=== PATIENT | female | born 2000 | race Caucasian/White ===

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

== ENCOUNTER 2021-11-25 16:19 | Outpatient (REF) | payer MEDICAID, SELFPAY ==
[2021-11-27 10:51] LABS: COVID-19 RT-PCR UVMMC Result Negative (Negative)
== END 2021-11-25 16:20 | disposition home or self-care (01) ==
LOC: LBN 16:19
PROVIDERS: Visit Provider Physician Assistant Medical
DX: J02.9 Acute pharyngitis, unspecified (principal); Z20.822 Contact with and (suspected) exposure to COVID-19
CPT/HCPCS: U0003; 87070

== ENCOUNTER 2021-12-13 12:30 | Outpatient (REF) | payer MEDICAID, SELFPAY ==
--- NOTE | 2021-12-13 11:30 | SKI_PTH ---
PATIENT: Lottie Gaines LOC: [facility] #:[id number] AGE/SX: 21/F ROOM: RE12/13/[address]: Jessee Talamantes : 2000 BED: DIS: 12/13/2021 SPEC #: [id number] RECD: 12/13/21 16:56 STATUS: AYLEEN REQ #: [id number] MEAGHAN: 12/13/21 11:[address]: Jessee Talamantes DEPT: Surgical Specimen RECD BY: Neris Patel ENTERED: 12/13/21 16:56 SP TYPE: ZULEIMA GIBBS DR: Unknown,Unknown Tissues: 1 - SKIN BIOPSY(SHAVE/PUNCH) Procedures: SKIN LEVEL 4 Comments: [id number]
--- OUTSIDE RECORDS SUMMARY | 2021-12-13 13:01 | XMS_ITS | Clinical Summary ---
:2000 Author Organization [facility] [place] [address] Care Team Providers Name Role Phone Jessee Talamantes MD Primary Care Provider Allergies No known active allergies Medications Medication Sig Dispensed Refills Start Date End Date Status Multiple Urine Tests by Misc.(Non-Drug; 100 strip 6 10/02/2011 Active Strp Combo Route) route. stripsIndications: Use to monitor urine Dysuria pH as instructed by ibuprofen Take 1 tablet by 30 tablet 0 01/21/2013 Ac tive (ADVIL;MOTRIN) 400 mouth every 8 hours. 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 04-20-03 ECHO: A moderately large membra nous VSD is largely occluded by a windsock of membranous septum and tricuspid tissue with the residual defect small, 2.6-3.0 mm diamter with restrictive left-righ t flow with maximum instantaneous pressu re gradient 67 mm Hg. 06-13-04 ECHO: membranous VSD largely occ luded by windsock of membranous septum and tricuspid tissue has small residual defect small <2 mm diameter with restrictive left-right flow with max instantaneous pressure gradient 72-74 mm Hg. 03-12-06 ECHO: Small membranous ventricu lar septal defect, partially occluded by accessory tricuspid valve tissue appears 2-3 mm diameter, with restrictive left -to- right flow with max instantaneous pressure gradient 70mm Hg. 07-09-08 ECHO: Small membranous ventricul ar septal defect appears 2-3 mm diameter with restrictive agnm-tq-nmfhc flow with max instantaneous pressure gradient 81- 82 mm Hg. 11-07-10 ECHO: Small membranous ventricul ar septal defect appears 2 mm diameter with restrictive xmbe-df-lnpdr flow with max instantaneous pressure gradient 89 mm Hg. 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 08/20/2011 Encounters Date Type Specialty Care Team Description 11/29/2021 Transcribe Orders Primary Care Jessee Talamantes MD Atypica l nevus from Last 3 Months Family History Medical History Relation Comments Cataracts Neg Hx Glaucoma Neg Hx Macular Degeneration Neg Hx Retinal Detachment Neg Hx Social History Tobacco Use Types Packs/Day Years Used Date Never Smoker Smokeless Tobacco: Never Used Comments: Mom states smokes Alcohol Use Standard Drinks/Week Comments No 0 (1 standard drink = 0.6 oz pure alcoho l) Sex Assigned at Date Recorded Not on file Last Filed Vital Signs Vital Sign Reading Time Taken Comments Blood Pressure 126/86 06/04/2015 12:49 PM EST Pulse 87 01/21/2013 12:00 PM EDT Temperature 36.9 ??C (98.5 ??F) 03/12/2013 12:49 PM EDT Respiratory Rate 20 01/21/2013 12:00 PM EDT Oxygen Saturation 99% 01/21/2013 12:00 PM EDT Inhaled Oxygen Concentration - - Weight 53.5 kg (118 lb) 06/04/2015 12:49 PM EST Height 153.7 cm (5' 0.5) 06/04/2015 12:49 PM EST Body Mass Index 22.67 06/04/2015 12:49 PM EST Plan of Treatment Upcoming Encounters Date Type Specialty Care Team Description 12/22/2021 Office Visit Plastic Surgery Russ Guevara M D [facility] [address] PLASTIC SURGERY [place], [place] [address] (Wo rk) Health Maintenance Due Date Last Done Comments Covid-19 Vaccine (#1) 2006 HPV vaccine (1 - 2-dose series) 02/23/2012 Chlamydia Screening, female 15-25 02/23/2016 HIV screen 2019 Hepatitis C Screening 2019 Tdap adult 02/23/2020 Tetanus vaccine 02/23/2020 Influenza (Flu) vaccine (1 of 1 - Influenza standard 01/19/2022 series) Insurance Payer Benefit Plan / Subscriber ID Effective Dates Phone Addre ss Type Group [place]ICAID [place] [id number] 2015-Pres [phone] [address] PRIMARY CARE ent [address] [place] [address] PL[place] [phone] Advance Directives Latest Code Status on File Code Status Date Activated Date Inactivated Comments Full Code 01/17/2013 5:00 PM 01/21/2013 4:38 PM Order Status: Initial Order Does patient have decision making capacity? Yes, Order is based on Patients wishes. Full Code 08/18/2011 12:46 PM 08/19/2011 6:57 PM Order Status: Initial Order Does patient have decision making Yes, Order is based on the parent(s) capacity? wishe(s). Care Teams Parking Technician Relationship Specialty Start Date End Date Jessee Talamantes MD PCP - General Family Medicine 11/29/21 [address] [place] [address]
--- OUTSIDE RECORDS SUMMARY | 2021-12-13 13:01 | XMS_ITS | Encounter Summary ---
:2000 Author Organization [facility] [place] [address] Care Team Providers Name Role Phone Miladis Blackmon MD Primary Care Provider Reason for Visit Reason Comments Establish Care Septated Uterus Menorrhagia Endometriosis Consultation (Routine) - Closed Specialty Diagnoses / Procedures Referred By Contact Refer red To Contact Obstetrics and Diagnoses vaginal septum Shanti Chapin MD [facility] Collection Card Clerk 5l Gynecology [address] [place], [place] [id number] [place] [phone] Phone: Fax: Referral ID Status Reason Start Date Expiration Date Visits V isits Requested Authorized [id number] Closed Consult, 04/16/2015 04/15/2016 1 1 [facility] Encounter Details Date Type Department Care Team Description 06/04/2015 Office Visit Obstetrics and Ailyn Kevin, Menorrha naima with irregular cycle; Gynecology at [facility] Chronic pelvic pain in female; [facility] Mul lerian anomaly of uterus Drive DR [place] & [phone] GYNECOLOGY [phone] [place], [place] [address] Social History Tobacco Use Types Packs/Day Years Used Date Never Smoker Smokeless Tobacco: Never Used Comments: Mom states smokes Alcohol Use Standard Drinks/Week Comments No 0 (1 standard drink = 0.6 oz pure alcoho l) Sex Assigned at Date Recorded Not on file documented as of this encounter Last Filed Vital Signs Vital Sign Reading Time Taken Comments Blood Pressure 126/86 06/04/2015 12:49 PM EST Pulse - - Temperature - - Respiratory Rate - - Oxygen Saturation - - Inhaled Oxygen Concentration - - Weight 53.5 kg (118 lb) 06/04/2015 12:49 PM EST Height 153.7 cm (5' 0.5) 06/04/2015 12:49 PM EST Body Mass Index 22.67 06/04/2015 12:49 PM EST Body Mass Index Percentile 80.59 % 06/04/2015 12:[address] Growth Chart: [facility] [place]Girls, 2-20 Years) documented in this encounter Progress Notes Ailyn Kevin MD - 06/06/2015 8:53 AM EST REPRODUCTIVE MEDICINE NEW PATIENT CONSULT NOTE [place], [place] Delmis Rodrigues MD IVF/ART Tumbler Tender MD Noé Galeana MD Judith McBean, MD Elizabeth Todd, ARNP Donna Bedard, program executive secretary [phone] Chief Complaint: 1.) 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 2.) pelvic pain 3.) Irregular Heavy Menses SUBJECTIVE: Ms. Gaines is a 15 y.o. who I am asked to consult on at the request of MILADIS BLACKMON MD for a discussion with regards to mullerian anomaly, chronic pelvic pain and heavy menses. She has a long standing problem with pelvic pain, heavy menses and bladder dysfunction. She has had multiple bladder procures including excision of bladder certification and reimplantation of right ureter. Prior to that she had been seen for hematuria and pain. While being evaluated for her bladder issues. 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 She Reports menarche at around age 10-11. Menses have been irregular and increasingly painful. On her heaviest days she frequently soaks through pads and clothing. She has recently been started on OCP to help manage menses. The pain and length of bleeding has improved somewhat but she continues to have somewhat irregular, long cycles. Bleeding can still be heavy for 1-2 days. She would like to be able to wear tampons and is therefore asking to have her vaginal septum removed. She is not sexually active. She is accompanied today by her mother and aunt. She has an MRI scheduled at 3 pm. Prior surgeries and imaging reviewed. Outpatient Prescriptions Marked as Taking for the 06/04/15 encounter (Office Visit) with Ailyn Kevin MD Medication Sig Dispense Refill ??? norgestimate-ethinyl estradiol (SPRINTEC-28) 0.25-35 mg-mcg Tablet Daily ??? naproxen sodium (ANAPROX) 550 mg Tablet q8h ??? codeine 15 mg Tablet Every 4 hours, as needed ??? ibuprofen (ADVIL;MOTRIN) 400 mg tablet Take 1 tablet by mouth every 8 hours. 30 tablet Past Medical History Diagnosis Date ??? Chronic kidney disease ??? Cataract ??? Didelphic uterus ??? Passive smoker ??? Benign bladder tumor 04/22/2012 ??? VSD (ventricular septal defect) ??? Alopecia areata 04/13/2015 Past Surgical History Procedure Laterality Date ??? Pro exc skin benig 1.1-2cm remaindr body 10/27/2010 EXC BENIGN LES, JUDY 1.1 TO 2.0CM, NECK performed by LINNEA MATA at [facility] GLEN PAIN FREE ??? Unlisted mr procedure 12/13/2010 MRI WITH ANESTHESIA performed by ASHLEE HU at [facility] GLEN PAIN FREE ??? Upper gi endoscopy, exam 08/19/2011 PEDIATRIC UPPER GI ENDOSCOPY performed by CHALINO ENAMORADO at [facility] ENDOSCOPY ??? Pro colonoscopy, diagnostic 08/19/2011 PEDIATRIC COLONOSCOPY performed by CHALINO ENAMORADO at [facility] ENDOSCOPY ??? Pro cystourethroscopy 08/18/2011 CYSTO, CYSTOURETHROSCOPY, DIAGNOSTIC performed by ALIYAH NERI at [facility] MAIN OR ??? Pro cystourethroscopy 09/01/2011 CYSTO, CYSTOURETHROSCOPY, DIAGNOSTIC performed by DENG JENKINS at [facility] OR ??? Pro colposcopy, cervix w/adj vagina 09/01/2011 COLPOSCOPY, VAGINOSCOPY\CERVIX & VAGINA performed by DENG JENKINS at [facility] OR ??? Pro inject indwell cath, ureter x-ray 09/01/2011 INJECTION PROCEDURE, URETEROGRAPHY OR URETEROPYELOGRAPHY THRU URETEROSTOMY OR URETERAL CATH performed by DENG JENKINS at [facility] OR ??? Pro lap, diagnostic abdomen 04/01/2012 LAPAROSCOPY, DIAGNOSTIC, ABDOMEN performed by EMMA WHELAN at [facility] OR ??? Pro cystourethroscopy, biopsies 04/01/2012 CYSTO, URETHROSCOPY WITH BIOPSY performed by DENG JENKINS at [facility] OR ??? Pro colposcopy, entire vagina 04/01/2012 COLPOSCOPY OF VAGINA WITH CERVIX IF PRESENT performed by DENG JENKINS at [facility] OR ??? Pro lap, dx surgical abd w/biopsy 04/01/2012 LAPAROSCOPY,SURGICAL,WITH BIOPSY, SINGLE OR MULTIPLE performed by DENG JENKINS at [facility] OR ??? Pro cystoscopy, insert ureteral stent 04/19/2012 CYSTO, STENT PLACEMENT performed by Deng Jenkins MD at [facility] OR ??? Pro part remv bladder, simple 04/19/2012 @CYSTECTOMY, PARTIAL, SIMPLE performed by Emma Whelan MD at [facility] OR ??? Pro reimplant ureter, single ureter 01/17/2013 @URETERONEOCYSTOSTOMY ANASTOMOSIS OF SINGLE URETER TO BLADDER performed by Felix Pinzon MD at [facility] OR ??? Pro cystoscopy, resect ortho ureterocele 01/17/2013 CYSTOURETHROSCOPY; W\RESECT OR FULGURATION ORTHOTOPIC URETEROCELE(S) performed by Felix Pinzon MD at [facility] OR Review of patient's allergies indicates no known allergies. History Social History ??? Marital Status: Single Spouse Name: N/A Number of Children: N/A ??? Years of Education: N/A Occupational History ??? Not on file. Social History Main Topics ??? Smoking status: Never Smoker ??? Smokeless tobacco: Never Used Comment: Mom states smokes ??? Alcohol Use: No ??? Drug Use: No ??? Sexual Activity: No Other Topics Concern ??? Not on file Social History Narrative Lives at home with her mother. Family History Problem Relation Age of Onset ??? Glaucoma Neg Hx ??? Macular Degeneration Neg Hx ??? Retinal Detachment Neg Hx ??? Cataracts Neg Hx Review of Systems General: Patient feels well; no complaints Allergy: none Respiratory: Patient denies cough, chest pain, dyspnea, wheezing or hemoptysis Cardiovascular: Patient denies chest pain, palpitations, irregular heart beat, murmur, dyspnea, orthopnea and swelling Back: chronic pain Endocrine: denies unexplained wt gain or loss, fatigue, heat or cold intolerance, galactorrhea or changes in hair OBJECTIVE: BP 126/86 mmHg Ht 153.7 cm (5' 0.5) Wt 53.524 kg (118 lb) BMI 22.66 kg/m2 LMP 06/04/2015 General: Well groomed articulate female in no apparent distress, somewhat anxious HEENT: thyroid normal size and shape, no palpable nodularity or tenderness, nor supraclavicular nodes COR: RRR without murmur Respiratory: normal Abdomen: Soft without distension, normal active bowel sounds, soft, nontender, without hepatosplenomegaly, without masses, guarding or rebound tenderness to palpation Review of US/CT and operative notes MRI pending ASSESSMENT: 1.) Mullerian anomly with Duplication of uterus, cervix and vagina 2.) Chronic pelvic pain 3.) Menorrhagia 4.) Multiple Bladder surgeries I had a 45 minute consultation visit with this patient and her family with over 30 minutes spent inface to face consultation, with regards to the nature of her medical illness, the potential treatment options including changing her OCP or using Depo provera to manage menses as well as the potential surgical options for her vaginal septum. The following issues were discussed. -chronic pelvic pain and dysmenorrhea: we discussed the possibility of endometriosis and adhesions Recommend laparoscopy at time of septum excision -DUB-Heavy: Recommended change in OCP to NE progesterone. Consider continuous use or Depoprovera tomanage menses and pain TSh and CBC for evaluation today -Uterine Duplication: very briefly discussed /fertility -vaginal Duplication: discussed excision procedure and importance of MRI information with regard tosurgical planning and possible need for removal of Hypoplastic or obstructed uterine horn We review the options for further evaluation to include: MRI , CBC and TSH. RECOMMENDATIONS: 1.) TSH and CBC today 2.) MRI today 3.) will call next week with results. documented in this encounter Plan of Treatment Upcoming Encounters Date Type Specialty Care Team Description 12/22/2021 Office Visit Plastic Surgery Russ Guevara M D [facility] DR PLASTIC SURGERY [place], [place] [address] (Wo rk) documented as of this encounter Results TSH (06/04/2015 2:21 PM EST) athologist Signature TSH 1.35 0.80 - 4.20 CERNER mcIU/mL MILLENNIUM Specimen Anatomical Collection Method Collection Time Receive d Time (Source) Location / / Volume Laterality Blood specimen 06/04/2015 2:21 PM 016 3:22 (specimen) EST PM EST Resulting Agency Comment Spec In Lab Ailyn Kevin MD CHEMISTRY ORDERABLES Performing Organization Address City/State/[place] [address] CERNER MILLENNIUM documented in this encounter Visit Diagnoses Diagnosis Menorrhagia with irregular cycle Excessive or frequent menstruation Chronic pelvic pain in female Unspecified symptom associated with fema le genital organs Mullerian anomaly of uterus Other anomalies of uterus documented in this encounter Care Teams Cotton Acreage Measurer Relationship Specialty Start Date End Date Miladis Blackmon MD PCP - General 04/12/10 11/28/21 [address] [facility] [address] documented as of this encounter
--- OUTSIDE RECORDS SUMMARY | 2021-12-13 13:01 | XMS_ITS | Encounter Summary ---
:2000 Author Organization [facility] Address [address] [place] [address] Care Team Providers Name Role Phone Unknown, Provider Primary Care Provider Encounter Details Date Type Department Care Team Description 10/14/2020 Lab Requisition [facility] Jessee Talamantes MD Encounter for other Pathology & [address] general examination Laboratory Medicine - [address] [place], [place] [address] [facility] [address] [place], [place] [id number] Social History Tobacco Use Types Packs/Day Years Used Date Never Assessed Sex Assigned at Date Recorded Not on file documented as of this encounter Plan of Treatment Not on filedocumented as of this encounter Procedures Procedure Name Priority Date/Time Associated Diagnosis Comme nts SURGICAL PATHOLOGY Today 10/13/2020 15:25 Encounter for othe r Results for this EDT general examination procedur e are in the results section. documented in this encounter Results SURGICAL PATHOLOGY (10/13/2020 15:25 EDT) Amendment Comment This is an amended report wh ich replaces the original pathology report issued on 10/15/20. This amendment is [facility] DICAL being issued to correct the patient's date of which was inadvertently entered incorrectly. There is no change to the diagnosis. [facility] Final Diagnosis A. SKIN OF NECK, LEFT, SHAVE BIOPSY: U MEDICAL - Predominantly intradermal compound nevus. [facility] Attestation By the signature [facility] Amendment below, the attending CENTER electro nically physician certifies LABORATORY signed zeeshan Baron, that they have 1) SERVICES Simona Griffin MD on personally conducted 10/16/19 21 at 1241 a gross and/or Electronicall y microscopic signed by Jose Ramon gandhi, examination of the Gaby Reynoso on described 10/15/2020 at 09 04 specimen(s), and/or personally interpreted the results of laboratory testing of the described specimen(s), and 2) personally rendered or confirmed the above diagnosis. Clinical History Nevus L neck; color [facility] LABORATORY SERVICES Gross Description A. [facility] Received in formalin corbin d with proper patient identification (initials F, H) and mole L neck is a portion of isaacs-brown bosselated granular skin (0.9 x 0.6 x 0.4 cm). The margin is inked blue. The CENTER tissue is trisected and entirely submitted in A1. LABORATORY SERVICES SHERRY NORMAN(ASC) 10/14/2020 16:17 Performing Lab [facility] Scanned Images [facility] Specimen Tissue - Skin (tissue) specimen (specime n) Performing Organization Address City/State/ZIP Code Phon e Number [facility] [address] [place] [address] SERVICES documented in this encounter Visit Diagnoses Diagnosis Encounter for other general examination documented in this encounter Care Teams Slubber Tender Relationship Specialty Start Date End Date Unknown, Provider, PCP - General 09/16/15 documented as of this encounter
--- OUTSIDE RECORDS SUMMARY | 2021-12-13 13:01 | XMS_ITS | Encounter Summary ---
:2000 Author Organization [facility] [place] [address] Care Team Providers Name Role Phone Miladis Blackmon MD Primary Care Provider Reason for Visit Reason Comments Alopecia Skin Lesion Encounter Details Date Type Department Care Team Description 04/13/2015 [facility] skin; [facility] Alopecia areata; [address] Other [place] [address] [place] [address] RD-DERMATOLOGY [place] [address] Social History Tobacco Use Types Packs/Day Years Used Date Never Smoker Smokeless Tobacco: Never Used Comments: Mom states smokes Alcohol Use Standard Drinks/Week Comments No 0 (1 standard drink = 0.6 oz pure alcoho l) Sex Assigned at Date Recorded Not on file documented as of this encounter Patient Instructions Patient InstructionsMeet Jhaveri - 04/13/2015 9:07 AM EST Plan for Lottie: -Apply Clobetasol 0.05% solution to affected areas of scalp. documented in this encounter Progress Notes Nona Viveros LPN - 04/13/2015 8:17 AM EST DERMATOLOGY NEW PATIENT CLINIC NOTE Date of service: 04/13/2015 Lottie Gaines : 2000 Provider: Jennie Lemus MD PROBLEM: alopecia HPI Ms. Gaines is a 15 y.o. year old female . New patient; self-referred.Here today with her mom (leonie) for several small lesions on her scalp and a quarter sized area on her right side of her scalp withhair loss. This spot started within the last 6 months and has slowly gotten larger. She is also concerned with several brown papules that she would like to discuss removing. ADR: Review of patient's allergies indicates no known allergies. MEDS: Current Outpatient Prescriptions on File Prior to Visit Medication Sig Dispense Refill ??? doxazosin (CARDURA) 1 mg tablet Take 0.5 tablets by mouth nightly. 60 tablet 6 ??? ibuprofen (ADVIL;MOTRIN) 400 mg tablet Take 1 tablet by mouth every 8 hours. 30 tablet ??? oxybutynin (DITROPAN) 5 mg tablet Take 1 tablet by mouth 3 times daily. 180 tablet 3 ??? nitrofurantoin, macrocrystal-monohydrate, (MACROBID) 100 mg capsule Take 1 capsule by mouth daily. Only after you finish augmentin 90 tablet 0 ??? senna-docusate (PERICOLACE) 8.6-50 mg per tablet Take 2 tablets by mouth 2 times daily. 60 tablet 11 ??? Multiple Urine Tests Strp strips by [facility]Non-Drug; Combo Route) route. Use to monitor urine pH as instructed by 100 strip 6 No current facility-administered medications on file prior to visit. ROS General: feeling well Skin: denies other skin complaints EXAM General: NAD, pleasant, cooperative Skin: A focused exam of the scalp and neck was performed. Significant skin findings: A. Right temporal scalp x1, vertex of scalp x1: round spots of alopecia B. Right neck: 1.0 cm dark brown plaque [Specimen A] C. Left scalp: 1.2 cm pink brown plaque [Specimen B] D. Left anterior scalp: triangular alopecia ASSESSMENT/PLAN: A. Alopecia areata - Some regrowth - Start: RX Clobetasol 0.05% solution B. Nevus r/o atypia - Frequently traumatized Procedure: Skin biopsy by shave technique Location: Right neck [Specimen A] Discussed indications for procedure and expectations including risks and benefits. Verbal consent obtained. Skin prep with alcohol. Local anesthesia with 1% xylocaine, 1/100,000 epinephrine, 0.1 mEq/mLbicarbonate. A sample of the lesion was removed by shave technique to the level of the dermis and submitted to Pathology. Hemostasis obtained (AlCl and/or electrocautery). There were no complications; the pt. tolerated the procedure well. The wound was dressed. Post-procedure expectations, wound care and activity restrictions were reviewed. Follow-up based on pathology results. C. Nevus r/o atypia - Frequently traumatized Procedure: Skin biopsy by shave technique Location: Left scalp [Specimen B] Discussed indications for procedure and expectations including risks and benefits. Verbal consent obtained. Skin prep with alcohol. Local anesthesia with 1% xylocaine, 1/100,000 epinephrine, 0.1 mEq/mLbicarbonate. A sample of the lesion was removed by shave technique to the level of the dermis and submitted to Pathology. Hemostasis obtained (AlCl and/or electrocautery). There were no complications; the pt. tolerated the procedure well. The wound was dressed. Post-procedure expectations, wound care and activity restrictions were reviewed. Follow-up based on pathology results. D. Triangular alopecia - Patient reassured. RTC: will call in 6 weeks if no improvement I am documenting this encounter acting as the scribe for and in the presence of Dr. Lemus. AMANDA Bee I performed the above scribed service and agree with the accuracy of the documentation in this encounter. Jennie Lemus MD Section of Dermatology [facility] documented in this encounter Plan of Treatment Upcoming Encounters Date Type Specialty Care Team Description 12/22/2021 Office Visit Plastic Surgery Russ Guevara M D [facility] PLASTIC SURGERY [place], [place] [address] (Wo rk) documented as of this encounter Procedures Procedure Name Priority Date/Time Associated Diagnosis Comme nts SPECIMEN TO Routine 04/13/2015 9:22 AM Neoplasm of Results f or this PATHOLOGY (NON-OR) EST uncertain behavior pro cedure are in of skin the results section. SURGICAL PATHOLOGY Routine 04/13/2015 9:22 AM Res ults for this REPORT EST procedure are i n the results section. documented in this encounter Results Surgical Pathology Report (04/13/2015 9:22 AM EST) [facility] Method Time Signature Surgical The signing pathologist has (i) examined the relevant preparation(s) for the [facility] Pathology specimen(s) and (ii) rendered or confirmed the diagnosis(e s). [facility] Report Accession Number: [id number] ? Location: M . ?Surgic al Pathology DIAGNOSIS A - Skin, right neck, shave biopsy: - COMPOUND MELANOCYTIC NEVUS WITH CONGENITAL FEATURES, extending to the deep specimen edge B - Skin, left scalp, shave biopsy: - COMPOUND MELANOCYTIC NEVUS WITH CONGENITAL FEATURES, traumatized, transected, see Discussion. CR-0 04/14/15 [facility] 04/16/15 Verified by: ? Irving Hwang MD ?Dermatopathologist, Bone & Soft Tissue Pathologist ?(Electronic Signature ) The attending pathologist whose signature appears on this re port has reviewed all diagnostic slides and has edited the gross and/ or microscopic portion of the report in andrei dering the final pathologic diagnosis. DISCUSSION B - This lesion has features frequently seen at the scalp of young individuals. CLINICAL INFORMATION Specimen Submitted: A - Skin,right neck, shave biopsy (1) B - Skin, left scalp, shave biopsy (1) Clinical History: A - 1 cm dark brown plaque B - 1.2 cm pink brown plaque Clinical Diagnosis: A - Nevus, rule out atypia B - Nevus, rule out atypia, frequently traumatized SPECIMEN PROCESSING A - Labeled/Fixative: A-neck (right), formalin. Quantity/Size: Single, 0.9 x 0.8 x 0.3 cm. Tissue Description: Shave of a rubbery, granular isaacs-brown p apule. Sections/Processing: Inked and trisected. (T1) B - Labeled/Fixative: B-scalp (left), formalin. Quantity/Size: Single, 0.9 x 0.8 x 0.1 cm. Tissue Description: Irregular shave of isaacs-white hair-bearin g skin. Sections/Processing: Inked and quadrisected. (T1) ??ejr Specimen (Source) Anatomical Collection Method Collection Time Re ceived Time Location / / Volume Laterality 04/13/2015 9:22 AM EST Jennie Lemus MD PATHOLOGY/CYTOLOGY ORDERABLE S Performing Organization Address City/State/[place] [address] [facility] Specimen to Pathology (NON-OR) (04/13/2015 9:22 AM EST) Specimen Anatomical Collection Method Collection Time Receive d Time (Source) Location / / Volume Laterality AP Specimen 04/13/2015 9:22 AM 5 1:03 EST PM EST Narrative CERNER MILLENNIUM - 04/13/2015 1:[address] Specimen requisition ordered. ??Separate Pathology report to follow Resulting Agency Comment Spec In Lab Jennie Lemus MD PATHOLOGY/CYTOLOGY ORDERABLE S Performing Organization Address City/State/[place] [address] [employer] documented in this encounter Visit Diagnoses Diagnosis Neoplasm of uncertain behavior of skin Alopecia areata Other alopecia areata documented in this encounter Care Teams Music Leader Relationship Specialty Start Date End Date Miladis Blackmon MD PCP - General 04/12/10 11/28/21 [address] [place] [address] documented as of this encounter
--- OUTSIDE RECORDS SUMMARY | 2021-12-13 13:01 | XMS_ITS | Encounter Summary ---
:2000 Author Organization [facility] [place] [address] Care Team Providers Name Role Phone Miladis Blackmon MD Primary Care Provider Encounter Details Date Type Department Care Team Description 06/04/2015 [facility] Menorrhagia [place] [id number] Social History Tobacco Use Types Packs/Day Years Used Date Never Smoker Smokeless Tobacco: Never Used Comments: Mom states smokes Alcohol Use Standard Drinks/Week Comments No 0 (1 standard drink = 0.6 oz pure alcoho l) Sex Assigned at Date Recorded Not on file documented as of this encounter Plan of Treatment Upcoming Encounters Date Type Specialty Care Team Description 12/22/2021 Office Visit Plastic Surgery Russ Guevara M D [facility] PLASTIC SURGERY [place], [place] [address] (Wo rk) documented as of this encounter Procedures Procedure Name Priority Date/Time Associated Diagnosis Comme nts HEMOGRAM Routine 06/04/2015 2:21 PM Menorrhagia with Resul ts for this EST irregular cycle procedure ar e in the results section. DIFFERENTIAL, Routine 06/04/2015 2:21 PM Menorrhagia with Resu lts for this AUTOMATED EST irregular cycle procedure ar e in the results section. CBC (WITH DIFF) Routine 06/04/2015 2:21 PM Menorrhagia with EST irregular cycle TSH Routine 06/04/2015 2:21 PM Menorrhagia with Resul ts for this EST irregular cycle procedure ar e in the results section. BASIC METABOLIC Routine 06/04/2015 2:21 PM Duplicated Result s for this PANEL (NON-FASTING) EST collecting system pro cedure are in the results section. documented in this encounter Results Differential, Automated (06/04/2015 2:21 PM EST) athologist Signature Neutrophils % 69.1 % CERNER MILLENNIUM Neutr Abs (ANC) 6.58 1.50 - CERNER 8.00 MILLENNIUM x10(3)/mcL Lymphocytes % 21.7 % CERNER MILLENNIUM Lymphocytes Abs 2.1 1.2 - 5.2 CERNER x10(3)/mcL MILLENNIUM Monocytes % 4.6 % CERNER MILLENNIUM Monocyte Abs 0.4 0.2 - 1.0 CERNER x10(3)/mcL MILLENNIUM Eosinophils % 4.2 % CERNER MILLENNIUM Eosinophils Abs 0.4 0.0 - 0.5 CERNER x10(3)/mcL MILLENNIUM Basophils % 0.2 % CERNER MILLENNIUM Basophils Abs 0.0 0.0 - 0.2 CERNER x10(3)/mcL MILLENNIUM Immature Gran % 0.20 % CERNER MILLENNIUM Comment: Immature granulocytes(IG's)percentage an d absolute count will include metamyelocytes, myelocytes, and promyelo cytes. Blood smears from CBCs yielding IG's will be scanned manually for concor dance. If this scan disagrees with the automated IG or if promyelocytes are not ed, a manual differential will be performed. Conchita Gran Abs 0.02 0.00 - 0.05 x10(3)/mcL CER NER MILLENNIUM Specimen Anatomical Collection Method Collection Time Receive d Time (Source) Location / / Volume Laterality Blood specimen 06/04/2015 2:21 PM 016 3:22 (specimen) EST PM EST Resulting Agency Comment Spec In Lab Ailyn Kevin MD HEMATOLOGY ORDERABLES Performing Organization Address City/State/[place] [address] CERNER MILLENNIUM Hemogram (06/04/2015 2:21 PM EST) athologist Signature WBC 9.5 4.5 - 13.0 CERNER x10(3)/mcL [facility] RBC 4.66 4.10 - 5.10 CERNER x10(6)/mcL [facility] Hemoglobin 13.3 12.0 - 16.0 CERNER gm/dL [facility] Hematocrit 38.5 36.0 - 46.0 CERNER % [facility] MCV 82.6 76.0 - 98.0 CERNER fL [facility] MCH 28.5 25.0 - 35.0 CERNER pg [facility] MCHC 34.5 32.0 - 36.5 CERNER gm/dL [facility] Platelets 240 145 - 370 CERNER x10(3)/mcL MILLENNIUM RDWSD 40.5 35.0 - 46.0 CERNER fL [facility] RDWCV 13.5 10.9 - 14.4 CERNER % [facility] MPV 10.3 9.0 - 12.0 CERNER fL [facility] Specimen Anatomical Collection Method Collection Time Receive d Time (Source) Location / / Volume Laterality Blood specimen 06/04/2015 2:21 PM 016 3:22 (specimen) EST PM EST Resulting Agency Comment Spec In Lab Ailyn Kevin MD HEMATOLOGY ORDERABLES Performing Organization Address City/[facility]/ZIP Code Phon e Number [address] [facility] TSH (06/04/2015 2:21 PM EST) athologist [facility] TSH 1.35 0.80 - 4.20 CERNER mcIU/mL [facility] Specimen Anatomical Collection Method Collection Time Receive d Time (Source) Location / / Volume Laterality Blood specimen 06/04/2015 2:21 PM 016 3:22 (specimen) EST PM EST Resulting Agency Comment Spec In Lab Ailyn Kevin MD CHEMISTRY ORDERABLES Performing Organization Address City/[facility] Code Phon e Number [address] [facility] Basic Metabolic Panel (non-fasting) (06/04/2015 2:21 PM EST) athologist [facility] Glucose Lvl 84 65 - 199 CERNER mg/dL MILLENNIUM Comment: Diabetes: >=200 mg/dL plus symp toms BUN 11 10 - 20 mg/dL CERNER MILLENNIU M Creatinine 0.69 0.20 - 0.70 mg/dL CERNER MILL ENNIUM Comment: Please note that the pediatric reference intervals supplied above were not validated at [facility]. Results from pediatri c patients should be interpreted in conjunction to the patient's age, height and muscle mass. Sodium 143 135 - 145 mmol/L CERNER KAIN NIUM Potassium 4.1 3.5 - 5.0 mmol/L CERNER KAIN NIUM Comment: Please note: ??Patients with WBC >100,00 0 may have falsely elevated Potassium levels. ??For accurate Potassium quantif ication in these patients send serum separator tube (gold top) for subsequent determinations. ??Contact the Clinical Chemistry Laboratory if there are any qu estions. Chloride 104 98 - 107 mmol/L CERNER MILLENN IUM CO2 25 22 - 31 mmol/L CERNER MILLENNI UM Anion Gap 14 5 - 15 mmol/L CERNER MILLENNIU M Calcium 9.4 8.5 - 10.5 mg/dL CERNER KAIN NIUM Estimated GFR See note >=60 CERNER MILLENNIU M Comment: Calculated GFR not appropriate for patie nts less than 18 years of age. This estimated GFR (eGFR) value was calc ulated using the MDRD equation which has been validated on patients between t he ages of 18 and 70. The MDRD should not be used to assess kidney function in patients < 18 years of age or in patients with extremes of body mass, or in patients with acute kidney failure. This value should be multiplied by 1.2 f or patients. For further information please copy and past e the following links into your internet browser. 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
--- OUTSIDE RECORDS SUMMARY | 2021-12-13 13:01 | XMS_ITS | Encounter Summary ---
:2000 Author Organization [facility] Address [address] [place] [address] Care Team Providers Name Role Phone Miladis Blackmon MD Primary Care Provider Unknown, Provider Primary Care Provider Encounter Details Date Type Department Care Team Description 09/14/2004 Hospital Encounter [facility] - Symone Chinchilla, Pari MD [address] [facility] [address] [place], [place] [id number] [place] [address] [place] [address] (Wo rk) Social History Tobacco Use Types Packs/Day Years Used Date Never Assessed Sex Assigned at Date Recorded Not on file documented as of this encounter Plan of Treatment Not on filedocumented as of this encounter Visit Diagnoses Not on filedocumented in this encounter Care Teams High School Combination Teacher Relationship Specialty Start Date End Date Miladis Blackmon MD PCP - General 03/25/15 09/15/[address] [place] [phone] Unknown, Provider, PCP - General 09/16/15 documented as of this encounter
--- OUTSIDE RECORDS SUMMARY | 2021-12-13 13:01 | XMS_ITS | Encounter Summary ---
:[address] [facility] Address [address] [place] [address] Care Team Providers Name Role Phone Unavailable Primary Care Provider Unavailable Encounter Details Date Type Department Care Team Description 09/13/2004 Results Only [facility] Satya Garcia MD Pediatric Genetics - [address] [place] [phone] (Wo rk) Social History Tobacco Use Types Packs/Day Years Used Date Never Assessed Sex Assigned at Date Recorded Not on file documented as of this encounter Plan of Treatment Not on filedocumented as of this encounter Procedures Procedure Name Priority Date/Time Associated Diagnosis Comme nts CYTOGENETICS Routine 09/13/2004 0:00 EDT Results for this procedure are i n the results section . documented in this encounter Results CYTOGENETICS (09/13/2004 0:00 EDT) Pathology Report: CYTOGENETICS REPORT [facility] Reports generated via electronic interface contain lalo ginal data; however they are lacking the format of the original re port. Caution should be taken when reading/interpreting unfo rmatted reports. Name: ? LOTTIE GAINES ? Accession #: ? [id number] : ? 2000 (Age: 4) ??F ?Collect Date: ? 0410/2004 Location: ? [facility] ? Receive Date : ? 09/14/2004 Provider: ? WARREN GARCIA MD Copy to: ?VERONICA QUESADA MD ? INTERPRETATION: ? Normal female karyoty pe ??No deletion or duplication of the 22q11.2 region by FISH. ? Document reviewed and electronically signed by: ? VERONICA QUESADA MD ? Report Date: ??10/10/2004 17:05 CLINICAL HISTORY: ? VSD, speech delay ?clinical diagnosis code: ??759.7, 315.5 SPECIMEN: ? Peripheral Blood ?? TEST PERFORMED: ? G-banded Karyotype and FISH with Vysis pr obe kit to detect the 22q11.2 region associated with DiGeorge/VCFS ?? REPORT: ? No. Cells Counted: ??23 No. Cells Analyzed: ??13 No. Cells Karyotyped: ??8 Band Resolution: ??600 ?No. Cells Evaluated by FISH: ? Metaphase: 10 ?Interphase: 100 ?? KARYOTYPE: ? 46,XX.ke 22q11(TUPLE 1x2) ?? COMMENT: ?This test was devfuad loped and its performance characteristics determined by [facility] as required by the CLIA' 88 regulations. ??It has not been cleared or approved for specific uses by the [place] F DA. ??The FDA has determined that such clearance or approval is not necessary. ??This test is used for clinical purposes. ??It should not be regarded as investigational or research. ??Pursuant to the requirements of CLIA' 88, this laboratory has established and verified the test' s accuracy and precision. ?? End of Report Specimen Performing Organization Address City/State/ZIP Code Phon e Number [facility] [address] [place] [address] SERVICES [facility] [address] [place] [phone] documented in this encounter Visit Diagnoses Not on filedocumented in this encounter
--- OUTSIDE RECORDS SUMMARY | 2021-12-13 13:01 | XMS_ITS | Encounter Summary ---
:2000 Author Organization [facility] [place] [address] Care Team Providers Name Role Phone Miladis Blackmon MD Primary Care Provider Encounter Details Date Type Department Care Team Description 12/19/2013 Telephone Pediatric Urology at [facility] [place] [place] [phone] Social History Tobacco Use Types Packs/Day Years Used Date Never Smoker Smokeless Tobacco: Never Used Comments: Mom states smokes Alcohol Use Standard Drinks/Week Comments No 0 (1 standard drink = 0.6 oz pure alcoho l) Sex Assigned at Date Recorded Not on file documented as of this encounter Miscellaneous Notes Telephone Encounter - Angeles De Santiago - 12/19/2013 9:48 AM EDT Tried to l/m for family to call and schedule Oct reminder f/u appt w/ [facility]. Mailbox was full and hungup on me/couldn't l/m. Will send a reminder letter out to family instead. Needs f/u w/ [facility] w/ [facility] prior. Try to book appt before 03/12 as U/S will after that date and a new order will need to be placed. documented in this encounter Plan of Treatment Upcoming Encounters Date Type Specialty Care Team Description 12/22/2021 Office Visit Plastic Surgery Russ Guevara M D [facility] PLASTIC SURG[place], [place] [address] (Wo rk) documented as of this encounter Visit Diagnoses Not on filedocumented in this encounter Care Teams Compositor Apprentice Relationship Specialty Start Date End Date Miladis Blackmon MD PCP - General 04/12/10 11/28/21 [address] [place] [address] documented as of this encounter
--- OUTSIDE RECORDS SUMMARY | 2021-12-13 13:01 | XMS_ITS | Encounter Summary ---
:[address] [facility] Address [address] [place] [address] Care Team Providers Name Role Phone Unknown, Provider Primary Care Provider Encounter Details Date Type Department Care Team Description 11/26/2021 Lab Requisition [facility] Outr Resulting Lab, Pathology & Laboratory Provider [facility] [address] [place], [place] [address] Social History Tobacco Use Types Packs/Day Years Used Date Never Assessed Sex Assigned at Date Recorded Not on file documented as of this encounter Plan of Treatment Not on filedocumented as of this encounter Procedures Procedure Name Priority Date/Time Associated Diagnosis Comme nts COVID[facility]19 [facility] Today 11/25/2021 16:00 LAB PCR EDT COVID-19 TESTING Routine 11/25/2021 16:00 Results for this EDT procedure are i n the results section. documented in this encounter Results COVID-19 TEST [facility] PCR (11/25/2021 16:00 EDT) Specimen Swab Performing Organization Address City/State/ZIP Code Phon e Number [facility] [address] [place] [address] SERVICES COVID-19 TESTING (11/25/2021 16:00 EDT) COVID-19 rt-PCR Negative Negative [facility] Result Comment: [facility] This test has not been FDA c leared or approved. This test has been authorized by FDA under an EUA for use by authorized laboratories. This test has been authorized only for detection of nucleic acid fro SERVICES m 2018-nCo, not for any oth er viruses or pathogens. This test is only authorized for the duration of the declaration that circumstances exist justifying the authorization of emergency use of in vitro d iagnostic tests for detectio n and/or diagnosis of 2019-nCoV under section 564(b)(1) of Act, 21 U.S.C ?? 360bbb-3(b) (1), unless the authorization is terminated or revoked sooner. Negative results do not prec lude 2019-nCoV infection and should not be used as the sole basis for treatment or other patient management decisions. Negative results must be combined with clinical observa tions, patient history, and epidemiological informatio n. Testing was performed using the alicia SARS-CoV-2 assay ([employer] on the Alicia 6800 System Performing Lab Alicia 68[address] [facility] SERVICES Specimen Swab Performing Organization Address City/State/ZIP Code Phon e Number [facility] [address] [place] [address] SERVICES documented in this encounter Visit Diagnoses Not on filedocumented in this encounter Care Teams Stem Cutter Relationship Specialty Start Date End Date Unknown, Provider, PCP - General 09/16/15 documented as of this encounter
--- OUTSIDE RECORDS SUMMARY | 2021-12-13 13:01 | XMS_ITS | Clinical Summary ---
:2001 Author Organization [facility] Address [address] [place] [address] Care Team Providers Name Role Phone Unknown, Provider Primary Care Provider Encounters Date Type Specialty Care Team Description 11/26/2021 Lab Requisition Clinical Laboratory Outr Resulting Lab , Provider from Last 3 Months Social History Tobacco Use Types Packs/Day Years Used Date Never Assessed Sex Assigned at Date Recorded Not on file Plan of Treatment Health Maintenance Due Date Last Done Comments Social Determinants Of Health (SDOH) 2001 HPV Vaccines (1 - 2-dose series) 02/23/2012 Behavioral Health Screen 2013 Chlamydia Screening 2017 HIV Screening 2017 Advance Directive 2019 Lipid Profile Screening (Cholesterol) 18 To 21 2019 Preventive Care Visit 2019 Pertussis (Adult) Immunization 02/23/2020 Tetanus (Adult) Immunization 02/23/2020 Influenza Immunization (Adult) (Season Ended) 2021 Procedures Procedure Name Priority Date/Time Associated Diagnosis Comme nts COVID-19 TEST [facility] Today 11/25/2021 16:00 LAB PCR EDT COVID-19 TESTING Routine 11/25/2021 16:00 Results for this EDT procedure are i n the results section. from Last 3 Months Results COVID-19 TEST [facility] PCR (11/25/2021 16:00 EDT) Specimen Swab Performing Organization Address City/State/ZIP Code Phon e Number [facility] [address] [place] [address] SERVICES COVID-19 TESTING (11/25/2021 16:00 EDT) COVID-19 rt-PCR Negative Negative [facility] Result Comment: [facility] This test has not been FDA c leared or approved. This test has been authorized by FDA under an EUA for use by authorized laboratories. This test has been authorized only for detection of nucleic acid fro SERVICES m 2019-nCoV, not for any oth er viruses or [...] was performed using the alicia SARS-CoV-2 assay ([employer] on the Alicia 6800 System Performing Lab Alicia [address] [facility] Lab [facility] SERVICES Specimen Swab Performing Organization Address City/State/ZIP Code Phon e Number [facility] [address] [place] [address] SERVICES from Last 3 Months Insurance Payer Benefit Plan / Subscriber ID Effective Phone Address T ype Group Dates [place]ICAID [id number] 2020-Pres [address] [facility] [id number] Lottie Gaines Personal/Family Self [address] (Home) [place] [address] Lottie Gaines Personal/Family Self [address] (Home) [place] [address] Lottie Gaines Personal/Family Self [address] (Home) [place] [address] Lottie Gaines Personal/Family Self [address] (Home) [place] [address] Care Teams Osteopathic Neurologist Relationship Specialty Start Date End Date Unknown, Provider, PCP - General 09/16/15
--- OUTSIDE RECORDS SUMMARY | 2021-12-13 13:01 | XMS_ITS | Encounter Summary ---
:2001 Author Organization [facility] [place] [address] Care Team Providers Name Role Phone Miladis Blackmon MD Primary Care Provider Reason for Referral Diagnostic Test (Routine) - Closed Specialty Diagnoses / Procedures Referred By Contact Refer red To Contact Radiology Diagnoses Mullerian anomaly of uterus Veena Hansen APRN [facility] Rad Mri Procedures MRI Pelvis WO Contrast MRI Pelvis With/WO Contrast [facility] [place] [address] [place] [address] Referral ID Status Reason Start Date Expiration Date Visits V isits Requested Authorized [id number] Closed Specialty 06/03/2015 06/02/2016 1 1 Service Requested Encounter Details Date Type Department Care Team Description 05/20/2015 Orders Only Obstetrics and Veena Hansen Mulleri an anomaly of Gynecology at [facility] ENTRY LEVEL ASSISTANT MANAGER uterus [facility] [address] [place], [place] VASCULAR SURGERY [address] [place] [address] [phone] (Wo rk) Social History Tobacco Use Types [...] Visit Plastic Surgery Russ Guevara M D [facility] PLASTIC SURGERY [place], [place] [address] (Wo rk) documented as of this encounter Results MRI Pelvis WO Contrast (06/04/2015 4:34 PM EST) Anatomical Region Laterality Modality Pelvis Magnetic Resonance Specimen (Source) Anatomical Location Collection Method / Collectio n Time Received Time / Laterality Volume Impressions 06/05/2015 3:35 PM EST IMPRESSION: 1. 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 Correlate with physical exam. 2. 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 ?? 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 FINDINGS: Uterus: There are 2 endometrial cavities , 2 cervices and there appears to be a least partially septated or duplicated v agina. The horns of the uterus are widely splayed. The myometrium and endom etrial cavities are otherwise unremarkable. Ovaries: The right ovary measures 2.3 x 1.4 cm. The left ovary measures 3.2 x 2.0 cm. Both ovaries have normal appeari ng follicles. No pelvic free fluid is present. No osse ous abnormalities are identified. On the coronal images, there is mild hyd ronephrosis involving the upper pole of the right kidney as seen on prior ultras ounds. Procedure Note Simona Royal MD - 06/05/2015 EXAMINATION: MRI PELVIS WO CONTRAST CLINICAL HISTORY: uterine didelphys efren erian anomaly, needs mullerian protocol, evaluate uterus, ureters COMPARISON: Ultrasound from 11/17/2008 TECHNIQUE: Noncontrast MRI of the pelvis was performed using female pelvis protocol. FINDINGS: Uterus: There are 2 endometrial cavities , 2 cervices and there appears to be a least partially septated or duplicated v agina. The horns of the uterus are widely splayed. The myometrium and endom etrial cavities are otherwise unremarkable. Ovaries: The right ovary measures 2.3 x 1.4 cm. The left ovary measures 3.2 x 2.0 cm. Both ovaries have normal appeari ng follicles. No pelvic free fluid is present. No osse ous abnormalities are identified. On the coronal images, there is mild hyd ronephrosis involving the upper pole of the right kidney as seen on prior ultras ounds. IMPRESSION IMPRESSION: 1. 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 Correlate with physical exam. 2. 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 I have personally reviewed the image(s) and the residents interpretation and agree with the findings, Simona Royal at 3:35 PM Avril Washington MD IMG MRI ORDERABLES documented in this encounter Visit Diagnoses Diagnosis Mullerian anomaly of uterus Other anomalies of uterus Mullerian anomaly of uterus Other anomalies of uterus documented in this encounter Care Teams Baker Pie Relationship Specialty Start Date End Date Miladis Blackmon MD PCP - General 04/12/10 11/28/21 [address] [place] [address] documented as of this encounter
--- OUTSIDE RECORDS SUMMARY | 2021-12-13 13:01 | XMS_ITS | Encounter Summary ---
:2001 Author Organization [facility] [place] [address] Care Team Providers Name Role Phone Miladis Blackmon MD Primary Care Provider Encounter Details Date Type Department Care Team Description 06/20/2013 Telephone Pediatric Urology at [facility] [place] [address] Social History Tobacco Use Types Packs/Day Years Used Date Never Smoker Smokeless Tobacco: Never Used Comments: Mom states smokes Alcohol Use Standard Drinks/Week Comments No 0 (1 standard drink = 0.6 oz pure alcoho l) Sex Assigned at Date Recorded Not on file documented as of this encounter Miscellaneous Notes Telephone Encounter - Angeles De Santiago - 06/20/2013 4:28 PM EST Mom called to schedule a missed f/u appt from Mar. Notes say BP CHECK. Spoke w/ Dr. Pinzon today and he said it was ok to have that done at the PCP along w/ the UA/UC and would like to see her back in 1yr from last visit w/ U/S. (Feb of this year, 2013) Mom is going to have her go to PCP on Sunday for the studies requested and I'm putting in an February reminder in the system. documented in this encounter Plan of Treatment Upcoming Encounters Date Type Specialty Care Team Description 12/22/2021 Office Visit Plastic Surgery Russ Guevara M D [facility] PLASTIC SURGERY [place], [place] [address] (Wo rk) documented as of this encounter Visit Diagnoses Not on filedocumented in this encounter Care Teams Elementary Educator Relationship Specialty Start Date End Date Miladis Blackmon MD PCP - General 04/12/10 11/28/21 [address] [place] [address] documented as of this encounter
--- OUTSIDE RECORDS SUMMARY | 2021-12-13 13:01 | XMS_ITS | Encounter Summary ---
:2001 Author Organization [facility] Address [address] [place] [address] Care Team Providers Name Role Phone Unknown, Provider Primary Care Provider Encounter Details Date Type Department Care Team Description 11/02/2020 Lab Requisition [facility] Jessee Tlaamantes MD Encounter for other Pathology & [address] general examination Laboratory Medicine - [address] [place], [place] [address] [facility] [address] [place], [place] [address] Social History Tobacco Use Types Packs/Day Years Used Date Never Assessed Sex Assigned at Date Recorded Not on file documented as of this encounter Plan of Treatment Not on filedocumented as of this encounter Procedures Procedure Name Priority Date/Time Associated Diagnosis Comme nts SURGICAL PATHOLOGY Today 11/01/2020 17:00 Encounter for othe r Results for this EDT general examination procedur e are in the results section. documented in this encounter Results SURGICAL PATHOLOGY (11/01/2020 17:00 EDT) Final Diagnosis A. SKIN OF STERNUM, EXCISION: [facility] - Melanocytic nevus, compound type. CENTE R - Margins negative for melanocytic nevus. LABORATORY SERVICES Attestation By the signature [facility] Electronica lly below, the attending CENTER signed by [place] physician certifies LABORATORY Constance Cordon MD on that they have 1) SERVICES 11/03/2020 at 1137 personally conducted a gross and/or microscopic examination of the described specimen(s), and/or personally interpreted the results of laboratory testing of the described specimen(s), and 2) personally rendered or confirmed the above diagnosis. Microscopic Sections are of a [facility] Description pedunculated papule. CENTER The epidermis is LABORATORY hyperplastic with SERVICES accentuation of the rete architecture and formation of horn pseudocysts. The papule is formed by a circumscribed and symmetric compound proliferation of melanocytes. The junctional component consists primarily of nests. The nests are generally small but vary to a mild degree in shape. The melanocytes are slightly enlarged but have relatively uniform round-oval nuclei and a moderate amount of cytoplasm containing melanin pigment. The dermal component consists of nests, cords, and strands of similar melanocytes showing mix technician maturation with descent. Clinical History Mole excision sternum [facility]ORATORY SERVICES Gross Description [facility]. [facility] Received in formalin corbin d with proper patient identification (initials F, H) and mole excision-sternum is a nonoriented elliptical skin, 1.8 x 0.8 cm and excised to depth of 0.3 cm. The central sk CENTER in surface shows a dusky bro wn nodule, 1.0 x 1.0 x 0.6 cm. The remaining skin is pale isaacs. The margin is inked. Serially sectioned and entirely submitted as follows: LABORATORY SERVICES BLOCK DARLING A1- tips, reverse en face A2-A3- 4 central sections SHERRY BUTLER(ASCP) 11/02/2020 16:24 Performing Lab [facility] LAB [facility] LABORATORY SERVICES Scanned Images [facility] LABORATORY SERVICES Specimen Tissue - Skin (tissue) specimen (specime n) Performing Organization Address City/State/ZIP Code Phon e Number [facility] [address] [place] [address] SERVICES documented in this encounter Visit Diagnoses Diagnosis Encounter for other general examination documented in this encounter Care Teams Enterprise Services Manager Relationship Specialty Start Date End Date Unknown, Provider, PCP - General 09/16/15 documented as of this encounter
--- OUTSIDE RECORDS SUMMARY | 2021-12-13 13:01 | XMS_ITS | Encounter Summary ---
:2001 Author Organization [facility] [place] [address] Care Team Providers Name Role Phone Mliadis Blackmon MD Primary Care Provider Encounter Details Date Type Department Care Team Description 09/03/2014 Orders Only Pediatric Nephrology Sandra Pimentel D uplicated collecting at [facility] MD system [facility] [place] [address] PEDIATRIC [phone] NEPHROLOGY [place], [place] [address] Social History Tobacco Use Types Packs/Day Years [...] Visit Plastic Surgery Russ Guevara M D [facility] PLASTIC SURGERY [place], [place] [address] (Wo rk) documented as of this encounter Visit Diagnoses Diagnosis 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
--- OUTSIDE RECORDS SUMMARY | 2021-12-13 13:01 | XMS_ITS | Encounter Summary ---
:2001 Author Organization [place] [address] Care Team Providers Name Role Phone Miladis Blackmon MD Primary Care Provider Reason for Visit Reason Comments Other Encounter Details Date Type Department Care Team Description 06/29/2015 Telephone Obstetrics and Gynec ology at [facility] [place] [address] Social History Tobacco Use Types Packs/Day Years Used Date Never Smoker Smokeless Tobacco: Never Used Comments: Mom states smokes Alcohol Use Standard Drinks/Week Comments No 0 (1 standard drink = 0.6 oz pure alcoho l) Sex Assigned at Date Recorded Not on file documented as of this encounter Miscellaneous Notes Telephone Encounter - James Miller RN - 06/29/2015 11:26 AM EST Message left for Essie to return call to [phone]. Holley Miller RN Addendum: 06/29/14 12:45 Returned call to Essie Lottie's mom @ work # [phone]. She reviewed her care and the appointment when she saw Dr Kevin. Essie knows that Dr Rodrigues is out and is wanting to pursue the surgical option for her daughter. Lottie still has heavy bleeding which has not improved with the OCP's. Essie would like to make an appointment w/ Dr Kevin for Lottie to have surgery, even if it means travelling to [place], [place]. I called Dr Ruiz office with the above information. Essie given Dr Ruiz office number to call to set up appointments. Will follow up as needed. Addendum: 06/29/15 @ 15:13 Call placed to Essie to follow up if she was able to get in touch with Dr Ruiz office. She reports they called her today and plan to review and call her back tomorrow. Essie will call me if she doesn't hear anything by the end of the week. Holley Miller RN Telephone Encounter - James Miller RN - 06/29/2015 11:26 AM EST ----- Message from Anna Hernandez sent at 06/29/2015 8:17 AM EST ----- Contact: mom-Essie Can someone please call this Mom, not sure what the VAMSI issue is, but Dr. Rodrigues is not available and Dr. Kevin is not here until 07/16 and schedule is pretty full. Thanks Anna ----- Message ----- From: Angeles Pino Sent: 06/28/2015 3:03 PM To: Anna Hernandez Please call back vamsi. Mom calling to speak to someone about her daughter and an appt with either lemuel or noah? [phone] [place] documented in this encounter Plan of Treatment Upcoming Encounters Date Type Specialty Care Team Description 12/22/2021 Office Visit Plastic Surgery Russ Guevara M D [facility] PLASTIC SURGERY [place], [place] [address] (Wo rk) documented as of this encounter Visit Diagnoses Not on filedocumented in this encounter Care Teams Finisher Hot Strip Relationship Specialty Start Date End Date Miladis Blackmon MD PCP - General 04/12/10 11/28/21 [place] [address] documented as of this encounter
--- OUTSIDE RECORDS SUMMARY | 2021-12-13 13:01 | XMS_ITS | Encounter Summary ---
:2001 Author Organization [facility] Address [address] [place] [address] Care Team Providers Name Role Phone Unavailable Primary Care Provider Unavailable Encounter Details Date Type Department Care Team Description 09/13/[address] [facility] Ch[facility]illa [facility] [address] [facility] [address] [place] [address] [facility] [phone] [place] [address] (Wo rk) Social History Tobacco Use Types Packs/Day Years Used Date Never Assessed Sex Assigned at Date Recorded Not on file documented as of this encounter Discharge Disposition Disposition Code Departure Means Destination Auto Discharge documented in this encounter Plan of Treatment Not on filedocumented as of this encounter Procedures Procedure Name Priority Date/Time Associated Diagnosis Comme nts JESSIKA Routine 09/13/2004 16:15 EDT documented in this encounter Results JESSIKA (09/13/2004 16:15 EDT) Specimen Performing Organization Address City/State/ZIP Code Phon e Number [facility] [address] [place] [address] SERVICES documented in this encounter Visit Diagnoses Not on filedocumented in this encounter
--- OUTSIDE RECORDS SUMMARY | 2021-12-13 13:01 | XMS_ITS | Encounter Summary ---
:2001 Author Organization [facility] [place] [address] Care Team Providers Name Role Phone Jessee Talamantes MD Primary Care Provider Reason for Referral Consultation (Routine) - Authorized Specialty Diagnoses / Procedures Referred By Contact Refer red To Contact Plastic Surgery Diagnoses Atypical nevus Jessee Talamantes MD [facility] Surg 4m [address] [place] [address] [place] [address] Phone: Referral ID Status Reason Start Expiration Visits Visits Date Date Requested Authorized [id number] Authorized Consult, 11/29/2021 11/29/2022 12 12 Test & Treat PCP Updated and/or Approved Encounter Details Date Type Department Care Team Description 11/29/2021 Transcribe Orders eDH Incoming Referra ls Jessee Talamantes MD Atypical nevus [phone] [address] [place] [address] Social History Tobacco Use Types Packs/Day Years [...] Visit Plastic Surgery Russ Guevara M D [facility] PLASTIC SURGERY [place], [place] [address] (Wo rk) Scheduled Referrals Name Type Priority Associated Diagnoses Order S chedule Referral to Outpatient Referral Routine Atypical nevus Ordere d: Plastic Surgery 11/29/2021 documented as of this encounter Visit Diagnoses Diagnosis Atypical nevus Benign neoplasm of skin, site unspecifie d documented in this encounter Care Teams Flame Hardener Relationship Specialty Start Date End Date Jessee Talamantes MD PCP - General Family Medicine 11/29/21 [address] [place] [address] documented as of this encounter
--- OUTSIDE RECORDS SUMMARY | 2021-12-13 13:01 | XMS_ITS | Encounter Summary ---
:2001 Author Organization [facility] [place] [address] Care Team Providers Name Role Phone Miladis Blackmon MD Primary Care Provider Encounter Details Date Type Department Care Team Description 05/20/2015 Orders Only Obstetrics and Gynecology Veena Hansen APRN at [facility] [place] [address] [place] [address] [phone] (Wo rk) Social History Tobacco Use Types [...] Visit Plastic Surgery Russ Guevara M D [facility] ER DR PLASTIC SURGERY [place], [place] [address] (Wo rk) documented as of this encounter Visit Diagnoses Not on filedocumented in this encounter Care Teams Supervisor Real Estate Office Relationship Specialty Start Date End Date Miladis Blackmon MD PCP - General 04/12/10 11/28/21 [place], [place] [id number] documented as of this encounter
--- OUTSIDE RECORDS SUMMARY | 2021-12-13 13:01 | XMS_ITS | Encounter Summary ---
:2001 Author Organization [facility] [place] [address] Care Team Providers Name Role Phone Miladis Blackmon MD Primary Care Provider Reason for Visit Diagnostic Test (Routine) - Closed Specialty Diagnoses / Procedures Referred By Contact Refer red To Contact Radiology Diagnoses Mullerian anomaly of uterus Veena Hansen APRN [facility] Rad Mri Procedures MRI Pelvis WO Contrast MRI Pelvis With/WO Contrast [facility] [place] [address] [place] [address] Referral ID Status Reason Start Date Expiration Date Visits V isits Requested Authorized [id number] Closed Specialty 06/03/2015 06/02/2016 1 1 Service Requested Encounter Details Date Type Department Care Team Description 06/04/2015 Hospital Encounter MRI at [facility] Avril Washington MD [facility] [place] [address] GYNECOLOGY ONCOLOGY [phone] [place], [place] [address] (Wo rk) Social History Tobacco Use Types Packs/Day Years Used Date Never Smoker Smokeless Tobacco: Never Used Comments: Mom states smokes Alcohol Use Standard Drinks/Week Comments No 0 (1 standard drink = 0.6 oz pure alcoho l) Sex Assigned at Date Recorded Not on file documented as of this encounter Medications at Time of Discharge Medication Sig Dispensed Refills Start Date End Date norgestimate-ethinyl Daily 0 07/29/2014 estradiol (SPRINTEC-28) 0.25-35 mg-mcg Tablet naproxen sodium q8h 0 07/13/2014 (ANAPROX) 550 mg Tablet codeine 15 mg Tablet Every 4 hours, as 0 04/06/20 15 needed ibuprofen (ADVIL;MOTRIN) Take 1 tablet by mouth 30 tablet 0 01/21/2013 400 mg tablet every 8 hours. Multiple Urine Tests by [facility].(Non-Drug; 100 strip 6 012 Strp stripsIndications: Combo Route) route. Use Dysuria to monitor urine pH as instructed by MD documented as of this encounter Plan of Treatment Upcoming Encounters Date Type Specialty Care Team Description 12/22/2021 Office Visit Plastic Surgery Russ Guevara M D [facility] PLASTIC SURGERY [place], [place] [address] (Wo rk) documented as of this encounter Procedures Procedure Name Priority Date/Time Associated Diagnosis Comme nts MRI PELVIS SOFT Routine 06/04/2015 4:34 PM Mullerian anomaly o f Results for this TISSUE (GI COMPUTER SYSTEM TECHNICIAN) EST uterus procedure are in WO CONTRAST the results section. documented in this encounter Results MRI Pelvis WO Contrast [...] ORDERABLES documented in this encounter Visit Diagnoses Not on filedocumented in this encounter Care Teams Heel Nailing Machine Operator Relationship Specialty Start Date End Date Miladis Blackmon MD PCP - General 04/12/10 11/28/21 [place] [address] documented as of this encounter
--- OUTSIDE RECORDS SUMMARY | 2021-12-13 13:01 | XMS_ITS | Encounter Summary ---
:2001 Author Organization [facility] [place] [address] Care Team Providers Name Role Phone Miladis Blackmon MD Primary Care Provider Reason for Visit Reason Onset Date Comments Follow-up 04/15/2013 Outside calling with information. Encounter Details Date Type Department Care Team Description 04/15/2013 Telephone Pediatric Urology at Valeriy Pinzon MD Follow-up (Outside [facility] calling with [facility] DR maxwell) [facility] [place] [address] [place] [address] [phone] (Wo rk) Social History Tobacco Use Types Packs/Day Years Used Date Never Smoker Smokeless Tobacco: Never Used Comments: Mom states smokes Alcohol Use Standard Drinks/Week Comments No 0 (1 standard drink = 0.6 oz pure alcoho l) Sex Assigned at Date Recorded Not on file documented as of this encounter Miscellaneous Notes Telephone Encounter - Rony Pinzon MD - 04/15/2013 11:18 AM EST Outside second ride fare collector called to discuss 24 hrs. of abdominal pain and noncellulitic suprapubic swelling, no fever, nl UA and bowels working fine. US showed small seroma, seen before under incision, not loculated. Suggested checking a CBC and changing oral antibiotics to Bactrim DS one po BID for ten days then resume Nitrofurantoin. Lottie was a no show at her last appointment, she can be scheduled for follow up if she is not improving. RONY PINZON MD documented in this encounter Plan of Treatment Upcoming Encounters Date Type Specialty Care Team Description 12/22/2021 Office Visit Plastic Surgery Russ Guevara M D [facility] PLASTIC SURGERY [place], [place] [address] (Wo rk) documented as of this encounter Visit Diagnoses Diagnosis Abdominal pain Abdominal pain, unspecified site VUR (vesicoureteric reflux) Vesicoureteral reflux, unspecified or wi thout reflux nephropathy documented in this encounter Care Teams Geothermal Powerplant Mechanic Relationship Specialty Start Date End Date Miladis Blackmon MD PCP - General 04/12/10 11/28/21 [address] [place] [address] documented as of this encounter
--- OUTSIDE RECORDS SUMMARY | 2021-12-13 13:02 | XMS_ITS | Encounter Summary ---
:2001 Author Organization [facility] [place] [address] Care Team Providers Name Role Phone Miladis Blackmon MD Primary Care Provider Encounter Details Date Type Department Care Team Description 08/27/2012 Telephone Pediatric Urology at [facility] Felix Pinzon MD [facility] [place] [address] PEDIATRIC SURGERY [phone] [place], [place] [address] (Wo rk) Social History Tobacco Use Types Packs/Day Years Used Date Never Smoker Smokeless Tobacco: Never Used Comments: Mom states smokes Alcohol Use Standard Drinks/Week Comments No 0 (1 standard drink = 0.6 oz pure alcoho l) Sex Assigned at Date Recorded Not on file documented as of this encounter Miscellaneous Notes Telephone Encounter - Angeles De Santiago - 08/27/2012 12:00 PM EDT L/M to schedule sooner appt b/c of + urine test w/ Dr. Pinzon. Please note for Grade 4 VUR/+Urine Culture. PVR/URO/UA needed (IN EPIC) I called the (C) # and it said mailbox full no messages are able to be left and hung up. I called the (A) # and L/M on that VM for them to call [facility] to schedule this appt. documented in this encounter Plan of Treatment Upcoming Encounters Date Type Specialty Care Team Description 12/22/2021 Office Visit Plastic Surgery Russ Guevara M D [facility] PLASTIC SURGERY [place], [place] [address] (Wo rk) documented as of this encounter Visit Diagnoses Not on filedocumented in this encounter Care Teams Service Coordinator Relationship Specialty Start Date End Date Miladis Blackmon MD PCP - General 04/12/10 11/28/21 [address] [place] [address] documented as of this encounter
--- OUTSIDE RECORDS SUMMARY | 2021-12-13 13:02 | XMS_ITS | Encounter Summary ---
:2001 Author Organization [facility] [place] [address] Care Team Providers Name Role Phone Miladis Blackmon MD Primary Care Provider Encounter Details Date Type Department Care Team Description 04/23/2012 Orders Only Pediatric Surgery at Emma Ray B enign bladder tumor [facility] (Primary Dx) [facility] [place] [address] PEDIATRIC SURGERY [phone] [place], [place] [address] Social History Tobacco Use Types [...] Plastic Surgery Russ Guevara M D [facility] PLASTIC SURGERY [place], [place] [address] (Wo rk) documented as of this encounter Results XR Fluoro cystogram (04/30/2012 11:45 AM EST) Anatomical Region Laterality Modality N/A Radiographic Imaging Specimen (Source) Anatomical Collection Method Collection Time Re ceived Time Location / / Volume Laterality 04/30/2012 11:45 AM EST Narrative 05/07/2012 10:22 AM EST Examination CYSTOGRAM Clinical History 10 days partial cystectomy for tumor, ? leak prior to removal Carey Comparison CT scan pelvis 03/29/2012, retroperitone al ultrasound dated 11/07/2010. Technique Via an indwelling Carey catheter with ba lloon in the bladder, approximately 100 mL 175 mL of Cystografin were instilled into the bladder by gravity drainage without difficulty. ?? Findings The bladder distends well. ??No filling defects are seen. There is mild lobulation of the right aspect of the bl adder, likely postoperative change following partial cystectomy. No leak of contrast seen. ?? Grade 4 vesicoureteral reflux is seen on the right demonstrating a duplex collecting system with a seperate upper pole and lower pole moiety. A single right ureter is seen which is normal brooke iber; a bifid ureter is seen at the UVJ. The calices are blunted, consistent with scarring and postinflammatory change. ?? Impression Status-post partial cystectomy. ??No harjinder dence of extravasation or leak. ?? Grade 4 vesicoureteral reflux on the Rig ht. ?? 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 ?? Blunting of the Right calyces, consisten t with scarring or post inflammatory change; consider chronic reflux. ?? No postvoid residual in the bladder foll owing voiding; near complete emptying of the right collecting system following voiding. Procedure Note Ailyn Winter MD - 2 Examination CYSTOGRAM Clinical History 10 days partial cystectomy for tumor, ? leak prior to removal Carey Comparison CT scan pelvis 03/29/2012, retroperitone al ultrasound dated 11/07/2010. Technique Via an indwelling Carey catheter with ba lloon in the bladder, approximately 100 mL 175 mL of Cystografin were instilled into the bladder by gravity drainage without difficulty. Findings The bladder distends well. No filling de fects are seen. There is mild lobulation of the right aspect of the bl adder, likely postoperative change following partial cystectomy. No leak of contrast seen. Grade 4 vesicoureteral reflux is seen on the right demonstrating a duplex collecting system with a seperate upper pole and lower pole moiety. A single right ureter is seen which is normal brooke iber; a bifid ureter is seen at the UVJ. The calices are blunted, consistent with scarring and postinflammatory change. Impression Status-post partial cystectomy. No evide nce of extravasation or leak. Grade 4 vesicoureteral reflux on the Rig ht. 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 Blunting of the Right calyces, consisten t with scarring or post inflammatory change; consider chronic reflux. No postvoid residual in the bladder foll owing voiding; near complete emptying of the right collecting system following voiding. 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
--- OUTSIDE RECORDS SUMMARY | 2021-12-13 13:02 | XMS_ITS | Encounter Summary ---
:2001 Author Organization [facility] [place] [address] Care Team Providers Name Role Phone Miladis Blackmon MD Primary Care Provider Encounter Details Date Type Department Care Team Description 11/13/2012 Hospital Encounter [place] [facility], ANESTHESIA-LO None [facility] Chetan Whittaker MD [facility] [place] [address] [place] [address] Social History Tobacco Use Types Packs/Day Years Used Date Never Smoker Smokeless Tobacco: Never Used Comments: Mom states smokes Alcohol Use Standard Drinks/Week Comments No 0 (1 standard drink = 0.6 oz pure alcoho l) Sex Assigned at Date Recorded Not on file documented as of this encounter Last Filed Vital Signs Vital Sign Reading Time Taken Comments Blood Pressure - - Pulse 82 11/13/2012 9:13 AM EDT Temperature 36.6 ??C (97.9 ??F) 11/13/2012 9:06 AM EDT Respiratory Rate 16 11/13/2012 9:13 AM EDT Oxygen Saturation 100% 11/13/2012 9:13 AM EDT Inhaled Oxygen Concentration - - Weight 41.3 kg (91 lb 0.8 oz) 11/13/2012 8:49 AM EDT Height - - Body Mass Index - - documented in this encounter Discharge Instructions Discharge Airam Lockett RN - 11/13/2012 9:08 AM EDT [facility] PAINFREE DISCHARGE INSTRUCTIONS Your child has received sedation today. These medicines were given to decrease anxiety or pain and/or cause sleep. Watch your child closely the remainder of the day. They may be unsteady, dizzy, sleepy or irritable.When riding home in their car seat make sure their head does not fall forward. Avoid activities that require your child to be fully alert and coordinated such as climbing stairs, sports, biking, gym set activities and driving for teens. Your child may resume their regular diet as tolerated unless otherwise directed. Occasionally children will vomit. If so, return to clear liquids then advance. Your child may resume any regular medicines If your child had a breathing tube, they may have a sore throat. This is normal. Drinking cold fluids will ease the discomfort. Questions regarding sedation may be directed to the [facility] Pain[facility] Program Sunday - Sunday 8:00 - 4:00 pm at [phone] Evenings or weekends at [phone] and ask for resident physician in radiology cement mason Questions regarding the procedure, pain issues, or test results may be directed to the ordering physician documented in this encounter Medications at Time of Discharge Medication Sig Dispensed Refills Start Date End Date Multiple Urine Tests by [facility].(Non-Drug; 100 strip 6 012 Strp stripsIndications: Combo Route) route. Dysuria Use to monitor urine pH as instructed by polyethylene glycol Take 17 g by mouth 0 03/12/2013 (MIRALAX) 17 gram packet daily. documented as of this encounter Miscellaneous Notes Miscellaneous - Provider, Scanning - 11/14/2012 10:27 AM EDT documented in this encounter Plan of Treatment Upcoming Encounters Date Type Specialty Care Team Description 12/22/2021 Office Visit Plastic Surgery Russ Guevara M D [facility] PLASTIC SURGERY [place], [place] [address] (Wo rk) documented as of this encounter Procedures Procedure Name Priority Date/Time Associated Diagnosis Comme nts CYSTOGRAM 11/13/2012 5:00 PM EDT Grade IV VUR documented in this encounter Visit Diagnoses Not on filedocumented in this encounter Care Teams Political Analyst Relationship Specialty Start Date End Date Miladis Blackmon MD PCP - General 04/12/10 11/28/21 [address] [place] [address] documented as of this encounter
--- OUTSIDE RECORDS SUMMARY | 2021-12-13 13:02 | XMS_ITS | Encounter Summary ---
:2001 Author Organization [place] [address] Care Team Providers Name Role Phone Miladis Blackmon MD Primary Care Provider Reason for Visit Reason Onset Date Comments Abdominal Pain 01/27/2013 Encounter Details Date Type Department Care Team Description 01/27/2013 Telephone Pediatric Urology at [facility] Bhavesh Tyson MD Abdominal Pain [facility] [address] UROLOGY DEPT. [phone] [place], [place] [address] (Wo rk) Social History Tobacco Use Types Packs/Day Years Used Date Never Smoker Smokeless Tobacco: Never Used Comments: Mom states smokes Alcohol Use Standard Drinks/Week Comments No 0 (1 standard drink = 0.6 oz pure alcoho l) Sex Assigned at Date Recorded Not on file documented as of this encounter Miscellaneous Notes Telephone Encounter - Bhavesh Tyson MD - 01/27/2013 4:38 PM EDT Called by , her transformation specialist, that Lottie was in his office with complaint of lower abdominal distention and low grade fever to 100.9. Complaining of urinary frequency q15min for less than24 hours. Eating normally until this AM, moving bowels daily. Painter Decorator will get bladder scan, change antibiotics to ceftinir and treat empirically for UTI. Urine culture was sent. According to transformation specialist wound does not look concerning, slightly distended. Will call if bladder scan is concerning. documented in this encounter Plan of Treatment Upcoming Encounters Date Type Specialty Care Team Description 12/22/2021 Office Visit Plastic Surgery Russ Guevara M D [facility] PLASTIC SURGERY [place], [place] [address] (Wo rk) documented as of this encounter Visit Diagnoses Not on filedocumented in this encounter Care Teams Slasher Tender Relationship Specialty Start Date End Date Miladis Blackmon MD PCP - General 04/12/10 11/28/21 [address] [place] [address] documented as of this encounter
--- OUTSIDE RECORDS SUMMARY | 2021-12-13 13:02 | XMS_ITS | Encounter Summary ---
:2001 Author Organization [facility] Address [place] [id number] Care Team Providers Name Role Phone Miladis Blackmon MD Primary Care Provider Encounter Details Date Type Department Care Team Description 04/30/2012 Office Visit [facility] 3T Emma Ray, Benign bladder tumor [facility] (Primary Dx) [place] [address] PEDIATRIC SURGER [place] [address] Social History Tobacco Use Types Packs/Day Years Used Date Never Smoker Smokeless Tobacco: Never Used Comments: Mom states smokes Alcohol Use Standard Drinks/Week Comments No 0 (1 standard drink = 0.6 oz pure alcoho l) Sex Assigned at Date Recorded Not on file documented as of this encounter Patient Instructions Patient InstructionsEmma Ray MD - 04/30/2012 12:19 PM EST Lottie is doing well at this time and I told both Lottie and her mother that the cause of her long-term pain should be gone now. She will need to have follow up in 6 months with Pediatric Nephrology and or Urology regarding her right sided VUR, but this may improve now that the Carey catheter is removed and any inflammation near the trigone should resolve. Prior cystoscopies have not revealed any abnormality of the ureteral orifices. I have recommended that Lottie complete Dr. Briones' antibiotic course. She also needs to be weaned off of her chronic pain medications. 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 Lottie was discharged with a Carey catheter in place and was recently felt to have a UTI by Dr. Briones who started her on Keflex. She returns today specifically to have a contrast cystogram to insure the suture line has healed and no urine leak is present. Lottie and her mother were met in the 3Tfluoroscopy suite. The cystogram was done in my presence and showed no leak, bladder capacity of 350cc's prior to urgency to void, normal shape to bladder. Right side VUR noted up to the right pelvic calyces with mild blunting. Post void films showed complete bladder emptying and only minimal contrast still present in the collecting system. The patient has been doing well at home requiring her chronic medications primarily for Carey catheter pain. She denies pain at her lower abdominal incision. Examination: There were no vitals filed for this visit. Recent Review Flowsheet Data View Complete Flowsheet Oncology Vitals 04/22/2012 Temp 98.6 Temp src 1 Pulse 96 Heart Rate Source Monitor Resp 20 BP 106/60 BP Location Right arm Patient Position Lying SpO2 98 The incision is healing satisfactorily without any evidence of post operative infection. Steristripsremain in place. The incision is nontender to palpation which is considerably different than preoperatively when Lottie would cry out in pain whenever her lower abdomen was touched. Impression: Lottie is doing well at this time and I told both Lottie and her mother that the cause of her long-term pain should be gone now. She will need to have follow up in 6 months with Pediatric Nephrology and or Urology regarding her right sided VUR, but this may improve now that the Carey catheter is removed and any inflammation near the trigone should resolve. Prior cystoscopies have not revealed any abnormality of the ureteral orifices. I have recommended that Lottie complete Dr. Briones' antibiotic course. She also needs to be weaned off of her chronic pain medications. documented in this encounter Plan of Treatment Upcoming Encounters Date Type Specialty Care Team Description 12/22/2021 Office Visit Plastic Surgery Russ Guevara M D [facility] PLASTIC SURGERY [place], [place] [address] (Wo rk) documented as of this encounter Visit Diagnoses Diagnosis Benign bladder tumor - Primary Benign neoplasm of bladder documented in this encounter Care Teams Meat Cutting Block Repairer Relationship Specialty Start Date End Date Miladis Blackmon MD PCP - General 04/12/10 11/28/[place] [address] documented as of this encounter
--- OUTSIDE RECORDS SUMMARY | 2021-12-13 13:02 | XMS_ITS | Encounter Summary ---
:2000 Author Organization [facility] [place] [address] Care Team Providers Name Role Phone Miladis Blackmon MD Primary Care Provider Encounter Details Date Type Department Care Team Description 09/25/2012 Orders Only Pediatric Urology at Rony Pinzon, His tory of recurrent [facility] UTIs (Primary Dx) [facility] [place] [address] PEDIATRIC SURGERY [phone] [place], [place] [address] Social History Tobacco Use Types [...] Visit Plastic Surgery Russ Guevara M D [facility] PLASTIC SURGERY [place], [place] [address] (Wo rk) documented as of this encounter Results Urine culture Clean Catch Urine (09/25/2012 4:30 PM EDT) [facility] Method Time Signature Urine Culture CERNER ? Patient Name: LOTTIE GAINES ?Ordered By : PINZONRONY Levin ? MR#: [id number] ?LOC: ??6M ? /Sex: ??2000 (12 years), ? Female ? PROCEDURE: Urine Culture ?SOURCE: U CC ? COLLECTED: 09/25/2012 16:30 ? STARTED: 09/25/2012 17:07 ? FINAL REPORT ? Final Report ? Verified:09/27/2012 10:46 ? 10,000-49,000 cfu/ml mixed mucosal wandy ? Note: Multiple bacterial morphotypes present. Suggest appropriate ? recollection with timely delivery to ? the laboratory, if clinically significant. ? PRELIMINARY REPORT ? Preliminary Report ? Verified:09/26/2012 15:11 ? Growth too young to evaluate, culture reincubated ? Specimen (Source) Anatomical Collection Method Collection Time Re ceived Time Location / / Volume Laterality Urine specimen 09/25/2012 4:30 09/25/2012 5:07 obtained by clean PM EDT PM EDT catch procedure (specimen) Resulting Agency Comment Spec In Lab Rony Pinzon MD MICROBIOLOGY - GENERAL ORDER DU Performing Organization Address City/State/ZIP Code Phon e Number [facility] [place] [address] OPAL [place]ONCALVES (ABNORMAL) Urinalysis with microscopic (09/25/2012 4:30 PM EDT) [facility] gist Method Time Signature Glucose UA Negative Negative CERNER mg/dL [facility] Protein UA Trace (A) Neg mg/dL [facility] Bilirubin UA Negative Negative CERNER mg/dL [facility] Urobilinogen UA Normal mg/dL [facility] pH UA 6.5 5.0 - 8.0 [facility] Blood UA Negative mg/dL [facility] Ketones UA Negative mg/dL [facility] Nitrite UA Negative [facility] Leukocytes UA Negative [facility] Appearance UA Hazy (A) Clear [facility] Spec [place] UA 1.022 1.002 - CERNER 1.030 [facility] Color UA Yellow Yellow [facility] RBC UA 1 0 - 4 /HPF [facility] WBC UA 2 0 - 5 /HPF [facility] Squam Epith UA 9 (H) <=4 /HPF [facility] Specimen Anatomical Collection Method Collection Time Receive d Time (Source) Location / / Volume Laterality Urine specimen 09/25/2012 4:30 PM 013 5:00 (specimen) EDT PM EDT Resulting Agency Comment Spec In Lab Rony Pinzon MD URINE ORDERABLES Performing Organization Address City/State/[place] [address] [facility] documented in this encounter Visit Diagnoses Diagnosis History of recurrent UTIs - Primary Personal history of urinary (tract) infe ction documented in this encounter Care Teams Vp Informatics Relationship Specialty Start Date End Date Miladis Blackmon MD PCP - General 04/12/10 11/28/21 [address] [place] [address] documented as of this encounter
--- OUTSIDE RECORDS SUMMARY | 2021-12-13 13:02 | XMS_ITS | Encounter Summary ---
:2000 Author Organization [facility] [place] [address] Care Team Providers Name Role Phone Miladis Blackmon MD Primary Care Provider Encounter Details Date Type Department Care Team Description 11/13/2012 Surgery [facility] RES[facility], CYSTOGRAM [facility] [place] [address] None [phone] Social History Tobacco Use Types Packs/Day Years [...] documented in this encounter Discharge Instructions Discharge InstructionsAiram Bone RN - 11/13/2012 9:08 AM EDT [facility] DISCHARGE INSTRUCTIONS Your child has received [...] regarding sedation may be directed to the [facility] Sunday - Sunday 8:00 - 4:00 pm at [phone] Evenings or weekends at [phone] and ask for residential sales executive refrigeration tech Questions regarding the procedure, pain issues, or test results may be directed to the ordering physician documented in this encounter Medications at Time of Discharge Medication Sig Dispensed Refills Start Date End Date Multiple Urine Tests by [facility] [place] [facility].(Non-Drug; 100 strip 6 012 Strp stripsIndications: Combo [...] Surgery Russ Guevara M D [facility] PLASTIC SURGERY [place], [place] [address] (Wo rk) documented as of this encounter Procedures Procedure Name Priority Date/Time Associated Diagnosis Comme nts CYSTOGRAM 11/13/2012 5:00 PM EDT Grade IV VUR documented in this encounter Visit Diagnoses Not on filedocumented in this encounter Care Teams Concrete Placement Equipment Operator Relationship Specialty Start Date End Date Miladis Blackmon MD PCP - General 04/12/10 11/28/21 [address] [place] [address] documented as of this encounter
--- OUTSIDE RECORDS SUMMARY | 2021-12-13 13:02 | XMS_ITS | Encounter Summary ---
:2000 Author Organization [facility] [place] [address] Care Team Providers Name Role Phone Miladis Blackmon MD Primary Care Provider Encounter Details Date Type Department Care Team Description 07/12/2012 External Results Pediatric Nephrology at Sandra Kumar MD [facility] Kae burns [place] [address] [place] [phone] (Wo rk) Social History Tobacco Use Types [...] [facility] [place], [place] [address] (Wo rk) documented as of this encounter Procedures Procedure Name Priority Date/Time Associated Diagnosis Comme nts EXTERNAL LAB RESULTS Routine 07/02/2012 documented in this encounter Results External Lab Results (07/02/2012) Specimen (Source) Anatomical Location Collection Method / Collectio n Time Received Time / Laterality Volume 07/02/2012 Narrative This result has an attachment that is no t available. Sandra Pimentel MD CHEMISTRY ORDERABLES documented in this encounter Visit Diagnoses Not on filedocumented in this encounter Care Teams Senior Sas Programmer Relationship Specialty Start Date End Date Miladis Blackmon MD PCP - General 04/12/10 11/28/21 [address] [place] [address] documented as of this encounter
--- OUTSIDE RECORDS SUMMARY | 2021-12-13 13:02 | XMS_ITS | Encounter Summary ---
:2000 Author Organization [facility] [place] [address] Care Team Providers Name Role Phone Miladis Blackmon MD Primary Care Provider Encounter Details Date Type Department Care Team Description 01/17/2013 - Hospital Encounter Pediatric Rony Pinzon, VUR ( vesicoureteric 01/21/2013 Adolescent Unit reflux) ([facility]) [facility] [address] [place] [phone] Social History Tobacco Use Types Packs/Day Years Used Date Never Smoker Smokeless Tobacco: Never Used Comments: Mom states smokes Alcohol Use Standard Drinks/Week Comments No 0 (1 standard drink = 0.6 oz pure alcoho l) Sex Assigned at Date Recorded Not on file documented as of this encounter Last Filed Vital Signs Vital Sign Reading Time Taken Comments Blood Pressure 106/50 01/21/2013 12:00 PM EDT Pulse 87 01/21/2013 12:00 PM EDT Temperature 36.6 ??C (97.9 ??F) 01/21/2013 12:00 PM EDT Respiratory Rate 20 01/21/2013 12:00 PM EDT Oxygen Saturation 99% 01/21/2013 12:00 PM EDT Inhaled Oxygen Concentration - - Weight 42 kg (92 lb 9.5 oz) 01/17/2013 10:46 AM EDT Height - - Body Mass Index - - documented in this encounter Discharge Instructions Patient InstructionsEpi Baker MD - 01/21/2013 9:37 AM EDT Provider Instructions Discharge Instructions CALL YOUR PHYSICIAN IF: You have a fever greater than 101 degrees Farenheit within one month of your surgery. You have diarrhea or vomiting for >24 hours, or stop having bowel movements and passing flatus You have worsening pain, not controlled with your pain medication. You develop redness, swelling, or new drainage from your wound. Prescriptions*: -You have been prescribed narcotic pain medications (such as Percocet, Vicodin, Oxycodone or Dilaudid) to control your discomfort after surgery. Narcotic pain medications may cause constipation. Stool softeners, such as Colace; mild laxatives, such as Milk of Magnesia, Sennakot, or Ducolax tabs; or enemas may be used if needed and are vlaf-jvs-rzvpreo (OTC) medications available at most [facility] hospital. Prunes or prune juice, taken daily, can also be helpful for constipation treatment or pre vention and are available at most supermarkets. Antibiotics: Take augmentin 1 tablet twice a day for 10 days and only after you finish your augmentin, start Macrobid (Nitrofurantoin) 100 mg once a day for 3 months. Activities: Discuss return to work or school with your surgeon. No heavy lifting. You may lift what is comfortable to lift with one arm. Nothing greater than 10 pounds until re-evaluated by your physician. Diet: Eat a well-balanced diet. Fresh fruits, vegetables and fiber-containing foods are recommended. Thiswill assist in wound healing. Recommendations: Take it easy for two weeks. Remember, If it hurts, don't do it. Take several slow, short walks each day for the first two weeks, and gradually increase your distance. We recommend at least 4 times a day. Wound Care: You can shower per usual routine and wash the incision area gently. Pat incision dry with a clean, dry towel. Do not submerge the wound under water (avoid spas, pools and bathtubs) until it is fully healed. Do not use creams, oils, or ointments on the wound. Keep the wound open to air if it is not draining. Comfort: Some incision soreness can be expected. Take your pain medication as needed and prescribed. Taper use of pain medication as pain lessens. Follow-up Appointments: A Follow-up appointment will be scheduled with Pediatric urology 6M in 6 weeks. You will receive a letter in the mail and/or a phone call with information about this appointment. Please call [phone] and ask for pediatric urology (clinic number for appointments) to confirm date and time of your appointment, or if you do not receive information about your appointment in a timely manner. CC: Primary Care Physician: documented in this encounter Medications at Time of Discharge Medication Sig Dispensed Refills Start Date End Date ibuprofen Take 1 tablet by 30 tablet 0 01/21/2013 (ADVIL;MOTRIN) 400 mg mouth every 8 hours. tablet Multiple Urine Tests by [facility].(Non-Drug; 100 strip 6 012 Strp stripsIndications: Combo Route) route. Dysuria Use to monitor urine pH as instructed by amoxicillin-clavulanate Take 1 tablet by 20 tablet 0 201201/31/2013 (AUGMENTIN) 500-125 mg mouth 2 times daily per tablet for 10 days. oxybutynin (DITROPAN) 5 Take 1 tablet by 180 tablet 3 201204/13/2015 mg tablet mouth 3 times daily. OXYcodone-acetaminophen Take 1 tablet by 40 tablet 0 201203/12/2013 (PERCOCET) 5-325 mg per mouth every 4 hours tablet as needed for Pain. nitrofurantoin, Take 1 capsule by 90 tablet 0 01/21/2013 macrocrystal-monohydrat mouth daily. Only e, (MACROBID) 100 mg after you finish capsule augmentin senna-docusate Take 2 tablets by 60 tablet 11 01/21/2013 (PERICOLACE) 8.6-50 mg mouth 2 times daily. per tablet polyethylene glycol Take 17 g by mouth 0 03/12/2013 (MIRALAX) 17 gram daily. packet documented as of this encounter Progress Notes Peggy Rodriguez RN - 01/21/2013 2:22 PM EDT Prior to discharge I have completed the followin) Reviewed the discharge navigator and documented all LDA's appropriately. 2) Confirmed patient assessment for flu/pneumococcal vaccination and eligibility, documented administration and/or patient refusal as appropriate. 3) Added nursing instructions and/or health information to the multidisciplinary notes. 4) Printed the After Visit Summary (AVS) and given to the patient or inside sales representative. 5) If VNA was ordered, I faxed the discharge summary (not the AVS) to the VNA. I have provided written discharge instructions and/or AVS to mom. Participants have stated and/or demonstrated understanding of the followin) Discharge instructions. 2) Follow up visit plan. 3) Signs and symptoms to call primary doctor. 4) Where to obtain any medical supplies if needed (if no, contact [facility]). 5) Discharge medication plan. 6) Prescriptions: ( ) Have been filled and medications are in hand ( ) Have been called in or electronically sent by MD to local pharmacy and family has confirmed that the pharmacy has prescriptions and are able to fill them. ( X ) Paper scripts in hand and family has confirmed that the pharmacy is able to fill them. ( ) No prescriptions needed. Additional Nursing Comments: Patient voided following having her flynn removed. Pain well controlledwith pain schedule. Discharge material reviewed with mom who denies any questions. Paper scripts given to mom who filled them at our outpatient pharmacy. Medication and times given and reviewed with mom. Patient discharged to home with mom in stable condition. PEGGY RODRIGUEZ RN Rony Pinzon MD - 01/21/2013 7:06 AM EDT Pedi Urology Post Op Progress Note Diagnosis: S/P right reimplant. POD#4 S: Feeling well no, noting some constipation. tolerating a regular diet and po pain meds. O: VVS, afebrile Intake/Output Summary (Last 24 hours) at 01/21/13 0712 Last data filed at 01/21/13 0400 Gross per 24 hour Intake 1813 ml Output 2130 ml Net -317 ml Incision CBI, small tape blister on the right side of the wound. Flynn draining pinkish colored urine. Small BM, on Saturday. A: Stable postop course, ready for voiding trial. Home after voiding, if unable to void replace Flynn and DC with repeat voiding trial on of Sunday. P: Augmentin Bid for the next ten days, then switch to Nitrofurantoin 100 mg po daily for 3 months for post op prophylaxis. Home also on Miralax, Colace, Percocet, Ditropan( until frequency resolves) with follow up in 6 weeks with a RBUS. RONY PINZON MD Janes Trinh A - 01/20/2013 7:49 AM EDT Urology Progress Note 12 yo F POD3 s/p R intravesical ureteral reimplant Subj: Eating, ambulating Epidural outf, leg numbness gone No issues overnight Pain issues overnight after missed oxycodone dose as she was sleeping Tolerating diet, no nausea Some spasms, on ditropan Obj: Filed Vitals: 01/20/13 0000 BP: 114/60 Pulse: 93 Temp: 36.8 ??C (98.2 ??F) Resp: 20 NAD, pleasant MMM Unlabored Reg Soft, appropriately tender, incision c/d/i WWP Flynn with light pink urine A/P: 12 yo F POD3 s/p R intravesical ureteral reimplant Neuro: Pain controlled when orals scheduled, epidural out Pulm: Satting well RA, encourage IS Cards: Stable GI: Regular diet, NBOs Heme: No issues ID: no issue Lines/tubes/drains: Flynn in place, possibly out prior to d/c Dispo: D/c to home tomorrow Doretha Redmond RN - 01/20/2013 7:42 AM EDT Have received no call back from internet sales consultant at this time. Report to oncoming RN. Doretha Alvarado RN - 01/20/2013 7:13 AM EDT Pt with assessment and VS as noted. Did not sleep well during shift. Also reports poor response to current pain medications. Up frequently feeling need to void though having little result. Continues toleak around flynn and soaked bed pads when she did not get up to bathroom for 2-3 hours. No acute distress noted. Mother at bedside. Doretha Alvarado RN - 01/20/2013 6:00 AM EDT Attempted to obtain blood for labs from IV in L hand without success. Mother refuses DIRECTOR OCCUPATIONAL for blood atthis time. Cat Farley MD - 01/19/2013 7:26 PM EDT Anesthesia Brief Note: Epidural catheter removed at 1920hrs, after infusion discontinued for roughly 8 hours. Pain under good control and patient in excellent spirits. Catheter tip intact. Site is clean without leakage, erythema or ecchymosis. No paresthesia. CAT FARLEY MD Oly Guerrero - 01/19/2013 1:02 PM EDT PEDIATRIC ACUTE PAIN SERVICE (PAPS) Epidural Management Note Date of Service: 01-19-2013 Time of Service: 1245 Epidural day : POD #2 Continuous Caudal/Epidural Infusions: X Bupivacaine 1/8% (1.25 mg/ml) plus hydromorphone 10 micrograms/ml plus clonidine 1 microgram/ml infusing at zero ml/kg/hour (turned off at about 1100) Additional Analgesics: tylenol -- ibuprofen Assessment and Plan General Mean numerical pain score is still difficult to use given subjective nature of pain. Lottie seems tohave good pain control (some but tolerable) and has done well thus far with the epidural off. X Patient awake and alert. X Deep breathing and coughing well. X No motor block. -- motor and sensation returned to normal -- LE strength 5/5, ambulating without assistance Epidural/Caudal: X Epidural functional per assessment (no epidurogram) X Epidural/caudal insertion site clean and without signs of infection. t Continue epidural/caudal until: Will be conservative and give Lottie three hours after turning the epidural off to make sure she isOK before removing the epidural Suggested Changes: Anticipate removing the epidural after it has been off for three hours (at least 1400). Oly Guerrero MD Magdalena Bojorquez MD - 01/19/2013 12:19 PM EDT Called by Urology service with request to turn off epidural; patient has been having difficult ambulating as left leg has been numb. Yesterday rate was turned down from 4 cc/hr to 3 cc/hr without much improvement in ambulation, pain has remained similar, 12/28. Discussed with patient and her father, she is bothered by not being able to ambulate and prefers that we turn it off, which I did. Discussed with patient and RN to call as needed should we need to restart the epidural. 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 A/P: 12 yo F POD1 s/p R intravesical ureteral reimplant Neuro: Pain controlled HABILITATIVE INTERVENTIONIST/epidural (per anesthesia), will discuss removing today Pulm: Satting well RA, encourage IS Cards: Stable GI: Regular diet, NBOs, will monitor bowel function Heme: Labs pending, no issues ID: no issue Lines/tubes/drains: Flynn in place Dispo: Pending Rony Pretty MD - 01/18/2013 1:34 PM EDT Ped APS addendum Called to bedside by nurse who reports that pt has leg weakness and is unable to ambulate. Also per the nurse and patient, pt has cold sensation in all areas (no level found) S: pt has 8/10 pain and left leg weakness O: left leg extension is weaker than the right. Did not repeat ice test A/P: Per rec's by Dr. Guerrero have turned epidural rate to 3ml/hr. Will be happy to turn back to 4 later if needed. Also, spoke to pt's nurse and recommended implementing tylenol and ibuprofen scheduled. Oly Guerrero - 01/18/2013 11:58 AM EDT PEDIATRIC ACUTE PAIN SERVICE (PAPS) Epidural Management Note Date of Service: 01-18-2013 Time of Service: 1130 Epidural day : POD #1 Continuous Caudal/Epidural Infusions: X Bupivacaine 1/8% (1.25 mg/ml) plus hydromorphone 10 micrograms/ml plus clonidine 1 microgram/ml infusing at 5 ml/kg/hour Additional Analgesics: PCEA: Used 13 ml PCEA in last 12 hours (most in 0400 to 0500 time frame) Assessment and Plan General Mean numerical pain score is difficult to use as Lottie rates pain as 10/10 when she has been sleeping comfortably and is talking calmly without other indication of severe pain. Her pain appears to be in very good control. Score is based on discussion with caregivers/family for non-verbal/intubated Pt. X Patient awake and alert. X Deep breathing and coughing well. Motor block: Lottie is difficult to evaluate for epidural spread, but likely has (4/5) weakness at plantar and dorsiflexion of her left leg. Knee extension seems stronger. She does have some numbness over her left leg. Epidural/Caudal: X Epidural functional per assessment (no epidurogram) X Epidural/caudal insertion site clean and without signs of infection. Continue epidural/caudal until: Suggested Changes: For right now, we will leave the epidural at 5/hour plus PCEA. Her pain is very well controled and Favian not wish to alter this 20 hours post op particularly given Lottie's subjective pain reporting. Lottie will try and ambulate today. If weakness interferes with this, then we will back off on the epidural. If we back off on the epidural, I suggest: two hours at 3ml/hour and then likely back up to 4ml/hour. For now I would continue the PCEA unless that negates rate reduction. At rate reduction I would make tylenol scheduled rather than PRN and add ketorolac/ibuprofen. Rescue IV narcotic would be fine. Oly Guerrero MD Janes Trinh - 01/18/2013 11:10 AM EDT Urology Progress Note 12 yo F POD1 s/p R intravesical ureteral reimplant Subj: Tolerated procedure well No issues overnight Pain controlled - epidural, HABILITATIVE INTERVENTIONIST Tolerating clears, no nausea Obj: Filed Vitals: 01/18/13 0800 BP: 80/33 Pulse: 82 Temp: 36.9 ??C (98.4 ??F) Resp: 22 NAD, pleasant MMM Unlabored Reg Soft, appropriately tender, incision with bandage in place WWP Flynn with light pink urine Labs: Pending. A/P: 12 yo F POD1 s/p R intravesical ureteral reimplant Neuro: Pain controlled HABILITATIVE INTERVENTIONIST/epidural (per anesthesia) Pulm: Satting well RA, encourage IS Cards: BP slightly low, perhaps decrease epidural GI: Regular diet, NBOs, will monitor bowel function Heme: Labs pending, no issues ID: no issue Lines/tubes/drains: Flynn in place, will remain until after discharge Dispo: Pending Nata Rodríguez RN - 01/17/2013 10:02 PM EDT S. I'm touch phobic. I don't like anyone touching my skin. I get that from my mom. Lottie when I attempted to check sensation levels for epidural coverage. O. Vital signs stable. Afebrile. Room air saturation high 90's. Epidural infusing @ 5 cc/hr. Denies pain. Difficult to assess sensation as she says yes she can feel you touching her before you do touch her skin. IV fluids infusing as ordered. Tolerating clear fluids. Encouraged to us IS Q1H while awake; dad very good @ encouraging this also. SCD's to BLE. Flynn draining bloody urine. A. Status quo. P. Monitor epidural coverage, pain, pain control. Sidra Tello RN - 01/17/2013 5:32 PM EDT 1700 Report from Connie Meyers RN. Patient asleep, VSS. 1730 Father at bedside, patient states abdomen hurts like hell. No signs/symptoms of pain noted. Attempted to assess dermatome level of epidural. Patient slightly resistant and uncooperative during assessment, but does not verbalize any change in temp with ice. Patient reports heaviness of BLE's. P atient eating ice chips, chatting with father. Will page anesthesia to determine course of care. 1735 Dr Pal[address] paged. 1741 Dr Farley paged. [phone] paged to discuss epidural. [phone] Re-paged. Patient sleeping. VSS. [address] Palomares. Notified of inability to level epidural. Ok to initiate PCEA. Abdominaldressing CDI, epidural site clean and dry. [address] Farley at bedside. Toradol ordered. 1820 Epidural rate increased to 5mls/hr by Dr Farley. Ok to transfer to floor now per Dr Palomares per [facility] documentation liaison. Dr Farley states he will check on patient this PM. 1830 Urology team at bedside for rounds. Aware of POC for patient regarding pain control, meds given, etc. No new orders received. Ok to transfer to floor. Urine bloody. 1855 Patient delivered to room without incident, Symone RN at bedside to obtain vials. Transfer of care to wool shearing supervisor. documented in this encounter H&P Notes Rony Pinzon MD - 01/17/2013 11:22 AM EDT Patient Name: Lottie Gaines Patient Age: 12 y.o. Birthdate: 2000 Admit date: 01/17/2013 Attending Physician: Rony Pinzon MD January 17, 2013 Pediatric Urology Attending There has been no clinical change, except for her chonic bilateral back pain has flared. Any quetions her mother had were answered. Surgery, right ureteral reimplant and cystoscopy may proceed as scheduled. CC: RRR, -MRG Lungs: Clear, no wheezes ABD: soft, nontender without signs of infection. : external genitalia nl. Recent UC C/W contamination. RONY PINZON MD Rony Pinzon MD - 01/17/2013 11:11 AM EDT Patient Name: Lottie Gaines Patient Age: 12 y.o. Birthdate: 2000 Admit date: 01/17/2013 Attending Physician: Rony Pinzon MD 24 Hour H&P Update HPI: per Dr. Pinzon in October 2012: Lottie is a 12 y.o. 7 m.o. old female who presents for reevaluation of her right grade 3 vesicoureteral reflux. Her most recent voiding cystourethrogram performed on 04/30/12 revealed reflux into a slightly dilated right ureter and blunted calyceal system. Lottie has had two enterococcus UTIs recently, one on 08/02/12 and the second on 08/15/12, both grew a pansensitive enterococcus at the [facility] lab in [facility]. No changes in medical condition since last Urology office visit. Patient denies chest pain, increasing shortness of breath, nausea/vomitting/fevers/chills. Patient Vitals for the past 8 hrs: BP Temp Temp src Pulse Resp SpO2 Weight 01/17/13 1046 120/55 mmHg 37 ??C (98.6 ??F) Tympanic 88 16 98 % 42 kg (92 lb 9.5 oz) NAD Heart sounds are nml, no murmur appreciated Lungs clear to auscultation Abdomen is soft There are no rashes on the skin Extremities are symmetric A/P: Okay to proceed with surgery. Right ureteral reimplant. I saw and evaluated the patient. I agree with the findings and the plan of care as documented in 's note. Rony Pinzon MD, FACS documented in this encounter Miscellaneous Notes OR Attestation - Rony Pinzon MD - 01/22/2013 10:36 AM EDT Attestation: Case Date: 01/17/2013 I was present and I participated during the entire procedure, cystoscopy and right ureteral reimplant. RONY PINZON MD 01/22/2013 Discharge Summary - Rony Pinzon MD - 01/21/2013 9:36 AM EDT UROLOGY DEPARTMENT Inpatient - Discharge Summary Patient Name: Lottie Gaines Patient Age: 12 y.o. : 2000 Attending Physician: Rony Pinzon MD Date of Admission: 01/17/2013 Date of Discharge: Diagnosis: There are no hospital problems to display for this patient. Incidental Findings: none HPI and Hospital Course: Diagnosis: Right grade III VUR, partial duplication. Treatment/Plan: Right open ureteral reimplant. Reason for Visit: I am seeing Lottie at the request of MILADIS BLACKMON MD for follow up after her recent VCUG. I have reviewed the available records, interviewed her parents, and examined Lottie in the presence of them today. History of Present Illness: Lottie is a 12 y.o. 8 m.o. old female who presents for follow up of her right grade 3 vesicoureteral reflux. Her most recent voiding cystourethrogram performed earlier [id number] revealed right grade III reflux into a normal right ureter and blunted upper pole calyceal system. Lottie has had two enterococcus UTIs recently, one on 08/02/12 and the second on 08/15/12, both grew a pansensitive enterococcus at the [facility] lab in [facility]. Hervoided UA was normal and her PVR was 2 ml. No Known Allergies Lottie Gaines's pain was adequately controlled, she was maintaining adequate oxygen saturation on room air, and was hemodynamically stable. She was tolerating a diet without abdominal complaints and voiding adequately. WBC and Hgb were stable. She was ambulating Lottie Gaines was evaluated by the Urology Team and deemed medically stable for discharge on 01/21/13. Updated Allergies/ADRs: No Known Allergies Operations/Major Procedures: Operations: 01/17/2013 Surgeon(s) and Role: * Rony Pinzon MD - Primary * Bhavesh Tyson MD: Procedure(s): @URETERONEOCYSTOSTOMY ANASTOMOSIS OF SINGLE URETER TO BLADDER CYSTOURETHROSCOPY; Pending Lab Data at Discharge: None. Condition at Discharge: Stable Important Studies and Lab Data: Labs: Recent Labs Basename 01/18/13 1820 WBC 9.3 HGB 11.6 HCT 34.1* PLATELET 162 PT -- INR -- PTT -- Recent Labs Basename 01/18/13 1820 NA 136 K 3.9 CL 104 CO2 25 BUN 6 CREATININE 0.66 GLUCOSE 114 CALCIUM 9.0 MAGNESIUM -- PHOS -- Studies: Discharge Examination: Last value Range last 12 hrs Temperature Temp: 36.6 ??C (97.9 ??F) Temp: [36.5 ??C (97.7 ??F)-36.6 ??C (97.9 ??F)] Heart Rate Heart Rate: 87 Heart Rate: [87-102] Blood Pressure BP: 106/50 mmHg BP: (106-113)/(50-84) Respiratory Rate Resp: 20 Resp: [20-21] SpO2 SpO2: 99 % SpO2: [99 %-100 %] I/Os: I/O last 3 completed shifts: In: 2843 [P.O.:870; I.V.:1973] Out: 2980 [Urine:2980] I/O this shift: In: 360 [P.O.:360] Out: 625 [Urine:625] Physical Exam: CTAB RRR Incision healing well. No ecchymosis no drainage Discharge to: Home Discharge Conditions/Prognosis: Stable Discharge Medications: The following medications have been prescribed for you. If you notice any adverse reactions to your medications, please contact your primary care physician immediately or go to the nearest Emergency Department. Current Discharge Medication List New Meds Dose Details ibuprofen (ADVIL;MOTRIN) 400 mg tablet 400 mg Take 1 tablet by mouth every 8 hours. Qty: 30 tablet oxybutynin (DITROPAN) 5 mg tablet 5 mg Take 1 tablet by mouth 3 times daily. Qty: 180 tablet Refills: 3 OXYcodone-acetaminophen (PERCOCET) 5-325 mg per tablet 1 tablet Take 1 tablet by mouth every 4 hours as needed for Pain. Qty: 40 tablet Refills: 0 amoxicillin-clavulanate (AUGMENTIN) 500-125 mg per tablet 1 tablet Take 1 tablet by mouth 2 times daily for 10 days. Qty: 20 tablet Refills: 0 nitrofurantoin, macrocrystal-monohydrate, (MACROBID) 100 mg capsule 100 mg Take 1 capsule by mouth daily. Only after you finish augmentin Qty: 90 tablet Refills: 0 senna-docusate (PERICOLACE) 8.6-50 mg per tablet 2 tablets Take 2 tablets by mouth 2 times daily. Qty: 60 tablet Refills: 11 Continued medications, unchanged Dose Details polyethylene glycol (MIRALAX) 17 gram packet 17 g Take 17 g by mouth daily. Multiple Urine Tests Strp strips by [facility] [employer].(Non-Drug; Combo Route) route. Use to monitor urine pH as instructed by Qty: 100 strip Refills: 6 Follow-up Care & Plans: For questions, orders or appointments related to your continuing care after your discharge, you or your provider should contact the physician that managed that part of your care. [facility] -[phone] Scheduled Appointments: The following appointments have been scheduled on your behalf: Outpatient Services/Studies: No discharge procedures on file. Instructions Given to Patient at Discharge: Provider Instructions Provider Instructions Discharge Instructions CALL YOUR PHYSICIAN IF: 1. You have a fever greater than 101 degrees Farenheit within one month of your surgery. 2. You have diarrhea or vomiting for >24 hours, or stop having bowel movements and passing flatus 3. You have worsening pain, not controlled with your pain medication. 4. You develop redness, swelling, or new drainage from your wound. Prescriptions*: -You have been prescribed narcotic pain medications (such as Percocet, Vicodin, Oxycodone or Dilaudid) to control your discomfort after surgery. Narcotic pain medications may cause constipation. Stool softeners, such as Colace; mild laxatives, such as Milk of Magnesia, Sennakot, or Ducolax tabs; or enemas may be used if needed and are xydy-lhv-lljildo (OTC) medications available at most [facility] hospital. Prunes or prune juice, taken daily, can also be helpful for constipation treatment or pre vention and are available at most supermarkets. Antibiotics: Take augmentin 1 tablet twice a day for 10 days and only after you finish your augmentin, start Macrobid (Nitrofurantoin) 100 mg once a day for 3 months. Activities: Discuss return to work or school with your surgeon. No heavy lifting. You may lift what is comfortable to lift with one arm. Nothing greater than 10 pounds until re-evaluated by your physician. Diet: Eat a well-balanced diet. Fresh fruits, vegetables and fiber-containing foods are recommended. Thiswill assist in wound healing. Recommendations: Take it easy for two weeks. Remember, If it hurts, don't do it. Take several slow, short walks each day for the first two weeks, and gradually increase your distance. We recommend at least 4 times a day. Wound Care: You can shower per usual routine and wash the incision area gently. Pat incision dry with a clean, dry towel. Do not submerge the wound under water (avoid spas, pools and bathtubs) until it is fully healed. Do not use creams, oils, or ointments on the wound. Keep the wound open to air if it is not draining. Comfort: Some incision soreness can be expected. Take your pain medication as needed and prescribed. Taper use of pain medication as pain lessens. Follow-up Appointments: A Follow-up appointment will be scheduled with Pediatric urology 6M in 6 weeks. You will receive a letter in the mail and/or a phone call with information about this appointment. Please call [phone] and ask for pediatric urology (clinic number for appointments) to confirm date and time of your appointment, or if you do not receive information about your appointment in a timely manner. CC: Primary Care Physician: General Instructions None Call your doctor if: Please call your doctor immediately or go to an Emergency Department if you notice worsening pain not controlled by pain medications, uncontrolled headache, vision changes, chest pain, difficulty breathing, persistent nausea and vomiting, new redness or swelling in any extremities, new onset weakness or changes in sensation, or for any fevers greater than 101.3 F. Your care was managed by the Urology Team at [facility]. If you have any questions or concerns, please feel free to contact us. Provider Contact Information: [place] [facility] hours): CC: MILADIS BLACKMON MD Signed: 01/21/2013 I saw and evaluated the patient. I agree with the findings and the plan of care as documented in theabove note. Rony Pinzon MD, FACS Plan of Care - Clari Limon RN - 01/21/2013 7:00 AM EDT VSS afebrile t/o noc. Continued with pt's plan for pain management t/o noc with great effect. Pt awake in chair until midnight stating that is the most comfortable. At midnight pt was transferred independently into bed. Slept from midnight to 4a with 4 hours of uninterrupted sleep. Flynn intact cont to drain sanguinous urine. Pt states pain to be 10/10 across the board, but is easily up OOB to chair and walking in room carrying own flynn bag with pos affect. Mother here at beginning of shift then home for night. Called this morning is on her way in at this time. Plans to go home today if trial postfoley urination successful. No further concerns at this time. Will cont with nsg POC. Plan of Care - Sabra Salamanca RN - 01/20/2013 5:27 PM EDT Problem: Pain, Acute (Pediatric) Goal: Acute Pain: Acceptable Pain Control/Comfort Level - Pain, Acute (Pediatric) Outcome: Present (see interventions, notes) Assessed/reassessed pain level throughout day; Lottie consistently stated 10/10. Lottie able to participate in activities of daily living, ambulating off unit with Mom, eating meals with good appetite,including chocolate ice cream for afternoon snack, playing with IPAD. At 1600 Lottie again stated pain 10/10 while playing with personal IPAD in chair next to window and stated the present medication schedule as ordered and written on whiteboard was good and she did not want to change any medications or increase medications. This RN and Mom attempted to review number scale with Lottie and asked her that perhaps if pain level was ok now could Lottie assign herself a more inside sales representative number and use 10/10 when the the pain was the worst and in need of different pain management. Lottie said she did not want to change anything; everything was ok with the present way of caring for her pain. Mom in agreement with Lottie's decision and stated Lottie has learning disabilities, and that is whymohini does not understand the rational of reviewing the number pain scale. This RN stated that Lottie's pain control was important and if she and Mom both felt the present pain management plan was providing Lottie good pain coverage then we would continue with present plan; Both Mom and Lottie in agreement. Remains afebrile. VSS. Engaged, social, appears in good spirits throughout the day. Independently ambulates, insists on carrying her flynn bag herself. MIVF discontinued. Tolerating regular diet. Foleycontinues to drain bloody urine. Mom at bedside throughout day participating in cares. Lottie anticipates flynn being discontinued tomorrow. Plan of Care - Doretha Alvarado RN - 01/20/2013 6:[address] Don as schedule indicates coverage. He states he has not received sign out yet and to page previous internet sales consultant. Coater Operator paged at #[phone]. Plan of Care - Sabra Salamanac RN - 01/19/2013 3:15 PM EDT Problem: Pain, Acute (Pediatric) Goal: Acute Pain: Acceptable Pain Control/Comfort Level - Pain, Acute (Pediatric) Outcome: Present (see interventions, notes) Lottie states pain level consistently 8/10 throughout day and states that 8 is ok and that she does not need additional pain coverage. Lottie asked to have epidural discontinued as decreased sensation in her LLE was problematic as she attempted to increase her mobility. Epidural was discontinued 1100 . Lottie received her first PO Oxycodone dose at ~ 1410 and has continued on scheduled dosing of tylenol and Ibuprofen. Ambulation continues to improve today; Lottie independently get out of bed and states improved sensation in LLE, ambulated to [employer] box to obtain small gift. Afebrile. VSS. IV antibiotics discontinued. MIVF at 75 cc/hr. Tolerating and enjoying regular diet. Flynn continues to drain bright red bloody urine; voided around flynn overnight and X1 In bathroom. Continues on Miralax; passing flatus; no stool. Dad at bedside throughout day participating in cares. Mom here mid afternoon;Mom planning to stay overnight as Dad leaving hospital for day. Plan of Care - Lawanda Schmidt RN - 01/19/2013 5:34 AM EDT Problem: Pain, Acute (Pediatric) Goal: Acute Pain: Acceptable Pain Control/Comfort Level - Pain, Acute (Pediatric) Lottie has rated her pain 8/10 consistently when awake. Lottie appears to be sleeping comfortably between care. Ibuprofen PO initiated at beginning of the shift and given PO round the clock with her Tylenol. Her dressing is clean, dry and intact. Flynn draining to gravity dark red urine. Dad at bedside, patient refused AM labs until mom arrives early this morning. Plan of Care - Sabra Salamanca RN - 01/18/2013 3:02 PM EDT Problem: Pain, Acute (Pediatric) Goal: Acute Pain: Acceptable Pain Control/Comfort Level - Pain, Acute (Pediatric) Outcome: Present (see interventions, notes) Epidural decreased to 3 ml/ hr at 1330 due to decreased sensation in LLE preventing Lottie from ambulating; Stood at bedside and unable to transition weight onto left leg to initiate step. Returned to bed without incident. Anesthesiology notified and rate change made. Continues on Oxybutynin. Started o n tylenol scheduled. Pain Control adequate, decreased to 0/10 at 1400. Afebrile. VSS. Tolerating advance to regular diet; denied nausea. Flynn draining bloody urine. Received Miralax; has not stooled since admission. Dad at bedside participating in all cares. Addendum 1630 ambulated to with assist x2 standby; passing flatus. Pain well controlled 3/10. Asking to go off unit with family; aware that patients are to remain on unit while epidural infusing. 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 Procedure(s): @URETERONEOCYSTOSTOMY ANASTOMOSIS OF SINGLE URETER TO BLADDER CYSTOURETHROSCOPY; Anesthesia: General Findings: squamous metaplasia along trigone of bladder, urethral meatous orthotopic bilaterally, small bladder diverticulum at dome of bladder, intravesical reimplant - no stent left Complications: none Fluids: 1.4 Estimated Blood Loss: 25cc Drains:14F flynn catheter Disposition: awakened from anesthesia, extubated and taken to the recovery room in a stable condition, having suffered no apparent untoward event. Condition: doing well without problems HPI/Surgical Indications: Lottie is a 12 y.o. 8 m.o. old female who presents for follow up of her right grade 3 vesicoureteral reflux. Her most recent voiding cystourethrogram performed on 11/13/12 revealed right grade III reflux into a normal right ureter and blunted upper pole calyceal system. Kerri had two enterococcus UTIs recently, one on 08/02/12 and the second on 08/15/12, both grew a pansensitive enterococcus at the [facility] lab in [facility]. Her voided UAwas normal and her PVR was 2 ml. Procedure Description: The patient was brought to the operating room and placed supine upon the table. After adequate induction of general anesthesia, an epidural catheter was placed by the anesthesiologist, and IV antibiotics were administered. The patient was then initially placed in dorsal lithotomy for the cystoscopy. Atime-out was then performed. The 25-degree 11 Fr rigid cystoscope was then gently passed through theurethral meatus and into the bladder. A 360-degree cystoscopy was performed with the above findings.The scope was then removed and the patient was repositioned and re-repped and draped.The patient waspositioned in the supine position, slightly frog-legged for placement of the flynn catheter. A sterile half sheet was placed across the legs and after the abdomen and perineum were prepped. A 6cm pfannenstiel incision was made through through her scar from her previous surgery. The incision was carried down through shyam's fascia exposing the anterior rectus fascia. The rectus fascia was cleared to 1 cm below the umbilicus and to the pubis. The fascia was incised in the midline, the rectus muscles were split, and the prevesical space was entered. The incision was carried cranially and caudally, exposing the bladder. The bladder was gently mobilized with blunt dissection, and then retracted laterally to the left. The obliterated umbilical artery was identified and tied off with 3-0 Vicryl ties a nd then the right ureter was identified. The peritoneum was swept cranially. Once the ureters were mobilized, proximally and distally, and a vesi-loop placed underneath. The bladder was opened with thebovie cautery midline. 3-0 PDS holding sutures were placed on the bladder edges. The self-retaining retractor was placed and the dome of the bladder was packed with moist sponges, elevating the floor of the bladder. A 5F feeding tube was placed in the right ureteral orifice and secured with 3-0 PDS. The dissection was begun with the right ureter. A mucosal collar was created with the bovie cautery. The ureter was mobilized and dissected free of the detrusor muscle with the gentle dissection and the bipolar forceps. Once the ureter was freely mobile a new tunnel was created along the left lateral wall. The detrusor hiatus was closed with interrupted 4-0 chromic, checking to confirm that the neohiatus was adequate to prevent obstruction or kinking. A submucosal tunnel, it's length was greater than 5 times the width of the ureter, was created in the usual fashion. The ureter were brought through itwithout twisting or angulation. The ureter was spatulated then secured with a full-thickness 4-0 chromic at 6 o-clock, and then the mucosal anastomosis was completed with 5-0 chromic in an interrupted f ashion. The mucosal defect was closed with 5-0 chromic. The feeding tube was noted to slide in and out of the ureter easily and as such no stent was placed. The bladder was then closed in 2 layers with3-0 Chromic in a continuous fashion. The bladder was irrigated with 120 ml of NS via the flynn 14F which was placed on the field in a sterile fashion and no leak was seen. The wound was irrigated with sterile saline. Hemostasis was achieved with the bovie cautery. The rectus muscles were reapproximated with 3-0 Vicryl. The fascia was reapproximated with 0 PDS in a continuous fashion. Shyam's fascia was reapproximated with 2-0 Vicryl and the skin was reapproximated with 3-0 Monocryl in a continuous s ubcuticular manner. The wound was cleaned and dried and dermabond was applied. The flynn was connected to gravity drainage. Needle, instrument, and sponge counts were correct. There were no complications. 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 Procedure(s): @URETERONEOCYSTOSTOMY ANASTOMOSIS OF SINGLE URETER TO BLADDER CYSTOURETHROSCOPY; Anesthesia: General Findings: squamous metaplasia along trigone of bladder, urethral meatous orthotopic bilaterally, small bladder diverticulum at dome of bladder, intravesical reimplant - no stent left Complications: none Fluids: 1.4 Estimated Blood Loss: 25cc Drains:14F flynn catheter Disposition: awakened from anesthesia, extubated and taken to the recovery room in a stable condition, having suffered no apparent untoward event. Condition: doing well without problems (Please see the Surgical Encounter Summary for any Implant and Specimen details pertinent to this patient.) RONY PINZON MD Miscellaneous - Provider, Scanning - 01/17/2013 4:02 PM EDT documented in this encounter Plan of Treatment Upcoming Encounters Date Type Specialty Care Team Description 12/22/2021 Office Visit Plastic Surgery Russ Guevara M [facility]ERY [place], [place] [address] (Wo rk) documented as of this encounter Procedures Procedure Name Priority Date/Time Associated Comments Diagnosis DIFFERENTIAL, Timed 01/18/2013 6:20 PM Results for this AUTOMATED EDT procedure are i n the results section. CBC (WITH DIFF) Timed 01/18/2013 6:20 PM Result s for this EDT procedure are i n the results section. BASIC METABOLIC PANEL Timed 01/18/2013 6:20 PM Results for this (NON-FASTING) EDT procedure are in the results section. SURGICAL PATHOLOGY Routine 01/17/2013 3:31 PM Res ults for this REPORT EDT procedure are i n the results section. SPECIMEN TO PATHOLOGY Routine 01/17/2013 3:31 PM Results for this EDT procedure are i n the results section. URINALYSIS WITH Routine 01/17/2013 1:00 PM Result s for this REFLEX CULTURE EDT procedure are in the results section. URINE CULTURE Routine 01/17/2013 1:00 PM Results for this EDT procedure are i n the results section. CYSTOURETHROSCOPY; 01/17/2013 11:12 VUR (vesicoureteri c W\RESECT OR AM EDT reflux) FULGURATION ORTHOTOPIC URETEROCELE(S) (WRVU 5.3) @URETERONEOCYSTOSTOMY 01/17/2013 11:12 VUR (vesicouret jodie ANASTOMOSIS OF SINGLE AM EDT reflux) URETER TO BLADDER (WRVU 19.95) CYSTOURETHROSCOPY; Routine 01/17/2013 10:45 VUR (vesicoureteri c W\RESECT\FULGURATION AM EDT reflux) ORTHO URETEROCELE(S) documented in this encounter Results Differential, Automated (01/18/2013 6:20 PM EDT) P athologist Signature Neutrophils % 57.6 33.0 - CERNER 73.0 % MILLENNIUM Neutr Abs (ANC) 5.35 1.50 - CERNER 8.00 MILLENNIUM x10(3)/mcL Lymphocytes % 30.6 22.0 - CERNER 57.0 % MILLENNIUM Lymphocytes Abs 2.8 1.5 - 6.8 CERNER x10(3)/mcL MILLENNIUM Monocytes % 8.1 2.0 - 12.0 CERNER % MILLENNIUM Monocyte Abs 0.8 0.2 - 1.0 CERNER x10(3)/mcL MILLENNIUM Eosinophils % 3.3 0.0 - 7.0 CERNER % MILLENNIUM Eosinophils Abs 0.3 0.0 - 0.5 CERNER x10(3)/mcL MILLENNIUM Basophils % 0.2 0.0 - 2.0 CERNER % MILLENNIUM Basophils Abs 0.0 0.0 - 0.2 CERNER x10(3)/mcL MILLENNIUM Immature Gran % 0.20 0.00 - CERNER 0.66 % MILLENNIUM Comment: Immature granulocytes(IG's)percentage an d absolute [...] Location / / Volume Laterality Blood specimen 01/18/2013 6:20 PM 013 6:27 (specimen) EDT PM EDT Rony Pinzon MD HEMATOLOGY ORDERABLES Performing Organization Address City/State/ZIP Code Phon e Number [place] [id number] CERNER MILLENNIUM Basic Metabolic Panel (non-fasting) (01/18/2013 6:20 PM EDT) athologist Signature Glucose Lvl 114 60 - 199 CERNER mg/dL MILLENNIUM Comment: Diabetes: >=200 mg/dL plus symp toms BUN 6 5 - 20 mg/dL CERNER MILLENNIUM Creatinine 0.66 0.20 - 0.70 mg/dL CERNER MILL ENNIUM Comment: Please note that the pediatric reference intervals supplied above were not validated at [facility] Results from pediatri c patients should be interpreted in conjunction to the patient's age, height and muscle mass. Sodium 136 135 - 145 mmol/L CERNER KAIN NIUM Potassium 3.9 3.5 - 5.0 mmol/L CERNER KAIN NIUM [...] 31 mmol/L CERNER MILLENNI UM Anion Gap 7 5 - 15 mmol/L CERNER MILLENNIU M Calcium 9.0 8.5 - 10.5 mg/dL CERNER KAIN NIUM [...] the following links into your internet browser. http://www.nkdep.nih.gov/lab-evaluation. shtml http://www.kidney.org/professionals/ Specimen Anatomical Collection Method Collection Time Receive d Time (Source) Location / / Volume Laterality Blood specimen 01/18/2013 6:20 PM 013 6:27 (specimen) EDT PM EDT Resulting Agency Comment Spec In Lab Rony Pinzon MD CHEMISTRY ORDERABLES Performing Organization Address City/State/ZIP Code [place] [address] CERNER MILLENNIUM (ABNORMAL) CBC (with Diff) (01/18/2013 6:20 PM EDT) athologist Signature WBC 9.3 4.5 - 14.0 CERNER x10(3)/mcL MILLENNIUM RBC 4.02 4.00 - CERNER 5.20 MILLENNIUM x10(6)/mcL Hemoglobin 11.6 11.5 - CERNER 15.5 gm/dL MILLENNIUM Hematocrit 34.1 (L) 35.0 - CERNER 45.0 % MILLENNIUM MCV 84.8 75.0 - CERNER 93.0 fL MILLENNIUM MCH 28.9 25.0 - CERNER 33.0 pg MILLENNIUM MCHC 34.0 32.0 - CERNER 36.5 gm/dL MILLENNIUM Platelets 162 145 - 370 CERNER x10(3)/mcL MILLENNIUM RDWSD 39.2 35.0 - CERNER 46.0 fL MILLENNIUM RDWCV 12.6 10.9 - CERNER 14.4 % MILLENNIUM MPV 9.7 9.0 - 12.0 CERNER fL MILLENNIUM Specimen Anatomical Collection Method Collection Time Receive d Time (Source) Location / / Volume Laterality Blood specimen 01/18/2013 6:20 PM 013 6:27 (specimen) EDT PM EDT Resulting Agency Comment Spec In Lab Rony Pinzon MD HEMATOLOGY ORDERABLES Performing Organization Address City/State/[place] [address] [facility] Pathology Report (01/17/2013 3:31 PM EDT) [facility] Method Time Signature Surgical [facility] Pathology ? [facility] ? Provider: ?? RONY PINZON ? Pt. Name: ?? LOTTIE GAINES ? Acc #: ?[id number] ?Pt. MRN: ?[id number] ? Col Date: ?? 3 ? /Sex: ?2000,(12 years),Female ? Rec Date: ?? 01/17/2013 ? LOC: ?[place] ? SURGICAL PATHOLOGY ? ---Pathologic Diagnosis--- ? Distal right ureter, excision: ?Benign ureteral segment with focal chronic infla mmation and ?submucosal hemorrhage. ? CR-0 ? 01/22/13 ? ARS ? 01/22/13 Verified by: ? Aren CHOW, Shiv Roberts ? Pathologist ? (Electronic Si gnature) ? The attending pathologist whose signature appears o n this report has ? reviewed all diagnostic slides and has edited the boogie ss and/or ? microscopic portion of the report in rendering the fi nal pathologic ? diagnosis. ? ---Microscopic Description--- ? Slides reviewed, microscopic description not recorded . ? ---Gross Description--- ? A - Labeled/Fixative: Distal right ureter, fresh. ? Quantity/Size: Single, 1.0 x 0.6 x 0.5 cm. ? Tissue Description: Soft, pink, tubular structure. ? Sections/Processing: Quadrisected. ??(T1) ??sns ? ---Clinical Information--- ? Specimen Submitted: ? A - Distal right ureter ? Clinical History: ? 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 Clinical Diagnosis: ? Same Specimen (Source) Anatomical Collection Method Collection Time Re ceived Time Location / / Volume Laterality 01/17/2013 3:31 PM EDT Rony Pinzon MD PATHOLOGY/CYTOLOGY ORDERABLE S Performing Organization Address City/State/ZIP Code [place] [address] [facility] Specimen to Pathology (surgical or derm) (01/17/2013 3:31 PM EDT) Specimen Anatomical Collection Method Collection Time Receive d Time (Source) Location / / Volume Laterality AP Specimen 01/17/2013 3:31 PM 3 3:31 EDT PM EDT Narrative OPAL GONCALVES - 01/17/2013 3:31 PM E DT Specimen requisition ordered. ??Separate Pathology report to follow Rony Pinzon MD PATHOLOGY/CYTOLOGY ORDERABLE S Performing Organization Address City/State/[place] [address] OPAL GONCALVES Urine culture Cystoscopic Urine (01/17/2013 1:00 PM EDT) [facility] Method Time Signature Urine Culture CERNER ? Patient Name: LOTTIE GAINES ?Ordered By : RONY PINZON ? MR#: [id number] ?LOC: ??[place] ? /Sex: ??2000 (12 years), ? Female ? PROCEDURE: Urine Culture ?SOURCE: U Cysto ? COLLECTED: 01/17/2013 13:00 ?FREE TEXT SOURCE: OR 25 ? STARTED: 01/17/2013 13:17 ? FINAL REPORT ? Final Report ? Verified:01/19/2013 09:57 ? No growth (Less than 100 cfu/ml). ? PRELIMINARY REPORT ? Preliminary Report ? Verified:01/18/2013 07:39 ? No growth to date. ? Specimen Anatomical Collection Method Collection Time Receive d Time (Source) Location / / Volume Laterality Urine specimen 01/17/2013 1:00 PM 013 1:17 (specimen) EDT PM EDT Comment: OR 25 Resulting Agency Comment Spec In Lab Rony Pinzon MD MICROBIOLOGY - GENERAL ORDER DU Performing Organization Address City/State/ZIP Code Phon e Number [address] CERNER MILLENNIUM Urinalysis with microscopic (01/17/2013 1:00 PM EDT) [facility] Method Time Signature Glucose UA Negative Negative CERNER mg/dL MILLENNIUM Protein UA Negative mg/dL CERNER MILLENNIUM Bilirubin UA Negative Negative CERNER mg/dL MILLENNIUM Urobilinogen UA Normal mg/dL CERNER MILLENNIUM pH UA 5.5 5.0 - 8.0 CERNER MILLENNIUM Blood UA Negative mg/dL CERNER MILLENNIUM Ketones UA Negative mg/dL CERNER MILLENNIUM Nitrite UA Negative CERNER MILLENNIUM Leukocytes UA Negative mcL CERNER MILLENNIUM Appearance UA Clear Clear CERNER MILLENNIUM Spec [place] UA 1.011 1.002 - CERNER 1.030 MILLENNIUM Color UA Light Yellow CERNER Yellow MILLENNIUM RBC UA Not Present 0 - 4 CERNER MILLENNIUM WBC UA Not Present 0 - 5 CERNER MILLENNIUM Squam Epith UA 1 <=4 /HPF CERNER MILLENNIUM Specimen Anatomical Collection Method Collection Time Receive d Time (Source) Location / / Volume Laterality Urine specimen 01/17/2013 1:00 PM 013 1:08 (specimen) EDT PM EDT Resulting Agency Comment Spec In Lab Rony Pinzon MD URINE ORDERABLES Performing Organization Address City/[facility]/ZIP Code Phon e Number [address] CERNER MILLENNIUM documented in this encounter Visit Diagnoses Diagnosis VUR (vesicoureteric reflux) - Primary Vesicoureteral reflux, unspecified or wi thout reflux nephropathy documented in this encounter Administered Medications Inactive Administered Medications - up to 3 most recent administrations Medication Order MAR Action Action Date Dose Rate Site acetaminophen (TYLENOL) tablet 500 Given 01/20/2013 6:00 AM EDT 500 mg mg 500 mg (11.9 mg/kg/dose), Oral, EVERY 6 HOURS PRN, Starting on Sun01/17/13 at 1702, Until Sun01/20/13 at 0918, Pain, Maximum dose of acetaminophen is 90 mg/kg (up to 4000 mg maximum) from all sources in 24 hours., Recovery (Recovery-Hospital Unit), Routine Given 01/19/2013 10:00 PM EDT 500 mg Given 01/19/2013 4:06 PM EDT 500 mg ceFAZolin (ANCEF) 1g in dextrose 5% Given 01/19/2013 4:04 AM EDT 1,000 mg 100 mL/hr 50mL 1,000 mg (23.8 mg/kg/dose = 1 g), Intravenous, EVERY 8 HOURS SCHEDULED, First dose on Sun01/17/13 at 1730, Until Discontinued, Administer over 30 Minutes, Recovery (Recovery-Hospital Unit), Indication for (Active or Suspected): Prophylaxis Given 01/18/2013 7:53 PM EDT 1,000 mg 100 mL/hr Given 01/18/2013 12:38 PM EDT 1,000 mg 100 mL/hr dextrose 5% and sodium chloride New Bag 01/20/2013 2:32 AM EDT 1,000 mLs 75 mL/hr 0.45% with potassium chloride 20 mEq infusion 1,000 mL, at 75 mL/hr, Intravenous, CONTINUOUS, Starting on Sun01/17/13 at 1730, Until Sun01/20/13 at 0918, Recovery (Recovery-Hospital Unit) Rate/Dose Verify 01/20/2013 12:00 AM EDT 1,000 mLs 75 mL/hr Rate/Dose Verify 01/19/2013 10:07 PM EDT 1,000 mLs 75 mL/hr fentaNYL 50mcg/mL injection Given 01/17/2013 5:54 PM EDT 25 mcg 25 mcg (0.595 mcg/kg), Intravenous, EVERY 30 MIN PRN, Starting on Sun01/17/13 at 1700, Until Sun01/17/13 at 1836, Pain, PACU Recovery, Routine Given 01/17/2013 5:06 PM EDT 25 mcg HYDROmorphone (PF) Rate/Dose Verify 01/17/2013 6:00 PM EDT 4 mL/hr 4 mL/hr (DILAUDID) 10 mcg/mL, BUpivacaine (PF) (MARCAINE) 0.125 %, cloNIDine 1 mcg/mL in sodium chloride 0.9% 250 mL epidural 4 mL/hr, Epidural, CONTINUOUS, Starting on Sun01/17/13 at 1330, Until Sun01/17/13 at 1819 Anesthesia Bolus 01/17/2013 2:30 PM EDT 3 mLs Anesthesia Bolus 01/17/2013 2:15 PM EDT 2 mLs HYDROmorphone (PF) Rate/Dose Verify 01/19/2013 8:00 AM EDT 3 mL/hr 3 mL/hr (DILAUDID) 10 mcg/mL, BUpivacaine (PF) (MARCAINE) 0.125 %, cloNIDine 1 mcg/mL in sodium chloride 0.9% 250 mL epidural 3 mL/hr, Epidural, CONTINUOUS, Starting on Sun01/17/13 at 1845, Until Sun01/21/13 at 1638 Rate/Dose Verify 01/19/2013 6:00 AM EDT 3 mL/hr 3 mL/hr Rate/Dose Verify 01/18/2013 10:00 PM EDT 3 mL/hr 3 mL/hr ibuprofen (ADVIL;MOTRIN) tablet 400 mg Given 01/20/2013 6:00 AM EDT 400 mg 400 mg (10 mg/kg/dose ? 42 kg), Oral, EVERY 8 HOURS PRN, Starting on Sun01/18/13 at 1903, Until Sun01/20/13 at 0918, Pain, Routine Given 01/19/2013 9:00 PM EDT 400 mg Given 01/19/2013 1:23 PM EDT 400 mg ibuprofen (ADVIL;MOTRIN) tablet 400 mg Given 01/21/2013 2:00 PM EDT 400 mg 400 mg (10 mg/kg/dose ? 42 kg), Oral, EVERY 8 HOURS SCHEDULED, First dose (after last modification) on Sun01/20/13 at 1400, Until Discontinued, Routine Given 01/21/2013 5:58 AM EDT 400 mg Given 01/20/2013 10:04 PM EDT 400 mg ketorolac (TORADOL) 15 mg/mL injection 1 dose, Starting on Sun01/17/13 at 1811, Until Sun01/17/13 at 1812, SIDRA TELLO: charlie barnes ketorolac (TORADOL) injection 21 mg Given 01/17/2013 6:12 PM EDT 21 mg 21 mg (0.5 mg/kg/dose ? 42 kg), Intravenous, EVERY 8 HOURS PRN, 1 dose, Starting on Sun01/17/13 at 1808, Until Sun01/17/13 at 1812, Pain, Greater than 50 kg, maximum IV dose 30 mg Less than 50 kg, maximum IV dose 15 mg For age greater than 2 years of age or adolescents less than 16 years of age, maximum IV dose 0.5 mg/kg to a maximum of 15 mg, Routine midazolam (VERSED) 2 mg/mL oral syrup 20 mg Given 01/17/2013 10:53 AM EDT 20 mg 20 mg, Oral, ONCE, 1 dose, On Sun01/17/13 at 1115, Best if given 20 minutes prior to Operating Room. If a patient receives a dose of preoperative midazolam, he/she must be under either direct parental or nursing supervision until they go to the Operating Room., Day of Surgery (Day of Procedure), Routine oxybutynin (DITROPAN) tablet 5 mg Given 01/21/2013 9:00 AM EDT 5 mg 5 mg (0.119 mg/kg/dose), Oral, 3 TIMES DAILY, First dose on Sun01/17/13 at 2100, Until Discontinued, Recovery (Recovery-Hospital Unit), Routine Given 01/20/2013 10:04 PM EDT 5 mg Given 01/20/2013 2:35 PM EDT 5 mg OXYcodone (ROXICODONE) immediate release tablet Given 01/20/2013 6:35 AM EDT 5 mg 5 mg 5 mg (0.119 mg/kg/dose), Oral, EVERY 4 HOURS PRN, Starting on Sun01/19/13 at 1318, Until Sun01/20/13 at 0918, Pain, Routine Given 01/20/2013 12:00 AM EDT 5 mg Given 01/19/2013 7:45 PM EDT 5 mg OXYcodone (ROXICODONE) immediate release tablet Given 01/20/2013 9:07 AM EDT 5 mg 5 mg 5 mg (0.119 mg/kg/dose), Oral, ONCE, 1 dose, On Sun01/20/13 at 0900, Routine OXYcodone-acetaminophen (PERCOCET) 5-325 Given 01/21/2013 12 :00 PM EDT 1 tablet mg per tablet 1 tablet 1 tablet (5 mg), Oral, EVERY 4 HOURS SCHEDULED, First dose on Sun01/20/13 at 0945, Until Discontinued, Dosed in mg of oxycodone. Maximum dose of acetaminophen is 4000 mg from all sources in 24 hours., Routine Given 01/21/2013 8:00 AM EDT 1 tablet Given 01/21/2013 4:24 AM EDT 1 tablet polyethylene glycol (MIRALAX) packet 17 g Given 01/21/2013 9:00 AM EDT 17 g 17 g (0.405 g/kg), Oral, DAILY, First dose on Sun01/17/13 at 1915, Until Discontinued, Recovery (Recovery-Hospital Unit), Routine Given 01/20/2013 9:00 AM EDT 17 g Given 01/19/2013 9:08 AM EDT 17 g sodium chloride 0.9 % flush 5 mL Given 01/20/2013 9:30 AM EDT 5 mLs 5 mL, Intravenous, EVERY 12 HOURS, First dose on Sun01/17/13 at 1730, Until Discontinued, Recovery (Recovery-Hospital Unit) Given 01/18/2013 6:37 AM EDT 5 mLs Given 01/17/2013 5:08 PM EDT 5 mLs documented in this encounter Active and Recently Administered Medications Times are shown in EDT. Scheduled Medication Order 01/19/2013 01/20/2013 01/21/2013 ceFAZolin (ANCEF) 1g in dextrose 5% 50mL (CANCELED) 04 04 (Given - Provider: Lawanda Schmidt RN) 1 g = 1,000 mg = 23.8 mg/kg/dose, Intrav enous, EVERY 8 HOURS SCHEDULED, First dose on Sun01/17/13 at 1730, Until Discontinued, for 30 Minutes, Recovery (Recovery-Hospital Unit), Indication (Active or Suspected): Prophylaxis ibuprofen (ADVIL;MOTRIN) tablet 400 mg 1 434 (Given - Provider: Sabra Salamanca RN)2204 (Given - Provider: Clair Limon RN) 0558 (Given - Provider: Clari Limon RN)1400 (Given - Provider: Peggy Rodriguez SARAH) 10 mg/kg/dose ? 42 kg = 400 mg, Oral, EVERY 8 HOURS SCHEDULED, First dose on Sun01/20/13 at 1400, Until Discontinued, Routine oxybutynin (DITROPAN) tablet 5 mg 0908 (Given - Provid er: Sabra Salamanca RN)1554 (Given - Provider: Sabra Salamanca RN)2100 (Given - Provider: Doretha Alvarado RN) 0846 (Given - Provider: Lj Padgett)1435 (Given - Provider: Sabra Salamanca RN)2204 (Given - Provider: Clari Limon, SARAH) 0900 (Given - Provider: Peggy Rodriguez RN) 5 mg = 0.119 mg/kg/dose, Oral, 3 TIMES D AILY, First dose on Sun01/17/13 at 2100, Until Discontinued, Recovery (Recovery-Hospital Unit), Routine OXYcodone (ROXICODONE) immediate release tablet 5 mg (COMPLE ORLIN) 0907 (Given - Provider: Sabra Salamanca RN) 5 mg = 0.119 mg/kg/dose, Oral, ONCE, 1 dose, Sun01/20/13 at 0900, Routine OXYcodone-acetaminophen (PERCOCET) 5-325 mg per tablet 1 tab let 0945 (Not Given - Provider: Sabra Salamanca RN - Reason: Contraindicated)1219 (Given - Provider: Sabra Salamanca RN)1607 (Given - Provider: Sabra Salamanca RN)2000 (Given - Provider: Clari Limon RN) 0007 (Given - Provider: Clari Limon , SARAH)0424 (Given - Provider: Clari Limon, SARAH)0800 (Given - Provider: Peggy Rodriguez, SARAH)1200 (Given - Provider: Peggy Rodriguez, SARAH) 5 mg = 1 tablet, Oral, EVERY 4 HOURS SIM EDULED, First dose on Sun01/20/13 at 0945, Until Discontinued, Dosed in mg of oxycodone. Maximum dose of acetaminophen is 4000 mg from all sources in 24 hours., Routine polyethylene glycol (MIRALAX) packet 17 g (CANCELED) 0 908 (Given - Provider: Sabra Salamanca, SARAH) 0900 (Given - Provider: Sabra Salamanca, RN) 0900 (Given - Provider: Peggy Rodriguez RN) 17 g = 0.405 g/kg, Oral, DAILY, First do se on Sun01/17/13 at 1915, Until Discontinued, Recovery (Recovery-Hospital Unit), Routine sodium chloride 0.9 % flush 5 mL (CANCELED) 0530 (Not Given - Provider: Lawanda Schmidt RN - Reason: See comment - Comment: Runnig IVF's)1730 (Due) 0930 (Given - Provider: Sabra Salamanca, SARAH - Comment: MIVF discontinued)1730 (Not Given - Provider: Sabra Salamanca RN - Reason: Contraindicated - Comment: flushed at 0930) 0559 (Not Given - Provider: Clari palomo RN - Reason: See comment) 5 mL, Intravenous, EVERY 12 HOURS, First dose on Sun01/17/13 at 1730, Until Discontinued, Recovery (Recovery-Hospital Unit), Routine Continuous Medication Order 01/19/2013 01/20/2013 01/21/2013 dextrose 5% and sodium chloride 0.45% wi th potassium chloride 20 mEq infusion (CANCELED) 1109 (New Bag - Provider: Shirley lima RN)2000 (Rate/Dose Verify - Provider: Doretha Alvarado RN)2207 (Rate/Dose Verify - Provider: Doretha Alvarado RN) 0000 (Rate/Dose Verify - Provider: Melissa Alvarado RN)0232 (New Bag - Provider: Gayle Berg RN)0900 (Stopped - Provider: Sabra Salamanca, SARAH) 1,000 mL, at 75 mL/hr, Intravenous, CONT INUOUS, Starting Sun01/17/13 at 1730, Until Sun01/20/13 at 0918, Recovery (Recovery-Hospital Unit) HYDROmorphone (PF) (DILAUDID) 10 mcg/mL, BUpivacaine (PF) (MARCAINE) 0.125 %, cloNIDine 1 mcg/mL in sodium chloride 0.9% 250 mL epidural (CANCELED) 0600 (Rate/Dose Verify - Provider: Lawanda Schmidt RN)0800 (Rate/Dose Verify - Provider: Sabra Salamanca RN)1115 (Stopped - Provider: Sabra Salamanca RN - Comment: Per Rickey Cruz MD Anesthesiology) 3 mL/hr, at 3 mL/hr, Epidural, CONTINUOU S, Starting Sun01/17/13 at 1845, Until Tu01/21/13 at 1638 2000 (Not Given - Provider: Doretha Alvarado RN - Reason: Medication Discontinued - Comment: epidural d/c'd per anesthesia) PRN Medication Order 01/19/2013 01/20/2013 01/21/2013 acetaminophen (TYLENOL) tablet 500 mg (CANCELED) 0419 (Given - Provider: Lawanda Schmidt RN)1009 (Given - Provider: Sabra Salamanca RN)1606 (Given - Provider: Sabra Salamanca RN)2200 (Given - Provider: Doretha Alvarado RN) 0600 (Given - Provider: Doretha Alvarado RN) 500 mg = 11.9 mg/kg/dose, Oral, EVERY 6 HOURS PRN, Starting Sun01/17/13 at 1702, Until Sun01/20/13 at 0918, Pain, Maximum dose of acetaminophen is 90 mg/kg (up to 4000 mg maximum) from all sources in 24 hours., Recovery (Recovery-Hospital Unit), Routine ibuprofen (ADVIL;MOTRIN) tablet 400 mg (CANCELED) 0419 (Given - Provider: Lawanda Schmidt RN)1323 (Given - Provider: Sabra Salamanca RN)2100 (Given - Provider: Doretha Alvarado RN) 0600 (Given - Provider: Doretha campbell RN) 10 mg/kg/dose ? 42 kg = 400 mg, Oral, EVERY 8 HOURS PRN, Starting 01/18/13 at 1903, Until 01/20/13 at 0918, Pain, Routine OXYcodone (ROXICODONE) immediate release tablet 5 mg ( CANCELED) 1412 (Given - Provider: Sabra Salamanca RN)1945 (Given - Provider: Doretha Alvarado RN) 0000 (Given - Provider: Doretha Alvarado, ASRAH)0635 (Given - Provider: Doretha Alvarado, SARAH) 5 mg = 0.119 mg/kg/dose, Oral, EVERY 4 H OURS PRN, Starting 01/19/13 at 1318, Until 01/20/13 at 0918, Pain, Routine documented in this encounter Care Teams Signalman Relationship Specialty Start Date End Date Miladis Blackmon MD PCP - General 04/12/10 11/28/21 [address] [place] [address] documented as of this encounter
--- OUTSIDE RECORDS SUMMARY | 2021-12-13 13:02 | XMS_ITS | Encounter Summary ---
:2000 Author Organization [facility] [place] [address] Care Team Providers Name Role Phone Miladis Rivas MD Primary Care Provider Reason for Visit Reason Comments Follow-up H/O RIGHT GRADE 4 R VUR Encounter Details Date Type Department Care Team Description 11/13/2012 Follow-Up Pediatric Urology at CLINIC, DR JUAN DRAKE (vesicoureteric [facility] Rony Pinzon MD [facility] [place] [address] reflux) (Primary Dx) [place] [address] Social History Tobacco Use Types Packs/Day Years Used Date Never Smoker Smokeless Tobacco: Never Used Comments: Mom states smokes Alcohol Use Standard Drinks/Week Comments No 0 (1 standard drink = 0.6 oz pure alcoho l) Sex Assigned at Date Recorded Not on file documented as of this encounter Last Filed Vital Signs Vital Sign Reading Time Taken Comments Blood Pressure 126/60 11/13/2012 11:03 AM EDT Pulse - - Temperature - - Respiratory Rate - - Oxygen Saturation - - Inhaled Oxygen Concentration - - Weight 41.3 kg (91 lb 0.8 oz) 11/13/2012 11:03 AM EDT Height 146.1 cm (4' 9.52) 11/13/2012 11:03 AM EDT Body Mass Index 19.35 11/13/2012 11:03 AM EDT Body Mass Index Percentile 68.81 % 11/13/2012 11:03 AM E DT [facility] Chart: [facility]Girls, 2-20 Years) documented in this encounter Patient Instructions Patient InstructionsRony Pinzon MD - 11/13/2012 11:42 AM EDT Lottie will be scheduled for a right open ureteral reimplant. RONY PINZON MD documented in this encounter Progress Notes Rony Pinzon MD - 11/13/2012 1:16 PM EDT PEDIATRIC UROLOGY OUTPATIENT SPECIALTY FOLLOWUP Place of Service: @ Outpatient Clinic Visit Summary: Diagnosis: Right grade III VUR, partial duplication. Treatment/Plan: Right open ureteral reimplant. Reason for Visit: I am seeing Lottie at the request of MILADIS RIVAS MD for follow up after her recent VCUG. I have reviewed the available records, interviewed her parents, and examined Lottie in the presence of them today. History of Present Illness: Lottie is a 12 y.o. 8 m.o. old female who presents for follow up of her right grade 3 vesicoureteral reflux. Her most recent voiding cystourethrogram performed earlier todayrevealed right grade III reflux into a normal right ureter and blunted upper pole calyceal system. Lottie has had two enterococcus UTIs recently, one on 08/02/12 and the second on 08/15/12, both grew a pansensitive enterococcus at the [facility] lab in [facility]. Her voided UA was normal and her PVR was 2 ml. No Known Allergies Current Outpatient Prescriptions on File Prior to Visit Medication Sig Dispense Refill ??? polyethylene glycol (MIRALAX) 17 gram packet Take 17 g by mouth daily. ??? Multiple Urine Tests Strp strips by [facility].(Non-Drug; Combo Route) route. Use to monitor urine pH as instructed by 100 strip 6 Current Facility-Administered Medications on File Prior to Visit Medication Dose Route Frequency Provider Last Rate Last Dose ??? diatrizoate meglumine (HYPAQUE, CYSTOGRAFIN) urethral solution 325 mL 325 mL Urethral Once Eleno Raza MD 325 mL at 11/13/12 0930 Patient Active Problem List Diagnoses Code ??? RAD (reactive airway disease) 493.90 ??? VSD (ventricular septal defect) 745.4 ??? Recurrent UTI 599.0 ??? Urgency of urination 788.63 ??? Nephrocalcinosis 275.49 ??? Dysuria 788.1 ??? Diarrhea 787.91 ??? Abdominal pain 789.00 ??? Hyperopia 367.0 ??? 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 Passive smoker V15.89 ??? Benign bladder tumor 223.3 ??? VUR (vesicoureteric reflux) 593.70 Review of Systems: General: No fever/chills/headaches Eyes/Vision Normal. No glasses/discharge/aniridia Neurological: Normal. No head injury/seizures/hydrocephalus Endocrine: Negative. No diabetes/dehydration/growth disturbance GI: Normal. H/o constipation Cardiac: Normal. No murmur/CHD Integumentary: Normal. No rash/eczema Musculoskeletal: Normal. No joint pain/swelling/deformity ENT: Normal. No AOM/sinus congestion/strep throat Respiratory: Normal. No asthma/RSV/Pneumonia Hematologic Normal. No anemia/bruising/bleeding disorder Psych Normal. Hepatobiliary: Normal. No Jaundice/Hepatitis Renal Normal. No UTI/Renal failure/Hematuria Past Medical History: See above. Family History: Non contributory for congenital genitourinary abnormalities. Social History: Lives at home with her mother. Physical Exam: General: Healthy female in NAD. Well nourished Head: Normocephalic/Atraumatic. No lesions. Eyes: PERRLA. Conjunctiva and sclera clear. No discharge Nose/Throat: Passages clear. Mucous membranes pink no lesions Teeth/oral: Normal dentition for age and oral cavity Neck: Supple/soft. No masses. Thyroid not enlarged. Trachea midline. Chest: Symmetrical. No pectus excavatum. Lungs: Clear to auscultation bilaterally Heart: RRR No murmurs. S1 and S2 normal Abdomen: Soft. No masses palpable. Liver/spleen/kidneys non-tender. Well healed Pfannenstiel incision. No OM No evidence of abdominal or inguinal hernia Pulses: Normal/2+ throughout the periphery Genitalia:Normal Female External Genitalia. No adhesions, mass, discharge, or erythema. Extremities: Full ROM. No deformity/edema Lymph nodes: Not enlarged. Nontender Back: No curvature. Shoulders/scapula/iliacs symmetrical Spine: Straight. No sacra dimple/hyperpigment/hair-tuft. Skin: Clear and warm. No significant lesions Neurological: Alert. No gross motor/sensory deficit. Normal gait and balance. Pertinent Radiology Studies Reviewed by me with Lottie's parents; see above. Assessment: Lottie is a 12 y.o. 8 m.o. old female with persistent right grade III VUR, and recent UTI's. I have explained the diagnosis to her family. They have reviewed the surgical options for repairof her VUR and have decided to have a open ureteral reimplant. I have discussed the possible complications of bleeding, infection, urine leak, recurrent hydronephrosis, recurrent reflux, and bowel/bladder injury with her parents. Any questions they had were answered and informed consent was obtained, they wish to proceed with scheduling her right reimplant. Plan of Management:Right ureteral reimplant. RONY PINZON MD documented in this encounter Plan of Treatment Upcoming Encounters Date Type Specialty Care Team Description 12/22/2021 Office Visit Plastic Surgery Russ Guevara M D [facility] PLASTIC SURGERY [place], [place] [address] (Wo rk) documented as of this encounter Procedures Procedure Name Priority Date/Time Associated Comments Diagnosis URETERONEOCYSTOSTOMY Routine 11/13/2012 1:33 PM VUR (vesicoure teric ANASTOMOSIS OF SINGLE URETER EDT reflux) TO BLADDER documented in this encounter Results US retroperitoneal complete (03/12/2013 11:51 AM EDT) Anatomical Region Laterality Modality Abdomen Ultrasound Specimen (Source) Anatomical Collection Method Collection Time Re ceived Time Location / / Volume Laterality 03/12/2013 11:51 AM EDT Narrative 03/12/2013 1:06 PM EDT ?Pediatric Renal ? (Signed Final 03/12/2013 01 :06 pm) Patient Info ID: ? [id number] ? : ??[birth year] (13 yrs) Name: ? LOTTIE GAINES ?Visit Date: 03/12/2013 11:46 am Performed By Performed By: ?Shannan Baker RDMS Attending: ? Shu CHOW, Jacquelin Carolina Referred By: ? RONY PINZON MD Service(s) Provided URETRO - Ultrasound Retroperitoneal Com plete ( Pediatric) - [id number] Indications S/P right reimplant. Comparison Outside ultrasound 01/27/13; [facility] ultraso und 06/06/12. Right Kidney Date ? L(cm) ? AP(cm) ?TV(cm) ?Vol 03/12/13 ? 7.9 01/27/13 ? 8.4 06/06/12 ? 8.3 11/07/10 ? 7.7 12/17/08 ? 7 Morphology: ? Duplicated Position: ? Normal Hydronephrosis: ?? Mild pelvicaliectasi s upper pole moiety AP Diameter Renal Pelvis: ?? 2.2 ?m m Comment: ?Unchanged upper pole jennyfer ical thinning. Left Kidney Date ? L(cm) ? AP(cm) ?TV(cm) ?Vol 03/12/13 ? 9.4 01/27/13 ? 9.3 06/06/12 ? 9.5 11/07/10 ? 7.8 12/17/08 ? 7.8 Morphology: ? Normal Position: ? Normal Hydronephrosis: ?? No sonographic evide nce Urinary Bladder Pre-void (cm) ? L: ??5.3 ? A P: ??4.6 ? TV: ??6.2 Vol (ml): ?79.1 Comment: ?Mild irregularity of the posterior right bladder wall ? may represent post op erative changes. Bilateral ? ureteral jets visuali zed. Impression Ultrasound - Retroperitoneal Complete ( Pediatric) - Summary 1. ??Unchanged mild pelvicaliectasis wi cortical scarring of the upper pole moiety of e known duplicated right collecting system. 2. ??Normal left kidney. 3. ??Mild irregularity of the posterior right bladder wall probably represents post operative guzman ges. I ??viewed the images and agree with e above interpretation. Thank you for allowing us to particip e in the care of LOTTIE GAINES. Please do not hesitate to call if you have any questions. ? Gaby Biggs Electronically Signed Final Report ?? 01:06 pm Procedure Note Jacquelin Ireland MD - 03/12/2013Formatt ing of this note might be different from the original. Pediatric Renal (Signed Final 03/12/2013 01:06 pm) Patient Info ID: [id number] : [birth year] (13 yrs ) Name: LOTTIE GAINES Visit Date: 03/12/20 11:46 am Performed By Performed By: Shannan Baker RDMS Attending: Jacquelin Ireland MD Referred By: RONY PINZON MD Service(s) Provided URETRO - Ultrasound Retroperitoneal Com plete ( Pediatric) - [id number] Indications S/P right reimplant. Comparison Outside ultrasound 01/27/13; [facility] ultraso und 06/06/12. Right Kidney Date L(cm) AP(cm) TV(cm) Vol 03/12/13 7.9 01/27/13 8.4 06/06/12 8.3 11/07/10 7.7 12/17/08 7 Morphology: Duplicated Position: Normal Hydronephrosis: Mild pelvicaliectasis u pper pole moiety AP Diameter Renal Pelvis: 2.2 mm Comment: Unchanged upper pole cortical thinning. Left Kidney Date L(cm) AP(cm) TV(cm) Vol 03/12/13 9.4 01/27/13 9.3 06/06/12 9.5 11/07/10 7.8 12/17/08 7.8 Morphology: Normal Position: Normal Hydronephrosis: No sonographic evidence Urinary Bladder Pre-void (cm) L: 5.3 AP: 4.6 TV: 6.2 Vol (ml): 79.1 Comment: Mild irregularity of the poste rior right bladder wall may represent post operative changes. B ilateral ureteral jets visualized. Impression Ultrasound - Retroperitoneal Complete ( Pediatric) - Summary 1. Unchanged mild pelvicaliectasis with cortical scarring of the upper pole moiety of th e known duplicated right collecting system. 2. Normal left kidney. 3. Mild irregularity of the posterior r ight bladder wall probably represents post operative guzman ges. I viewed the images and agree with the above interpretation. Thank you for allowing us to participat e in the care of LOTTIE GAINES. Please do not hesitate to call if you have any questions. Jacquelin Ireland MD Electronically Signed Final Report 03/12 01:06 pm Rony Pinzon MD IMG US GEN ORDERABLES documented in this encounter Visit Diagnoses Diagnosis VUR (vesicoureteric reflux) - Primary Vesicoureteral reflux, unspecified or wi thout reflux nephropathy VUR (vesicoureteric reflux) Vesicoureteral reflux, unspecified or wi thout reflux nephropathy documented in this encounter Care Teams Technical Manager Relationship Specialty Start Date End Date Miladis Rivas MD PCP - General 04/12/10 11/28/[address] [place] [address] documented as of this encounter
--- OUTSIDE RECORDS SUMMARY | 2021-12-13 13:02 | XMS_ITS | Encounter Summary ---
:2000 Author Organization [facility] [place] [address] Care Team Providers Name Role Phone Miladis Blackmon MD Primary Care Provider Encounter Details Date Type Department Care Team Description 02/18/2013 External Results [place] [facility] [place] Sc[place] [address] [place] [address] [place] [phone] Social History Tobacco Use Types Packs/Day [...] Visit Plastic Surgery Russ Guevara M D [facility] PLASTIC DANK [place], [place] [address] (Wo rk) documented as of this encounter Procedures Procedure Name Priority Date/Time Associated Diagnosis Comme nts ULTRASOUND SCAN (SCAN) Routine 01/27/2013 documented in this encounter Results Scan Doc: Ultrasound (01/27/2013) Anatomical Region Laterality Modality Other Narrative This result has an attachment that is no t available. Scanning Provider MEDIA MGR SCAN EXT ORDR/RSLT documented in this encounter Visit Diagnoses Not on filedocumented in this encounter Care Teams Bilingual Interpreter Relationship Specialty Start Date End Date Miladis Blackmon MD PCP - General 04/12/10 11/28/[address] [facility] [place] [address] documented as of this encounter
--- OUTSIDE RECORDS SUMMARY | 2021-12-13 13:02 | XMS_ITS | Encounter Summary ---
:2000 Author Organization [facility] [place] [address] Care Team Providers Name Role Phone Miladis Blackmon MD Primary Care Provider Reason for Visit Reason Comments Follow-up S/P URETERONEOCYSTOSTOMY / F EVER OF 101 YESTERDAY, IBUPROPHEN TODAY AT 530AM, TYLENOL -CODEINE 11 A M TODAY Encounter Details Date Type Department Care Team Description 03/12/2013 Follow-Up Pediatric Urology at CLINIC, DR MARTINEZ VUR (vesicoureteric reflux) (Primary Dx); [facility] [place] Rony Pinzon MD [facility] [place] [address] [place] [phone] Social History Tobacco Use Types Packs/Day Years Used Date Never Smoker Smokeless Tobacco: Never Used Comments: Mom states smokes Alcohol Use Standard Drinks/Week Comments No 0 (1 standard drink = 0.6 oz pure alcoho l) Sex Assigned at Date Recorded Not on file documented as of this encounter Last Filed Vital Signs Vital Sign Reading Time Taken Comments Blood Pressure 115/61 03/12/2013 12:49 PM EDT Pulse - - Temperature 36.9 ??C (98.5 ??F) 03/12/2013 12:49 PM EDT Respiratory Rate - - Oxygen Saturation - - Inhaled Oxygen Concentration - - Weight 42.6 kg (93 lb 14.7 oz) 03/12/2013 12:49 PM EDT Height 148.6 cm (4' 10.5) 03/12/2013 12:49 PM EDT Body Mass Index 19.29 03/12/2013 12:49 PM EDT Body Mass Index Percentile 65.58 % 03/12/2013 12:49 PM E DT Growth Chart: [facility] (Girls, 2-20 Years) documented in this encounter Patient Instructions Patient InstructionsRony Pinzon MD - 03/12/2013 1:21 PM EDT Lottie may have a recurrent UTI, we are checking her UA/urine culture results from this past Sunday at [facility]. In the interim she will be placed on Bactrim DS one orally twice a day and Doxazosin 0.5 mg nightly. She can resume her daily Macrodantoin after she completes her ten days of Bactrim DS. Also continue Senna as needed for constipation. Follow up in 4-6 weeks to check her UA, PVR and blood pressure. 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 Treatment/Plan: -Urine for UA and culture -Empiric Bactrim DS BID x 10 days -Ditropan 5mg daily -Doxazosin 0.5mg nightly -Senna for constipation -F/U in 4-6 wks for BP check Reason for Visit: Post op follow up Subjective: Lottie is a 13 y.o. 0 m.o. old female who s/p Right open ureteral reimplant on 01/20/13 for Right grade III VUR, partial duplication. She had been doing well until last Sunday when she began to have dysuria, back pain, and leg pain. She went to [facility] where she had UA Macro/Micro that had few bacteria but with contamination (many squamous cells). Subjective fever and chills but no nausea or vomiting. She is taking the macrobid as prescribed but has cut down to once daily Ditropan. Today she still reports superpubic discomfort. No Known Allergies Current Outpatient Prescriptions on File Prior to Visit Medication Sig Dispense Refill ??? ibuprofen (ADVIL;MOTRIN) 400 mg tablet Take [...] 2 times daily. 60 tablet 11 ??? [DISCONTINUED] OXYcodone-acetaminophen (PERCOCET) 5-325 mg per tablet Take 1 tablet by mouth every 4 hours as needed for Pain. 40 tablet 0 ??? [DISCONTINUED] polyethylene glycol (MIRALAX) 17 gram packet Take 17 g by mouth daily. ??? Multiple Urine Tests Strp strips by [facility].(Non-Drug; Combo Route) route. Use to monitor urine pH as instructed by 100 strip 6 Patient Active Problem List Diagnosis Code ??? RAD (reactive airway disease) 493.90 [...] No murmur/CHD Integumentary: Normal. No rash/eczema Musculoskeletal: Episodic leg pain ENT: Normal. No AOM/sinus congestion/strep throat Respiratory: Normal. No asthma/RSV/Pneumonia Hematologic Normal. No anemia/bruising/bleeding disorder Psych Normal. Hepatobiliary: Normal. No Jaundice/Hepatitis Renal Normal. No UTI/Renal failure/Hematuria Past Medical History: See above. Family History: Non contributory for congenital genitourinary abnormalities. Social History: Lives at home with her mother. Physical Exam: General: Healthy female in NAD. Well nourished Head: Normocephalic/Atraumatic. No lesions. Abdomen: Soft. No masses palpable. Well healed incisions, abdominal seroma resolved Skin: Clear and warm. No significant lesions Neurological: Alert. No gross motor/sensory deficit. Normal gait and balance. UA: Negative for blood, trace leukocyte esterase, neg nitrites Pertinent Radiology Studies Reviewed by me with Lottie's parents; Renal ultrasound 03/12/13: 1. Unchanged mild pelvicaliectasis with cortical scarring of the upper pole moiety of the known duplicated right collecting system. 2. Normal left kidney. 3. Mild irregularity of the posterior right bladder wall probably represents post operative changes. Assessment: Lotite is a 13 y.o. 0 m.o. old female s/p right open ureteral reimplant for right grade III VUR, partial duplication on 02/07/13. Some concern for UTI today, but overall doing well. Will culture urine, start her on empiric abx and add Doxazosin for dysfunctional voiding and add senna for constipation. Plan of Management: -Urine for UA and culture -Empiric Bactrim DS BID x 10 days -Ditropan 5mg daily -Doxazosin 0.5mg nightly -Pericolace for constipation -F/U in 4-6 wks for BP check MARLON SANZ MD I saw and evaluated the patient. I agree with the findings and the plan of care as documented in ' note. Rony Pinzon MD, FACS documented in this encounter Plan of Treatment Upcoming Encounters Date Type Specialty Care Team Description 12/22/2021 Office Visit Plastic Surgery Russ Guevara M D [facility] PLASTIC SURGERY [place], [place] [address] (Wo rk) documented as of this encounter Procedures Procedure Name Priority Date/Time Associated Comments Diagnosis POCT URINE DIPSTICK Routine 03/12/2013 1:37 PM VUR (vesicouret jodie Results for this EDT reflux) procedure are in Recurrent UTI the results section. URINALYSIS WITH Routine 03/12/2013 1:20 PM Recurrent UTI Resul ts for this REFLEX CULTURE EDT procedure are in the results section. URINE CULTURE Routine 03/12/2013 1:20 PM Recurrent UTI Results for this EDT procedure are i n the results section. documented in this encounter Results (ABNORMAL) POCT urine dipstick (03/12/2013 1:37 PM EDT) P athologist Signature POC Sp [place] 1.010 1.002 - 1.030 POC pH, UA 6 5.0 - 8.5 POC Leuk, UA TRACE Negative - Negative POC Nitrite, NEG Negative - UA Negative POC Protein, NEG Negative - UA Negative mg/dL POC Glucose, NORM Normal - UA Normal mg/dL POC Ketone, UA NEG Negative - Negative POC Urobil, UA NORM 0.2 - 1.0 mg/dL POC Bili, UA NEG Negative - Negative POC Blood, UA NEG Negative - Negative gail/uL Specimen (Source) Anatomical Collection Method Collection Time Re ceived Time Location / / Volume Laterality 03/12/2013 1:37 PM EDT Rony Pinzon MD POINT OF CARE TEST ORDERABLE S (ABNORMAL) Urinalysis with microscopic (03/12/2013 1:20 PM EDT) [facility] Method Time Signature Glucose UA Negative Negative CERNER mg/dL MILLENNIUM Protein UA Trace (A) Neg mg/dL CERNER MILLENNIUM Bilirubin UA Negative Negative CERNER mg/dL MILLENNIUM Urobilinogen UA Normal mg/dL CERNER MILLENNIUM pH UA 6.5 5.0 - 8.0 CERNER MILLENNIUM Blood UA Negative mg/dL CERNER MILLENNIUM Ketones UA Negative mg/dL CERNER MILLENNIUM Nitrite UA Negative CERNER MILLENNIUM Leukocytes UA Negative mcL CERNER MILLENNIUM Appearance UA Hazy (A) Clear CERNER MILLENNIUM Spec [place] UA 1.020 1.002 - CERNER 1.030 MILLENNIUM Color UA Yellow Yellow CERNER MILLENNIUM RBC UA 1 0 - 4 /HPF CERNER MILLENNIUM WBC UA 2 0 - 5 /HPF CERNER MILLENNIUM Squam Epith UA 20 (H) <=4 /HPF CERNER MILLENNIUM Specimen Anatomical Collection Method Collection Time Receive d Time (Source) Location / / Volume Laterality Urine specimen 03/12/2013 1:20 PM 013 2:00 (specimen) EDT PM EDT Resulting Agency Comment Spec In Lab Rony Pinzon MD URINE ORDERABLES Performing Organization Address City/State/[place] [address] [facility] Urine culture Clean Catch Urine (03/12/2013 1:20 PM EDT) [facility] Method Time Signature Urine Culture CERNER ? Patient Name: LOTTIE GAINES ?Ordered By : RONY PINZON ? MR#: [id number] ?LOC: ??6M ? /Sex: ??2000 (13 years), ? Female ? PROCEDURE: Urine Culture ?SOURCE: U CC ? COLLECTED: 03/12/2013 13:20 ?FREE TEXT SOURCE: Symptoms of UTI. ? STARTED: 03/12/2013 14:41 ? FINAL REPORT ? Final Report ? Verified:03/13/2013 14:19 ? 1,000-9,000 cfu/ml Gram Positive organisms , probable contaminant ? Specimen (Source) Anatomical Collection Method Collection Time Re ceived Time Location / / Volume Laterality Urine specimen 03/12/2013 1:20 03/12/2013 2:41 obtained by clean PM EDT PM EDT catch procedure (specimen) Comment: SYMPTOMS OF UTI. Resulting Agency Comment Spec In Lab Rony Pinzon MD MICROBIOLOGY - GENERAL ORDER DU Performing Organization Address City/State/ZIP Code Phon e Number [place] [phone] [facility] documented in this encounter Visit Diagnoses Diagnosis VUR (vesicoureteric reflux) - Primary Vesicoureteral reflux, unspecified or wi thout reflux nephropathy Recurrent UTI Urinary tract infection, site not specif ied documented in this encounter Care Teams Roading Engineer Relationship Specialty Start Date End Date Miladis Blackmon MD PCP - General 04/12/10 11/28/21 [address] [place] [address] documented as of this encounter
--- OUTSIDE RECORDS SUMMARY | 2021-12-13 13:02 | XMS_ITS | Encounter Summary ---
:2000 Author Organization [facility] Address [facility] [place] [address] Care Team Providers Name Role Phone Miladis Rivas MD Primary Care Provider Reason for Visit Reason Comments Follow-up GRADE 4 , RT VUR Encounter Details Date Type Department Care Team Description 09/25/2012 Follow-Up Pediatric Urology at Valeriy Pinzon MD VUR (vesicoureteric reflux) (Primary Dx) ; [facility] History of recurrent UTIs [facility] [place] [address] [place] [address] [phone] (Wo rk) Social History Tobacco Use Types Packs/Day Years Used Date Never Smoker Smokeless Tobacco: Never Used Comments: Mom states smokes Alcohol Use Standard Drinks/Week Comments No 0 (1 standard drink = 0.6 oz pure alcoho l) Sex Assigned at Date Recorded Not on file documented as of this encounter Last Filed Vital Signs Vital Sign Reading Time Taken Comments Blood Pressure 103/52 09/25/2012 3:53 PM EDT Pulse - - Temperature - - Respiratory Rate - - Oxygen Saturation - - Inhaled Oxygen Concentration - - Weight 40.1 kg (88 lb 6.5 oz) 09/25/2012 3:53 PM EDT Height 146 cm (4' 9.48) 09/25/2012 3:53 PM EDT Body Mass Index 18.81 09/25/2012 3:53 PM EDT Body Mass Index Percentile 63.75 % 09/25/2012 3:53 PM ED T Growth Chart: [facility] (Girls, 2-20 Years) documented in this encounter Patient Instructions Patient InstructionsRony Pinzon MD - 09/25/2012 4:41 PM EDT Lottie will be scheduled for a Pain Free Clinic VCUG to reassess her right reflux. RONY PINZON MD documented in this encounter Progress Notes Rony Pinzon MD - 10/01/2012 3:00 PM EDT PEDIATRIC UROLOGY [facility] Place of Service: [facility] Service Visit Summary: Diagnosis: Right grade 3 VUR, with history of urachal remnant/cyst causing recurrent pelvic/bladder pain. 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 Treatment/Plan: This is a pain-free clinic visit with repeat voiding cystourethrogram to reassess grade of reflux. Reason for Visit: I am seeing Lottie at the request of MILADIS RIVAS MD for the evaluation of of her right vesicoureteral reflux. I have reviewed the available records, interviewed Lottie and her mother, and examined Lottie in the presence of her today. History of Present Illness: Lottie is a 12 y.o. 7 m.o. old female who presents for reevaluation of her right grade 3 vesicoureteral reflux. Her most recent voiding cystourethrogram performed on 04/30/12 revealed reflux into a slightly dilated right ureter and blunted calyceal system. Lottie has had two enterococcus UTIs recently, one on 08/02/12 and the second on 08/15/12, both grew a pansensitive enterococcus at the [facility] lab in [facility]. Review of Systems: General: No recent fever/chills/headaches Eyes/Vision Normal. No glasses/discharge/aniridia Neurological: Normal. No head injury/seizures/hydrocephalus Endocrine: Negative. No diabetes/dehydration/growth disturbance GI: Normal. +constipation, occasional back pain. Cardiac: Normal. No murmur/CHD Integumentary: Normal. No rash/eczema Musculoskeletal: Normal. No joint pain/swelling/deformity ENT: Normal. No AOM/sinus congestion/strep throat Respiratory: Normal. No asthma/RSV/Pneumonia Hematologic Normal. No anemia/bruising/bleeding disorder Psych Normal. Hepatobiliary: Normal. No Jaundice/Hepatitis Renal Normal. Prior enterococcus UTI Past Medical History Diagnosis Date Right VUR ??? Chronic kidney disease ??? Didelphic uterus ??? Passive smoker VSD Reactive Airway Disease ??? 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 Multiple Urine Tests Strp strips by [facility].(Non-Drug; Combo Route) route. Use to monitor urine pH as instructed by 100 strip 6 No Known Allergies Family History: Non contributory for congenital genitourinary abnormalities. Social History: Lives at home with her mother. Physical Exam: General: Healthy female in NAD. Well nourished Head: Normocephalic/Atraumatic. No lesions. Eyes: PERRLA. Conjunctiva and sclera clear. No discharge Nose/Throat: Passages clear. Mucous membranes pink no lesions Teeth/oral: Normal dentition for age and oral cavity Neck: Supple/soft. No masses. Thyroid not enlarged. Chest: Symmetrical. No pectus excavatum. Lungs: Clear to auscultation bilaterally Heart: RRR No murmurs. S1 and S2 normal Abdomen: Soft. No masses palpable. Liver/spleen/kidneys non-tender. No OM No evidence of abdominal or inguinal hernia, well healed pfannenstiel incision. Genitalia:Not examined today. Lymph nodes: Not enlarged. Nontender Back: No curvature. Shoulders/scapula/iliacs symmetrical Spine: Straight. No sacra dimple/hyperpigment/hair-tuft. Skin: Clear and warm. No significant lesions Neurological: Alert. No gross motor/sensory deficit. Normal gait and balance Pertinent Radiology Studies Reviewed by me with Junes RBUS:The right kidney has mild hydronephrosis and measures 8 cm in greatest dimension, the left kidney shows no hydronephrosis, mass or stone measures and is 9.5 cm in diameter. The bladder was unremarkable. CT scan abdomen and pelvis 03/29/12: Outside film performed at the [facility]. Study was performed with IV and oral contrast reveals a right sided bladder mass with fluid andsolid components. There is no hydronephrosis, or calcifications present in the ureters or kidneys. Uroflow and posterior residual: Lottie voided 30 cc and had a postvoid residual of 73 cc. Her Q. maxwas 20 mL per second average flow rate was 5 mL per second. The accuracy of the Q. max may be questioned because of her small voided volume. Pertinent Laboratory Studies Reviewed by me. Results for LOTTIE GAINES ( ) Ref. Range 09/25/2012 16:48 POC Sp Tonasket Latest Range: 1.002-1.030 1.015 POC pH, UA Latest Range: 5.0-8.5 6 POC Protein, UA Latest Range: Negative-Negative mg/dL NEG POC Glucose, UA Latest Range: Normal-Normal mg/dL NORM POC Ketone, UA Latest Range: Negative-Negative NEG POC Urobil, UA Latest Range: 0.2-1.0 mg/dL NORM POC Bili, UA Latest Range: Negative-Negative NEG POC Blood, UA Latest Range: Negative-Negative gail/uL NEG POC Leuk, UA Latest Range: Negative-Negative + POC Nitrite, UA Latest Range: Negative-Negative NEG Assessment: Lottie is a 12 y.o. 7 m.o. old female with a history of right grade 3 vesicoureteral reflux. I have explained the diagnosis to Lottie and her mother. Before any discussion regarding treatment of the reflux can begin I need to restage the reflux to see if it has downgraded, now that she is recovered from her partial cystectomy. Lottie also still may have a component of dysfunctional elimination syndrome since she had an elevated postvoid residual today. Her urine will be sent for culture as well as microscopic analysis. Plan of Management:Schedule voiding cystourethrogram with Pain-free clinic visit for sedation. RONY PINZON MD documented in this encounter Plan of Treatment Upcoming Encounters Date Type Specialty Care Team Description 12/22/2021 Office Visit Plastic Surgery Russ Guevara M D [facility] PLASTIC SURGERY [place] [id number] (Wo rk) documented as of this encounter Procedures Procedure Name Priority Date/Time Associated Comments Diagnosis POCT URINE DIPSTICK Routine 09/25/2012 4:48 PM VUR (vesicouret jodie Results for this EDT reflux) procedure are i n the results section. URINALYSIS WITH Routine 09/25/2012 4:30 PM History of Result s for this REFLEX CULTURE EDT recurrent UTIs procedure a re in the results section. URINE CULTURE Routine 09/25/2012 4:30 PM History of Results for this EDT recurrent UTIs procedure are in the results section. documented in this encounter Results XR Fluoro voiding cystoerethrogram (VCUG) (11/13/2012 9:51 AM EDT) Anatomical Region Laterality Modality N/A Radiographic Imaging Specimen (Source) Anatomical Collection Method Collection Time Re ceived Time Location / / Volume Laterality 11/13/2012 9:51 AM EDT Narrative 11/13/2012 10:23 AM EDT Examination VOIDING CYSTOURETHROGRAM Clinical History H/O right VUR. Comparison 04/30/2012. Technique The study was performed in conjunction w [facility] the [facility] pain-free service. ??The patient arrived in the Radiology suite w [facility] a urinary catheter in place. ??325 mL of Cystografin water-soluble contrast was instilled into the bladder under gravity drip until the patient voided sp ontaneously on the fluoroscopy table. Findings The bladder and urethra are normal. ??No vesicoureteral reflux was seen on the left. ??On the right there was reflux ?? during ??filling to the level of the right kidney. ??There is a bifurcated right ur eter which divides just before reaching the right kidney. ??There is blunting of all of the calices but no dilatation of the ureter or renal pelves. Thus it is n ot possible to determine how much of the dilatation of the calices is due to prior infection and how much is due to the reflux and the reflux can not techni jimmy be graded. ??The appearance suggests prior episodes of reflux relate d infection likely associated with renal scarring. Impression Right-sided vesicoureteral reflux to the level of the kidney with blunted calices suggesting prior infection. Procedure Note Eleno Raza MD - 11/13/2012Format ting of this note might be different from the original. Examination VOIDING CYSTOURETHROGRAM Clinical History H/O right VUR. Comparison 04/30/2012. Technique The study was performed in conjunction w [facility] the [facility] pain-free service. The patient arrived in the Radiology suite w [facility] a urinary catheter in place. 325 mL of Cystografin water-soluble contrast was instilled into the bladder under gravity drip until the patient voided sp ontaneously on the fluoroscopy table. Findings The bladder and urethra are normal. No v esicoureteral reflux was seen on the left. On the right there was reflux duri ng filling to the level of the right kidney. There is a bifurcated right uret er which divides just before reaching the right kidney. There is blunting of a ll of the calices but no dilatation of the ureter or renal pelves. Thus it is n ot possible to determine how much of the dilatation of the calices is due to prior infection and how much is due to the reflux and the reflux can not techni jimmy be graded. The appearance suggests prior episodes of reflux relate d infection likely associated with renal scarring. Impression Right-sided vesicoureteral reflux to the level of the kidney with blunted calices suggesting prior infection. Rony Pinzon MD IMG FLUORO ORDERABLES (ABNORMAL) POCT urine dipstick (09/25/2012 4:48 PM EDT) athologist Signature POC Sp Tonasket 1.015 1.002 - 1.030 POC pH, UA 6 5.0 - 8.5 POC Leuk, UA + Negative - Negative POC Nitrite, NEG Negative [...] ceived Time Location / / Volume Laterality 09/25/2012 4:48 PM EDT Rony Pinzon MD POINT OF CARE TEST ORDERABLE S Urine culture Clean Catch Urine (09/25/2012 4:30 PM EDT) Patholo gist Method Time Signature Urine Culture CERNER ? Patient Name: LOTTIE GAINES ?Ordered By : RONY PINZON ? MR#: [id number] ?LOC: ??6M ? /Sex: ??2000 (12 years), [...] Organization Address City/State/[place] [address] CERNER MILLENNIUM (ABNORMAL) Urinalysis with microscopic (09/25/2012 4:30 PM EDT) [facility] Method Time Signature Glucose UA Negative Negative [...] UA Hazy (A) Clear CERNER MILLENNIUM Spec Tonasket UA 1.022 1.002 - CERNER 1.030 MILLENNIUM Color UA Yellow Yellow CERNER MILLENNIUM RBC UA 1 0 - 4 /HPF CERNER MILLENNIUM WBC UA 2 0 - 5 /HPF CERNER MILLENNIUM Squam Epith UA 9 (H) <=4 /HPF CERNER MILLENNIUM Specimen Anatomical Collection Method Collection Time Receive d Time (Source) Location / / Volume Laterality Urine specimen 09/25/2012 4:30 PM 013 5:00 (specimen) EDT PM EDT Resulting Agency Comment Spec In Lab Rony Pinzon MD URINE ORDERABLES Performing Organization Address City/State/ZIP Code Phon e Number [place] [address] CERNER MILLENNIUM documented in this encounter Visit Diagnoses Diagnosis VUR (vesicoureteric reflux) - Primary Vesicoureteral reflux, unspecified or wi thout reflux nephropathy History of recurrent UTIs Personal history of urinary (tract) infe ction VUR (vesicoureteric reflux) Vesicoureteral reflux, unspecified or wi thout reflux nephropathy documented in this encounter Care Teams Mental Measurements Teacher Relationship Specialty Start Date End Date Miladis Rivas MD PCP - General 04/12/10 11/28/21 [address] [place] [address] documented as of this encounter
--- OUTSIDE RECORDS SUMMARY | 2021-12-13 13:02 | XMS_ITS | Encounter Summary ---
:2000 Author Organization [facility] [place] [address] Care Team Providers Name Role Phone Miladis Blackmon MD Primary Care Provider Encounter Details Date Type Department Care Team Description 06/06/2012 Hospital Encounter [place] [facility] [place] [address] Social History Tobacco Use Types Packs/Day [...] Date Multiple Urine Tests [place] [facility]Non-Drug; 100 strip 6 012 Strp stripsIndications: Combo Route) route. Dysuria Use to monitor urine pH as instructed by Acetaminophen (TYLENOL) Take 11.3 mLs by 0 201106/07/2012 160 mg/5 mL (5 mL) mouth every 4 hours suspension as needed for Pain. OXYcodone (ROXICODONE) 5 Take 1 tablet by 50 tablet 0 04/2206/07/2012 mg immediate release mouth every 4 hours tablet as needed for Pain. gabapentin (NEURONTIN) Take 100 mg by mouth 0 06/07/2012 100 mg capsule daily. polyethylene glycol Take 17 g by mouth 510 g 12 09/25/19 12 09/24/2012 (MIRALAX) 17 gram/dose daily. powder sodium bicarbonate 650 Take 1 tablet by 5 tablet 11 2 012 06/07/2012 mg tablet mouth 4 times daily. Take 2 tabs at 8 am, then one tab every 4 hours (total of 4 doses/day). Goal is to get urine pH to 8 Pentosan Polysulfate Take 100 mg by mouth 0 06/07/2012 Sodium (ELMIRON) 100 mg 3 times daily capsule (before meals). tolterodine (DETROL LA) Take 1 capsule by 90 capsule 4 08/1706/07/2012 2 mg 24 hr capsule mouth daily for 360 days. levalbuterol (XOPENEX) 0 12/17/2008 1.25 mg/0.5 mL nebulizer solution documented as of this encounter Plan of Treatment Upcoming Encounters Date Type Specialty Care Team Description 12/22/2021 Office Visit Plastic Surgery Russ Guevara M D [facility] PLASTIC SURGERY [place], [place] [address] (Wo rk) documented as of this encounter Procedures Procedure Name Priority Date/Time Associated Comments Diagnosis US RETROPERITONEAL Routine 06/06/2012 4:02 Duplicated Result s for this COMPLETE PM EST collecting system procedure are in the results section. documented in this encounter Results US retroperitoneal complete (06/06/2012 4:02 PM EST) Anatomical Region Laterality Modality Abdomen Ultrasound Specimen (Source) Anatomical Collection Method Collection Time Re ceived Time Location / / Volume Laterality 06/06/2012 4:02 PM EST Narrative 06/06/2012 5:15 PM EST ?Pediatric Renal ? (Signed Final 06/06/2012 05 :13 pm) Patient Info ID: ?[id number] ?: ??[birth year] (12 yrs) Name: ?LOTTIE GAINES ? Visit Date: 06/06/2012 03:57 pm Performed By Performed By: ?Shannan Baker RDMS Associate: ? Eduardo CHOW, Byron Martino Attending: ? Ry CHOW, Eleno Rosales Referred By: ? 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 L(cm) ? AP(cm) ?TV(cm) ? Vol 06/06/12 ? 8.3 11/07/10 ? 7.7 12/17/08 ? 7 Morphology: ? Duplicated Position: ? Normal Hydronephrosis: ?? Trace pelvicaliectas is, unchanged from prior ? imaging. Comment: ?Cortical thinning - upper pole Left Kidney Date ? L(cm) ? AP(cm) ?TV(cm) ? Vol 06/06/12 ? 9.5 11/07/10 ? 7.8 12/17/08 ? 7.8 Morphology: ? Normal Position: ? Normal Hydronephrosis: ?? No sonographic evide nce Urinary Bladder Pre-void (cm) ? L: ??3.8 ? A P: ??2.6 ? TV: ??4.9 Vol (ml): ?25.3 Comment: ?Partially distended, norm al contour. ??Bilateral jets ? visualized, left grea ter than right. Impression Ultrasound - Retroperitoneal Complete ( Pediatric) - Summary 1. Unchanged minimal right pelvicaliect asis with upper pole parenchymal thinning. 2. Normal left kidney. 3. Unremarkable bladder without evidenc e of local recurrance. I ??viewed the images and agree with th e above interpretation. Thank you for allowing us to participat e in the care of LOTTIE GAINES. Please do not hesitate to call if you have any questions. ? Eleno Raza MD Electronically Signed Final Report ?? 05:13 pm Film and interpretation reviewed by the attending Procedure Note Eleno Raza MD - 06/06/2012Format ting of this note might be different from the original. 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 Comment: Cortical thinning - upper pole Left Kidney Date L(cm) AP(cm) TV(cm) Vol 06/06/12 9.5 11/07/10 7.8 12/17/08 7.8 Morphology: Normal Position: Normal Hydronephrosis: No sonographic evidence Urinary Bladder Pre-void (cm) L: 3.8 AP: 2.6 TV: 4.9 Vol (ml): 25.3 Comment: Partially distended, normal co ntour. Bilateral jets visualized, left greater than right. Impression Ultrasound - Retroperitoneal Complete ( Pediatric) - Summary 1. Unchanged minimal right pelvicaliect asis with upper pole parenchymal thinning. 2. Normal left kidney. 3. Unremarkable bladder without evidenc e of local recurrance. I viewed the images and agree with the above interpretation. Thank you for allowing us to participat e in the care of LOTTIE GAINES. Please do not hesitate to call if you have any questions. 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
--- OUTSIDE RECORDS SUMMARY | 2021-12-13 13:02 | XMS_ITS | Encounter Summary ---
:2000 Author Organization [facility] Address [address] [place] [address] Care Team Providers Name Role Phone Miladis Blackmon MD Primary Care Provider Encounter Details Date Type Department Care Team Description 04/19/2012 - Hospital Encounter Pediatric Emma Whelan Benign bladder 04/22/2012 Adolescent Unit A, MD tumor [facility] [address] [place] [id number] [phone] Social History Tobacco Use Types Packs/Day Years Used Date Never Smoker Smokeless Tobacco: Never Used Comments: Mom states smokes Alcohol Use Standard Drinks/Week Comments No 0 (1 standard drink = 0.6 oz pure alcoho l) Sex Assigned at Date Recorded Not on file documented as of this encounter Last Filed Vital Signs Vital Sign Reading Time Taken Comments Blood Pressure 116/71 04/22/2012 8:00 AM EST Pulse 90 04/22/2012 8:00 AM EST Temperature 36.8 ??C (98.2 ??F) 04/22/2012 8:00 AM EST Respiratory Rate 20 04/22/2012 8:00 AM EST Oxygen Saturation 99% 04/22/2012 8:00 AM EST Inhaled Oxygen Concentration - - Weight 36 kg (79 lb 5.9 oz) 04/19/2012 12:01 PM EST Height - - Body Mass Index - - documented in this encounter Discharge Instructions Patient InstructionsEmma Whelan MD - 04/22/2012 1:59 PM EST Pediatric Final Discharge Summary Patient Name: Lottie Gaines Patient Age: 12 y.o. Birthdate: 2000 Admit date: 04/19/2012 10:17 AM Hospital Day 3 days Discharge date and time: 04/22/12 Attending Physician: Emma Whelan MD Discharge Diagnoses (Hospital Problems) and Secondary Diagnoses (Chronic Problems): Active Hospital Problems Diagnoses ??? Benign bladder tumor Resolved Hospital Problems Diagnoses Date Resolved Active Non-Hospital Problems Diagnoses ??? Didelphic uterus ??? Passive smoker ??? Hyperopia ??? Diarrhea ??? Abdominal pain ??? Dysuria ??? Nephrocalcinosis ??? Recurrent UTI ??? Urgency of urination ??? RAD (reactive airway disease) ??? 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 Operations and Procedures: Operations: CYSTO, STENT PLACEMENT-Dr. Jenkins 04/19/12 CYSTECTOMY, PARTIAL, SIMPLE- Dr. Whelan 04/19/12 History of Presentation: Lottie Gaines is an 12 year old female who has had multiple UTIs of undetermined origin who presented with acute onset RLQ pain of approximately 2 days duration. In addition to the multiple UTIs, Lottie has a history of severe pelvic and back pain and dysuria in the context of increased right hydronephrosis and an abnormal bladder wall. She had a cystoscopy on 08/18/11 and a query of fistula found on the right posterolateral wall. GI endoscopy revealed a normal colon. She was brought back to the OR for re- cystoscopy and vaginoscopy on 09/01/11. Lottie presented to an OSH 03/29/12 with acute onset RLQ pain and fevers. CT-A/P at the OSH revealed a new area of concern for mass vs. Abscess in the raymond- appendiceal region. Mass on bladder wall stillnoted. Given concern for an appendiceal abscess, Lottie was transferred to [facility] team for further management and evaluation. She underwent laparoscopy and cystoscopy and was found to have a firm mass in the right side of her bladder wall that was biopsied and showed inflammation, no tumor. 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 She has normal right and left ovary and tube. She returned 04/19/12 for open resection of the bladder wall mass. Hospital Course (including prado lab data): Lottie underwent uncomplicated partial cystectomy with removal of the right posterior bladder wall tumor. Flynn was left in place. She initially has epidural for pain control and was transitioned quickly back to her baseline oral medications. Her urine is still intermittently pink but she is tolerating a regular diet and ambulating. She is deemed ready for discharge with her Flynn in place with a plan to return POD#10 for contrast cystogram and removal of catheter. Discharge Targets Met : afebrile tolerating a regular diet discomfort well controlled with oral medication Mother able to care for urinary catheter Labs Pending at Discharge: Final pathology report Medications prior to admission that will be resumed at discharge: Medication Sig Dispense Refill ??? hydroCODone-acetaminophen (VICODIN) 5-500 mg per tablet Take 1 tablet by mouth every 6 hours as needed for Pain. 40 tablet 0 ??? gabapentin (NEURONTIN) 100 mg capsule Take 100 mg by mouth daily. ??? Multiple Urine Tests Strp strips by [facility]Non-Drug; Combo Route) route. Use to monitor urine pH as instructed by 100 strip 6 ??? sodium bicarbonate 650 mg tablet Take 1 tablet by mouth 4 times daily. Take 2 tabs at 8 am, thenone tab every 4 hours (total of 4 doses/day). Goal is to get urine pH to 8 5 tablet 11 ??? polyethylene glycol (MIRALAX) 17 gram/dose powder Take 17 g by mouth daily. 510 g 12 ??? Pentosan Polysulfate Sodium (ELMIRON) 100 mg capsule Take 100 mg by mouth 3 times daily (before meals). ??? tolterodine (DETROL LA) 2 mg 24 hr capsule Take 1 capsule by mouth daily for 360 days. 90 capsule 4 ??? levalbuterol (XOPENEX) 1.25 mg/0.5 mL nebulizer solution New medications prescribed at discharge: Medication Sig Dispense Refill ??? Acetaminophen (TYLENOL) 160 mg/5 mL (5 mL) suspension Take 11.3 mLs by mouth every 4 hours as needed for Pain. Immmunizations : none given Last set of vitals: BP 106/60 Pulse 96 Temp(Src) 37 ??C (98.6 ??F) (Oral) Resp 20 Wt 36 kg (79 lb 5.9 oz) SpO2 98% Weight on day of discharge: 36 kg You / your child was hospitalized for: Surgery to remove bladder wall tumor Specialty appointments at [facility] after discharge: 's office will call with time to return on04/30/12 for xray study of bladder and possible removal of Flynn catheter Discharge Instructions: Discharge Activity: Quiet activity until your child feels well (reading, coloring, TV). Avoid activities that may accidentally dislodge urinary catheter such as running. School/Day Care: May return to school with urinary catheter in place and leg bag if feels well. Call your child's doctor if: temperature greater than 101 degrees and increasing redness or swellingfrom incision Diet: regular diet Shower/Bath: Showers only while urinary catheter in place Wound/Casts/Braces Care: May get incision wet after dressing removed today by patient Additional Special Instructions: None Arrangements for VNA / home care: VNA to come daily to check Flynn function and care Primary Care Physician: MILADIS BLACKMON MD Tel. #: [phone] [facility] Attending physician is: Emma Whelan and can be reached at [phone]. documented in this encounter Medications at Time of Discharge Medication Sig Dispensed Refills Start Date End Date Multiple Urine Tests by [facility].(Non-Drug; 100 strip 6 012 Strp stripsIndications: Combo [...] Take 17 g by mouth 510 g 09/25/19 12 09/24/2012 (MIRALAX) 17 gram/dose daily. powder sodium bicarbonate 650 Take 1 tablet by 5 tablet 11 012 06/07/2012 mg tablet mouth 4 times [...] nebulizer solution documented as of this encounter Progress Notes Irina Mcmanus RN - 04/22/2012 4:01 PM EST Teaching r/t care of flynn at home reviewed. Mom expressing that she is comfortable with care of flynn. Mom observed emptying flynn bag and was instructed on how to change the large flynn bag to a leg bag (MD's comfortable with pt using this). Emma Munson MD - 04/22/2012 1:12 PM EST Pediatric Surgery Attending Note I have seen and examined Lottie Gaines today. I have independently reviewed all new laboratory dataand radiologic imaging. I have spoken to the patient and her mother about her post op care. HPI summary: Lottie Gaines is a12 old female who is now POD#3 from partial cystectomy for bladder wall mass that had recently grown after being present for at least 5 years. 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 She as normal right and left ovary and tube. New events: No events, Lottie is eating a regular diet and continues to complain of severe pain whenever she is examined but otherwise seems to be doing well. Pain control: Oxycodone twice per past 24 hours Nutrition: Regular diet Examination: Temp: [36.4 ??C (97.5 ??F)-37 ??C (98.6 ??F)] Heart Rate: [82-102] Resp: [18-20] BP: (106-126)/(50-71) SpO2: [98 %-100 %] Pertinent output: 3.2 cc/kg/hr urine Constitutional: Awake and alert eating lunch HEENT: Normal Neck: Supple Chest: Clear with normal respirations Abdomen: Soft, nondistended, dressing in place, dry Genitalia: Normal with flynn in place Extremities: Normal ROM Neuro: Intact Impression: POD#3 from partial cystectomy for bladder wall tumor who is back to baseline and is ready for discharge today Plan: Mother requesting VNA to check Flynn. Will return in 9 days (Sunday04/30/12) for cystogram and removal of Flynn catheter Alejandrina Crouch MSW - 04/22/2012 12:04 PM EST Office of Care Management Social Work Note Patient: Lottie Gaines Follow Up: This family is familiar to RODERICK from previous admission (please see SW note dated 04/02/12 for furtherdetails). Lottie resides with her mother, Essie Gaines; full brother, Liz Gaines age 17; and fullbrother, Tristan Gaines age 20. Liz and Tristan are both diagnosed with autism. Lottie's father, Lincoln Gaines, resides in [place], [place] with a friend. Parents are . They have been for 4 or 5 years. Mother has worked one day a week at [employer] and father works maritime engineer delivering alcohol.Lottie has an IEP and has a form of autism. RODERICK met with mother and patient. Mother continues to voice struggles regarding finances. Lottie was admitted on Sunday of last week. Essie stated that Lottie's father stayed with Lottie's older siblings this weekend so she could be present during patient's admission. Mother expressed that she plans on returning home this evening to check on the boys if patient is unable to be discharged today. Mother did not identify any other needs at this time. Assessment: Family is coping with a planned admission to the pediatric floor. Family has arranged for care of older siblings and mother is present to provide support to patient. Mother identifies finances as a stressor and advocates for her needs. Plan: SW provided gas voucher. SW provided food vouchers. SW will continue to follow. SW discussed with medical team. DARRYN Yoon Clinical Door Manager Care Management Pager [phone] Gayle Asif RN - 04/22/2012 11:41 AM EST Patient Name: Lottie Gaines Patient Age: 12 y.o. Birthdate: 2000 Admit date: 04/19/2012 Attending Physician: Emma Whelan MD Office of Care Management(OCM)/Clinical Od Grinder Operator(CRC)Initial Assessment O: Reviewed chart. Introduced self to parents/ caregiver and reviewed CRC role. Admitted with: Lottie presented to an OSH 03/29/12 with acute onset RLQ pain and fevers. CT-A/P at the OSH revealed a new area of concern for mass vs. Abscess in the raymond-appendiceal region. Mass on bladder wall still noted. Given concern for an appendiceal abscess, Lottie was transferred to [facility] team for further management and evaluation. She underwent laparoscopy and cystoscopy and was found to have a firm mass in the right side of her bladder wall that was biopsied and showed inflammation, no tumor. Lottie had this mass resected on 04/19. She is now s/p partial cystectomy, will have a flynn catheter for 10 days, and will have a cystoscopy on 04/30/12 . Home Health Agency: [facility] if needed at discharge. PCP: MILADIS BLACKMON MD [phone] Insurance: [employer] Transportation @ d/c: Mom Anticipated needs for discharge: [facility] will provide flynn care. P: CRC to follow with Team and Family for coordination of care. Bryant Madrigal MD - 04/22/2012 9:03 AM EST Pediatric General surgery Resident Progress Note: 12 y/o F POD#3 s/p partial cystectomy for bladder wall mass - no acute events last 24 hours - epidural catheter removed, pain controlled with toradol, gabapentin, oxycodone - tolerating po Tm 36.9 HR 87-102 BP 109-126/62-73 RR 18-22 Sat 99-100% room air 1290 po 820 ivf 2725 uop Sleeping, awakens easily, NAD HR regular no m/r/g Lungs clear b/l Abdomen soft, not distended, appropriately tender, lower abdominal incision c/d/i Flynn light red Skin warm and dry with normal turgor Neuro nonfocal Micro - negative Path - pending Assessment/Plan: 12 y/o F POD#3 s/p partial cystectomy for bladder wall mass. Stable post-op with reasonable pain control in the setting of chronic pain issues. Will need flynn x 10 days with cystogramprior to catheter removal. Will discharge with leg bag when meets criteria. - continue keflex - gabapentin, toradol, oxycodone - ativan prn - detrol la - will assess readiness for discharge on attending rounds today Irina Chua RN - 04/21/2012 12:04 PM EST Stewart CHOW aware that pt is leaking around the flynn. Vesna Murphy MD - 04/21/2012 10:34 AM EST General Surgery Progress Note ID:Lottie Gaines is a 12 y.o. girl with long history of voiding dysfunction and pain with voiding. She was found to have a mass in her bladder is s/p partial cystectomy 24hr events: POD #2 Stable on the floor, worked well with staff yesterday ambulating and playing Flynn draining pink urine as expected Pain well controlled, epidural removed Parents at bedside O: Last value Range last 24 hrs Temperature Temp: 36.7 ??C (98.1 ??F) Temp: [36.7 ??C (98.1 ??F)-37.3 ??C (99.1 ??F)] Heart Rate Heart Rate: 89 Heart Rate: [89-117] Blood Pressure BP: 109/66 mmHg BP: (104-113)/(48-71) Respiratory Rate Resp: 18 Resp: [18-30] SpO2 SpO2: 99 % SpO2: [97 %-99 %] I/Os: Intake/Output Summary (Last 24 hours) at 04/21/ 1034 Last data filed at 04/21/12 1006 Gross per 24 hour Intake 2286 ml Output 3025 ml Net -739 ml I/O last 1 completed shift: In: 1450 [P.O.:340; I.V.:1110] Out: 1125 [Urine:1125] Physical Exam: Gen: NAD, alert and oriented, answers questions, apprehensive about ambulating and dressing removal.Eating pancakes. CV: Regular rate, ext warm and perfused Pulm: Clear bilaterally anteriorly, on room air Abd: Soft, appropriately tender, non-distended, incision dressing c/d/i no drainage or surrounding erythema, ecchymoses or hematoma. Dressing in place no oozing, no discharge : Flnyn to gravity with pink urine Ext: Warm, well perfused, no edema. Labs: No results found for this basename: WBC:2,HGB:2,HCT:2,PLATELET:2 in the last 72 hours No results found for this basename: NA:2,K:2,CL:2,CO2:2,BUN:2,CREATININE:2, GLUCOSE:2 in the last 72hours No results found for this basename: CALCIUM:2, PHOS:2 in the last 72 hours No results found for this basename: AST:2, ALT:2, ALKPHOS:2, BILITOT:2, BILIDIR:2 in the last 72 hours No results found for this basename: INR:2, PT:2 in the last 72 hours A/P: 12 yo woman POD#2 s/p partial cystectomy for bladder mass. Bilateral temporary stents were removed at the end of the case. Progressing well postoperatively. Pain is well controlled and pt is stable. Recommendations: flynn x 10 days with cystogram prior to removal keflex (pt was on this finishing tx for UTI prior to surgery) more than maintenance fluid given slightly bloody urine Adding toradol and NBO's for incisional pain and constipation regular diet Ambulate TID Monitor for urine retention, if necessary irrigate gently with 20cc normal saline, flush several times, and if not resolved call housestaff. Vesna William PGY-1 General Surgery #[id number] Deng Randolph MD - 04/21/2012 9:46 AM EST PEDIATRIC SURGERY ATTENDING NOTE 04/21/2012 0900 Lottie was examined and the recent history was reviewed. Lottie is postop after having a partial cystectomy for a posterior bladder wall mass 04/19/[address] Whelan after placement of temporary ureteral stents by Dr. Jenkins. She is tolerating a regular diet. Because of poor pain control her epidural was removed and I started Toradol and Ativan. It is very difficult to assess how much pain she is having because she while she complains of pain she was out playing as well and she had chronic pain prior to the partial cystectomy. She has a Flynn in place and continues on Keflex. EXAMINATION: [birth year]-year-old female in NAD this AM BP 109/66 Pulse 89 Temp(Src) 36.7 ??C (98.1 ??F) (Axillary) Resp 18 Wt 36 kg (79 lb 5.9 oz) SpO2 99% UOP 2.7 ml/kg/hr Respiratory: respirations even & unlabored Clear/ equal bilaterally Cardiac: RRR, w/o murmurs rubs or gallops Abdomen:soft incision clean and dry, still complains of marked t : Flynn in place with slight amount of blood in the urine with pink tinge color Skin: no rashes, lesions or ulcers; no discoloration enderness and will not let you touch her warm & dry, normal turgor Neuro: alert Studies:Gram stain of bladder wall mass few white blood cells and few gram- positive cocci culture of bladder wall mass No growth thus far Impression: 12 [birth year]-year-old female stable POD#2 S/P partial cystectomy with postoperative pain thatis compounded by a chronic pain syndrome prior to operation. Plan: 1. Continue Toradol for pain control today 2. Oxycodone p.o. For pain 3. Continue Ativan to help with anxiety 4. Diet as tolerated 5. Continue Detrol and Gabapentin 6. Leave Flynn in place for 10 days 7. Continue cephalexin 8. Ambulate and activity as tolerated 9. Decrease i.v. Fluids 10. Miralax today The plan for management was discussed with Lottie 's father. Deng Randolph M.D. Pediatric Surgery geological survey field assistant and Pediatrics [facility] [phone] fax Symone Iniguez, SARAH - 04/20/2012 11:57 PM EST 2330-flynn noted to have leaked on chux pad. Pad replaced. Water evacuated from fylnn balloon and new 10 cc's SW inserted into balloon. Continues to drain pink urine. Will continue to monitor. Liliane Macias - 04/20/2012 4:48 PM EST APS Progress Note Pt's pain has been very well controlled this afternoon with ketoralac; anxiety has been well controlled with ativan. Epidural was turned off at 1300 and pain has not worsened since then. Pt went for an hour long walk when her mom arrived and has no further problems with motor blockade in her left foot, sensory remains intact. Pt has not had any heparin or lovenox, decision was made to pull epidural catheter, tip was intact, back looked normal with no bruising or hematoma/drainage. Please feel free to call APS if further consultation is desired. APS pager is [phone] during the day [phone] at night Pt was d/w Dr. Lawrence Ovalle MD CA-1 Anesthesiology Pager [phone] Vesna William MD - 04/20/2012 1:46 PM EST General Surgery Progress Note ID:Lottie Gaines is a 12 y.o. girl with long history of voiding dysfunction and pain with voiding. She was found to have a mass in her bladder and presents for partial cystectomy today. 24hr events: POD #1 Stable on the floor Flynn draining bloody urine as expected Pain well controlled Parents at bedside O: Last value Range last 24 hrs Temperature Temp: 37.1 ??C (98.8 ??F) Temp: [36.7 ??C (98.1 ??F)-37.7 ??C (99.9 ??F)] Heart Rate Heart Rate: 97 Heart Rate: [62-100] Blood Pressure BP: 104/48 mmHg BP: (103-138)/(48-81) Respiratory Rate Resp: 18 Resp: [14-18] SpO2 SpO2: 98 % SpO2: [96 %-100 %] I/Os: Intake/Output Summary (Last 24 hours) at 04/20/12 1347 Last data filed at 04/20/12 1326 Gross per 24 hour Intake 3376 ml Output 1565 ml Net 1811 ml I/O last 1 completed shift: In: 1507 [P.O.:325; I.V.:1182] Out: 750 [Urine:750] Physical Exam: Gen: NAD, alert and oriented, answers questions, apprehensive about ambulating CV: Regular rate, ext warm and perfused Pulm: Clear bilaterally anteriorly, on room air Abd: Soft, appropriately tender, non-distended, incision dressing c/d/i no drainage or surrounding erythema, ecchymoses or hematoma. Dressing in place no oozing, no discharge : Flynn to gravity with bloody urine Ext: Warm, well perfused, no edema. Labs: No results found for this basename: WBC:2,HGB:2,HCT:2,PLATELET:2 in the last 72 hours No results found for this basename: NA:2,K:2,CL:2,CO2:2,BUN:2,CREATININE:2, GLUCOSE:2 in the last 72hours No results found for this basename: CALCIUM:2, PHOS:2 in the last 72 hours No results found for this basename: AST:2, ALT:2, ALKPHOS:2, BILITOT:2, BILIDIR:2 in the last 72 hours No results found for this basename: INR:2, PT:2 in the last 72 hours A/P: 12 yo woman POD#1 s/p partial cystectomy for bladder mass. Bilateral temporary stents were removed at the end of the case. Progressing well postoperatively. Pain is well controlled and pt is stable. Recommendations: flynn x 10 days with cystogram prior to removal keflex (pt was on this finishing tx for UTI prior to surgery today) more than maintenance fluid given slightly bloody urine anesthesia managing pain, she has narcotics in her epidural clear liquid diet ADAT Ambulate TID Monitor for urine retention, if necessary irrigate gently with 20cc normal saline, flush several times, and if not resolved call housestaff. Vesna William PGY-1 General Surgery #[id number] Liliane Ovalle - 04/20/2012 1:30 PM EST APS Progress Note S: Pt complaining of abdominal pain s/p cystectomy yesterday. She also complains of L foot weakness. O: Patient Vitals in the past 8 hrs: BP Temp Temp src Pulse Resp SpO2 04/20/12 0810 105/50 mmHg 36.8 ??C (98.2 ??F) Oral 72 17 99 % Pt lying in bed sleeping upon my arrival. When she woke up she intitially denied pain, then her dad touched her left foot and she said her foot hurt because I can't move it Epidural sensory test- pt not cooperative, held the ice >6 inches from her abdomen and she said it hurt (nothing was touching her at the time), no discernable level because everything (including no stimulation) hurt. Pt had nl sensation in both lower extremities, but could not lift left leg Pt fell back to sleep a few minutes later A/P 12F POD1 s/p partial cystectomy, with pain that is hard to characterize and left foot weakness. Discussed with nursing, and there is some concern that this is anxiety related Continue current pain meds as ordered by surgery: Gabapentin 100mg TID Toradol 15mg IV [id number] scheduled Ativan 1mg PO q6 hours prn May consider adding a prn opiate such as lortab 10mg Will re-asses pain after epidural has been off this afternoon, may consider pulling epidural if painhas not changed D/w Dr. Bravo, Liliane Ovalle MD CA-1 Anesthesiology Pager [phone] Deng Randolph MD - 04/20/2012 1:00 PM EST PEDIATRIC SURGERY ATTENDING NOTE 04/20/2012 Anuj Tafoya was examined and the recent history was reviewed. Lottie is postop after having a partial cystectomy for a posterior bladder wall mass yesterday performed by Dr. Whelan after placement of temporary ureteral stents by Dr. Jenkins. She is tolerating clear liquids. Her pain is not well controlled. She is complaining of pain as well as numbness in her legs while having an epidural in place. It is very difficult to assess how much pain she is having because she has tenderness she claims without touching her although she was resting comfortably according to the nurse. She had chronic pain prior to the partial cystectomy which confuses the picture of postoperative pain. She has a Flynn in place and continues on Keflex. EXAMINATION: [birth year]2-year-old female teary-eyed BP 104/48 Pulse 97 Temp(Src) 37.1 ??C (98.8 ??F) (Oral) Resp 18 Wt 36 kg (79 lb 5.9 oz) SpO2 98% Respiratory: respirations even & unlabored Clear/ equal bilaterally Cardiac: RRR, w/o murmurs rubs or gallops Abdomen:soft incision clean and dry, Complains of marked tenderness : Flynn in place with slight amount of blood in the urine Skin: no rashes, lesions or ulcers; no discoloration warm & dry, normal turgor Neuro: alert Studies:Gram stain of letter wall mass few white blood cells and few gram- positive cocci culture of bladder wall mass No growth thus far Impression: [age]-year-old female stable POD#1S/P partial cystectomy with postoperative pain that is compounded by a chronic pain syndrome prior to operation. Plan: 1. Add Toradol for pain control 2. Addition of Ativan 2 help with anxiety 3. Consult anesthesia to assess epidural for possible increase in rate 4. Advance diet as tolerated 5. Leave Flynn in place for 10 days 6. Continue cephalexin 7. Ambulate and activity as tolerated The plan for management was discussed with Ltotie 's father. Deng Randolph M.D. Pediatric Surgery geological survey field assistant and Pediatrics [facility] [phone] fax Stu Batista RN - 04/19/2012 7:51 PM EST 1945 Pt sleeping wakes to voice then back to sleep, Dr Lobo to bed side to evaluate Pt cleared Pt for trans to floor. Epidural site note by Dr Lobo Unable to do sensory level do to Pt cooperation . Vivian Breaux RN - 04/19/2012 7:02 PM EST Dinner break coverage. C/o pain in abdomen. Medicated per order. Family at bedside. 1910 - sleeping quietly. Awakens spontaneously states pain persists. Medicated per order. States shefeels numb in lower extremities. 1930 - sleeping. Stu Cowan RN - 04/19/2012 6:46 PM EST Pt to pacu placed on monitor 1845 Pt reactive On RA trial 1850 Pt given PO, Unable to get level do to Pt cooperation Katlin Duran CLS - 04/19/2012 2:34 PM EST Child Life Surgical Note: Patient???s name: Lottie Gaines Patient???s age: 12 y.o. 1 m.o. Medical teams: Surgeon: Dr. Emma Whelan MD and Dr. Deng Jenkins MD Anesthesia team: Dr. Aline Palomares MD and Dr. Kennedy Rizo MD Accompanied by: Lottie was accompanied by her father and this CCLS to the OR for induction. Items of comfort: Parental presence Reason for visit: Cystotomy for excision of bladder tumor; stent placement Patient???s understanding of reason for visit: Lottie had a developmentally appropriate understanding of why she was here today. Lottie is very familiar to the anesthesia process. Developmental information: Slightly below developmental age. Lottie is two grades behind in school. Preferred method of induction: Oral versed followed by inhalation induction Preparation received for medical experience: This CCLS began discussion with Lottie both the mask and the IV with encouragement to head towards an IV. Lottie became very upset so discussion was stoppedand changed to how can the mask be made a better experience. Recommendation for pre-med: Yes Distraction method used: iPad games, talking Coping: Lottie arrived anxious and ready to get this over with. It is known to this CCLS that Lottie does not like the mask and typically fights the mask during induction. When the IV was mentioned Lottie became upset and did not want to listen to any conversation about the IV. Lottie adamantly stated she wanted the mask. It was discussed with Lottie different techniques to cope during an inhalation induction, including taking and counting 10 deep breaths. After pre- medication was given Lottie relaxed significantly and laughed. During induction Lottie opted to stop playing the iPad but remained cooperative with the reminder from her father about what they talked about, taking in deep breaths. Lottie was able to remain focus with her father and had a successful induction. Parental involvement: Lottie's mother and father remained with Lottie in the pre-op area and were appropriately supportive. Lottie had other visitors who remained in the waiting room. Description of induction process: Patient was cooperative Patient tolerated mask placement and induction process Additional information: In future procedures this CCLS believes Lottie may benefit from further talkabout an awake IV with the understanding that it is not something that can be pushed on Lottie and that Lottie will need to be willing to have this conversation. It will be important to encourage appropriate coping techniques and help Lottie to identify these and how best to use them. AUGUSTINE HowellS Certified Animal Keeper Pager [phone] documented in this encounter H&P Notes Emma Whelan MD - 04/19/2012 1:36 PM EST H and P is unchanged from that completed a few minutes ago Emma Whelan MD - 04/19/2012 1:28 PM EST PEDIATRIC Surgery - Admission H HPI: Lottie Gaines is a 11 year old female who has had multiple UTIs of undetermined origin who presents with acute onset RLQ pain of approximately 2 days duration. In addition to the multiple UTIs, Lottie has a history of severe pelvic and back pain and dysuria in the context of increased right hydro nephrosis and an abnormal bladder wall. She had a cystoscopy on 08/18/11 and a query of fistula foundon the right posterolateral wall. GI endoscopy revealed a normal colon. She was brought back to the OR for re-cystoscopy and vaginoscopy on 09/01/11. Lottei presented to an OSH 03/29/12 with acute onset RLQ pain and fevers. CT-A/P at the OSH revealed a new area of concern for mass vs. Abscess in the raymond- appendiceal region. Mass on bladder wall stillnoted. Given concern for an appendiceal abscess, Lottie was transferred to [facility] for further management and evaluation. She underwent laparoscopy and cystoscopy and was found to have a firm mass in the right side of her bladder wall that was biopsied and showed inflammation, no tumor. Lottie now returns for open resection of this mass. Review of Systems: As above, otherwise negative Problem list: 1. Recurrent UTIs, voiding dysfunction with urgency, frequency, dysuria 2. Chronic pelvic, abdominal, pelvic pain 3. Mild right hydronephrosis 4.VSD 5. RAD reactive airway disease 6. Low IQ 7. Family/social stressors Active Non-Hospital Problems Diagnoses ??? Hyperopia ??? Diarrhea ??? Abdominal pain ??? Dysuria ??? Nephrocalcinosis ??? Recurrent UTI ??? Urgency of urination ??? RAD (reactive airway disease) ??? VSD (ventricular septal defect) Past Medical and Surgical History: Past Medical History Diagnosis Date ??? Chronic kidney disease ??? Cataract Past Surgical History Procedure Date ??? Exc skin benig 1.1-2cm remaindr body 10/27/2010 EXC BENIGN LES, JUDY 1.1 TO 2.0CM, NECK performed by LINNEA MATA at [facility] PAIN FREE ??? Unlisted mr procedure 12/13/2010 MRI WITH ANESTHESIA performed by ASHLEE HU at [facility] PAIN FREE ??? Upper gi endoscopy, exam 08/19/2011 PEDIATRIC UPPER GI ENDOSCOPY performed by CHALINO ENAMORADO at [facility] ENDOSCOPY ??? Colonoscopy, diagnostic 08/19/2011 PEDIATRIC COLONOSCOPY performed by CHALINO ENAMORADO at [facility] ENDOSCOPY ??? Cystourethroscopy 08/18/2011 CYSTO, CYSTOURETHROSCOPY, DIAGNOSTIC performed by ALIYAH NERI at [facility] OR ??? Cystourethroscopy 09/01/2011 CYSTO, CYSTOURETHROSCOPY, DIAGNOSTIC performed by DENG JENKINS at [facility] OR ??? Colposcopy, cervix w/adj vagina 09/01/2011 COLPOSCOPY, VAGINOSCOPY\CERVIX & VAGINA performed by DENG JENKINS at [facility] MAIN OR ??? Inject indwell cath, ureter x-ray 09/01/2011 INJECTION PROCEDURE, URETEROGRAPHY OR URETEROPYELOGRAPHY THRU URETEROSTOMY OR URETERAL CATH performed by DENG JENKINS at [facility] MAIN OR Allergies: No Known Allergies Prior to Admission Medications: Prescriptions prior to admission Medication Sig Dispense Refill ??? gabapentin (NEURONTIN) 100 mg capsule Take 100 mg by mouth daily. ??? Multiple Urine Tests Strp strips by [facility]Non-Drug; Combo Route) route. Use to monitor urine pH as instructed by 100 strip 6 ??? sodium bicarbonate 650 mg tablet Take 1 tablet by mouth 4 times daily. Take 2 tabs at 8 am, thenone tab every 4 hours (total of 4 doses/day). Goal is to get urine pH to 8 5 tablet 11 ??? polyethylene glycol (MIRALAX) 17 gram/dose powder Take 17 g by mouth daily. 510 g 12 ??? sulfamethoxazole-trimethoprim (BACTRIM DS) 800-160 mg per tablet Take 1 tablet by mouth 2 times daily. 14 tablet 0 ??? Pentosan Polysulfate Sodium (ELMIRON) 100 mg capsule Take 100 mg by mouth 3 times daily (before meals). ??? acetaminophen-codeine (TYLENOL #3) 300-30 mg per tablet Take 1 tablet by mouth every 6 hours as needed. ??? hydrocodone-acetaminophen (LORTAB) 7.5-500 mg/15 mL(15 mL) Soln 7.5-500 MG/ 15mL oral liquid Take 10 mLs by mouth every 6 hours as needed. 250 mL 0 ??? tolterodine (DETROL LA) 2 mg 24 hr capsule Take 1 capsule by mouth daily for 360 days. 90 capsule 4 ??? levalbuterol (XOPENEX) 1.25 mg/0.5 mL nebulizer solution Family History: Family History Problem Relation Age of Onset ??? Glaucoma Neg Hx ??? Macular Degen Neg Hx ??? Retinal Detachment Neg Hx ??? Cataracts Neg Hx Social History and Habits: History Social History ??? Marital Status: Single Spouse Name: N/A Number of Children: N/A ??? Years of Education: N/A Occupational History ??? Not on file. Social History Main Topics ??? Smoking status: Passive Smoker ??? Smokeless tobacco: Never Used Comment: Mom states smokes ??? Alcohol Use: No ??? Drug Use: No ??? Sexually Active: No Other Topics Concern ??? Not on file Social History Narrative ??? No narrative on file Physical Exam: Patient Vitals in the past 24 hrs: Temp Pulse Resp SpO2 Weight 04/19/12 1201 36.6 ??C (97.9 ??F) 78 20 100 % 36 kg (79 lb 5.9 oz) Physical Exam: Gen: Awake and alert, in minimal distress CV: RRR, no m/r/g Pulm: CTAB, no w/r/r Abd: soft, nd, TTP only in RLQ, point tenderness, at approximately McBurney's point Ext: warm, well perfused Imaging: CT A/P at OSH revealed an approx 6x3x5 area of concern for an abscess. Assessment: 12F w/history of pelvic pathology throughout life comes for resection of bladder mass Plan:Open resection of bladder mass today stents with Dr. Jenkins documented in this encounter Miscellaneous Notes Miscellaneous - Provider, Scanning - 04/24/2012 11:24 AM EST Miscellaneous - Provider, Scanning - 04/24/2012 11:23 AM EST Discharge Summary - Emma Whelan MD - 04/22/2012 1:31 PM EST Pediatric Final Discharge Summary Patient Name: Lottie Gaines Patient Age: 12 y.o. Birthdate: 2000 Admit date: 04/19/2012 10:17 AM Hospital Day 3 days Discharge date and time: 04/22/12 Attending Physician: Emma Whelan MD Discharge Diagnoses (Hospital Problems) and Secondary Diagnoses (Chronic Problems): Active Hospital Problems Diagnoses ??? Benign bladder tumor Resolved Hospital Problems Diagnoses Date Resolved Active Non-Hospital Problems Diagnoses ??? Didelphic uterus ??? Passive smoker ??? Hyperopia ??? Diarrhea ??? Abdominal pain ??? Dysuria ??? Nephrocalcinosis ??? Recurrent UTI ??? Urgency of urination ??? RAD (reactive airway disease) ??? 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 Operations and Procedures: Operations: CYSTO, STENT PLACEMENT-Dr. Jenkins 04/19/12 CYSTECTOMY, PARTIAL, SIMPLE- Dr. Whelan 04/19/12 History of Presentation: Lottie Gaines is an 12 year old female who has had multiple UTIs of undetermined origin who presented with acute onset RLQ pain of approximately 2 days duration. In addition to the multiple UTIs, Lottie has a history of severe pelvic and back pain and dysuria in the context of increased right hydronephrosis and an abnormal bladder wall. She had a cystoscopy on 08/18/11 and a query of fistula found on the right posterolateral wall. GI endoscopy revealed a normal colon. She was brought back to the OR for re- cystoscopy and vaginoscopy on 09/01/11. Lottie presented to an OSH 03/29/12 with acute onset RLQ pain and fevers. CT-A/P at the OSH revealed a new area of concern for mass vs. Abscess in the raymond- appendiceal region. Mass on bladder wall stillnoted. Given concern for an appendiceal abscess, Lottie was transferred to [facility] for further management and evaluation. She underwent laparoscopy and cystoscopy and was found to have a firm mass in the right side of her bladder wall that was biopsied and showed inflammation, no tumor. 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 She has normal right and left ovary and tube. She returned 04/19/12 for open resection of the bladder wall mass. Hospital Course (including [facility] lab data): Lottie underwent uncomplicated partial cystectomy with removal of the right posterior bladder wall tumor. Flynn was left in place. She initially has epidural for pain control and was transitioned quickly back to her baseline oral medications. Her urine is still intermittently pink but she is tolerating a regular diet and ambulating. She is deemed ready for discharge with her Flynn in place with a plan to return POD#10 for contrast cystogram and removal of catheter. Discharge Targets Met : afebrile tolerating a regular diet discomfort well controlled with oral medication Mother able to care for urinary catheter Labs Pending at Discharge: Final pathology report Medications prior to admission that will be resumed at discharge: Medication Sig Dispense Refill ??? hydroCODone-acetaminophen (VICODIN) 5-500 mg per tablet Take 1 tablet by mouth every 6 hours as needed for Pain. 40 tablet 0 ??? gabapentin (NEURONTIN) 100 mg capsule Take 100 mg by mouth daily. ??? Multiple Urine Tests Strp strips by [facility]Non-Drug; Combo Route) route. Use to monitor urine pH as instructed by 100 strip 6 ??? sodium bicarbonate 650 mg tablet Take 1 tablet by mouth 4 times daily. Take 2 tabs at 8 am, thenone tab every 4 hours (total of 4 doses/day). Goal is to get urine pH to 8 5 tablet 11 ??? polyethylene glycol (MIRALAX) 17 gram/dose powder Take 17 g by mouth daily. 510 g 12 ??? Pentosan Polysulfate Sodium (ELMIRON) 100 mg capsule Take 100 mg by mouth 3 times daily (before meals). ??? tolterodine (DETROL LA) 2 mg 24 hr capsule Take 1 capsule by mouth daily for 360 days. 90 capsule 4 ??? levalbuterol (XOPENEX) 1.25 mg/0.5 mL nebulizer solution New medications prescribed at discharge: Medication Sig Dispense Refill ??? Acetaminophen (TYLENOL) 160 mg/5 mL (5 mL) suspension Take 11.3 mLs by mouth every 4 hours as needed for Pain. Immmunizations : none given Last set of vitals: BP 106/60 Pulse 96 Temp(Src) 37 ??C (98.6 ??F) (Oral) Resp 20 Wt 36 kg (79 lb 5.9 oz) SpO2 98% Weight on day of discharge: 36 kg You / your child was hospitalized for: Surgery to remove bladder wall tumor Specialty appointments at [facility] after discharge: 's office will call with time to return on12/11/12 for xray study of bladder and possible removal of Flynn catheter Discharge Instructions: Discharge Activity: Quiet activity until your child feels well (reading, coloring, TV). Avoid activities that may accidentally dislodge urinary catheter such as running. School/Day Care: May return to school with urinary catheter in place and leg bag if feels well. Call your child's doctor if: temperature greater than 101 degrees and increasing redness or swellingfrom incision Diet: regular diet Shower/Bath: Showers only while urinary catheter in place Wound/Casts/Braces Care: May get incision wet after dressing removed today by patient Additional Special Instructions: None Arrangements for VNA / home care: VNA to come daily to check Flynn function and care Primary Care Physician: MILADIS BLACKMON MD Tel. #: [phone] [facility] Attending physician is: Emma Whelan and can be reached at [phone]. Plan of Care - Nona Genao RN - 04/22/2012 8:08 AM EST Problem: Pain, Acute (Pediatric) Intervention: Acute Pain: Signs and Symptoms (Pediatric) Woke up and complained of her stomach feels funny. Urine appears a slightly darker shade of red than previously once patient woke up and got up out of bed. Goal: Acute Pain: Acceptable Pain Control/Comfort Level - Pain, Acute (Pediatric) Outcome: Absent and monitoring Patient continued to receive the last two doses of Toradol overnight, has oxycodone PRN available for pain management. Denied pain all night. Comments: Father at bedside. Mother called in for an update at the beginning of the shift, will be present at bedside later today. Asking about VNA for outpatient care of flynn. Med Student Progress Note - Troy Friedman - 04/22/2012 6:07 AM EST E: no overnight events S: no bladder discomfort currently, but felt like she needed to urinate yesterday; some leaking around Flynn persists; pain well controlled- only one oxy yesterday; tolerating normal diet; good appetite, 2 BM yesterday; ambulating and playing x 4 yesterday; denies fever/chills, CP, SOB, N/V; mild abd pain around incision. O: Temp: [36.7 ??C (98.1 ??F)-36.9 ??C (98.4 ??F)] Heart Rate: [87-102] BP: (119-126)/(62-73) Resp: [18-20] SpO2: [99 %-100 %] Intake/Output Summary (Last 24 hours) at 04/22/12 0607 Last data filed at 04/22/12 0557 Gross per 24 hour Intake 2110 ml Output 2725 ml Net -615 ml UOP > 3 ml/kg/hr Gen) NAD, sleeping in bed with cartoons on CV) RRR, no m/r/g Pulm) no incr WOB, CTOB- no wheeze or crackles Abd) soft, general discomfort to palp, non-distended, +BS ) Flynn intact and draining pink-tinged urine Extr) wwp, no c/c/e, DP pulses 2+ bilaterally Neuro) asking questions appropriately, no focal findings, sens intact BLE and moving all extr spontaneously Labs: No results found for this or any previous visit (from the past 24 hour(s)). A&P: Lottie Gaines is an 12 y/o F on POD3 s/p partial cystectomy doing well clinically with no current urinary symptoms. Flynn intact and draining, on D3 cephalexin for UTI Dx prior to surg, and on gabapentin and tolterodine. - Flynn remains in for total of 10 days - F/U Uro as outpatient in 1 week for cystogram - F/U pathology report - D/C antibx as urine Cx was negative before surg - Continue gabapentin and tolterodine Plan of Care - Irina Mcmanus RN - 04/21/2012 6:32 PM EST Problem: Pain, Acute (Pediatric) Intervention: Acute Pain: Related Risk Factors (Pediatric) No issues pt walking in the per[place] x4 today. Up to play room for a couple of hours. VSS afebrile. Pt voiding around flynn intermittently MD's aware. Plan of Care - Symone Babin, RN - 04/21/2012 6:28 AM EST Problem: Pain, Acute (Pediatric) Goal: Acute Pain: Acceptable Pain Control/Comfort Level - Pain, Acute (Pediatric) Pt seemed well controlled overnight. Ativan and neurontin given together at 2100. Pt complained of some increased pain when standing to change chux at approx 2330-pain seemed to be decreased when back and settled in bed, and then toradol given. By 0100 pt was asleep and remained asleep for remainder of shift. Didn't waken for vitals, and was gently shaken awake for 0600 meds, and immediately returnedto sleep. Flynn noted to be leaking at approx 2330. Continued to drain to flynn and put out good uopof pink colored urine, with some blood streaks present. Balloon disinflated and reinflated with 10 cc's SW- checked frequently for remainder of night and didn't appear to be leaking any further. Back and buttocks cleaned but pt refused to let this RN do any flynn care. marai del rosario reg diet. Lstab. Vss. + BS. abd dressing CDI with old serosanguineous drainage noted on R side. Refused to go for another walk before bed, but did stand at edge of bed. PIV - and patent for fluids and meds. Dad at bedside. Plan of Care - Clari Limon RN - 04/20/2012 6:39 PM EST Problem: Pain, Acute (Pediatric) Goal: Acute Pain: Acceptable Pain Control/Comfort Level - Pain, Acute (Pediatric) VSS afebrile. Epidural d/c'd and removed pain and anxiety well controlled with Toradol and Ativan. OOB amb x 3. Cont IVF infusing. PIV C/D/I with no redness, warmth or swelling noted at insertion site.Flynn intact draining pink/red tinged urine with intermittent flakes of blood noted. Incision C/D/I.No further concerns at this time. Father at bedside attentive to pt's needs. Will cont with nsg POC. Plan of Care - Symone Babin RN - 04/20/2012 8:25 AM EST Problem: Pain, Acute (Pediatric) Goal: Acute Pain: Acceptable Pain Control/Comfort Level - Pain, Acute (Pediatric) Pain appeared to be controlled well overnight. Pt would say it was painful but able to fall asleep and be easily distracted. Epidural in place at 3.6 cc/hr. Site -. No resp issues noted. Pt denies difficulty breathing. O2 sats high 90's on Ra. RR in the teens. On report from PACU, pt was uncooperativefor sensory exam. For this RN, she stated that the ice hurt her. Reported tingling and oins and needles in feet upon admission. Anesthesia aware and reported that this was so in PACU as well. Pt able to wiggle toes and have sensation. + pedal and posterior pulses and brisk cap refill present throughout shift. throughout shift, pt reported tingling went away in R foot and decreased in L foot. Al[place] able to move knees more as shift went on. See flowsheet for a more detailed assessment. maria del rosario PO. Flynn draining bloody urine, which started to clear up more as shift went on. Some clots seen. No N/V. Afeb. Vss. maria del rosario PO meds. Op Note - Emma Whelan MD - 04/19/2012 7:[address] [facility] Operative Note Patient Name: Lottie Gaines : [id number] MR#: [id number] Case Date: 04/19/2012 Surgeon: Surgeon(s) and Role: Panel 1: * EMMA WHELAN MD - Primary * VEENA LINK MD - Resident-Surgeon Bimal Preoperative diagnosis: BLADDER Wall MASS Postoperative diagnosis: BLADDER Wall MASS Procedure(s): @CYSTECTOMY, PARTIAL, SIMPLE General with caudal epidural Estimated Blood Loss: 100cc Drains: Flynn catheter Procedure: After being placed in the supine position and the successful induction of general anesthesia, the patient wasplaced in lithotomy and had cystoscopy with bilateral ureteral stent placements by Dr. Jenkins who will dictate that portion of the procedure separately. The patient's abdomen was then prepped and draped in the usual sterile fashion. A transverse lowerabdominal incision was made and carried down through the subcutaneous tissue and rectus muscles with electrocautery. The peritoneum wasthen tented between two clamps and opened sharply with a knife. The intestines were packed superiorly and the Bookwalter retractor was placed. As seen during diagnostic laparoscopy 3 weeks ago, the uterus was didelphoid and the anterior uterus/vagina (which is also known to be double) was densely adherent to the posterior bladder wall. Using blunt dissection and electrocautery, the adhesions were taken down. Hemostasis was maintained with electrocautery and the occasional 2-0 Vicryl suture ligature. Completely freeing the adhesions allowed mobilization of the bladder. The bladder wall mass was palpable in the posterior right bladder wall. The peritoneum over the bladder was opened sharply with electrocautery. The limits of the mass were determined and the bladder was was opened on the dome adjacent to the superior extent of the mass. The mass was then removed with the full thickness bladder wallfor 2 x 6 cm. The specimen was removed and opened on the back table. It was found to be a combination of fibrous solid tumor and small cysts that had yellow to cloudy thick brown fluid. The fluid was cultured. The distal margin was felt to be too close to the lesions and an additioanl 1 x 1 cm of bladder wall was removed inferiorly. The bladder was then closed in 2 layers of running 4-0 Monocryl mucosal and 3-0 Vicryl muscular. The bladder was filled and no leak was identified. The patient's abdomenwas then irrigated copiously with warm saline. The incision was closed in 4 layers of 1-0 PDS fascial, 3-0 Vicryl subcutaneous and 5-0 Monocryl subcuticular. Dressing were applied. The ureteral stents were removed, but the Flynn was left in place. The patient was then awakened and taken to the recovery room in satisfactory condition. Op Note - Veena Link MD - 04/19/2012 6:[address] [facility] Operative Note Patient Name: Lottie Gaines : [id number] MR#: [id number] Case Date: 04/19/2012 Surgeon: Surgeon(s) and Role: Panel 1: * EMMA WHELAN MD - Primary Panel 2: * DENG JENKINS MD - Primary * VEENA LINK MD - Resident-Surgeon Bimal Preoperative diagnosis: BLADDER MASS Postoperative diagnosis: BLADDER MASS Procedure(s): CYSTO, STENT PLACEMENT @CYSTECTOMY, PARTIAL, SIMPLE Anesthesia: General Estimated Blood Loss: none Drains: 12F flynn catheter and bilateral 4F ureteral catheters Disposition: Remained in OR for open portion of case Condition: doing well without problems (Please see the Surgical Encounter Summary for any Implant and Specimen details pertinent to this patient.) HPI/Surgical Indications: Lottie Gaines is a 12 y.o. girl with long history of voiding dysfunction and pain with voiding. She was found to have a mass in her bladder and presents for partial cystectomy today. Procedure Description: Procedure Description: The patient and her parents were greeted in the Same Day Surgery unit. They were consented for the urologic portion of the procedure. The patient was taken to the operating room and placed supine on the OR table. General anesthesia was induced. An epidural catheter was then placed. The patient was then moved to the dorsal lithotomy position and prepped and draped in the usual sterile fashion. A time out was performed involving all members of the OR team, confirming the patient's identity and planned procedure. Preoperative antibiotics were administered. The pediatric cystoscope was then inserted into the bladder. The bladder was inspected in 360 degrees. There was an abnormal contour noted in the posterior wall of the bladder toward the patient's right side. This was not involving the ureteral orifice or the trigone of the bladder. There were no mucosal abnormalities noted. Bilateral ureteral orifices were orthotopic and noted to efflux clear urine. We then introduced a 4-[place]se Pollack catheter through the cystoscope and it was advanced first into the right ureteral orifice without difficulty. The scope was removed and the process was repeated for the left ureteral orifice. After bilateral 4-[place]orese Pollack catheters were in position, there was a 12-[place] Flynn catheter introduced into the bladder. The balloon was inflated with 10 mL of sterile water. The two Pollack catheters were then pulled into the end of the Silastic catheter using an Angiocath, and the Pollack catheters were secured to the Flynn catheter using silk suture. The catheter was then placed to gravity drainage. At this point, Dr. Whelan took over for her portion of the procedure. Please see separate dictation. Brief Op Note - Veena Link MD - 04/19/2012 6:33 PM EST Brief Operative Note Patient Name: Lottie Gaines : [id number] MR#: [id number] Case Date: 04/19/2012 Surgeon: Surgeon(s) and Role: Panel 1: * EMMA WHELAN MD - Primary Panel 2: * DENG JENKINS MD - Primary * VEENA LINK MD - Resident-Surgeon Bimal Preoperative diagnosis: BLADDER MASS Postoperative diagnosis: BLADDER MASS Procedure(s): CYSTO, STENT PLACEMENT, temporary bilateral @CYSTECTOMY, PARTIAL, SIMPLE Anesthesia: General Findings: normal appearing bladder mucosa with abnormal contour of posterior right wall. Trigone normal and uninvolved. Bilateral ureteral orifices orthotopic. 4F pollack catheters easily inserted. Complications: none Fluids: see anesthesia record Estimated Blood Loss: none for this portion of the case Drains: 12F flynn catheter to gravity drainage and bilateral 4F ureteral catheters Disposition: remained in OR for open portion of surgery Condition: doing well without problems (Please see the Surgical Encounter Summary for any Implant and Specimen details pertinent to this patient.) OR Attestation - Emma Whelan MD - 04/19/2012 6:06 PM EST Attestation: Case Date: 04/19/2012 I was present and I participated during the entire procedure (does not need to include opening and closing). EMMA WHELAN MD 04/19/2012 Brief Op Note - Emma Whelan MD - 04/19/2012 5:59 PM EST Brief Operative Note Patient Name: Lottie Gaines : [id number] MR#: [id number] Case Date: 04/19/2012 Surgeon: Surgeon(s) and Role: Panel 1: * EMMA WHELAN MD - Primary Panel 2: * DENG JENKINS MD - Primary * VEENA LINK MD - Resident-Surgeon Bimal Preoperative diagnosis: BLADDER MASS Postoperative diagnosis: BLADDER MASS Procedure(s): Partial cystectomy, simple for EXCISION OF BLADDER [place]UMOR Cpt 48531 CYSTO, STENT PLACEMENT Bilateral Anesthesia: General with caudal epidural Findings: Mass as expected posterior right bladder wall measuring 2 x 6 cm Complications: None Fluids: 1200 cc LR Estimated Blood Loss: 100 cc Drains: Flynn catheter Disposition: awakened from anesthesia, extubated and taken to the recovery room in a stable condition, having suffered no apparent untoward event. Condition: doing well without problems (Please see the Surgical Encounter Summary for any Implant and Specimen details pertinent to this patient.) OR Attestation - Deng Jenkins MD - 04/19/2012 3:25 PM EST Attestation: Case Date: 04/19/2012 I attest that I was present during the entire procedure and that I performed all the prado elements ofthe procedure with resident assistance Deng Jenkins MD Op Note - Deng Jenkins MD - 04/19/2012 3:[address] [facility] [place] Patient Name: Lottie Gaines : [id number] MR#: [id number] Case Date: 04/19/2012 Surgeon: Surgeon(s) and Role: Panel 1: * Emma Whelan MD - Primary Panel 2: * Deng Jenkins MD - Primary * Veena Link MD - Resident-Surgeon Bimal Preoperative diagnosis: BLADDER MASS Postoperative diagnosis: BLADDER MASS Procedure(s): CYSTO, STENT PLACEMENT @CYSTECTOMY, PARTIAL, SIMPLE General Estimated Blood Loss: Minimal Drains: 12 Fr Flynn Catheter + 4 Fr Ureteral Catheter (x2) Disposition: To PACU Condition: Good (Please see the Surgical Encounter Summary for any Implant and Specimen details pertinent to this patient.) HPI/Surgical Indications: 12 year old girl with history of dysuria and bladder dysfunction for 2-3 years who was found to having a growing bladder mass was brought to the operating room after biopsy was inconclusive. I was asked by Dr. Whelan to perform a repeat cystoscopy and placement of bilateral ureteral stents prior to open excision, and possibly assist if an extensive partial cystectomy with reconstruction and ureteral reimplant was needed. Procedure Description: After Lottie was identified in the holding area, she was brought into the OR and placed on the OR table in the supine position. After an adequate level of general anesthesia her legs were placed in the dorsal lithotomy position and her external genitalia were prepped with Betadine and then draped sterile. A 14 Fr cystoscope was placed into the bladder. The urethra and bladder neck were normal. The trigone was normal, AND THE MASS NOTED PREVIOUSLY WAS NOT NOTED. I could see a bulge on the posterior wall but there was no mucosal abnormality other than a yellowish hue and more blood vessels per square cm. . There was about 1-2 cm beyond the trigone.. The mass extended up towards but did not involve the dome or anterior wall. We cannulated each of the ureteral orifices with 4Fr straight open ended ureteral catheters. We thenbacked the cystoscope out and placed a 12Ffr Flynn catheter along side the ureteral catheters and passed then end of the ureteral catheters through the hub of the Flynn so the drainage would be into the Flynn drainage bag. We secured the ureteral catheters to the Flynn with 2.0 Silk ties. We then placed these to gravity drainage and lowered the legs for the abdominal procedure. Dr. Whelan then took over the open abdominal portion of the procedure. I observed. Miscellaneous - Provider, Scanning - 04/19/2012 10:54 AM EST documented in this encounter Plan of Treatment Upcoming Encounters Date Type Specialty Care Team Description 12/22/2021 Office Visit Plastic Surgery Russ Guevara M D [facility] [place], [place] [address] (Wo rk) documented as of this encounter Procedures Procedure Name Priority Date/Time Associated Diagnosis Comme nts PATHOLOGY ADDENDUM Routine 04/19/2012 5:23 PM Res ults for this REPORT EST procedure are i n the results section. SURGICAL PATHOLOGY Routine 04/19/2012 5:23 PM Res ults for this REPORT EST procedure are i n the results section. ANAEROBIC CULTURE Routine 04/19/2012 4:30 PM Resu lts for this EST procedure are i n the results section. BODY FLUID CULTURE, Routine 04/19/2012 4:30 PM AEROBIC & ANAEROBIC EST BODY FLUID CULTURE, Routine 04/19/2012 4:30 PM Re sults for this AEROBIC EST procedure are i n the results section. SPECIMEN TO Routine 04/19/2012 4:23 PM Results f or this PATHOLOGY EST procedure are i n the results section. SPECIMEN TO Routine 04/19/2012 4:20 PM Results f or this PATHOLOGY EST procedure are i n the results section. @CYSTECTOMY, 04/19/2012 1:34 PM BLADDER MASS PARTIAL, SIMPLE EST (WRVU 17.23) CYSTO, STENT 04/19/2012 1:34 PM BLADDER MASS PLACEMENT (WRVU EST 2.82) documented in this encounter Results Pathology Addendum Report (04/19/2012 5:23 PM EST) [facility] Method Time Signature Addendum CERNER Report ? [facility] ? Provider: ?? EMMA WHELAN ?? Pt. Name: ?? LOTTIE GAINES ? Acc #: ?[id number] ?Pt. MRN: ?[id number] ? Col Date: ?? 04/19/20 12 ?/Sex: ?2000,(12 years),Female ? Rec Date: ?? 04/19/2012 ?LOC: ?[place] ? ADDENDUM REPORT ? ---Addendum Discussion--- ? Trichrome stain confirms H&E stain findings. ? 06/04/12 ? KO ? 06/04/12 Verified by: ? Magdalena Larsen MD ? Pathologist ? (Electronic Si gnature) ? The attending pathologist whose signature appears o n this report has ? reviewed all diagnostic slides and has edited the boogie ss and/or ? microscopic portion of the report in rendering the fi nal pathologic ? diagnosis. Specimen (Source) Anatomical Collection Method Collection Time Re ceived Time Location / / Volume Laterality 04/19/2012 5:23 PM EST Emma Whelan MD PATHOLOGY/CYTOLOGY ORDERABLE S Performing Organization Address City/State/[place] [address] [facility] Pathology Report (04/19/2012 5:23 PM EST) Component Value Ref Test Analysis Performed At [facility] gist Range Method Time Signature Surgical [facility] Pathology ? [facility] Report ? Provider: ?? EMMA WHELAN ?? Pt. Name: ?? LOTTIE GAINES ? Acc #: ?[id number] ?Pt. MRN: ?[id number] ? Col Date: ?? 04/19/20 12 ?/Sex: ?2000,(12 years),Female ? Rec Date: ?? 04/19/2012 ?LOC: ?[place] ? SURGICAL PATHOLOGY ? ---Pathologic Diagnosis--- ? A - Bladder wall mass; excision: ? Bladder wall with ura chal remnant/cyst and associated severe inflammation ? (see Comment). ? B - Distal margin of bladder wall mass; excision: ? Bladder wall with urachal remnant/cyst and inflammati on. ? CR-0 ? 04/23/12 ? KO ? 04/30/12 Verified by: ? Suzie CHOW, Magdalena ? Pathologist ? (Electronic Si gnature) ? The attending pathologist whose signature appears o n this report has ? reviewed all diagnostic slides and has edited the boogie ss and/or ? microscopic portion of the report in rendering the fi nal pathologic ? diagnosis. ? ---Comment--- ? The features are kamilla gn and consistent with remnant urachal structures with ? epithelium which has both transitional and enteric fe atures. ? The differential diag nosis includes Mullerian origin, but the morphology ? and absence of PAX8 staining speaks against this. ? Immunohistochemistry Studies: ? Formalin-fixed, paraf fin-embedded tissue sections are studied using the B- ? SA system technique w ith appropriate positive and negative controls. ??These ? IHC studies provide t he pathologist with adjunctive diagnostic information. ? Antibody specificity has been verified by testing antibodies on a series of ? in-house tissues with known immunohistochemical perfo rmance ? characteristics. The clinical interpretation of any antibody positive ? staining or its absence is evaluated within the trupti xt of clinical ? presentation, morphol ogy, histopathological criteria and other diagnostic ? tests. ? Block ?Antibody ? Result (Posi tive/Negative) ? A6 ?CDX2 ? n egative ? A6 ?CK 7 ? p ositive ? A6 ?CK 20 ?n egative ? A26 ? PAX8 ? ne gative ? [facility] ? Provider: ?? EMMA WHELAN ?? Pt. Name: ?? LOTTIE GAINES ? Acc #: ?[id number] ?Pt. MRN: ?[id number] ? Col Date: ?? 04/19/20 12 ?/Sex: ?2000,(12 years),Female ? Rec Date: ?? 04/19/2012 ?LOC: ?[place] ? SURGICAL PATHOLOGY ? ---Microscopic Description--- ? Slides reviewed, microscopic description not recorded . ? ---Gross Description--- ? A - Labeled/Fixative: Bladder wall mass, fresh. ? Qty/Size/Weight: ?4.0 x 2.5 x 1.5 cm. ? Tissue Description: ? ? Segment of rubbery, pink-isaacs tissue. ??On one end of ? the tissue there is an additional 2.5 cm of fatty and ? fibromuscular tissue. ??One flat surface of the speci men displays a ? 2.2 x 1.0-cm, irregul ar, probable mucosa. ??Sectioning through the specimen ? longitudinally reveals a bosselated, yellow-isaacs cut s urface. ? Sections/Processing: ??The outer aspect of the specimen is marked with black ? ink, and the specimen is serially sectioned and ? entirely submitted. ??(T31) ? B - Labeled/Fixative: Distal margin of bladder wall, fresh. ? Qty/Size/Weight: ?Single, 2.0 x 1.0 x 0.4 cm. ? Tissue Description: ? ? Irregular portion of rubbery, yellow-isaacs tissue. ??The ? specimen is marked with black ink and serially ? sectioned. ? Sections/Processing: ??(T4) ??aje/EJR ? ---Clinical Information--- ? Specimen Submitted: ? A - Bladder wall mass ? B - Distal margin of bladder wall mass ? Clinical History/Diagnosis: ? Bladder mass Specimen (Source) Anatomical Collection Method Collection Time Re ceived Time Location / / Volume Laterality 04/19/2012 5:23 PM EST Emma Whelan MD PATHOLOGY/CYTOLOGY ORDERABLE S Performing Organization Address City/State/ZIP Code Phon e Number [address] [facility] ANAEROBIC CULTURE (04/19/2012 4:30 PM EST) [facility] Method Time Signature Anaerobic CERNER Culture ? Patient Name: LOTTIE GAINES ?Ordered By: EMMA WHELAN ? MR#: [id number] ?LOC: ??[place] ? /Sex: ??2000 (12 years), ? Female ? PROCEDURE: Anaerobic Culture ?SOURCE: Other ? COLLECTED: 04/19/2012 16:30 ?FREE TEXT SOURCE: Culture of Bladder wall mass. ? STARTED: 04/19/2012 17:30 ? FINAL REPORT ? Final Report ? Verified:04/23/2012 09:26 ? No anaerobic organisms isolated ? PRELIMINARY REPORT ? Preliminary Report ? Verified:04/20/2012 15:12 ? No anaerobic organisms isolated to date ? Specimen Anatomical Collection Method Collection Time Receive d Time (Source) Location / / Volume Laterality Specimen of 04/19/2012 4:30 PM 2 5:30 unknown material EST PM EST (specimen) Comment: CULTURE OF BLADDER WALL MASS. Resulting Agency Comment Spec In Lab Emma Whelan MD MICROBIOLOGY - GENERAL ORDER DU Performing Organization Address City/State/[place] [address] [facility] BODY FLUID CULTURE (04/19/2012 4:30 PM EST) [facility] Method Time Signature Body Fluid [facility] Culture ? Patient Name: LOTTIE GAINES ?Ordered By: EMMA WHELAN [facility] ? MR#: [id number] ?LOC: ??[place] ? /Sex: ??2000 (12 years), ? Female ? PROCEDURE: Body Fluid Culture ?SOURCE: Other ? COLLECTED: 04/19/2012 16:30 ?FREE TEXT SOURCE: Culture of Bladder wall mass. ? STARTED: 04/19/2012 17:30 ? STAINS / PREPARATIONS ? Gram Stain Report ? Verified:04/19/2012 20:33 ? Few White Blood Cells seen ? Few Gram Positive Cocci seen ? FINAL REPORT ? Final Report ? Verified:04/23/2012 08:46 ? No growth ? PRELIMINARY REPORT ? Preliminary Report ? Verified:04/20/2012 08:53 ? No growth to date. ? Specimen Anatomical Collection Method Collection Time Receive d Time (Source) Location / / Volume Laterality Specimen of 04/19/2012 4:30 PM 2 5:30 unknown material EST PM EST (specimen) Comment: CULTURE OF BLADDER WALL MASS. Resulting Agency Comment Spec In Lab Emma Whelan MD MICROBIOLOGY - GENERAL ORDER DU Performing Organization Address City/State/ZIP Code Phon e Number [address] [facility] Specimen to Pathology (surgical or derm) (04/19/2012 4:23 PM EST) Specimen Anatomical Collection Method Collection Time Receive d Time (Source) Location / / Volume Laterality AP Specimen 04/19/2012 4:23 PM 2 4:23 EST PM EST Narrative [facility] - 04/19/2012 4:[address] Specimen requisition ordered. ??Separate Pathology report to follow Emma Whelan MD PATHOLOGY/CYTOLOGY ORDERABLE S Performing Organization Address City/[facility]/ZIP Code Phon e Number [address] [facility] Specimen to Pathology (surgical or derm) (04/19/2012 4:20 PM EST) Specimen Anatomical Collection Method Collection Time Receive d Time (Source) Location / / Volume Laterality AP Specimen 04/19/2012 4:20 PM 2 4:20 EST PM EST Narrative [facility]ER M[facility]ENNIUM - 04/19/2012 4:[address] Specimen requisition ordered. ??Separate Pathology report to follow Emma Whelan MD PATHOLOGY/CYTOLOGY ORDERABLE S Performing Organization Address City/[facility]/ZIP Code Phon e Number [address] [facility] documented in this encounter Visit Diagnoses Diagnosis Benign bladder tumor Benign neoplasm of bladder documented in this encounter Administered Medications Inactive Administered Medications - up to 3 most recent administrations Medication Order MAR Action Action Date Dose Rate Site Acetaminophen (TYLENOL) Oral Given 04/22/2012 12:15 PM EST 361.6 mg suspension 361.6 mg 361.6 mg (10 mg/kg/dose ? 36 kg), Oral, EVERY 4 HOURS PRN, Starting on Sun04/22/12 at 1144, Until Sun04/22/12 at 1800, Pain, Maximum dose of acetaminophen is 4,000 mg from all sources in 24 hours., Routine cephALEXin (KEFLEX) 250 mg/5 mL pedi oral Given 04/22/2012 12:00 PM EST 225 mg liquid 225 mg 225 mg (25 mg/kg/day ? 36 kg), Oral, EVERY 6 HOURS SCHEDULED, First dose on Sun04/19/12 at 2100, Until Discontinued, Routine Given 04/22/2012 5:57 AM EST 225 mg Given 04/22/2012 12:00 AM EST 225 mg diphenhydrAMINE (BENADRYL) 12.5 mg/5 mL Oral Given 2 4:07 PM EST 25 mg elixir 25 mg 25 mg (0.694 mg/kg/dose), Oral, ONCE, 1 dose, On Sun04/19/12 at 2300, Routine fentaNYL 50mcg/mL injection Given 04/19/2012 7:18 PM EST 18 mcg 18 mcg (0.5 mcg/kg ? 36 kg), Intravenous, EVERY 5 MIN PRN, Starting on Sun04/19/12 at 1832, Until Sun04/19/12 at 2023, Pain, for breakthrough pain, Hold for respiratory rate less than 10 per minute. , PACU Recovery, Routine Given 04/19/2012 7:02 PM EST 18 mcg gabapentin (NEURONTIN) capsule 100 mg Given 04/22/2012 9:04 AM EST 100 mg 100 mg, Oral, 3 TIMES DAILY, First dose on Sun04/19/12 at 2100, Until Discontinued, Routine Given 04/21/2012 9:30 PM EST 100 mg Given 04/21/2012 3:30 PM EST 100 mg hydrocodone-acetaminophen (LORTAB) 7.5-500 Given 04/19/2012 12:1 5 PM EST 10 mg mg/15 mL(15 mL) 7.5-500 MG/ 15mL oral li quid 1 dose, Starting on Sun04/19/12 at 1204, Until Sun04/19/12 at 1215, RONY CORONEL: Cabinet Override HYDROmorphone (DILAUDID) Rate/Dose Verify 04/20/2012 7:00 AM 3.6 mL /hr 3.6 mL/hr 10 mcg/mL, BUpivacaine EST (MARCAINE) 0.125% (1.25 mg/mL)(1/8%) in sodium chloride 0.9% 200 mL epidural 3.6 mL/hr, Epidural, CONTINUOUS, Starting on Sun04/19/12 at 1730, Until 04/20/12 at 2306, Maximum rate for continuous infusion 14 mL per hour Rate/Dose Verify 04/19/2012 6:30 PM EST 3.6 mL/hr 3.6 mL/hr New Bag 04/19/2012 5:30 PM EST 3.6 mL/hr 3.6 mL/hr ketorolac (TORADOL) injection 15 mg Given 04/22/2012 5:57 AM EST 15 mg 15 mg (0.417 mg/kg/dose), Intravenous, EVERY 6 HOURS SCHEDULED, 8 doses, First dose on Sun04/20/12 at 1200, Last dose on Sun04/22/12 at 0600, Routine Given 04/22/2012 12:00 AM EST 15 mg Given 04/21/2012 6:35 PM EST 15 mg LORazepam (ATIVAN) tablet 1 mg Given 04/22/2012 1:29 PM EST 1 mg 1 mg (0.0278 mg/kg/dose), Oral, EVERY 6 HOURS PRN, Starting on Sun04/20/12 at 1107, Until Sun04/22/12 at 1800, Anxiety, Routine Given 04/21/2012 6:08 AM EST 1 mg Given 04/20/2012 9:15 PM EST 1 mg midazolam (VERSED) 2 mg/mL oral syrup 15 mg Given 04/19/2012 12:54 PM EST 15 mg 15 mg (0.417 mg/kg/dose), Oral, ONCE, 1 dose, On Sun04/19/12 at 1315, Routine OXYcodone (ROXICODONE) immediate release tablet Given 04/22/2012 1:16 PM EST 5 mg 5 mg 5 mg (0.139 mg/kg/dose), Oral, EVERY 4 HOURS PRN, Starting on 04/20/12 at 2304, Until Sun04/22/12 at 1800, Pain, Routine Given 04/22/2012 9:04 AM EST 5 mg Given 04/21/2012 10:07 AM EST 5 mg Pentosan Polysulfate Sodium (ELMIRON) capsule Given 7:30 AM EST 100 mg 100 mg 100 mg, Oral, 3 TIMES DAILY BEFORE MEALS, First dose on 04/20/12 at 0730, Until Discontinued, Routine sodium chloride 0.9% infusion New Bag 04/19/2012 6:15 PM EST 1,000 mLs 80 mL/hr 1,000 mL, at 80 mL/hr, Intravenous, CONTINUOUS, Starting on Sun04/19/12 at 1815, Until Sun04/19/12 at 1843, PACU Recovery sodium chloride 0.9% infusion New Bag 04/21/2012 9:38 AM EST 20 mL/hr 20 mL/hr 20 mL/hr, Intravenous, CONTINUOUS, Starting on Sun04/19/12 at 1900, Until Sun04/22/12 at 1800 New Bag 04/21/2012 1:47 AM EST 100 mL/hr 100 mL/hr New Bag 04/20/2012 1:48 PM EST 100 mL/hr 100 mL/hr tolterodine (DETROL LA) ER capsule 2 mg Given 04/22/2012 9:04 AM EST 2 mg 2 mg (0.0556 mg/kg/dose), Oral, DAILY, First dose on Sun04/20/12 at 0900, Until Discontinued, Routine Given 04/21/2012 11:26 AM EST 2 mg Given 04/20/2012 10:14 AM EST 2 mg documented in this encounter Active and Recently Administered Medications Times are shown in EST. Scheduled Medication Order 04/20/2012 04/21/2012 04/22/2012 cephALEXin (KEFLEX) 250 mg/5 mL pedi oral liquid 225 m g (CANCELED) 0730 (Given - Provider: Symone Babin RN - Comment: not up from pharmacy)1350 (Given - Provider: Clari Limon RN)1814 (Given - Provider: Clari Limon RN)2335 (Given - Provider: Symone Babin RN) 0600 (Given - Provider: Symone Babin RN)1415 (Given - Provider: Kathi Waldrop, SARAH)1835 (Given - Provider: Kathi Waldrop, SARAH) 0000 (Given - Provider: Nona benson, SARAH)0557 (Given - Provider: Nona Genao RN)1200 (Given - Provider: Irina Mcmanus RN) 25 mg/kg/day ? 36 kg = 225 mg, Oral, EVERY 6 HOURS SCHEDULED, First dose on Sun04/19/12 at 2100, Until Discontinued, Routine diphenhydrAMINE (BENADRYL) 12.5 mg/5 mL Oral elixir 25 mg (COMPLETED) 1607 (Given - Provider: Clari Limon RN) 25 mg = 0.694 mg/kg/dose, Oral, ONCE, 1 dose, Sun04/19/12 at 23 00, Routine gabapentin (NEURONTIN) capsule 100 mg (CANCELED) 1014 (Given - Provider: Clari Limon RN)1603 (Given - Provider: Clari Limon RN)2115 (Given - Provider: Symone Babin RN) 0944 (Given - Provider: Irina Mcmanus, SARAH)1530 (Given - Provider: Irina Mcmanus, SARAH)2130 (Given - Provider: Nona Genao, SARAH) 0904 (Given - Provider: Irina Mcmanus, SARAH)1500 (Due) 100 mg, Oral, 3 TIMES DAILY, First dose on Sun04/19/12 at 2100, Until Discontinued, Routine ketorolac (TORADOL) injection 15 mg (COMPLETED) 1350 ( Given - Provider: Clari Limon RN)1814 (Given - Provider: Clari Limon RN)2335 (Given - Provider: Symone Babin RN) 0540 (Given - Provider: Lj Avendaño)1232 (Given - Provider: Irina Mcmanus, SARAH)1835 (Given - Provider: Kathi Waldrop RN) 0000 (Given - Provider: Nona Genao, SARAH)0557 (Given - Provider: Nona Genao RN) 15 mg = 0.417 mg/kg/dose, Intravenous, E VERY 6 HOURS SCHEDULED, 8 doses, First dose on 04/20/12 at 1200, Last dose on 04/22/12 at 0600, Routine Pentosan Polysulfate Sodium (ELMIRON) capsule 100 mg ( CANCELED) 0730 (Given - Provider: Symone Babin RN) 100 mg, Oral, 3 TIMES DAILY BEFORE MEALS , First dose on 04/20/12 at 0730, Until Discontinued, Routine tolterodine (DETROL LA) ER capsule 2 mg (CANCELED) 101 4 (Given - Provider: Clari Limon RN) 1126 (Given - Provider: Irina Mcmanus RN - Comment: not available on floor) 0904 (Given - Provider: Irina Mcmanus RN) 2 mg = 0.0556 mg/kg/dose, Oral, DAILY, F irst dose on 04/20/12 at 0900, Until Discontinued, Routine Continuous Medication Order 04/20/2012 04/21/2012 04/22/2012 HYDROmorphone (DILAUDID) 10 mcg/mL, BUpi vacaine (MARCAINE) 0.125% (1.25 mg/mL)(1/8%) in sodium chloride 0.9% 200 mL epidural (CANCELED) 0700 (Rate/Dose Verify - Provider: Symone Babin, SARAH)1300 (Stopped - Provider: Clari Limon RN) 3.6 mL/hr, Epidural, at 3.6 mL/hr, AVA NUOUS, Starting Sun04/19/12 at 1730, Until 04/20/12 at 2306, Maximum rate for continuous infusion 14 mL per hour , Routine sodium chloride 0.9% infusion (CANCELED) 0348 (New Bag - Provider: Lora Lcuero)1348 (New Bag - Provider: Clari Limon, SARAH) 0147 (New Bag - Provider: Symone Babin, SARAH)0938 (New Bag - Provider: Irina Mcmanus, SARAH) 20 mL/hr, at 20 mL/hr, Intravenous, CONT INUOUS, Starting Sun04/19/12 at 1900, Until Sun04/22/12 at 1800 PRN Medication Order 04/20/2012 04/21/2012 04/22/2012 Acetaminophen (TYLENOL) Oral suspension 361.6 mg 1215 (Given - Provider: Irina Mcmanus, SARAH) 10 mg/kg/dose ? 36 kg = 361.6 mg, Oral, EVERY 4 HOURS PRN, Starting Sun04/22/12 at 1144, Until Sun04/22/12 at 1800, Pain, Maximum dose of acetaminophen is 4,000 mg from all sources in 24 hours., Routine LORazepam (ATIVAN) tablet 1 mg (CANCELED) 1338 (Given - Provider: Clari Limon RN)2115 (Given - Provider: Symone Babin, SARAH) 0608 (Given - Provider: Symone Babin RN) 1329 (Given - Provider: Irina Mcmanus, SARAH) 1 mg = 0.0278 mg/kg/dose, Oral, EVERY 6 HOURS PRN, Starting 04/20/12 at 1107, Until 04/22/12 at 1800, Anxiety, Routine OXYcodone (ROXICODONE) immediate release tablet 5 mg 1007 (Given - Provider: Irina Mcmanus RN) 0904 (Given - Provider: Irina Mcmanus RN)1316 (Given - Provider: Daja Luevano RN) 5 mg = 0.139 mg/kg/dose, Oral, EVERY 4 H OURS PRN, Starting 04/20/12 at 2304, Until 04/22/12 at 1800, Pain, Routine documented in this encounter Care Teams Bell Hole Digger Relationship Specialty Start Date End Date Miladis Blackmon MD PCP - General 04/12/10 11/28/21 [address] [facility] [place] [address] documented as of this encounter
--- OUTSIDE RECORDS SUMMARY | 2021-12-13 13:02 | XMS_ITS | Encounter Summary ---
:2000 Author Organization [facility] [place] [address] Care Team Providers Name Role Phone Miladis Blackmon MD Primary Care Provider Encounter Details Date Type Department Care Team Description 04/30/2012 Hospital Encounter XRay at [facility], DR MARTINEZ Benign bladder tumor [address] [place] [address] Emma Campbell MD [facility] [place] [address] [place] [address] Social History Tobacco Use Types Packs/Day Years [...] Date End Date Multiple Urine Tests by [facility].(Non-Drug; 100 strip 6 012 Strp stripsIndications: Combo [...] Surgery Russ Guevara M D [facility] PLASTIC SURGERY [place], [place] [address] (Wo rk) documented as of this encounter Procedures Procedure Name Priority Date/Time Associated Diagnosis Comme nts XR FLUORO CYSTOGRAM Routine 04/30/2012 11:45 AM Benign bladder tumor Results for this EST procedure are i n the results section. documented in this encounter Results XR Fluoro cystogram (04/30/2012 [...] MAR Action Action Date Dose Rate Site diatrizoate meglumine (HYPAQUE, Given 04/30/2012 11:43 AM EST 17 5 mLs CYSTOGRAFIN) urethral solution 300 mL 300 mL, Urethral, ONCE PRN, 1 dose, Starting on 04/30/12 at 1143, Until 04/30/12 at 1143, Per Protocol, Routine documented in this encounter Care Teams Gunite Mixer Relationship Specialty Start Date End Date Miladis Blackmon MD PCP - General 04/12/10 11/28/21 [address] [place] [address] documented as of this encounter
--- OUTSIDE RECORDS SUMMARY | 2021-12-13 13:02 | XMS_ITS | Encounter Summary ---
:2000 Author Organization [facility] [place] [address] Care Team Providers Name Role Phone Miladis Blcakmon MD Primary Care Provider Encounter Details Date Type Department Care Team Description 04/19/2012 Surgery Main Operating Room Emma Whelan, @C YSTECTOMY, PARTIAL, [facility] SIMPLE (WRVU 17.23) [facility] DR Theodore [place] [address] [place], [place] [id number] [phone] (Wo rk) Social History Tobacco Use Types Packs/Day Years Used Date Never Smoker Smokeless Tobacco: Never Used Comments: Mom states smokes Alcohol Use Standard Drinks/Week Comments No 0 (1 standard drink = 0.6 oz pure alcoho l) Sex Assigned at Date Recorded Not on file documented as of this encounter Last Filed Vital Signs Vital Sign Reading Time Taken Comments Blood Pressure 106/60 04/22/2012 12:15 PM EST Pulse 96 04/22/2012 12:15 PM EST Temperature 37 ??C (98.6 ??F) 04/22/2012 12:15 PM EST Respiratory Rate 20 04/22/2012 12:15 PM EST Oxygen Saturation 98% 04/22/2012 12:15 PM EST Inhaled Oxygen Concentration - - Weight 36 kg (79 lb 5.9 oz) 04/19/2012 12:01 PM EST Height - - Body Mass Index - - documented in this encounter Discharge Instructions Patient InstructionsLaEmma michael MD - 04/22/2012 1:59 PM EST Pediatric [...] an appendiceal abscess, Lottie was transferred [place] [facility] [place] for further management and [...] ??? Multiple Urine Tests Strp strips by [facility].(Non-Drug; Combo Route) route. Use to [...] remove bladder wall tumor Specialty appointments at [facility] after discharge: 's office will call with [...] Care Physician: MILADIS BLACKMON MD Tel. #: [phone] Your [facility] Attending physician is: Emma Whelan and can be reached at [phone]. documented in this encounter Medications at Time of Discharge Medication Sig Dispensed Refills Start Date End Date Multiple Urine Tests by [facility].(Non-Drug; 100 strip 6 012 Strp stripsIndications: Combo [...] 650 Take 1 tablet by 5 tablet 012 06/07/2012 mg tablet mouth 4 times [...] documented as of this encounter Progress Notes Veena Link MD - 05/03/2012 10:42 PM EST Auto Machinist accepted by VEENA LINK on 05/03/2012 at 10:42 PM ------ Veena Link MD - 05/03/2012 10:40 PM EST Auto Machinist accepted by VEENA LINK on 05/03/2012 at 10:40 PM ------ Irina Mcmanus RN - 04/22/2012 4:01 PM EST Teaching r/t care of flynn at home reviewed. Mom expressing that she is comfortable with care of flynn. Mom observed emptying flynn bag and was instructed on how to change the large flynn bag to a leg bag (MD's comfortable with pt using this). Emma Whelan MD - 04/22/2012 1:12 PM EST Pediatric [...] cystogram and removal of Flynn catheter Alejandrina Canada MSW - 04/22/2012 12:04 PM EST Office of Care Management Social Work Note Patient: Lottie Gaines Follow Up: This family is familiar to from previous admission (please see SW note dated 04/02/12 for furtherdetails). Lottie resides with her mother, Essie Gaines; full brother, Liz Gaines age 17; and fullbrother, Tristan Gaines age 20. Liz and Tristan are both diagnosed with autism. Lottie's father, Lincoln Gaines, resides in [place], [place] with a friend. Parents are . They have been for 4 or 5 years. Mother has worked one day a week at [employer] and father works fuller brush worker delivering alcohol.Lottie has an IEP and has a form of autism. SW met with mother and patient. Mother continues [...] food vouchers. SW will continue to follow. RODERICK discussed with medical team. DARRYN Yoon Clinical Linting Machine Operator Care Management Pager [phone] Gayle Morales RN - 04/22/2012 11:41 AM EST Patient Name: Lottie Gaines Patient Age: 12 y.o. Birthdate: 2000 Admit date: 04/19/2012 Attending Physician: Emma Whelan MD Office of Care Management(OCM)/Clinical Writer Technical Publications(CRC)Initial Assessment O: Reviewed chart. Introduced self to parents/ caregiver and reviewed CRC role. Admitted with: Lottie presented to an OSH 03/29/12 with acute onset RLQ pain and fevers. CT-A/P at the OSH revealed a new area of concern for mass vs. Abscess in the raymond-appendiceal region. Mass on bladder wall still noted. Given concern for an appendiceal abscess, Lottie was transferred to [facility] [place] for further management and [...] cystoscopy on 04/30/12 . Home Health Agency: [facility] if needed at discharge. PCP: MILADIS BLACKMON MD [phone] Insurance: [facility] Transportation @ d/c: Mom Anticipated needs for discharge: [facility] will provide flynn care. P: CRC to [...] I/Os: Intake/Output Summary (Last 24 hours) at 04/21/12 1034 Last data filed at 04/21/12 1006 [...] no discharge : Flynn to gravity with pink urine Ext: Warm, [...] in place and continues on Keflex. EXAMINATION: 12 [birth year]-year-old female in NAD this AM BP [...] 's father. Deng Randolph M.D. Pediatric Surgery environmental marketer and Pediatrics [facility] [address] fax Symone Iniguez RN - 04/20/2012 11:57 PM EST 2330-flynn noted to have leaked on chux pad. Pad replaced. Water evacuated from flynn balloon and new 10 cc's SW inserted [...] further consultation is desired. APS pager is [phone] during the day [phone] at night Pt was d/w Dr. Lawrence Ovalle MD CA-1 Anesthesiology Pager [phone] Vesna Murphy MD - 04/20/2012 1:46 PM EST General [...] call housestaff. Vesna William PGY-1 General Surgery #[id number] Liliane Macias - 04/20/2012 1:30 PM EST APS Progress [...] surgery: Gabapentin 100mg TID Toradol 15mg IV [id number] scheduled Ativan 1mg PO q6 hours prn May consider adding a prn opiate such as lortab 10mg Will re-asses pain after epidural has been off this afternoon, may consider pulling epidural if painhas not changed D/w Dr. Bravo, Liliane Ovalle MD CA-1 Anesthesiology Pager [phone] Deng Ramirez MD - 04/20/2012 1:00 PM EST PEDIATRIC [...] wall mass No growth thus far Impression: 06/01-year-old female stable POD#1S/P partial cystectomy with postoperative [...] was discussed with Lottie 's father. Deng Randolhp M.D. Pediatric Surgery environmental marketer and Pediatrics [facility] [address] fax Stu Cowan RN - 04/19/2012 7:51 PM EST 1944 Pt sleeping wakes to voice then back to sleep, Dr Lashell to bed side to evaluate Pt cleared Pt for trans to floor. Epidural site note by Dr Lobo Unable to do sensory level do to Pt cooperation . Vivian Vizcaino RN - 04/19/2012 7:02 PM EST Dinner break coverage. C/o pain in abdomen. Medicated per order. Family at bedside. 0 - sleeping quietly. Awakens spontaneously states pain persists. Medicated per order. States shefeels numb in lower extremities. 0 - sleeping. Stu Cowan RN - 04/19/2012 [...] best to use them. AUGUSTINE HowellS Certified Windows 7 Deployment Lead Pager [phone] documented in this encounter H&P Notes Emma [...] OR for re-cystoscopy and vaginoscopy on 09/01/11. Lottie presented to an OSH 03/29/12 with acute onset RLQ pain and fevers. CT-A/P at the OSH revealed a new area of concern for mass vs. Abscess in the raymond- appendiceal region. Mass on bladder wall stillnoted. Given concern for an appendiceal abscess, Lottie was transferred to [facility] [place] for further management and [...] 2.0CM, NECK performed by LINNEA MATA at [facility] ??? Unlisted mr procedure 12/13/2010 MRI WITH ANESTHESIA performed by ASHLEE HU at [facility] ??? Upper gi endoscopy, exam 08/19/2011 PEDIATRIC UPPER GI ENDOSCOPY performed by CHALINO ENAMORADO at [facility] ??? Colonoscopy, diagnostic 08/19/2011 PEDIATRIC COLONOSCOPY performed by CHALINO ENAMORADO at [facility] ??? Cystourethroscopy 08/18/2011 CYSTO, CYSTOURETHROSCOPY, DIAGNOSTIC performed by ALIYAH NERI at [facility] ??? Cystourethroscopy 09/01/2011 CYSTO, CYSTOURETHROSCOPY, DIAGNOSTIC performed by DENG JENKINS at [facility] ??? Colposcopy, cervix w/adj vagina 09/01/2011 COLPOSCOPY, VAGINOSCOPY\CERVIX & VAGINA performed by DENG JENKINS at [facility] ??? Inject indwell cath, ureter x-ray 09/01/2011 INJECTION PROCEDURE, URETEROGRAPHY OR URETEROPYELOGRAPHY THRU URETEROSTOMY OR URETERAL CATH performed by DENG JENKINS at [facility] Allergies: No Known Allergies Prior to Admission Medications: Prescriptions prior to admission Medication Sig Dispense Refill ??? gabapentin (NEURONTIN) 100 mg capsule Take 100 mg by mouth daily. ??? Multiple Urine Tests Strp strips by [facility].(Non-Drug; Combo Route) route. Use to monitor urine pH as instructed by MD 100 strip 6 ??? sodium bicarbonate 650 [...] an appendiceal abscess, Lottie was transferred to [facility] [place] for further management and [...] ??? Multiple Urine Tests Strp strips by [facility].(Non-Drug; Combo Route) route. Use to [...] remove bladder wall tumor Specialty appointments at [facility] after discharge: 's office will call with [...] Care Physician: MILADIS BLACKMON MD Tel. #: [phone] Your [facility] Attending physician is: Emma Whelan and can be reached at [phone]. Plan of Care - Nnoa Genao RN - 04/22/2012 8:08 AM EST [...] MD's aware. Plan of Care - Symone Babin RN - 04/21/2012 6:28 AM EST Problem: [...] let this RN do any flynn care. maria del rosario reg diet. Lstab. Vss. + [...] Whelan MD - 04/19/2012 7:28 PM EST [facility] Operative Note Patient Name: Lottie Gaines : [id number] MR#: [id number] Case Date: 04/19/2012 Surgeon: Surgeon(s) and Role: [...] Link MD - 04/19/2012 6:35 PM EST [facility] Operative Note Patient Name: Lottie Gaines : [id number] MR#: [id number] Case Date: 04/19/2012 Surgeon: Surgeon(s) and Role: [...] efflux clear urine. We then introduced a 4-Jamaican Pollack catheter through the cystoscope and it was advanced first into the right ureteral orifice without difficulty. The scope was removed and the process was repeated for the left ureteral orifice. After bilateral 4-Jamaican Pollack catheters were in position, there was a 12-Jamaican Flynn catheter introduced into the bladder. The [...] Operative Note Patient Name: Lottie Gaines : [id number] MR#: [id number] Case Date: 04/19/2012 Surgeon: Surgeon(s) and Role: [...] MD 04/19/2012 Brief Op Note - Emma hWelan MD - 04/19/2012 5:59 PM EST Brief Operative Note Patient Name: Lottie Gaines : [id number] MR#: [id number] Case Date: 04/19/2012 Surgeon: Surgeon(s) and Role: Panel 1: * EMMA WHELAN MD - Primary Panel 2: * DENG JENKINS MD - Primary * VEENA LINK MD - Resident-Surgeon Bimal Preoperative diagnosis: BLADDER MASS Postoperative diagnosis: BLADDER MASS Procedure(s): Partial cystectomy, simple for EXCISION OF BLADDER TUMOR Cpt 61963 CYSTO, STENT PLACEMENT Bilateral Anesthesia: General with [...] Jenkins MD - 04/19/2012 3:24 PM EST [facility] Operative Note Patient Name: Lottie Gaines : [id number] MR#: [id number] Case Date: 04/19/2012 Surgeon: Surgeon(s) and Role: Panel 1: * Emma Whlean MD - Primary Panel 2: * Deng [...] Visit Plastic Surgery Russ Guevara M D [facility] PLASTIC SURGERY [place], [place] [address] (Wo rk) documented as of [...] Pathology Addendum Report (04/19/2012 5:23 PM EST) [facility] gist Method Time Signature Addendum [facility] ? [facility] ? Provider: ?? EMMA WHELAN ?? Pt. Name: ?? LOTTIE GAINES ? Acc #: ?[id number] ?Pt. MRN: ?[id number] ? Col Date: ?? 04/19/20 12 ?/Sex: [...] Organization Address City/State/[place] [address] [facility] Surgical Pathology Report (04/19/2012 5:23 PM EST) Component Value Ref Test Analysis Performed At [facility] gist Range Method Time Signature Surgical [facility] Pathology ? [facility] Report ? Provider: ?? EMMA WHELAN ?? Pt. Name: ?? ISIDOROLOTTIE Muñoz ? Acc #: ?[id number] ?Pt. MRN: ?[id number] ? Col Date: ?? 04/19/20 12 ?/Sex: [...] ? KO ? 04/30/12 Verified by: ? Magdalena Larsen MD ? [...] A26 ? PAX8 ? ne gative ? [facility] ? Provider: ?? EMMA WHELAN ?? Pt. Name: ?? LOTTIE GAINES ? Acc #: ?[id number] ?Pt. MRN: ?[id number] ? Col Date: ?? 04/19/20 12 ?/Sex: [...] MD PATHOLOGY/CYTOLOGY ORDERABLE S Performing Organization Address [facility]/State/[place] [address] OAPL DIEGOJOVANIIUM ANAEROBIC CULTURE (04/19/2012 4:30 PM EST) [facility] Method Time Signature Anaerobic CERNER Culture ? Patient Name: LOTTIE GAINES ?Ordered By: EMMA WHELAN ? MR#: [id number] ?LOC: ??[place] ? /Sex: ??2000 (12 years), [...] Organization Address City/State/[place] [address] CERNER BCR EnvironmentalIUM BODY FLUID CULTURE (04/19/2012 4:30 PM EST) [facility] Method Time Signature Body Fluid CERNER Culture ? Patient Name: LOTTIE GAINES ?Ordered By: EMMA WHELAN ? MR#: [id number] ?LOC: ??[place] ? /Sex: ??2000 (12 years), [...] - GENERAL ORDER DU Performing Organization Address City/State/[facility] Code Phon e Number [address] CERNER MILLENNIUM Specimen to [...] MD PATHOLOGY/CYTOLOGY ORDERABLE S Performing Organization Address City/[facility]/ZIP Code Phon e Number [address] CERNER MILLENNIUM Specimen to [...] Organization Address City/State/[place] [address] CERNER MILLENNIUM documented in this encounter Visit Diagnoses Not on filedocumented in this encounter Administered Medications Inactive Administered Medications - up to 3 most recent administrations Medication Order MAR Action Action Date Dose Rate Site ceFAZolin (ANCEF) injection Given 04/19/2012 1:30 PM EST 1 g ONCE PRN, Starting on Sun04/19/12 at 1330, Until Sun04/19/12 at 2103, Intra-Operative (Intra-Procedure), Routine documented in this encounter Active and Recently Administered Medications Times are shown in EST. Scheduled Medication Order 04/20/2012 04/21/2012 04/22/2012 cephALEXin (KEFLEX) 250 mg/5 mL pedi oral liquid 225 m g (CANCELED) 0730 (Given - Provider: Symone Babin RN - Comment: not up from pharmacy)1350 (Given - Provider: Clari Limon RN)1814 (Given - Provider: Clari Limon RN)2335 (Given - Provider: Symone Babin, SARAH) 0600 (Given - Provider: Symone Babin RN)1415 (Given - Provider: Kathi Waldrop, SARAH)1835 (Given - Provider: Kathi Waldrop, SARAH) 0000 (Given - Provider: Nona benson, SARAH)0557 (Given - Provider: Nona Genao, SARAH)1200 (Given - Provider: Irina Mcmanus, SARAH) 25 mg/kg/day ? 36 kg = 225 mg, Oral, EVERY 6 HOURS SCHEDULED, First dose on Sun04/19/12 at 2100, Until Discontinued, Routine diphenhydrAMINE (BENADRYL) 12.5 mg/5 mL Oral elixir 25 mg (COMPLETED) 1607 (Given - Provider: Clari Limon, SARAH) 25 mg = 0.694 mg/kg/dose, Oral, ONCE, 1 dose, Sun04/19/12 at 23 00, Routine gabapentin (NEURONTIN) capsule 100 mg (CANCELED) 1014 (Given - Provider: Clari Limon, SARAH)1603 (Given - Provider: Clari Limon, SARAH)2115 (Given - Provider: Symone Babin RN) 0944 (Given - Provider: Irina Mcmanus RN)1530 (Given - Provider: Irina Mcmanus RN)2130 (Given - Provider: Nona Genao, SARAH) 0904 (Given - Provider: Irina Mcmanus RN)1500 (Due) 100 mg, Oral, 3 TIMES DAILY, First dose on Sun04/19/12 at 2100, Until Discontinued, Routine ketorolac (TORADOL) injection 15 mg (COMPLETED) 1350 ( Given - Provider: Clari Limon RN)1814 (Given - Provider: Clari Limon RN)2335 (Given - Provider: Symone Babin RN) 0540 (Given - Provider: Lj Avendaño)1232 (Given - Provider: Irina Mcmanus RN)1835 (Given - Provider: Kathi Waldrop RN) 0000 (Given - Provider: Nona Genao RN)0557 (Given - Provider: Nona Genao RN) 15 mg = 0.417 mg/kg/dose, Intravenous, E VERY 6 HOURS SCHEDULED, 8 doses, First dose on 04/20/12 at 1200, Last dose on Sun04/22/12 at 0600, Routine Pentosan Polysulfate Sodium (ELMIRON) [...] on floor) 0904 (Given - Provider: Irina Mcmanus, SARAH) 2 mg = 0.0556 mg/kg/dose, Oral, DAILY, [...] (CANCELED) 0348 (New Bag - Provider: Lora Lucero)1348 (New Bag - Provider: Clari Limon, SARAH) 0147 (New Bag - Provider: Symone Babin, SARAH)0938 (New Bag - Provider: Irina Mcmanus, RN) 20 mL/hr, at 20 mL/hr, Intravenous, CONT INUOUS, Starting Sun04/19/12 at 1900, Until 04/22/12 at 1800 PRN Medication Order 04/20/2012 04/21/2012 04/22/2012 Acetaminophen (TYLENOL) Oral suspension 361.6 mg 1215 (Given - Provider: Irina Mcmanus, SARAH) 10 mg/kg/dose ? 36 kg = 361.6 mg, Oral, EVERY 4 HOURS PRN, Starting 04/22/12 at 1144, Until 04/22/12 at 1800, Pain, Maximum dose of acetaminophen is 4,000 mg from all sources in 24 hours., Routine LORazepam (ATIVAN) tablet 1 mg (CANCELED) 1338 (Given - Provider: Clari Limon RN)2115 (Given - Provider: Symone Babin RN) 0608 (Given - Provider: Symone Babin, SARAH) 1329 (Given - Provider: Irina Mcmanus, SARAH) 1 mg = 0.0278 mg/kg/dose, Oral, EVERY 6 HOURS PRN, Starting 04/20/12 at 1107, Until 04/22/12 at 1800, Anxiety, Routine OXYcodone (ROXICODONE) immediate release tablet 5 mg 1007 (Given - Provider: Irina Mcmanus, SARAH) 0904 (Given - Provider: Irina Mcmanus, SARAH)1316 (Given - Provider: Daja Luevano RN) 5 mg = 0.139 mg/kg/dose, Oral, EVERY 4 H OURS PRN, Starting 04/20/12 at 2304, Until 04/22/12 at 1800, Pain, Routine documented in this encounter Care Teams Picture Enlarger Relationship Specialty Start Date End Date Miladis Blackmon MD PCP - General 04/12/10 11/28/[address] [place] [address] documented as of this encounter
--- OUTSIDE RECORDS SUMMARY | 2021-12-13 13:02 | XMS_ITS | Encounter Summary ---
:2000 Author Organization [place] [address] Care Team Providers Name Role Phone Miladis Blackmon MD Primary Care Provider Encounter Details Date Type Department Care Team Description 09/26/2012 Abstract Ophthalmology at [facility] C Guerita Lindsey, [facility] D [facility] [place] [address] OPHTHALMOLOGY DEPT. [phone] [place], [place] [address] (Wo rk) Social History Tobacco [...] Visit Plastic Surgery Russ Guevara M D [facility] PLASTIC SURGERY [place], [place] [address] (Wo rk) documented as of this encounter Visit Diagnoses Not on filedocumented in this encounter Care Teams Bushler Relationship Specialty Start Date End Date Miladis Blackmon MD PCP - General 04/12/10 11/28/21 [address] [place] [id number] documented as of this encounter
--- OUTSIDE RECORDS SUMMARY | 2021-12-13 13:02 | XMS_ITS | Encounter Summary ---
:2000 [place] [address] Care Team Providers Name Role Phone Miladis Blackmon MD Primary Care Provider Encounter Details Date Type Department Care Team Description 01/17/2013 Anesthesia Event Main Operating Room Aline Champion ch, MD [facility] [place] [address] [place] [address] [phone] Anesthesia Record Procedure Summary Procedure Name Responsible Anesthesia Start Anesthesia Stop Anesthesiologist Time Time @URETERONEOCYSTOSTOMY Aline Palomares MD 01/17/13 1122 12/21 1646 ANASTOMOSIS OF SINGLE URETER TO BLADDER (WRVU 19.95) (Right Ureter) Events Date Time Event Comment 01/17/2013 1101 1122 AN Verify 1122 Start 1122 An Start Data 1122 An Induction 1126 An Intubation 1149 Anesthesia Ready 1217 Procedure Start 1233 Quick Note 10 ml of 0.125% preservative free marcaine injected in epid ural in divided doses after negative aspirat ion. 1241 Skin Incision 1631 Extubation/LMA Out 1635 an stop data 1646 Stop Name Total fentaNYL 200 mcg Rocuronium 90 mg Ondansetron 4 mg Dexamethasone 4.2 mg Neostigmine 2 mg Glycopyrrolate 0.4 mg ceFAZolin 1,000 mg BUpivacaine 0.25% 5 mL HYDROmorphone (PF) (DILAUDID) 10 mcg/mL, BUpivacaine ( PF) (MARCAINE) 0.125 12.73 mL %, cloNIDine 1 mcg/mL in sodium chloride 0.9% 250 mL e pidural Propofol INF 256.2 mg Sodium Chloride 0.9% 500 mL Lactated Ringers 900 mL Agents Name O2 Air N2O Sevoflurane (et) Blood No blood administrations on file. Lines, Drains, and Airways Type Details Placement Removal Incision 04/01/12; abdomen 04/01/12 0000 by Janiya Osullivan RN Incision 01/17/13; abdomen 01/17/13 0000 by Diana Martinez, SARAH PIV Peds 04/19/12 0000 by 01/17/13 1618 b y Lizeth Burrell, Edilberto Saul, RN Urethral Catheter 04/19/12; indwelling 04/19/12 0000 by 01/17/13 1618 by double lumen catheter; Lizeth Burrell RN Georg e, Matthew E, silastic; 12; inserted; RN 1; drainage bag to dependent drainage; 01/17/13; 1618 Incision 04/19/12; abdomen; 04/19/12 0000 by 01/17/13 161 8 by 01/17/13; 1618 Lizeth Burrell RN George, Matt hew E RN Urethral Catheter 01/17/13; indwelling 01/17/13 0000 by 01/21/13 0948 by double lumen catheter; Diana Martinez RN Martin i, Karlyn P, 100% silicone; 14; RN inserted (Dr. Jeromy CHOW); 1; drainage bag to dependent drainage; 01/21/13; 0948 PIV 01/18/13; 1800 (per Tamanna 01/17/13 1206 by 3 1800 by Dale PARAFFINER; catheter Heydi Salamanca, RN intact) PIV 09/03/17 (Auto removal 01/17/13 1206 by 09/03/17 0921 by via utility); 0921 Epic, User (Auto removal via utility) (RETIRED) Mask Ventilation: Easy 01/17/13 1206 by 01/17/13 1631 by Non-Surgical Airway (1); ETT Type: Cuffed, Recarmel r, Hunter N, Oral; ETT Size: 6 mm documented in this encounter Social History Tobacco Use Types Packs/Day Years Used Date Never Smoker Smokeless Tobacco: Never Used Comments: Mom states smokes Alcohol Use Standard Drinks/Week Comments No 0 (1 standard drink = 0.6 oz pure alcoho l) Sex Assigned at Date Recorded Not on file documented as of this encounter OR Notes Anesthesia Postprocedure Evaluation - Hunter Farley MD - 01/17/2013 6:20 PM EDT Patient: Lottie Gaines Procedure(s) Performed: Procedure(s): @URETERONEOCYSTOSTOMY ANASTOMOSIS OF SINGLE URETER TO BLADDER CYSTOURETHROSCOPY; W\RESECT OR FULGURATION ORTHOTOPIC URETEROCELE(S) Actual Anesthetic: general, epidural Patient location: PACU Post-op pain: working on pain control with epidural and toradol Post-op nausea: no nausea or vomiting Last Vitals: Filed Vitals: 01/17/13 1800 BP: 142/78 Pulse: 69 Temp: Resp: 14 Post-op cardiovascular and respiratory status: is stable Level of consciousness: awake, alert and oriented Complications: no apparent complications and tolerated the procedure well Fluid Status: normal Anesthesia Procedure Notes - Hunter Farley MD - 01/17/2013 2:17 PM EDT Associated Order(s): ANE NEURAXIAL UPDATED Procedure: Neuraxial Block Post-op Pain Control Type: Epidural The patient was greeted; the risks and benefits were reviewed. The anesthetic consent was obtained. The medical history and chart were reviewed. The timeout was performed. Start time: 01/17/2013 11:36 AM End time: 01/17/2013 11:47 AM Patient Location: Operating Room Patient Prep Position: Right lateral decubitus Prep: Hand Hygiene, Hat, Mask, Sterile Gloves, Chlorhexidine, Alcohol and Patient Draped Injection technique: continuous Procedure Technique Level of needle insertion: L3-4 Needle approach: midline Needle Type: Tuohy Gauge: 18 Needle length: 3.5 in Needle insertion depth when MIRIAN achieved: 4 cm Technique for Loss of Resistance: MIRIAN air and MIRIAN saline Dressing/Secured with: Chlorhexidine Tegaderm, Tegaderm and Tape Number of attempts: 1 Test dose A test dose of 4 mL was administered. Bolus medication Bupivacaine 0.125% 10 ml Events/Notes Events: None Performed by: MD Martine Supervising Attending/Fellow: MD Jelani ~~~~~~~~~~~~~~~~~~~~~~~~~~~~~~~~~~~~~~~~~~~~~~~~~~~~~~~~~~~~ Anesthesia Preprocedure Evaluation - Hunter Farley MD - 01/16/2013 6:27 PM EDT Pre-Anesthesia Evaluation for: Lottie Gaines a 12 y.o. female. Procedure(s): @URETERONEOCYSTOSTOMY ANASTOMOSIS OF SINGLE URETER TO BLADDER CYSTOURETHROSCOPY; W\RESECT OR FULGURATION ORTHOTOPIC URETEROCELE(S) Patient Active Problem List Diagnosis ??? VUR (vesicoureteric reflux) Right grade 3, with partial duplication. ??? Benign bladder tumor ??? Didelphic uterus ??? Passive smoker ??? Hyperopia ??? Diarrhea ??? Abdominal pain ??? Dysuria ??? Nephrocalcinosis ??? Recurrent UTI ??? Urgency of urination ??? RAD (reactive airway disease) ??? 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 Past Medical History Diagnosis Date ??? Chronic kidney disease ??? Cataract ??? Didelphic uterus ??? Passive smoker ??? Benign bladder tumor 04/22/2012 Past Surgical History Procedure Date ??? Exc skin benig 1.1-2cm remaindr body 10/27/2010 EXC BENIGN LES, JUDY 1.1 TO 2.0CM, NECK performed by LINNEA MATA at [facility] ??? Unlisted mr procedure 12/13/2010 MRI WITH ANESTHESIA performed by ASHLEE HU at [facility] ??? Upper gi endoscopy, exam 08/19/2011 PEDIATRIC UPPER GI ENDOSCOPY performed by CHALINO ENAMORDAO at [facility] ??? Colonoscopy, diagnostic 08/19/2011 PEDIATRIC COLONOSCOPY performed by CHALINO ENAMORADO at [facility] ??? Cystourethroscopy 08/18/2011 CYSTO, CYSTOURETHROSCOPY, DIAGNOSTIC performed by ALIYAH NERI at [facility] OR ??? Cystourethroscopy 09/01/2011 CYSTO, CYSTOURETHROSCOPY, DIAGNOSTIC performed by DENG JENKINS at [facility] OR ??? Colposcopy, cervix w/adj vagina 09/01/2011 COLPOSCOPY, VAGINOSCOPY\CERVIX & VAGINA performed by DENG JENKINS at [facility] OR ??? Inject indwell cath, ureter x-ray 09/01/2011 INJECTION PROCEDURE, URETEROGRAPHY OR URETEROPYELOGRAPHY THRU URETEROSTOMY OR URETERAL CATH performed by DENG JENKINS at [facility] OR ??? Lap, diagnostic abdomen 04/01/2012 LAPAROSCOPY, DIAGNOSTIC, ABDOMEN performed by EMMA WHELAN at [facility] OR ??? Cystourethroscopy, biopsies 04/01/2012 CYSTO, URETHROSCOPY WITH BIOPSY performed by DENG JENKINS at [facility] OR ??? Colposcopy, entire vagina 04/01/2012 COLPOSCOPY OF VAGINA WITH CERVIX IF PRESENT performed by DENG JENKINS at [facility] OR ??? Lap, dx surgical abd w/biopsy 04/01/2012 LAPAROSCOPY,SURGICAL,WITH BIOPSY, SINGLE OR MULTIPLE performed by DENG JENKINS at [facility] OR ??? Cystoscopy, insert ureteral stent 04/19/2012 CYSTO, STENT PLACEMENT performed by Deng Jenkins MD at [facility] OR ??? Part remv bladder, simple 04/19/2012 @CYSTECTOMY, PARTIAL, SIMPLE performed by Emma Whelan MD at [facility] History Substance Use Topics ??? Smoking status: Never Smoker ??? Smokeless tobacco: Never Used Comment: Mom states smokes ??? Alcohol Use: No History Drug Use No No Known Allergies Medications: MAR and/or home medications have been reviewed. Physical Exam: There were no vitals filed for this visit. There is no height or weight on file to calculate BMI. Anesthesia Physical Exam Anesthesia Plan: ASA 3 general and epidural, Region - Other Informed Consent: [facility] [place]. Assessment: 12 y.o. girl to OR for open ureteral implant RIGHT with Dr. Pinzon. Weight: Estimated Body mass index is 19.35 kg/(m^2) as calculated from the following: Height as of 11/13/12: 4' 9.52(1.461 m). Weight as of 11/13/12: 91 lb 0.8 oz(41.3 kg). Baseline BP: 106/60 Previous Anesthesia: 03/2012: for open partial cystectomy for bladder tumor Epidural at L4-5 level. Loss at 3.5cm. Clonidine in space. Bupivacaine with Dilaudid infusion. Midaz oral preop Airway: grade 1 view with MAC3, easy mask. PMH notable for: #VSD- last seen by cardiology in 2010. No restrictions and no raymond-op abx required. ECHO below. #RAD, passive smoking #Vesicoureteric reflux. Hx of bladder mass s/p partial cystectomy. Recent UTIs. #Chronic abdominal pain, previously on narcotics. Social History: passive smoker Allergies: none Labs: CBC: 5.6/13.3/265 Chem: Na 140, K 3.9, Cr 0.7 T+S: none Coags: none Previous Cardiac Workup: ECHO 2010: Membranous VSD No large left to right shunt No PAH No AI documented in this encounter Miscellaneous Notes Addendum Note - Alnie Palomares MD - 01/28/2013 1:22 PM EDT Addendum created 01/28/13 132 by Aline Palomares MD Modules edited:Charges VN Addendum Note - Aline Palomares MD - 01/28/2013 1:22 PM EDT Addendum created 01/28/131321 by Aline Palomares MD Modules edited:Charges VN documented in this encounter Plan of Treatment Upcoming Encounters Date Type Specialty Care Team Description 12/22/2021 Office Visit Plastic Surgery Russ Guevara M D [facility] PLASTIC SURGERY [place], [place] [address] (Wo rk) documented as of this encounter Procedures Procedure Name Priority Date/Time Associated Diagnosis Comme nts ANE NEURAXIAL Routine 01/17/2013 2:19 PM Results for this UPDATED EDT procedure are i n the results section. documented in this encounter Results ANE NEURAXIAL UPDATED (01/17/2013 2:19 PM EDT) Narrative Hunter Farley MD - 01/17/2013 2:19 P M EDT Hunter Farley MD ? 01/17/2013 ??2:19 PM Procedure: ?? Neuraxial Block Post-op Pain Control Type: Epidural The patient was greeted; the risks and b enefits were reviewed. ?? The anesthetic consent was obtained. ??T he medical history and chart were reviewed. ??The timeout was p erformed. Start time: 01/17/2013 11:36 AM End time: 01/17/2013 11:47 AM Patient Location: Operating Room Patient Prep Position: Right lateral decubitus Prep: Hand Hygiene, Hat, Mask, Sterile G loves, Chlorhexidine, Alcohol and Patient Draped Injection technique: continuous Procedure Technique Level of needle insertion: L3-4 Needle approach: midline Needle Type: Tuohy Gauge: 18 Needle length: 3.5 in Needle insertion depth when MIRIAN achieved : 4 cm Technique for Loss of Resistance: MIRIAN ai r and MIRIAN saline Dressing/Secured with: Chlorhexidine Teg aderm, Tegaderm and Tape Number of attempts: 1 Test dose A test dose of 4 mL was administered. Bolus medication Bupivacaine 0.125% 10 ml Events/Notes Events: ??None Performed by: ??MD Martine Supervising Attending/Fellow: ??MD Jelani ~~~~~~~~~~~~~~~~~~~~~~~~~~~~~~~~~~~~~~~~ ~~~~~~~~~~~~~~~~~~~~ Procedure Note Hunter Farley MD - 01/17/2013 2:17 P M EDT Procedure: Neuraxial Block Post-op Pain Control Type: Epidural The patient was greeted; the risks and b enefits were reviewed. The anesthetic consent was obtained. The medical history and chart were reviewed. The timeout was performed. Start time: 01/17/2013 11:36 AM End time: 01/17/2013 11:47 AM Patient Location: Operating Room Patient Prep Position: Right lateral decubitus Prep: Hand Hygiene, Hat, Mask, Sterile G loves, Chlorhexidine, Alcohol and Patient Draped Injection technique: continuous Procedure Technique Level of needle insertion: L3-4 Needle approach: midline Needle Type: Tuohy Gauge: 18 Needle length: 3.5 in Needle insertion depth when MIRIAN achieved : 4 cm Technique for Loss of Resistance: MIRIAN ai r and MIRIAN saline Dressing/Secured with: Chlorhexidine Teg aderm, Tegaderm and Tape Number of attempts: 1 Test dose A test dose of 4 mL was administered. 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[employer] documented in this encounter Visit Diagnoses Not on filedocumented in this encounter Administered Medications Inactive Administered Medications - up to 3 most recent administrations Medication Order MAR Action Action Date Dose Rate Site BUpivacaine (MARACAINE) 0.25% Given 01/17/2013 12:32 PM EDT 5 mL s bolus injection (Anesthesia) PRN, Starting on Sun01/17/13 at 1232, Until Sun01/17/13 at 1649, Anesthesia Intra-op, Routine ceFAZolin (ANCEF) 1g in dextrose 5% 50mL Given 01/17/2013 12:08 PM EDT 1,000 mg PRN, Starting on Sun01/17/13 at 1208, Until Sun01/17/13 at 1649, Administer over 30 Minutes, Anesthesia Intra-op dexamethasone (DECADRON) injection Given 01/17/2013 12:14 PM EDT 4.2 mg PRN, Starting on Sun01/17/13 at 1214, Until Sun01/17/13 at 1649, Anesthesia Intra-op, Routine fentaNYL 50mcg/mL injection Given 01/17/2013 4:23 PM EDT 25 mcg PRN, Starting on Sun01/17/13 at 1214, Until Sun01/17/13 at 1649, Pain, Anesthesia Intra-op, Routine Given 01/17/2013 3:45 PM EDT 25 mcg Given 01/17/2013 1:25 PM EDT 25 mcg glycopyrrolate (ROBINUL) injection Given 01/17/2013 4:13 PM EDT 0.4 mg PRN, Starting on Sun01/17/13 at 1613, Until Sun01/17/13 at 1649, Anesthesia Intra-op, Routine HYDROmorphone (PF) Rate/Dose Verify 01/17/2013 6:00 PM EDT 4 mL/hr 4 mL/hr (DILAUDID) 10 mcg/mL, BUpivacaine (PF) (MARCAINE) 0.125 %, cloNIDine 1 mcg/mL in sodium chloride 0.9% 250 mL epidural 4 mL/hr, Epidural, CONTINUOUS, Starting on Sun01/17/13 at 1330, Until Sun01/17/13 at 1819 Anesthesia Bolus 01/17/2013 2:30 PM EDT 3 mLs Anesthesia Bolus 01/17/2013 2:15 PM EDT 2 mLs lactated ringers infusion New Bag 01/17/2013 4:28 PM EDT mL CONTINUOUS PRN, Starting on Sun01/17/13 at 1210, Until Sun01/17/13 at 1649, Anesthesia Intra-op New Bag 01/17/2013 12:10 PM EDT mL neostigmine (PROSTIGMINE) injection Given 01/17/2013 4:13 PM EDT 2 mg PRN, Starting on Sun01/17/13 at 1613, Until Sun01/17/13 at 1649, Anesthesia Intra-op, Routine ondansetron (ZOFRAN) injection Given 01/17/2013 4:10 PM EDT 4 mg PRN, Starting on Sun01/17/13 at 1610, Until Sun01/17/13 at 1649, Nausea, Anesthesia Intra-op, Routine propofol (DIPRIVAN) infusion New Bag 01/17/2013 3:29 PM 100 mcg/kg/min 25.2 mL/hr CONTINUOUS PRN, Starting on EDT Sun01/17/13 at 1529, Until Sun01/17/13 at 1649, Anesthesia Intra-op, Routine rocuronium (ZEMURON) injection Given 01/17/2013 3:39 PM EDT 10 mg PRN, Starting on Sun01/17/13 at 1216, Until Sun01/17/13 at 1649, Anesthesia Intra-op, Routine Given 01/17/2013 3:09 PM EDT 20 mg Given 01/17/2013 1:48 PM EDT 20 mg sodium chloride 0.9% infusion New Bag 01/17/2013 11:24 AM EDT mL CONTINUOUS PRN, Starting on Sun01/17/13 at 1124, Until Sun01/17/13 at 1649, Anesthesia Intra-op documented in this encounter Care Teams Protection Agent Relationship Specialty Start Date End Date Miladis Blackmon MD PCP - General 04/12/10 11/28/21 97 [address] [employer] [place] [address] documented as of this encounter
--- OUTSIDE RECORDS SUMMARY | 2021-12-13 13:02 | XMS_ITS | Encounter Summary ---
:2000 Author Organization [facility] [place] [address] Care Team Providers Name Role Phone Miladis Blackmon MD Primary Care Provider Encounter Details Date Type Department Care Team Description 02/17/2013 Telephone Pediatric Urology at [facility] Felix Pinzon MD [facility], [place] [address] PEDIATRIC SURGERY [phone] [place], [place] [address] (Wo rk) Social History Tobacco Use Types Packs/Day Years Used Date Never Smoker Smokeless Tobacco: Never Used Comments: Mom states smokes Alcohol Use Standard Drinks/Week Comments No 0 (1 standard drink = 0.6 oz pure alcoho l) Sex Assigned at Date Recorded Not on file documented as of this encounter Miscellaneous Notes Telephone Encounter - Angeles De Santiago - 02/17/2013 4:17 PM EDT L/M to schedule 6wk f/u appt. Needs RBUS prior. documented in this encounter Plan of Treatment Upcoming Encounters Date Type Specialty Care Team Description 12/22/2021 Office Visit Plastic Surgery Russ Guevara M D [facility] PLASTIC SURGERY [place], [place] [address] (Wo rk) documented as of this encounter Visit Diagnoses Not on filedocumented in this encounter Care Teams Loading Supervisor Relationship Specialty Start Date End Date Miladis Blackmon MD PCP - General 04/12/10 11/28/21 [address] [facility] [place] [address] documented as of this encounter
--- OUTSIDE RECORDS SUMMARY | 2021-12-13 13:02 | XMS_ITS | Encounter Summary ---
:2000 [place] [address] Care Team Providers Name Role Phone Miladis Blackmon MD Primary Care Provider Encounter Details Date Type Department Care Team Description 01/17/2013 Surgery Main Operating Room Jonnie Pinzon MD @[email or web address] [facility] ANASTOMOSIS OF [facility] URETER TO BLADDER ([facility] PEDIATRIC ABNER MONIQUE 19.95) [id number] [place] [address] [phone] Social History Tobacco Use Types Packs/Day Years [...] may be used if needed and are kkgm-wnw-fcsjfwo (OTC) medications available at most [facility]. Prunes or prune juice, taken daily, [...] with information about this appointment. Please call [phone] and ask for pediatric urology (clinic number [...] 8 hours. tablet Multiple Urine Tests by [facility].(Non-Drug; 100 strip 6 012 Strp stripsIndications: Combo [...] (AVS) and given to the patient or quality assurance representative. 5) If VNA was ordered, I [...] draining pinkish colored urine. Small BM, on Sunday. A: Stable postop course, ready for voiding [...] a RBUS. RONY PINZON MD Janes Trinh - 01/20/2013 7:49 AM EDT Urology Progress [...] d/c Dispo: D/c to home tomorrow Doretha Alvarado RN - 01/20/2013 7:42 AM EDT Have received no call back from creative services intern at this time. Report to oncoming RN. [...] in L hand without success. Mother refuses LUMBER STRAIGHTENER for blood atthis time. 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 Monitor epidural coverage, pain, pain control. Zafar Torrez RN - 01/17/2013 5:32 PM EDT 1700 [...] to floor now per Dr Palomares per [facility] fruit pitter. Dr Farley states he will check on patient this PM. 1830 Urology team at bedside for rounds. Aware of POC for patient regarding pain control, meds given, etc. No new orders received. Ok to transfer to floor. Urine bloody. 1855 Patient delivered to room without incident, Symone RN at bedside to obtain vials. Transfer of care to senior mobile application developer. documented in this encounter H&P Notes Rony [...] genitalia nl. Recent UC C/W contamination. RONY IPNZON MD Rony Pinzon MD - 01/17/2013 11:11 [...] both grew a pansensitive enterococcus at the [facility] lab in [facility]. No changes in medical condition since [...] Her most recent voiding cystourethrogram performed earlier [id number] revealed right grade III reflux into a normal right ureter and blunted upper pole calyceal system. Lottie has had two enterococcus UTIs recently, one on 08/02/12 and the second on 08/15/12, both grew a pansensitive enterococcus at the [facility] lab in [facility]. Hervoided UA was normal and her [...] daily. Multiple Urine Tests Strp strips by [facility].(Non-Drug; Combo Route) route. Use to monitor urine pH as instructed by MD Rehman: 100 strip Refills: 6 Follow-up Care & Plans: For questions, orders or appointments related to your continuing care after your discharge, you or your provider should contact the physician that managed that part of your care. [facility] -[phone] Scheduled Appointments: The following appointments have been [...] may be used if needed and are mgsj-ied-juangwk (OTC) medications available at most [facility]. Prunes or prune juice, taken daily, [...] with information about this appointment. Please call [phone] and ask for pediatric urology (clinic number [...] was managed by the Urology Team at [facility]. If you have any questions or concerns, please feel free to contact us. Provider Contact Information: Urology Clinic: [facility] (after business hours): CC: MILADIS BLACKMON MD [...] now could Lottie assign herself a more quality assurance representative number and use 10/10 when the the pain was the worst and in need of different pain management. Lottie said she did not want to change anything; everything was ok with the present way of caring for her pain. Mom in agreement with Lottie's decision and stated Lottie has learning disabilities, and that is whyshe does not understand the rational of reviewing [...] sign out yet and to page previous creative services intern. News Reel Cameraman paged at #[phone]. Plan of Care - Sabra Salamanca RN - 01/19/2013 3:15 PM EDT Problem: [...] states improved sensation in LLE, ambulated to treasure box to obtain small gift. Afebrile. VSS. [...] Pinzon MD - 01/18/2013 10:[address] [facility] Operative Note Patient Name: Lottie Gaines : [id number] MR#: [id number] Case Date: 01/17/2013 Surgeon: Surgeon(s) and Role: [...] both grew a pansensitive enterococcus at the [facility] lab in [facility]. Her voided UAwas normal and her [...] Operative Note Patient Name: Lottie Gaines : [id number] MR#: [id number] Case Date: 01/17/2013 Surgeon: Surgeon(s) and Role: [...] D [facility] PLASTIC SURGERY [place], [place] [address] (Wo rk) documented as of [...] Organization Address City/State/[place] [address] CERNER MILLENNIUM Basic Metabolic Panel (non-fasting) (01/18/2013 6:20 PM EDT) athologist Signature Glucose Lvl 114 60 - 199 CERNER mg/dL MILLENNIUM Comment: Diabetes: >=200 mg/dL plus symp toms BUN 6 5 - 20 mg/dL CERNER MILLENNIUM Creatinine 0.66 0.20 - 0.70 mg/dL CERNER MILL ENNIUM Comment: Please note that the pediatric reference intervals supplied above were not validated at [facility]. Results from pediatri c patients should be [...] Organization Address City/State/[place] [address] CERNER MILLENNIUM (ABNORMAL) CBC [...] Organization Address City/State/[place] [address] [facility] Surgical Pathology Report (01/17/2013 3:31 PM EDT) [facility] Method Time Signature Surgical [facility] Pathology ? [facility] Report ? Provider: ?? RONY PINZON ? Pt. Name: ?? LOTTIE GAINES ? Acc #: ?[id number] ?Pt. MRN: ?[id number] ? Col Date: ?? 3 ? /Sex: [...] Organization Address City/State/[place] [address] [facility] Specimen to Pathology (surgical or derm) (01/17/2013 [...] Organization Address City/State/[place] [address] OPAL GONCALVES Urine culture Cystoscopic Urine (01/17/2013 1:00 PM EDT) [facility] Method Time Signature Urine Culture CERNER ? Patient Name: LOTTIE GAINES ?Ordered By : RONY PINZON ? MR#: [id number] ?LOC: ??[place] ? /Sex: ??2000 (12 years), [...] - GENERAL ORDER DU Performing Organization Address City/[facility]/ZIP Code Phon e Number [address] CERNER MILLENNIUM Urinalysis with microscopic (01/17/2013 1:00 PM EDT) [facility] Method Time Signature Glucose UA Negative [...] Appearance UA Clear Clear CERNER MILLENNIUM Spec Divide UA 1.011 1.002 - CERNER 1.030 MILLENNIUM [...] Pinzon MD URINE ORDERABLES Performing Organization Address City/[facility]/ZIP Code Phon e Number [address] CERNER MILLENNIUM documented in this encounter Visit Diagnoses Diagnosis VUR (vesicoureteric reflux) - Primary Vesicoureteral reflux, unspecified or wi thout reflux nephropathy VUR (vesicoureteric reflux) Vesicoureteral reflux, unspecified or wi thout reflux nephropathy documented in this encounter Administered Medications Inactive Administered Medications - up to 3 most recent administrations Medication Order MAR Action Action Date Dose Rate Site lidocaine-epiNEPHrine 1 Given 01/17/2013 4:05 PM 6 mLs 20-Other (document %-1:200,000 injection EDT in comment sect ion) ONCE PRN, Starting on Sun01/17/13 at 1605, Until Sun01/17/13 at 1715, Intra-Operative (Intra-Procedure), Routine documented in this encounter [...] Sabra Salamanca RN)2204 (Given - Provider: Clari Limon RN) 0558 (Given - Provider: Clari Limon, SARAH)1400 (Given - Provider: Peggy Rodriguez, SARAH) 10 mg/kg/dose ? 42 kg = [...] Sabra Salamanca RN)2204 (Given - Provider: Clari Limon RN) 0900 (Given - Provider: Peggy Rodriguez, SARAH) 5 mg = 0.119 mg/kg/dose, Oral, 3 [...] - Reason: Contraindicated)1219 (Given - Provider: Sabra Salamanca, SARAH)1607 (Given - Provider: Sabra Salamanca RN)2000 (Given - Provider: Clari Limon RN) 0007 (Given - Provider: Clari Limon RN)0424 (Given - Provider: Clari Limon RN)0800 (Given - Provider: Peggy Rodriguez RN)1200 (Given - Provider: Peggy Rodriguez RN) 5 mg = 1 tablet, Oral, EVERY 4 HOURS SIM EDUPHYLLIS, First dose on Sun01/20/13 at 0945, Until Discontinued, Dosed in mg of oxycodone. Maximum dose of acetaminophen is 4000 mg from all sources in 24 hours., Routine polyethylene glycol (MIRALAX) packet 17 g (CANCELED) 0 908 (Given - Provider: Sabra Salamanca RN) 0900 (Given - Provider: Sabra Salamanca RN) 0900 (Given - Provider: Peggy Rodriguez RN) 17 g = 0.405 g/kg, Oral, DAILY, First do se on Sun01/17/13 at 1915, Until Discontinued, Recovery (Recovery-Hospital Unit), Routine sodium chloride 0.9 % flush 5 mL (CANCELED) 0530 (Not Given - Provider: Lawanda Schmidt RN - Reason: See comment - Comment: Runnig IVF's)1730 (Due) 0930 (Given - Provider: Sabra Salamanca RN - Comment: MIVF discontinued)1730 (Not Given - [...] Alvarado RN)2207 (Rate/Dose Verify - Provider: Doretha Alvarado, SARAH) 0000 (Rate/Dose Verify - Provider: Melissa Alvarado RN)0232 (New Bag - Provider: Gayle Berg RN)0900 (Stopped - Provider: Sabra Salamanca RN) 1,000 mL, at 75 mL/hr, Intravenous, CONT [...] CONTINUOU S, Starting Sun01/17/13 at 1845, Until Sun01/21/13 at 1638 1999 (Not Given - Provider: Doretha Alvarado RN [...] mg/kg/dose, Oral, EVERY 6 HOURS PRN, Starting 01/17/13 at 1702, Until 01/20/13 at 0918, Pain, Maximum dose of acetaminophen [...] mg, Oral, EVERY 8 HOURS PRN, Starting Sun01/18/13 at 1903, Until Sun01/20/13 at 0918, Pain, Routine OXYcodone (ROXICODONE) immediate release tablet 5 mg ( CANCELED) 1412 (Given - Provider: Sabra Salamanca RN)1945 (Given - Provider: Doretha Alvarado RN) 0000 (Given - Provider: Doretha Alvarado RN)0635 (Given - Provider: Doretha Alvarado RN) 5 mg = 0.119 mg/kg/dose, Oral, EVERY 4 H OURS PRN, Starting 01/19/13 at 1318, Until 01/20/13 at 0918, Pain, Routine documented in this encounter Care Teams College Dean Relationship Specialty Start Date End Date Miladis Blackmon MD PCP - General 04/12/10 11/28/21 [place] [address] documented as of this encounter
--- OUTSIDE RECORDS SUMMARY | 2021-12-13 13:02 | XMS_ITS | Encounter Summary ---
:2000 Author Organization [place] [address] Care Team Providers Name Role Phone Miladis Blackmon MD Primary Care Provider Encounter Details Date Type Department Care Team Description 11/13/2012 Anesthesia Event [place] [facility] Chetan Whittaker MD [facility] [place] [address] [facility] Roger Quevedo CRNA [facility] [place] [address] [place] [address] Anesthesia Record Procedure Summary Procedure Name Responsible Anesthesia Start Anesthesia Stop Time Anesthesiologist Time CYSTOGRAM (N/A Chetan Whittaker MD 11/13/12 0857 11/13/12 09 04 Bladder) Events Date Time Event Comment 11/13/2012 0856 0857 Start 0858 AN Verify 0858 An Start Data 0859 An Induction 0900 Anesthesia Ready 0904 an stop data 0904 Stop No medications on file. Agents Name O2 N2O Sevoflurane (et) Blood No blood administrations on file. Lines, Drains, and Airways Type Details Placement Removal Incision 04/01/12; abdomen 04/01/12 0000 by Janiya Osullivan RN PIV Peds 04/19/12 0000 by 01/17/13 1618 Lizeth Etienne RN George, Matt hew E, RN Urethral Catheter 04/19/12; indwelling 04/19/12 0000 by 01/17/13 1618 by double lumen catheter; Lizeth Burrell RN Acosta fuad Zafar Tanner, silastic; 12; inserted; RN 1; drainage bag to dependent drainage; 01/17/13; 1618 Incision 04/19/12; abdomen; 04/19/12 0000 by 01/17/13 161 8 by 01/17/13; 1618 Lizeth Burrell RN George, Matt hew E, RN documented in this encounter Social History Tobacco Use Types Packs/Day Years Used Date Never Smoker Smokeless Tobacco: Never Used Comments: Mom states smokes Alcohol Use Standard Drinks/Week Comments No 0 (1 standard drink = 0.6 oz pure alcoho l) Sex Assigned at Date Recorded Not on file documented as of this encounter OR Notes Anesthesia Postprocedure Evaluation - Chetan Whittaker MD - 11/13/2012 10:37 AM EDT Patient: Lottie Gaines Procedure(s) Performed: Procedure(s): CYSTOGRAM Actual Anesthetic: general Patient location: PACU Post-op pain: Adequate analgesia Post-op nausea: no nausea or vomiting Last Vitals: Filed Vitals: 11/13/12 0913 Pulse: 82 Temp: Resp: 16 Post-op cardiovascular and respiratory status: is stable Level of consciousness: awake, alert and oriented Complications: no apparent complications and tolerated the procedure well Fluid Status: normal Anesthesia Preprocedure Evaluation - Chetan Whittaker MD - 11/13/2012 7:37 AM EDT Pre-Anesthesia Evaluation for: Lottie Gaines a 12 y.o. female. Procedure(s): CYSTOGRAM Patient Active Problem List Diagnoses ??? VUR (vesicoureteric reflux) Right grade 3. ??? Benign bladder tumor ??? Didelphic uterus [...] 2.0CM, NECK performed by LINNEA MATA at [facility] ??? Unlisted mr procedure 12/13/2010 MRI WITH ANESTHESIA performed by ASHLEE HU at [facility] ??? Upper gi endoscopy, exam 08/19/2011 PEDIATRIC UPPER GI ENDOSCOPY performed by CHALINO ENAMORADO at [facility] ENDOSCOPY ??? Colonoscopy, diagnostic 08/19/2011 PEDIATRIC COLONOSCOPY performed by CHALINO ENAMORADO at [facility] ENDOSCOPY ??? Cystourethroscopy 08/18/2011 CYSTO, CYSTOURETHROSCOPY, DIAGNOSTIC performed by ALIYAH NERI at [facility] OR ??? Cystourethroscopy 09/01/2011 CYSTO, CYSTOURETHROSCOPY, DIAGNOSTIC performed by DENG JENKINS at [facility] OR ??? Colposcopy, cervix w/adj vagina 09/01/2011 COLPOSCOPY, VAGINOSCOPY\CERVIX & VAGINA performed by DENG JENKINS at [facility] OR ??? Inject indwell cath, ureter x-ray 09/01/2011 INJECTION PROCEDURE, URETEROGRAPHY OR URETEROPYELOGRAPHY THRU URETEROSTOMY OR URETERAL CATH performed by DENG JENKINS at [facility] OR ??? Lap, diagnostic abdomen 04/01/2012 LAPAROSCOPY, DIAGNOSTIC, ABDOMEN performed by EMMA WHELAN at [facility] OR ??? Cystourethroscopy, biopsies 04/01/2012 CYSTO, URETHROSCOPY WITH BIOPSY performed by DENG JENKINS at [facility] OR ??? Colposcopy, entire vagina 04/01/2012 COLPOSCOPY OF VAGINA WITH CERVIX IF PRESENT performed by DENG JENKINS at [facility] MAIN OR ??? Lap, dx surgical abd w/biopsy 04/01/2012 LAPAROSCOPY,SURGICAL,WITH BIOPSY, SINGLE OR MULTIPLE performed by DENG JENKINS at [facility] MA[facility] OR ??? Cystoscopy, insert ureteral stent 04/19/2012 CYSTO, STENT PLACEMENT performed by Deng Jenkins MD at [facility] MA[facility] OR ??? Part remv bladder, simple 04/19/2012 @CYSTECTOMY, PARTIAL, SIMPLE performed by Emma Whelan MD at [facility] MAIN OR History Substance Use Topics ??? Smoking status: [...] Anesthesia Physical Exam Anesthesia Plan: ASA 3 general, with a(n) inhalational induction 12 yo 37kg f with VUR/UTI following resection of benign bladder tumor. PMHx significant for VSD (2-3mm on ECHO in 2010),reactive airway disease (prn albuterol with URI), and history of chronic abdominal/pelvic pain with dysuria and frequent UTI's. S/p exploratory laparoscopy, appendectomy,partial cystectomy. RAD is well controlled despite passive ETS exposure. Last notefrom cardiology recommended no restrictions and no need for prophylactic antibiotics. Previously tolerated mask induction well. Region - Other Informed Consent: Anesthetic plan and risks discussed with father, mother and patient. Plan discussed with PRODUCTION CHECKER. [facility]. Assessment: documented in this encounter Plan of Treatment Upcoming Encounters Date Type Specialty Care Team Description 12/22/2021 Office Visit Plastic Surgery Russ Guevara M D [facility] PLASTIC SURGERY [place], [place] [address] (Wo rk) documented as of this encounter Visit Diagnoses Not on filedocumented in this encounter Care Teams Certified Diabetes Educator Relationship Specialty Start Date End Date Miladis Blackmon MD PCP - General 04/12/10 11/28/21 [place] [address] documented as of this encounter
--- OUTSIDE RECORDS SUMMARY | 2021-12-13 13:02 | XMS_ITS | Encounter Summary ---
:2000 Author Organization [facility] [place] [address] Care Team Providers Name Role Phone Miladis Blackmon MD Primary Care Provider Reason for Visit Reason Onset Date Comments Results 07/16/2012 Encounter Details Date Type Department Care Team Description 07/16/2012 Telephone Pediatric Nephrology at [facility] [place] [address] Social History Tobacco Use Types Packs/Day Years Used Date Never Smoker Smokeless Tobacco: Never Used Comments: Mom states smokes Alcohol Use Standard Drinks/Week Comments No 0 (1 standard drink = 0.6 oz pure alcoho l) Sex Assigned at Date Recorded Not on file documented as of this encounter Miscellaneous Notes Telephone Encounter - Sahara Rodriges RN - 07/16/2012 8:49 AM EST Pediatric Nephrology, [facility] Date: 07/16/2012 Time of Notification: 8:49 AM Lab Results: 24 hr Litholink collection- - No hypercalciuria (0.7 mg/kg) - Normal citraturia (387 mg/g creatinine = normal ~400) - Normal uric acid and oxalate. <500 ml/day of urine Assessment: Lab results reviewed by Dr. Pimentel. No evidence of predisposing factors for crystaluria/stone disease. Only risk factor is low urine output. Plan: Increase fluid intake to 1.5 L. Follow up as planned with Dr. Pimentel on 09/10/12. Sahara Rodriges KILN PULLER Nurse Clinician Pediatric Nephrology/Neurology documented in this encounter Plan of Treatment Upcoming Encounters Date Type Specialty Care Team Description 12/22/2021 Office Visit Plastic Surgery Russ Guevara M D [facility] PLASTIC SURGERY [place], [place] [address] (Wo rk) documented as of this encounter Visit Diagnoses Not on filedocumented in this encounter Care Teams Conservation Biology Professor Relationship Specialty Start Date End Date Miladis Blackmon MD PCP - General 04/12/10 11/28/21 [place] [address] documented as of this encounter
--- OUTSIDE RECORDS SUMMARY | 2021-12-13 13:02 | XMS_ITS | Encounter Summary ---
:2000 Author Organization [facility] Address [address] [place] [address] Care Team Providers Name Role Phone Miladis Blackmon MD Primary Care Provider Encounter Details Date Type Department Care Team Description 11/13/2012 Hospital Encounter [place]Ray [place] [facility] [place] (vesicoureteric [address] [place] [address] Dr gray) [place] [address] Social History Tobacco Use Types Packs/Day [...] Date End Date [facility]; 100 strip 6 012 Strp stripsIndications: Combo Route) route. Dysuria Use to monitor urine pH as instructed by polyethylene glycol Take 17 g by mouth 0 03/12/2013 (MIRALAX) 17 gram packet daily. documented as of this encounter Plan of Treatment Upcoming Encounters Date Type Specialty Care Team Description 12/22/2021 Office Visit Plastic Surgery Russ Guevara M D [facility] DR PLASTIC SURGERY [place], [place] [address] (Wo rk) documented as of this encounter Procedures Procedure Name Priority Date/Time Associated Comments Diagnosis XR FLUORO VOIDING Routine 11/13/2012 9:51 VUR Results for this CYSTOURETHROGRAM (VCUG) AM EDT (vesicoureteric p rocedure are in reflux) the results section. documented in this encounter [...] was performed in conjunction w [facility] pain-free service. ??The patient arrived in the Radiology suite w ith a urinary catheter in place. ??325 mL [...] was performed in conjunction w [facility] pain-free service. The patient arrived in the Radiology suite w ith a urinary catheter in place. 325 mL [...] kidney with blunted calices suggesting prior infection. Felix Pinzon MD IMG FLUORO ORDERABLES documented in this encounter Visit Diagnoses Diagnosis VUR (vesicoureteric reflux) Vesicoureteral reflux, unspecified or wi thout reflux nephropathy documented in this encounter Administered Medications Inactive Administered Medications - up to 3 most recent administrations Medication Order MAR Action Action Date Dose Rate Site diatrizoate meglumine (HYPAQUE, Given 11/13/2012 9:30 AM EDT 325 mLs CYSTOGRAFIN) urethral solution 325 mL 325 mL, Urethral, ONCE, 1 dose, On Sun11/13/12 at 1015, Routine documented in this encounter Care Teams Roast Master Relationship Specialty Start Date End Date Miladis Blackmon MD PCP - General 04/12/10 11/28/21 [address] [place] [address] documented as of this encounter
--- OUTSIDE RECORDS SUMMARY | 2021-12-13 13:02 | XMS_ITS | Encounter Summary ---
:2001 Author Organization [facility] [place] [address] Care Team Providers Name Role Phone Miladis Blackmon MD Primary Care Provider Reason for Visit Reason Comments Hydronephrosis Encounter Details Date Type Department Care Team Description 06/06/2012 Office Visit Pediatric Nephrology Caro Pimentel D uplicated collecting at [facility] system (Primary Dx) [facility] [address] [place]IATRIC [id number] NEPHROLOGY [phone] [place], [place] [address] Social History Tobacco Use Types [...] Taken Comments Blood Pressure - - Pulse - - Temperature 36.8 ??C (98.2 ??F) 06/06/2012 2:33 PM EST Respiratory Rate - - Oxygen Saturation - - Inhaled Oxygen Concentration - - Weight 38 kg (83 lb 12.4 oz) 06/06/2012 2:33 PM EST Height 142 cm (4' 7.91) 06/06/2012 2:33 PM EST Body Mass Index 18.85 06/06/2012 2:33 PM EST Body Mass Index Percentile 66.78 % 06/06/2012 2:33 PM ES T Growth Chart: CDC (Girls, 2-20 Years) documented in this encounter Patient Instructions Patient InstructionsMatoCaro ewing MD - 06/06/2012 4:49 PM EST - 24 hour urine collection through [facility] - Referral to urology (Dr. Pinzon) for R grade 4 reflux - We'll repeat a renal ultrasound in 1 year. - We'll see you again in 3 months. documented in this encounter Progress Notes Caro Pimentel MD - 07/10/2012 11:05 AM EST Normal 24 hr urine collection: - No hypercalciuria (0.7 mg/kg) - Normal citraturia (387 mg/g creatinine = normal ~400) - Normal uric acid and oxalate. <500 ml/day of urine A: No evidence of predisposing factors for crystaluria/stone disease. P: Increased fluid intake is recommended (1.5 L) Caro Pimentel MD - 06/06/2012 2:52 PM EST Pediatric Nephrology Consultation June 08, 2012 HPI: Lottie Gaines is a 12 y.o. female who I saw today for evaluation and consultation of her flankpain as requested by Shree Briones MD . She was accompanied by her mother I have reviewed and summarize her prior medical records below: Current history obtained from the patient and her mother: On Sunday, three days ago, she developed significant right flank and lower quadrant pain. She also had a fever up to 102.3 F. She did not c/o dysuria. She does not suffer from constipation. She has never had evident stones. Per mom she had had gross hematuria, with streaks of blood She normally drinks a good amount of water and eats well, but currently she has a decreased appetite. She has a low threshold for pain and has been seen by pain management in [place]. She was given Gabapentin. She was also given Tylenol#3 and Vicodin. Mom states that regular tylenol and ibuprofen do not help for the pain. She was seen by the platinum and palladium kettle tender today for the persistence of the pain. Labs were obtain-->CBC: Hgb 13.3 WBC 5.64, 41.6% Ramonita, ESR 14, CRP 0.17 . A UA was performed Per mom Lottie's back becomes discolored when she is having flank pain. The only thing that makes the pain better is rubbing her back. Mom also states that she looks puffy and unwell. 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 neuropatic pain Musculoskeletal: mom states that she leg swelling Heme: negative Immunologic:negative PMHx: Active Ambulatory Problems Diagnosis Date Noted ??? RAD (reactive airway disease) ??? VSD (ventricular septal defect) 2001 ??? Recurrent UTI 11/07/2010 ??? Urgency of urination 11/07/2010 ??? Nephrocalcinosis 01/03/2011 ??? Dysuria 07/11/2011 ??? Diarrhea 08/18/2011 ??? Abdominal pain 08/18/2011 ??? Hyperopia 08/21/2011 ??? 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 Passive smoker 04/01/2012 ??? Benign bladder tumor 04/22/2012 Resolved Ambulatory Problems Diagnosis Date Noted ??? 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 Chronic kidney disease ??? Cataract Current Outpatient Prescriptions Medication Sig Dispense Refill ??? Multiple Urine Tests Strp strips by [facility]Non-Drug; Combo Route) route. Use to monitor urine pH as instructed by 100 strip 6 ??? polyethylene glycol (MIRALAX) 17 gram/dose powder Take 17 g by mouth daily. 510 g 12 No Known Allergies SocHx: Lives with mom and siblings History Social History ??? Marital Status: Single [...] History Narrative ??? No narrative on file FamHx: 11 of 14 cousins have VUR. Lottie has two siblings w/o do not have urological abnormalities. Mom, aunts, uncles and MGM had kidney stones PE: Filed Vitals: 06/06/12 1433 Temp: 36.8 ??C (98.2 ??F) TempSrc: Oral Height: 142 cm (4' 7.91) Weight: 38 kg (83 lb 12.4 oz) Manual blood pressure obtained by myself on right arm with child cuff 100/60 mmHg, which is below the 50th percentile for age/ht percentile/gender Gen: Bent in pain, but jumps to the examination table w/o discomfort. Mom is constantly rubbing Lottie's back through the encounter. HEENT: NCAT, moist mucous membranes, no periorbital edema Lungs: Clear to ausculation b/l CV: RRR no m Abd: Soft, tender on right hypocondrius, non distended, normoactive bowel sounds, no masses : No costovertebral angle tenderness, but it feels weird Extr: Full range of motion x4 Warm well perfused No peripheral edema Labs: U/A (performed by myself in clinic): 06/06/2012 14:58 POC Sp Medina 1.015 POC pH, UA 8 POC Protein, UA neg POC Glucose, UA neg POC Ketone, UA neg POC Urobil, UA neg POC Bili, UA neg POC Blood, UA neg POC Leuk, UA neg POC Nitrite, UA neg I independently reviewed, viewed, and interpreted her Renal Ultrasound from 06/06/2012: R Kidney measures 8.3 cm (~20th %ile for age), and increased from 7.7 cm previously. It demonstratescortical thinning of the upper pole. There is stable trace hydronephrosis, no evidence of cysts, or calculi L Kidney measures 9.5 cm (~50 th %ile for age), and increased from 7.8 cm previously. It demonstrates normal corticomedullary differentiation and echogenicity. There is no hydronephrosis, evidence of cysts, or calculi A: Lottie Is a 12 y.o. 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 Urine is negative for signs of infection, CBC and inflammatory markers are benign, a renal us was performed whichwas negative for nephrolithiasis and showed stable degree of right hydronephrosis. P: - Renal ultrasound today ( see above) -24 hour urine collection through [facility] - Referral to urology (Dr. Pinzon) for R grade 4 reflux if she were to have a confirmed repeat +urine culture. - We'll repeat a renal ultrasound in 1 year. - We'll see you again in 3 months to re-assess. I plan to see Lottie again for f/u in 3 months Thank you for referring this delightful family for evaluation of Lottie's right flank pain. Please feel welcome to call if you have any additional questions, . I spent a total of 60 minutes in clinic taking care of Lottie today. 35 minutes was face to face time, discussing the above diagnostic findings and management plan and answering questions. documented in this encounter Plan of Treatment Upcoming Encounters Date Type Specialty Care Team Description 12/22/2021 Office Visit Plastic Surgery Russ Guevara M D [facility] PLASTIC SURGERY [place], [place] [address] (Wo rk) documented as of this encounter Procedures Procedure Name Priority Date/Time Associated Diagnosis Comme nts POCT URINE DIPSTICK Routine 06/06/2012 2:58 PM Duplicated Re sults for this EST collecting system procedure are in the results section. documented in this encounter Results US retroperitoneal complete (06/06/2012 4:02 PM EST) Anatomical Region Laterality Modality Abdomen Ultrasound Specimen (Source) Anatomical Collection Method Collection Time Re ceived Time Location / / Volume Laterality 06/06/2012 4:02 PM EST Narrative 06/06/2012 5:15 PM EST ?Pediatric Renal ? (Signed Final 06/06/2012 05 :13 pm) Patient Info ID: ?[id number] ?: ??[birth year] (12 yrs) Name: ?LOTTIE GAINES ? Visit Date: 06/06/2012 03:57 pm Performed By Performed By: ?Shannan Baker RDMS Associate: ? Eduardo CHOW, Byron Martino Attending: ? Ry CHOW, Eleno Rosales Referred By: ? CARO PIMENTEL MD Service(s) Provided URETRO - Ultrasound Retroperitoneal Com plete ( Pediatric) - [id number] Indications RLQ pain, grade 4 VUR on [...] Final 06/06/2012 05:13 pm) Patient Info ID: [id number] : [birth year] (12 yrs ) Name: LOTTIE GAINES Visit Date: 06/06/19 13 03:57 pm Performed By Performed By: Shannan Baker RDMS Associate: Byron Clark MD Attending: Eleno Raza MD Referred By: CARO PIMENTEL MD Service(s) Provided URETRO - Ultrasound Retroperitoneal Com plete ( Pediatric) - [id number] Indications RLQ pain, grade 4 VUR on [...] Caro Pimentel MD IMG US GEN ORDERABLES POCT urine dipstick (06/06/2012 2:58 PM EST) P athologist Signature POC Sp Medina 1.015 1.002 - 1.030 POC pH, UA 8 5.0 - 8.5 POC Leuk, UA neg Negative - Negative POC Nitrite, neg Negative - UA Negative POC Protein, neg Negative - UA Negative mg/dL POC Glucose, neg Normal - UA Normal mg/dL POC Ketone, UA neg Negative - Negative POC Urobil, UA neg 0.2 - 1.0 mg/dL POC Bili, UA neg Negative - Negative POC Blood, UA neg Negative - Negative gail/uL Caro Pimentel MD POINT OF CARE TEST ORDERABLE S documented in this encounter Visit Diagnoses Diagnosis 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
--- OUTSIDE RECORDS SUMMARY | 2021-12-13 13:02 | XMS_ITS | Encounter Summary ---
:2001 Author Organization [place] [address] Care Team Providers Name Role Phone Miladis Blackmon MD Primary Care Provider Encounter Details Date Type Department Care Team Description 10/17/2012 Telephone Pediatric Urology at [facility] Felix Pinzon MD [facility] [address] PEDIATRIC SURGERY [phone] [place], [place] [address] (Wo rk) Social History Tobacco Use Types Packs/Day Years Used Date Never Smoker Smokeless Tobacco: Never Used Comments: Mom states smokes Alcohol Use Standard Drinks/Week Comments No 0 (1 standard drink = 0.6 oz pure alcoho l) Sex Assigned at Date Recorded Not on file documented as of this encounter Miscellaneous Notes Telephone Encounter - Angeles De Santiago - 10/17/2012 2:34 PM EDT L/M for family to call back and secure the time slot I saved for Lottie for the [facility]. I have called documented in this encounter Plan of Treatment Upcoming Encounters Date Type Specialty Care Team Description 12/22/2021 Office Visit Plastic Surgery Russ Guevara M D [facility] PLASTIC SURGERY [place], [place] [address] (Wo rk) documented as of this encounter Visit Diagnoses Not on filedocumented in this encounter Care Teams Music Adapter Relationship Specialty Start Date End Date Miladis Blackmon MD PCP - General 04/12/10 11/28/21 [address] [place] [address] documented as of this encounter
--- OUTSIDE RECORDS SUMMARY | 2021-12-13 13:02 | XMS_ITS | Encounter Summary ---
:2001 Author Organization [facility] [place] [address] Care Team Providers Name Role Phone Miladis Blackmon MD Primary Care Provider Encounter Details Date Type Department Care Team Description 01/27/2013 Orders Only Pediatric Urology at [facility] Felix Pinzon MD [facility] [place] [place] [address] PEDIATRIC SURGERY [phone] [place], [place] [address] (Wo rk) Social History Tobacco [...] Visit Plastic Surgery Russ Guevara M D [facility] PLASTIC SURGERY [place], [place] [address] (Wo rk) documented as of this encounter Procedures Procedure Name Priority Date/Time Associated Comments Diagnosis FILM LIBRARY STORAGE Routine 01/27/2013 10:15 AM Results for this ONLY ULTRASOUND EDT procedure ar e in STUDY the results section. documented in this encounter Results Film Library- Storage only Ultrasound Study (01/27/2013 10:15 AM EDT) Specimen (Source) Anatomical Collection Method Collection Time Re ceived Time Location / / Volume Laterality 01/27/2013 10:15 AM EDT Narrative [facility] - 01/14/2014 11:29 AM EDT This is a non-reportable exam. Procedure Note Bhavesh Melendez - 01/14/2014Formatti ng of this note might be different from the original. This is a non-reportable exam. Felix Pinzon MD IMG FILM LIBRARY ORDERABLES Performing Organization Address City/State/ZIP Code Phon e Number [facility] [address] [facility] [place] [address] documented in this encounter Visit Diagnoses Not on filedocumented in this encounter Care Teams Master Motorcycle Technician Relationship Specialty Start Date End Date Miladis Blackmon MD PCP - General 04/12/10 11/28/21 [address] [place] [address] documented as of this encounter
--- OUTSIDE RECORDS SUMMARY | 2021-12-13 13:02 | XMS_ITS | Encounter Summary ---
:2001 Author Organization [facility] [place] [address] Care Team Providers Name Role Phone Miladis Blackmon MD Primary Care Provider Encounter Details Date Type Department Care Team Description 02/07/2013 Telephone [place] [facility] [place] Mandie Garcia MD [facility] [place] [phone] UROLOGY [phone] [place], [place] [address] (Wo rk) Social History Tobacco Use Types Packs/Day Years Used Date Never Smoker Smokeless Tobacco: Never Used Comments: Mom states smokes Alcohol Use Standard Drinks/Week Comments No 0 (1 standard drink = 0.6 oz pure alcoho l) Sex Assigned at Date Recorded Not on file documented as of this encounter Miscellaneous Notes Telephone Encounter - Mandie Garcia - 02/07/2013 4:14 PM EDT Spoke with Lottie's Mom who was concerned about some abdominal distention and redness around her pouch. She is wondering if Lottie should be seen earlier than currently scheduled visit. She is not febrile and is currently on a course of antibiotics. She is eating, not nauseous, and having BM's per mother. Offered reassurance and relayed that as long as she continues to do well she should keep her scheduled appointment. She will call if Lottie develops more worrisome signs or symptoms. documented in this encounter Plan of Treatment Upcoming Encounters Date Type Specialty Care Team Description 12/22/2021 Office Visit Plastic Surgery Russ Guevara M D [facility] PLASTIC SURGERY [place], [place] [address] (Wo rk) documented as of this encounter Visit Diagnoses Not on filedocumented in this encounter Care Teams Leather Lacer Relationship Specialty Start Date End Date Miladis Blackmon MD PCP - General 04/12/10 11/28/21 [address] [facility] [place] [address] documented as of this encounter
--- OUTSIDE RECORDS SUMMARY | 2021-12-13 13:02 | XMS_ITS | Encounter Summary ---
:2001 [place] [address] Care Team Providers Name Role Phone Miladis Blackmon MD Primary Care Provider Encounter Details Date Type Department Care Team Description 04/19/2012 Anesthesia Event Main Operating Room Aline Champion ch, MD [facility] [place] [address] [facility] [place] [address] [place] [address] Anesthesia Record Procedure Summary Procedure Name Responsible Anesthesia Start Anesthesia Stop Time Anesthesiologist Time @CYSTECTOMY, Aline Palomares MD 04/19/12 1341 04/19/12 1 812 PARTIAL, SIMPLE (WRVU 17.23) (N/A Bladder) Events Date Time Event Comment 04/19/2012 1341 Start 1812 Stop No medications on file. Agents No agents on file. Blood No blood administrations on file. Lines, [...] encounter OR Notes Anesthesia Postprocedure Evaluation - Kennedy Rizo MD - 04/19/2012 6:33 PM EST Patient: Lottie Gaines Procedure(s) Performed: Procedure(s): CYSTO, STENT PLACEMENT @CYSTECTOMY, PARTIAL, SIMPLE Patient location: PACU Post-op pain: Adequate analgesia Post-op nausea: no nausea or vomiting Last Vitals: Filed Vitals: 04/19/12 1815 BP: 130/78 Pulse: 77 Temp: Resp: 16 Post-op cardiovascular and respiratory status: is stable Level of consciousness: awake, alert and oriented Complications: no apparent complications, tolerated the procedure well and no evidence of recall Fluid Status: normal Sleepy but arousable to voice. Epidural in place running 1/8% bupi with dilaudid 10mcg/ml at 3.6 ml/hr. RR 18. Sleeping. Discussed patient's baseline pain level of 8-10/10 and daily oxycodone use with Housekeeper Nanny PACU resident. Anesthesia Procedure Notes - Aline Palomares MD - 04/19/2012 2:22 PM EST Associated Order(s): ANE BLOCK 2; ANE BLOCK 2 Procedure Post-op Pain Control Type: Epidural The patient was greeted; the risks and benefits were reviewed. The anesthetic consent was obtained. The medical history and chart were reviewed. The timeout was performed. Start time: 04/19/2012 2:00 PM End time: 04/19/2012 2:12 PM Patient Prep Position: Right lateral decubitus Prep: chlorhexidine Injection technique: continuousProcedure Technique Level of needle insertion: L4-5 Needle Type: Tuohy 18 ga Gauge: 18 Needle length: 10 cm The epidural space was identified by a loss of resistance using saline and air at 3.5 cm. Number of attempts: 1 Test dose A test dose of lidocaine 1% with epinephrine 1:200,000 ml was administered. Events/Notes Events: None Additional Notes: Placed using sterile technique without difficulty Performed by Mike Anesthesia Preprocedure Evaluation - Kennedy Rizo MD - 04/18/2012 8:39 PM EST Today I evaluated Lottie Gaines a 12 y.o. female. Procedure(s): LAPAROSCOPY, DIAGNOSTIC, ABDOMEN LAPAROSCOPIC APPENDECTOMY COLPOSCOPY OF VAGINA WITH CERVIX IF PRESENT EXCISION OF VAGINAL SEPTUM CYSTO, URETHROSCOPY WITH BIOPSY COLPOSCOPY OF VAGINA WITH CERVIX IF PRESENT Patient Active Problem List Diagnoses ??? Hyperopia ??? Diarrhea ??? Abdominal pain ??? Rectovesical fistula ??? Dysuria ??? Nephrocalcinosis ??? Recurrent UTI [...] 2.0CM, NECK performed by LINNEA MATA at [facility] ??? Unlisted mr procedure 12/13/2010 MRI WITH ANESTHESIA performed by ASHLEE HU at [facility] ??? Upper gi endoscopy, exam 08/19/2011 PEDIATRIC UPPER GI ENDOSCOPY performed by CHALINO ENAMORADO at [facility] ??? Colonoscopy, diagnostic 08/19/2011 PEDIATRIC COLONOSCOPY performed by CHALINO ENAMORADO at [facility] ??? Cystourethroscopy 08/18/2011 CYSTO, CYSTOURETHROSCOPY, DIAGNOSTIC performed by ALIYAH NERI at [facility] ??? Cystourethroscopy 09/01/2011 CYSTO, CYSTOURETHROSCOPY, DIAGNOSTIC performed by ROSALVA MCKINNEY at [facility] ??? Colposcopy, cervix w/adj vagina 09/01/2011 COLPOSCOPY, VAGINOSCOPY\CERVIX & VAGINA performed by ROSALVA MCKINNEY at [facility] ??? Inject indwell cath, ureter x-ray 09/01/2011 INJECTION PROCEDURE, URETEROGRAPHY OR URETEROPYELOGRAPHY THRU URETEROSTOMY OR URETERAL CATH performed by ROSALVA MCKINNEY at [facility] History Substance Use Topics ??? Smoking status: Passive Smoker ??? Smokeless tobacco: Never Used Comment: Mom states smokes ??? Alcohol Use: No No Known Allergies Medications: MAR and/or home medications have been reviewed. Physical Exam: There were no vitals filed for this visit. There is no height or weight on file to calculate BMI. Airway Assessment: Mallampati: II TM distance: >3 FB Neck ROM: full Previous LMA 3 Mac 3 6.0 ETT 16cm at teeth Cardiovascular Assessment: Rhythm: regular Rate: normal (+) murmur (-) friction rub, carotid bruit and peripheral edema PE comment: ECHO 2010 showed small 2-3mm membranous VSD. Left to right shunting. 10/2010: 1. Small membranous ventricular septal defect appears 2 mm diameter with restrictive [id number]-fd-[id number] flow with max instantaneous pressure gradient 89 mm Hg. 2. No aortic valve prolapse or regurgitation, ventricular outflow obstruction or other anatomic abnormality was seen with focsed re-exam. 3. Left ventricular chamber size, wall thickness and systolic performance appear normal, without major volume overload. 4. Rght ventricular chamber size, wall thickness, septal position, systolic performance and estimated systolic pressure appear normal. Pulmonary Assessment: breath sounds clear to auscultation pulmonary exam normal Dental Assessment: - normal exam Misc Assessment: Other exam findings: Smoke exposure Anesthesia Plan: ASA 2 General with inhalational induction Patient is an 12 yo 37kg female with PMHx significant for VSD (2-3mm on ECHO in 2010),reactive airway disease (prn albuterol with URI), and history of chronic abdominal/pelvic pain with dysuria and frequent UTI's. She returns today after laparoscopy 03/2012 for cystotomy and stent placement. She has tolerated several procedures well in the past without difficulty. Her RAD is well controlled. Last note from cardiology 10/2010: Cardiac Anatomy/Hemodynamics: Lottie has findings of a restrictive membranous ventricular septal defect without large xwoi-if-zgenh shunt, pulmonary artery hypertension or aortic regurgitation. Intervention is not warranted now. Reevaluation is indicated. Cardiac Rhythm: She has had no evidence of problematic arrhythmia. Recommendations: Daily exercise with no cardiac restriction unless symptom or findings change. Cardiac reevaluation p.r.n. & in 3 year with physical and echo exam, and ECG. No cardiac meds. SBE prophylaxis is not recommended per AHA 2007 guidelines. She has previously tolerated mask induction well. Plan: PO Midaz in preop. FM induction, PIV, ETT. Caudal, Dexmedetomidine, toradol. Informed Consent: Anesthetic plan and risks discussed with father, patient and mother. Plan discussed with resident and attending. Misc. Assessment: documented in this encounter Miscellaneous Notes Addendum Note - Constance Cole - 04/22/2012 11:48 AM EST Addendum created 04/22/12 1148 by Constance Cole Modules edited:Anesthesia Events, Anesthesia Responsible Staff, SmartForms SmartFormsVN Section for SmartForms [id number] documented in this encounter Plan of Treatment Upcoming Encounters Date Type Specialty Care Team Description 12/22/2021 Office Visit Plastic Surgery Russ Guevara M D [facility] PLASTIC SURGERY [place], [place] [address] (Wo rk) documented as of this encounter Visit Diagnoses Not on filedocumented in this encounter Care Teams Mill Stenciler Relationship Specialty Start Date End Date Miladis Blackmon MD PCP - General 04/12/10 11/28/21 [address] [place] [address] documented as of this encounter
--- OUTSIDE RECORDS SUMMARY | 2021-12-13 13:03 | XMS_ITS | Encounter Summary ---
:2000 Author Organization [place] [address] Care Team Providers Name Role Phone Miladis Blackmon MD Primary Care Provider Encounter Details Date Type Department Care Team Description 08/18/2011 - Hospital Encounter Pediatric Addis, Tereza ; 08/19/2011 Adolescent Unit Chalino Ramirez MD Recto-vaginal fistula [facility] [address] [place] [phone] Social History Tobacco Use Types Packs/Day Years Used Date Passive Smoke Exposure - Never Smoker Smokeless Tobacco: Never Used Comments: Mom states smokes Alcohol Use Standard Drinks/Week Comments No 0 (1 standard drink = 0.6 oz pure alcoho l) Sex Assigned at Date Recorded Not on file documented as of this encounter Last Filed Vital Signs Vital Sign Reading Time Taken Comments Blood Pressure 99/49 08/19/2011 3:44 PM EDT Pulse 76 08/19/2011 3:44 PM EDT Temperature 36.2 ??C (97.2 ??F) 08/19/2011 3:44 PM EDT Respiratory Rate 24 08/19/2011 3:44 PM EDT Oxygen Saturation 99% 08/19/2011 3:44 PM EDT Inhaled Oxygen Concentration - - Weight 32.7 kg (72 lb 1.5 oz) 08/19/2011 9:00 AM EDT Height 137 cm (4' 5.94) 08/18/2011 5:38 PM EDT Body Mass Index 17.42 08/18/2011 5:38 PM EDT Body Mass Index Percentile 54.72 % 08/19/2011 9:00 AM ED T Growth Chart: [facility] (Girls, 2-20 Years) documented in this encounter Discharge Instructions Patient InstructionsJennifer Rodgers - 08/19/2011 2:40 PM EDT Please follow up on Sunday 08/20 for your scheduled appointments. documented in this encounter Medications at Time of Discharge Medication Sig Dispensed Refills Start Date End Date acetaminophen-codeine Take 1 tablet by 30 tablet 0 08/18/19 12 08/25/2011 (TYLENOL #3) 300-30 mg mouth every 6 hours per tablet as needed for Pain for 7 days. tolterodine (DETROL LA) 2 Take 1 capsule by 90 capsule 4 06/07/2012 mg 24 hr capsule mouth daily for 360 days. 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 Given this fistula there are concerns for crohn's so going for colonoscopy today. Interval Events: - Given miralax cleanout in anticipation of colonoscopy today - NPO after midnight - IV placed with mIVF running - D5 1/2 NS + 20 KCl at 62 cc/hr - Got an enema this morning and by report, stools are clearing Ins/Outs: I/O last 3 completed shifts: In: 3325 [P.O.:2760; I.V.:565] Out: - Urine x6 Stool x5 Vitals: Last value Range last 24 hrs Temperature Temp: 37.1 ??C (98.8 ??F) Temp: [36.6 ??C (97.9 ??F)-37.2 ??C (99 ??F)] Heart Rate Heart Rate: 65 Heart Rate: [65-91] Blood Pressure BP: 107/51 mmHg BP: (97-109)/(50-60) Respiratory Rate Resp: 24 Resp: [20-24] SpO2 SpO2: 97 % SpO2: [97 %-99 %] Physical Exam: Gen: Awake, Alert, talkative, putting a puzzle together, in NAD HEENT: NC/AT, oropharynx clear without erythema, no mouth sores, MMM Neck: Supple, no LAD CV: RRR, II/ systolic murmur Lungs: CTABL, no increased WOB Abdomen: Soft, non distended, normoactive bowel sounds, no masses or HSM, tenderness to deep palpation throughtout Extremities: WWP, Brisk cap refill Neuro: Awake, Alert, no focal neuro deficits Skin: No rashes/lesions Assessment and Plan: Lottie is a 11 yo F with known VSD, abdominal pain, recurrent UTIs and 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 Given this fistula there are concerns for crohn's so going for colonoscopy today. Stools are clear and Lottie is doing well this morning. - NPO this AM - Continue mIVF - Endoscopy in early afternoon to evaluate for crohn's disease JENNIFER RODGERS MD documented in this encounter H&P Notes Chalino Enamorado MD - 08/18/2011 2:26 PM EDT Pediatrics Admission H&P Patient Name: Lottie Gaines Date of : 2000 Age: 11 y.o. Hospital Admit Date: 08/18/2011 Inpatient Attending: Chalino Enamorado MD PCP: MILADIS BLACKMON MD Presenting Diagnosis/Chief Complaint: abdominal pain Active Problem List: .Patient Active Problem List Diagnoses Code ??? RAD (reactive airway disease) 493.90AV ??? VSD (ventricular septal defect) 745.4Y ??? Recurrent UTI 599.0Q ??? Urgency of urination 788.63 ??? Nephrocalcinosis 275.49D ??? Dysuria 788.1 ??? Diarrhea 787.91 ??? Recto-vaginal fistula 619.1K History of Present Illness Pt is a 11y/o female with h/o recurrent UTIs. Cysto today with concern for recto-vesicular fistula. GI consulted for possible Crohn's etiology. Other than the recurrent UTIs and intermittent abdominal/pelvic pain, Lottie is in her normal state of health. She has had no recent hospitalization. She was on bactrim for UTI prophylaxis. No sick contacts. ROS as below. Review of Systems: General: no fevers, chills, no recent weight changes; no fatigue EENT: no changes in vision; no changes in hearing; no rhinorrhea, congestion, sinus pain, sore throat Cardiovascular: Known VSD Respiratory: no SOB, SEGUNDO ,no cough, no wheeze GI: + abdominal pain and diarrhea : +dysuria Musculoskeletal: no muscle or joint pain Endocrine: no polyuria/polydipsia Heme: no easy bruising or bleeding Neuro: no headaches; no numbness or tingling; no weakness; no incoordination Skin: no new rashes, lesions Psych: mood good PMHx: Full term, vaginal delivery, normal care VSD diagnosed at two weeks of life, followed by pediatric cardiology (Yamila) getting smaller, with no medical intervention currently Learning disability (mom notes she was tested for an IQ of 58) SocHx: Lives with Mom, autistic brothers (19, 15) From [facility] Mom stays home with above Dad lives in [place], ~ 2hours away (not involved) FamHx: Autism in older brothers Maternal nephews with VUR Maternal grandmother with long history of UTI Medications: Bactrim prophylaxis Allergies: No Known Allergies PHYSICAL EXAM: Vitals are being obtained General: NAD, talkative HEENT: MMM, oropharynx clear no erythema or exudates. Neck: no tender lymphadenopathy; no thyromegaly; Lungs: CTAB no W/R/R CV: Blowing systolic murmur, RRR Abdomen: NABS; soft, mild tenderness to palpation in lower quadrants b/l, no hepatosplenomegaly. Ext: radial and DP pulses 2+ b/l; good capillary refill distally; no edema Neurologic: AROM x4 Skin: no rashes noted ,no lesions Per Dr. Galaviz's OR note There was diffuse bullous edema throughout the bladder consistent with cystitis (positive culture 08/15). The ureteral orifices were identified and normal . On the right posterior bladder wall near the dome, there was a small raised, volcano-like area with mucus from the apparent lumen suspicious for fistula. Based on the appearance and her history, we elected not to biopsy the area until further information/evaluation is completed A/P 11y/o female with recurrent UTIs, known VSD, here for prep for colonoscopy given findings suggestive of rectal-vesicular fistula which are concerning for underlying Crohns disease Admit to peds miralax 8capfulls in 32oz fluid followed by 32oz of fluid all in 1 hour; No red liquids CLD until midnight, encourage liquid PO intake NPO at midnight, IVF if uop is looking dry Per pt and dad only home med is bactrim, however others are in list, will confirm with mom when she gets here D/w Dr. Addis Ovalle MD PGY-1 Anesthesiology Pedi GI Attending Note I reviewed Dr. Ybarra's note, the findings on history and exam agree with my own, and I agree with and discussed with parents, the assessement and management plan as described above with the following addendum. Briefly, 11 yo with h/o recurrent UTIs, dysfunctional voiding, nephrocalcinosis who presented for evaluation of possible Crohn's disease due to appreciation of possible rect-vesicular fistula appreciated with cystoscopy this morning. Approach for dysfunctional voiding has been treatment as evaluation for constipation, which per family and Pedi Urologist has not been active issue. Per mother Lottie tends towards diarrhea. With office visit this morning, multiple trips to bathroom due to diarrhea. Frequent complaints of LLQ/RLQ pain/back pain, these symptoms often herald UTI's. Abdominal pain can be crampy in quality. No joint pain, no dysphagia, weight loss. With rectal examination, no perianal skin tags, fissures, fistualae/ rash. Based on symptomatology, recommended to expedite EGD, colonoscopy to fully evaluate for possible Crohn's disease. Endoscopy for pending schedule tomorrow. Because of the potential for Lottie not to tolerate oral prep ( recent sedation), facilitated inpt admission to allow NG administration if required. Case discussed with Pediatric Urology and Surgery. Will defer MR imaging at this time pending tomorrow's endoscopy. Discussed with family possibility of Crohn's disease and treatment strategies. Familyunderstand procedure tomorrow on pending list. Gaby Enamorado MD Ditch Worker Pediatric Gastroenterology documented in this encounter Miscellaneous Notes OR Attestation - Chalino Enamorado MD - 08/21/2011 1:13 PM EDT Attestation: Case Date: 08/19/2011 I was the attending physician and I performed the entire procedure. CHALINO ENAMORADO MD 08/21/2011 Op Note - Chalino Enamorado MD - 08/21/2011 1:13 PM EDT Please see full endoscopy op note as documented in Provation report Care Management - Cindy Hernández MSW - 08/19/2011 5:00 PM EDT Office of Care Management Weekend Social Work Note Relevant Information: Patient is a 11 year old female referred to Social Work by family for increased frustration with hospital staff. Family report that the anesthesiologist did not have any bedside manners and would not allow them to be with patient during the procedure or until she feel asleep. Family states that patient asked for her mom and dad and was told by staff per family that they told her they would be her mommy and daddy for the next two hours. Family states that they were told that only two people were allowed in her room at a time and when mom stepped out and her brother went in, they were told that it was not a revolving door. Family states that patient has been traumatized and getting her to do any additional procedures would be more difficult as a result. Family states that there is a reason why they get their care at [facility] and not at their local hospital and the treatment their daughter received was not fair or expected at all. Patient states that she was very scared and doesn't want to get an IV ever again. Family asked that someone follow up regarding the treatment of their daughter. Assessment: Family report dissatisfaction with the way she was treated prior and during her procedure. Worker validated their concerns. Plan: Family was given the number to patient relations with plans to follow up on Sunday. DARRYN WEINSTEIN Weekend Manufacturing Helper Pager [phone] Plan of Care - Nona Genao RN - 08/19/2011 2:10 PM EDT Problem: Constipation Peds (Pediatric) Intervention: Constipation: Related Risk Factors Stooled multiple times this shift, however this RN has been unable to visualize said stools due to patient noncompliance. Intervention: Constipation: Signs and Symptoms Denies pain upon assessment. Able to ambulate without issue. Intervention: Fluid Management NPO since midnight, continues to receive replacement maintenance fluids. Verbalizing hunger and thirst; I can't wait to get this over with so I can eat! Intervention: Anxiety Management Patient became increasingly anxious when being transferred to colonoscopy. Very afraid that she would be alone and without her parents. Safety reinforced, family processes supported. Mother extremely active in care, asking multiple staff members for the same things in order to ensure that it gets done(i.e. Requesting that this RN call her when Lottie gets out, as well as asking anesthesia and PACURNs). Multiple family members at bedside. Goal: Constipation: Bowel Elimination/Symptom Control - Constipation Peds (Pediatric) Outcome: Therapy, goal met Date Met: 08/19/11 Patient currently undergoing prep for colonoscopy this afternoon at 1300 with . Comments: Plan to continue to monitor patient after her return to the floor. Plan of Care - Karma Juarez RN - 08/19/2011 3:51 AM EDT Problem: Constipation Peds (Pediatric) Intervention: Activity Promotion Pt has had multiple loose stools throughout the shift. Per her and father's report they are watery and clear. C/o flank/abdominal pain 02/27. Medicated with Tylenol with adequate control. Sleeping soundly through the night. VSS. Plan for colonoscopy tomorrow. NPO after midnight. Fleet enema given x1 in am. Pt tolerated well. Father at the bedside, appropriate and interacting with care. Discharge Summary - Chalino Enamorado MD - 08/19/2011 1:03 AM EDT Pediatric Discharge Summary Patient Name: Lottie Gaines Patient Age: 11 y.o. Birthdate: 2000 Admit date: 08/18/2011 11:34 AM Hospital Day 1 day Discharge date and time: 08/19/11 Attending Physician: Chalino Enamorado MD Discharge Diagnoses (Hospital Problems) and Secondary Diagnoses (Chronic Problems): Active Hospital Problems Diagnoses ??? Abdominal pain ??? Recto-vaginal fistula Resolved Hospital Problems Diagnoses Date Resolved Correction: enterovesicular fistula Active Non-Hospital Problems Diagnoses ??? Diarrhea ??? Dysuria ??? Nephrocalcinosis ??? Recurrent UTI ??? Urgency of urination ??? RAD (reactive airway disease) ??? 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 Operations/Major Procedures: PEDIATRIC UPPER GI ENDOSCOPY and PEDIATRIC COLONOSCOPY - done by Dr. Chalino Enamorado History of Presentation: per H&P Pt is a 11y/o female with h/o recurrent UTIs. Cysto today with concern for recto-vesicular fistula.GI consulted for possible Crohn's etiology. Other than the recurrent UTIs and intermittent abdominal/pelvic pain, Lottie is in her normal state of health. She has had no recent hospitalization. She wason bactrim for UTI prophylaxis. No sick contacts. Hospital Course: Lottie was admitted after she had a cystoscopy significant for a retro-vesicular fistula concerning for Crohn's disease in order to have a colonoscopy. She received a through GI clean-out prior to her procedure and tolerated it well. On 08/18 she underwent endoscopy which showed normal bowel without evidence of inflammatory bowel disease, and no fistula was seen. After she recovered from anesthesia she was discharged home in stable condition with close follow up scheduled for Sunday 08/20. Important Studies and Lab Data: Labs: CBC: WBC 9.5 Hgb 12.2 Hct 36.3 Plts 256 N 87% L 12% LFT's: Total Protein 7.1 Albumin 4.5 Total/Direct Bili 0.3/0.1 Alk Phos 157 AST 17 ALT 13 ESR: 9 Studies: Upper endoscopy and Colonoscopy without evidence of inflammation or fistulas Pending Studies and Lab Data: The patient will need the following test completed on: 08/18/2011 1. TPMT Genetics Diagnosis: Diarrhea (787.91) and Recto-vaginal fistula (619.1) Authorizing Provider: Chalino Enamorado MD Discharge Conditions/Prognosis: Weight: Wt Readings from Last 1 Encounters: 08/19/11 32.7 kg (72 lb 1.5 oz) (36.54%) Height: Ht Readings from Last 1 Encounters: 08/18/11 137 cm (4' 5.94) (29.69%) HC: HC Readings from Last 1 Encounters: No data found for HC Body mass index is 17.42 kg/(m^2). Last value Range last 8 hrs Temperature Temp: 36.3 ??C (97.3 ??F) Temp: [36.3 ??C (97.3 ??F)-37.1 ??C (98.8 ??F)] Heart Rate Heart Rate: 62 Heart Rate: [62-79] Blood Pressure BP: 116/60 mmHg BP: (107-116)/(51-60) Respiratory Rate Resp: 20 Resp: [20-24] SpO2 SpO2: 100 % SpO2: [97 %-100 %] There is no immunization history on file for this patient. Physical Exam Gen: Awake, Alert, talkative, in NAD HEENT: NC/AT, oropharynx clear without erythema, no mouth sores, MMM Neck: Supple, no LAD CV: RRR, II/ systolic murmur Lungs: CTABL, no increased WOB Abdomen: Soft, non distended, normoactive bowel sounds, no masses or HSM, tenderness to deep palpation throughtout Extremities: WWP, Brisk cap refill Neuro: Awake, Alert, no focal neuro deficits Skin: No rashes/lesions Discharge to: home Discharge Medications: Current Discharge Medication List UNREVIEWED medications Dose Details tolterodine (DETROL LA) 2 mg 2 mg Qty: 90 capsule Refills: 4 acetaminophen-codeine (TYLENOL #3) 1 tablet 1 tablet Qty: 30 tablet Refills: 0 Pentosan Polysulfate Sodium (ELMIRON) 100 mg 100 mg Qty: 90 capsule Refills: 5 levalbuterol (XOPENEX) 1.25 mg/0.5 mL nebulizer solution Qty: Refills: Updated Allergies/ADRs: No Known Allergies Instructions Given to Patient at Discharge: Provider Instructions None General Instructions None Future Appointments and Orders Future Appointments: Provider: Department: Dept Phone: Center: 08/21/2011 10:00 AM Specialty Pedi Nurse [facility] [phone] None 08/21/2011 10:15 AM Avril Galaviz MD [facility] Pedi Urology [phone] [facility] 08/21/2011 10:45 AM Guerita Lindsey OD [facility] [phone] [facility] Appt [facility] One Ophthalmology [facility] [phone] [facility] 08/21/2011 1:45 PM Ashley Rice APRN [facility] [phone] [facility] Joint Appt Workup Res-Pedi Nephrology [facility] [phone] [facility] Provider Contact Information: [phone] Discharge References/Attachments: Discharge References/Attachments None For questions regarding this document or issues relating to this hospitalization on the Medical Service, please contact your inpatient physician through the [facility] Lead Software Development Engineer . Issues after hours and on weekends will be handled by the on-call staff. JENNIFER RODGERS MD 08/19/2011 Miscellaneous - Provider, Scanning - 08/18/2011 8:09 PM EDT Plan of Care - Katih Waldrop RN - 08/18/2011 5:41 PM EDT Problem: Constipation Peds (Pediatric) Goal: Constipation: Bowel Elimination/Symptom Control - Constipation Peds (Pediatric) Outcome: Present (see interventions, notes) Lottie has been admitted today for miralax cleanout for colonoscopy tomorrow am, she is taking miralax in powerade as ordered, will cont to monitor closely, taking clear liquids w/ no n/v documented in this encounter Plan of Treatment Upcoming Encounters Date Type Specialty Care Team Description 12/22/2021 Office Visit Plastic Surgery Russ Guevara M D [facility] PLASTIC SURGERY [place], [place] [address] (Wo rk) documented as of this encounter Procedures Procedure Name Priority Date/Time Associated Comments Diagnosis SPECIMEN TO PATHOLOGY Routine 08/19/2011 1:00 PM Results for this EDT procedure are i n the results section. SPECIMEN TO PATHOLOGY Routine 08/19/2011 1:00 PM Results for this EDT procedure are i n the results section. SPECIMEN TO PATHOLOGY Routine 08/19/2011 1:00 PM Results for this EDT procedure are i n the results section. SPECIMEN TO PATHOLOGY Routine 08/19/2011 1:00 PM Results for this EDT procedure are i n the results section. SPECIMEN TO PATHOLOGY Routine 08/19/2011 1:00 PM Results for this EDT procedure are i n the results section. SPECIMEN TO PATHOLOGY Routine 08/19/2011 1:00 PM Results for this EDT procedure are i n the results section. SPECIMEN TO PATHOLOGY Routine 08/19/2011 1:00 PM Results for this EDT procedure are i n the results section. SPECIMEN TO PATHOLOGY Routine 08/19/2011 1:00 PM Results for this EDT procedure are i n the results section. SURGICAL PATHOLOGY Routine 08/19/2011 7:42 AM Res ults for this REPORT EDT procedure are i n the results section. DIFFERENTIAL, Routine 08/18/2011 12:48 Results fo r this AUTOMATED PM EDT procedure are i n the results section. TPMT GENETICS Routine 08/18/2011 12:48 Diarrhea Results for this PM EDT Recto-vaginal procedure are in fistula the results section. SEDIMENTATION RATE Routine 08/18/2011 12:48 Diarrhea Results for this PM EDT Recto-vaginal procedure are in fistula the results section. CBC (WITH DIFF) Routine 08/18/2011 12:48 Diarrhea Results for this PM EDT Recto-vaginal procedure are in fistula the results section. HEPATIC FUNCTION PANEL Routine 08/18/2011 12:48 Diarrhea Results for this PM EDT Recto-vaginal procedure are in fistula the results section. PEDIATRIC COLONOSCOPY Gi necessity PEDIATRIC UPPER GI Gi necessity ENDOSCOPY documented in this encounter Results Specimen to Pathology (surgical or derm) (08/19/2011 1:00 PM EDT) Specimen Anatomical Collection Method Collection Time Receive d Time (Source) Location / / Volume Laterality AP Specimen 08/19/2011 1:00 PM 2 1:00 EDT PM EDT Narrative OPAL GONCALVES - 08/19/2011 1:00 PM E DT Specimen requisition ordered. ??Separate Pathology report to follow Chalino Enamorado MD PATHOLOGY/CYTOLOGY ORDERABLE S Performing Organization Address City/State/[place] [address] OPAL GONCALVES Specimen to Pathology (surgical or derm) (08/19/2011 1:00 PM EDT) Specimen Anatomical Collection Method Collection Time Receive d Time (Source) Location / / Volume Laterality AP Specimen 08/19/2011 1:00 PM 2 1:00 EDT PM EDT Narrative OPAL LEAHYIUM - 08/19/2011 1:00 PM E DT Specimen requisition ordered. ??Separate Pathology report to follow Chalino Enamorado MD PATHOLOGY/CYTOLOGY ORDERABLE S Performing Organization Address City/[facility]/[place] [address] CERNER MILLENNIUM Specimen to Pathology (surgical or derm) (08/19/2011 1:00 PM EDT) Specimen Anatomical Collection Method Collection Time Receive d Time (Source) Location / / Volume Laterality AP Specimen 08/19/2011 1:00 PM 2 1:00 EDT PM EDT Narrative CERNER MILLENNIUM - 08/19/2011 1:00 PM E DT Specimen requisition ordered. ??Separate Pathology report to follow hCalino Enamorado MD PATHOLOGY/CYTOLOGY ORDERABLE S Performing Organization Address City/State/[place] [address] CERNER MILLENNIUM Specimen to Pathology (surgical or derm) (08/19/2011 1:00 PM EDT) Specimen Anatomical Collection Method Collection Time Receive d Time (Source) Location / / Volume Laterality AP Specimen 08/19/2011 1:00 PM 2 1:00 EDT PM EDT Narrative CERNER MILLENNIUM - 08/19/2011 1:00 PM E DT Specimen requisition ordered. ??Separate Pathology report to follow Chalino Enamorado MD PATHOLOGY/CYTOLOGY ORDERABLE S Performing Organization Address City/State/[place] [address] CERNER MILLENNIUM Specimen to Pathology (surgical or derm) (08/19/2011 1:00 PM EDT) Specimen Anatomical Collection Method Collection Time Receive d Time (Source) Location / / Volume Laterality AP Specimen 08/19/2011 1:00 PM 2 1:00 EDT PM EDT Narrative CERNER MILLENNIUM - 08/19/2011 1:00 PM E DT Specimen requisition ordered. ??Separate Pathology report to follow Chalino Enamorado MD PATHOLOGY/CYTOLOGY ORDERABLE S Performing Organization Address City/State/[place] [address] CERNER MILLENNIUM Specimen to Pathology (surgical or derm) (08/19/2011 1:00 PM EDT) Specimen Anatomical Collection Method Collection Time Receive d Time (Source) Location / / Volume Laterality AP Specimen 08/19/2011 1:00 PM 2 1:00 EDT PM EDT Narrative CERNER MILLENNIUM - 08/19/2011 1:00 PM E DT Specimen requisition ordered. ??Separate Pathology report to follow Chalino Enamorado MD PATHOLOGY/CYTOLOGY ORDERABLE S Performing Organization Address City/State/[place] [address] CERNER MILLENNIUM Specimen to Pathology (surgical or derm) (08/19/2011 1:00 PM EDT) Specimen Anatomical Collection Method Collection Time Receive d Time (Source) Location / / Volume Laterality AP Specimen 08/19/2011 1:00 PM 2 1:00 EDT PM EDT Narrative CERNER MILLENNIUM - 08/19/2011 1:00 PM E DT Specimen requisition ordered. ??Separate Pathology report to follow Chalino Enamorado MD PATHOLOGY/CYTOLOGY ORDERABLE S Performing Organization Address City/[facility]/[place] [address] CERNER MILLENNIUM Specimen to Pathology (surgical or derm) (08/19/2011 1:00 PM EDT) Specimen Anatomical Collection Method Collection Time Receive d Time (Source) Location / / Volume Laterality AP Specimen 08/19/2011 1:00 PM 2 1:00 EDT PM EDT Narrative [facility] - 08/19/2011 1:00 PM E DT Specimen requisition ordered. ??Separate Pathology report to follow Chalino Enamorado MD PATHOLOGY/CYTOLOGY ORDERABLE S Performing Organization Address City/[facility]/[place] [address] CERNER MILLENNIUM SURGICAL PATHOLOGY REPORT (08/19/2011 7:42 AM EDT) Component Value Ref Test Analysis Performed At [facility] gist Range Method Time Signature Surgical CERNER Pathology ? [facility] ? Provider: ?? ADDIS, ? Pt. Name: ?? FERR Y, LOTTIE R ?CHALINO P ? Acc #: ?[id number] ?Pt. MRN: ?[id number] ? Col Date: ?? 2 ? /Sex: ?2000,(11 years),Female ? Rec Date: ?? 08/21/2011 ?LOC: ?[place] ? SURGICAL PATHOLOGY ? ---Pathologic Diagnosis--- ? A - Terminal ileum; endoscopic biopsies: ? Ileal mucosa within normal limits. ? B - Cecum/ascending; endoscopic biopsies: ? Colonic mucosa within normal limits. ? C - Transverse/ascending; endoscopic biopsies: ? Colonic mucosa within normal limits.. ? D - Sigmoid/rectum ; endoscopic biopsies: ? Colonic mucosa within normal limits. ? E - Proximal esophagus; endoscopic biopsies: ? Colonic mucosa within normal limits. ? F - Distal esophagus;endoscopic biopsies: ? Esophageal squamous mucosa within normal limits . ? G - Antrum of stomach; endoscopic biopsies: ? Gastric antral mucosa within normal limits. ? H - Duodenum including bulb; endoscopic biopsies: ? Duodenal mucosa with increased intraepithelial lymphs (IELs) (please ? see Comment). ? 08/23/11 ? KO ? 08/24/11 Verified by: ? Magdalena Larsen MD ? Pathologist ? (Electronic Si gnature) ? The attending pathologist whose signature appears o n this report has ? reviewed all diagnostic slides and has edited the boogie ss and/or ? microscopic portion of the report in rendering the fi nal pathologic ? diagnosis. ? ---Comment--- ? Villous architecture is essentially preserved. The fi ndings are not ? specific and the differential diagnosis i ncludes gluten sensitivity or ? family history of glu ten sensitivity, post-viral gastroenteritis, bacterial ? overgrowth, allergy to other food antigens, NSAID use , ? [facility] ? Provider: ?? ADDIS, ? Pt. Name: ?? ISIDORO Y, LOTTIE R ?CHALINO P ? Acc #: ?[id number] ?Pt. MRN: ?[id number] ? Col Date: ?? 2 ? /Sex: ?2000,(11 years),Female ? Rec Date: ?? 08/21/2011 ?LOC: ?[place] ? SURGICAL PATHOLOGY ? autoimmune diseases, immunodeficiency syndromes (CVID, IgA deficiency) and ? tropical sprue. ??The se features have also been described in patients with a ? history of Crohn's disease and ??H. pylori gastritis. ? Immunohistochemistry Studies: ? Formalin-fixed, paraf fin-embedded [...] Block ?Antibody ? Result (Posi tive/Negative) ? H2 ?CD3 ? IE Ls >40/100 enterocytes ? ---Microscopic Description--- ? Slides reviewed, microscopic description not recorded . ? ---Gross Description--- ? A - Labeled/Fixative: Terminal ileum, formalin. ? Qty/Size/Weight: ?Five, ranging from 0.1 cm to 0.3 cm in ? greatest dimension. ? Tissue Description: ?? Soft, isaacs tissues. ? Sections/Processing: ??(T1) ? B - Labeled/Fixative: Cecum/ascending, formalin. ? Qty/Size/Weight: ?Two, 0.1 cm and 0.2 cm in greatest dimension. ? Tissue Description: ?? Soft, isaacs tissues. ? Sections/Processing: ??(T1) ? C - Labeled/Fixative: Transverse/descending, formalin . ? Qty/Size/Weight: ?Three, averaging 0.3 x 0.2 x 0.2 cm. ? Tissue Description: ?? Soft, isaacs tissues. ? Sections/Processing: ??(T1) ? D - Labeled/Fixative: Sigmoid/rectum, formalin. ? Qty/Size/Weight: ?Multiple, ranging from 0.1 c m to 0.3 cm in ? greatest dimension. ? Tissue Description: ?? Soft, isaacs tissues. ? Sections/Processing: ??(T2) ? [facility] ? Provider: ?? ADDIS, ? Pt. Name: ?? ISIDORO Y, LOTTIE Calhoun ?CHALINO P ? Acc #: ?[id number] ?Pt. MRN: ?[id number] ? Col Date: ?? 2 ? /Sex: ?2000,(11 years),Female ? Rec Date: ?? 08/21/2011 ?LOC: ?[place] ? SURGICAL PATHOLOGY ? E - Labeled/Fixative: Proximal esophagus, formalin. ? Qty/Size/Weight: ?Four, ranging from 0.1 cm to 0.5 cm in ? greatest dimension. ? Tissue Description: ?? Soft, isaacs tissues. ? Sections/Processing: ??(T1) ? F - Labeled/Fixative: Distal esophagus, formalin. ? Qty/Size/Weight: ?Three, averaging 0.2 x 0.2 x 0.1 cm. ? Tissue Description: ?? Soft, isaacs tissues. ? Sections/Processing: ??(T1) ? G - Labeled/Fixative: Antrum of stomach, formalin. ? Qty/Size/Weight: ?Two, 0.2 cm and 0.4 cm in greatest dimension. ? Tissue Description: ?? Soft, isaacs tissues. ? Sections/Processing: ??(T1) ? H - Labeled/Fixative: GI biopsy duodenum including bu lb, formalin. ? Qty/Size/Weight: ?Six, averaging 0.2 x 0.2 x 0 .2 cm. ? Tissue Description: ?? Soft, isaacs tissues. ? Sections/Processing: ??(T2) ??bjm/SHB ? ---Clinical Information--- ? Specimen Submitted: ? A - Terminal ileum biopsy ? B - Cecum / ascending biopsy ? C - Transverse / ascending biopsy ? D - Sigmoid / rectum biopsy ? E - Proximal esophagus biopsy ? F - Distal esophagus biopsy ? G - Antrum of stomach biopsy ? H - Gi biopsy duodenum including bulb ? Clinical History/Diagnosis: ? 11 yo with abdominal pain, chronic UTI, p ossible recto-vesical fistula Specimen (Source) Anatomical Collection Method Collection Time Re ceived Time Location / / Volume Laterality 08/19/2011 7:42 AM EDT Chalino Enamorado MD PATHOLOGY/CYTOLOGY ORDERABLE S Performing Organization Address City/State/[place] [address] CERNER MILLENNIUM (ABNORMAL) DIFFERENTIAL, AUTOMATED (08/18/2011 12:48 PM EDT) [facility] gist Method Time Signature Neutrophils % 86.7 (H) 33.0 - CERNER 73.0 % MILLENNIUM Neutr Abs (ANC) 8.24 (H) 1.50 - CERNER 8.00 MILLENNIUM x10(3)/mc L Lymphocytes % 11.7 (L) 22.0 - CERNER 57.0 % MILLENNIUM Lymphocytes Abs 1.1 (L) 1.5 - 6.8 CERNER x10(3)/mc MILLENNIUM L Monocytes % 0.9 (L) 2.0 - CERNER 12.0 % MILLENNIUM Monocyte Abs 0.1 (L) 0.2 - 1.0 CERNER x10(3)/mc MILLENNIUM L Eosinophils % 0.4 0.0 - 7.0 CERNER % MILLENNIUM Eosinophils Abs 0.0 0.0 - 0.5 CERNER x10(3)/mc MILLENNIUM L Basophils % 0.1 0.0 - 2.0 CERNER % MILLENNIUM Basophils Abs 0.0 0.0 - 0.2 CERNER x10(3)/mc MILLENNIUM L Immature Gran % 0.20 0.00 - CERNER [...] Location / / Volume Laterality Blood specimen 08/18/2011 12:48 2 (specimen) PM EDT 12:56 PM EDT Chalino Enamorado MD HEMATOLOGY ORDERABLES Performing Organization Address City/[facility]/ZIP [facility] Phon e Number [address] CERNER MILLENNIUM Sedimentation rate (08/18/2011 12:48 PM EDT) athologist Signature Sed Rate 9 0 - 10 CERNER mm/hr MILLENNIUM Specimen Anatomical Collection Method Collection Time Receive d Time (Source) Location / / Volume Laterality Blood specimen 08/18/2011 12:48 2 (specimen) PM EDT 12:56 PM EDT Resulting Agency Comment Spec In Lab Chalino Enamorado MD HEMATOLOGY ORDERABLES Performing Organization Address City/[facility]/ZIP [facility] Phon e Number [address] CERNER MILLENNIUM Hepatic Function Panel (08/18/2011 12:48 PM EDT) athologist Signature Total Protein 7.1 5.7 - 8.0 CERNER gm/dL MILLENNIUM Albumin 4.5 3.3 - 4.9 CERNER gm/dL MILLENNIUM AST 17 10 - 40 CERNER unit/L MILLENNIUM ALT 13 0 - 25 CERNER unit/L MILLENNIUM Alk Phos 157 115 - 610 CERNER unit/L MILLENNIUM Total 0.3 <=1.0 CERNER Bilirubin mg/dL MILLENNIUM Bili, Direct 0.1 0.0 - 0.3 CERNER mg/dL MILLENNIUM Specimen Anatomical Collection Method Collection Time Receive d Time (Source) Location / / Volume Laterality Blood specimen 08/18/2011 12:48 2 (specimen) PM EDT 12:56 PM EDT Resulting Agency Comment Spec In Lab Chalino Enamorado MD CHEMISTRY ORDERABLES Performing Organization Address City/[facility] [place] [address] CERNER MILLENNIUM CBC (with Diff) (08/18/2011 12:48 PM EDT) P athologist Signature WBC 9.5 4.5 - 14.0 CERNER x10(3)/mcL MILLENNIUM RBC 4.67 4.00 - 5.20 CERNER x10(6)/mcL MILLENNIUM Hemoglobin 12.2 11.5 - 15.5 CERNER gm/dL MILLENNIUM Hematocrit 36.3 35.0 - 45.0 CERNER % MILLENNIUM MCV 77.7 75.0 - 93.0 CERNER fL MILLENNIUM MCH 26.1 25.0 - 33.0 CERNER pg MILLENNIUM MCHC 33.6 32.0 - 36.5 CERNER gm/dL MILLENNIUM Platelets 256 145 - 370 CERNER x10(3)/mcL MILLENNIUM RDWSD 37.3 35.0 - 46.0 CERNER fL MILLENNIUM RDWCV 13.2 10.9 - 14.4 CERNER % MILLENNIUM MPV 9.5 9.0 - 12.0 CERNER fL MILLENNIUM Specimen Anatomical Collection Method Collection Time Receive d Time (Source) Location / / Volume Laterality Blood specimen 08/18/2011 12:48 2 (specimen) PM EDT 12:56 PM EDT Resulting Agency Comment Spec In Lab Chalino Enamorado MD HEMATOLOGY ORDERABLES Performing Organization Address City/[facility]/[place] [address] CERNER MILLENNIUM TPMT Genetics (08/18/2011 12:48 PM EDT) Analysis Performed At Patho logist Time Signature TPMT Genetics See Note CERNER MILLENNIUM Comment: Please see scanned report in Chart Revie w under the Non-DH Laboratory Heading. Test performed by [facility], [address], [place] [address] Specimen Anatomical Collection Method Collection Time Receive d Time (Source) Location / / Volume Laterality Blood specimen 08/18/2011 12:48 2 1:08 (specimen) PM EDT PM EDT Narrative This result has an attachment that is no t available. 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 32.2 kg), Oral, EVERY 4 HOURS PRN, Starting on Sun08/18/11 at 2039, Until 08/19/11 at 1857, Pain, Maximum dose of acetaminophen is 4,000 mg from all sources in 24 hours., Routine Given 08/18/2011 9:17 PM EDT 483.4975 mg dextrose 5% and sodium chloride New Bag 08/19/2011 10:35 AM ED T 62 mL/hr 62 mL/hr 0.45% with potassium chloride 20 mEq infusion 62 mL/hr, Intravenous, CONTINUOUS, Starting on 08/19/11 at 0000, Until 08/19/11 at 1857 New Bag 08/18/2011 11:45 PM EDT 62 mL/hr 62 mL/hr lidocaine-prilocaine (EMLA) 2.5-2.5 % cr eam Given 08/18/2011 7:45 PM EDT each Starting on Sun08/18/11 at 1943, 1 dose, Until 08/18/11 at 1945, KARMA JUAREZ: Cabinet Override polyethylene glycol (MIRALAX) packet 136 g Given 08/18/2011 1:45 PM EDT 136 g 136 g, Oral, ONCE, 1 dose, On 08/18/11 at 1345, Please mix in 32oz of water, pt will need to drink 32oz of water after and then continue to drink fluids throughout the night, Routine documented in this encounter Active and Recently Administered Medications Times are shown in EDT. Scheduled Medication Order 08/17/2011 08/18/2011 08/19/2011 polyethylene glycol (MIRALAX) packet 136 g (COMPLETED) 1345 (Given - Provider: Kathi Waldrop RN) 136 g, Oral, ONCE, 1 dose, Sun08/18/11 a t 1345, Please mix in 32oz of water, pt will need to drink 32oz of water after and then continue to drink fluids throughout the night, Routine Continuous Medication Order 08/17/2011 08/18/2011 08/19/2011 dextrose 5% and sodium chloride 0.45% wi th potassium chloride 20 mEq infusion (CANCELED) 2345 (New Bag - Provider: Karma covington RN) 1035 (New Bag - Provider: Nona Genao RN)1309 (Stopped - Provider: Nona Genao RN) 62 mL/hr, at 62 mL/hr, Intravenous, CONT INUOUS, Starting 08/19/11 at 0000, Until 08/19/11 at 1857 PRN Medication Order 08/17/2011 08/18/2011 08/19/2011 acetaminophen (TYLENOL) 650 mg/20.3 mL oral liquid 483.4975 mg (CANCELED) 2117 (Given - Provider: Karma Juarez RN) 1544 (Given - Provider: Nona Genao RN) 15 mg/kg/dose ? 32.2 kg = 483.4975 mg, Oral, EVERY 4 HOURS PRN, Starting 08/18/11 at 2039, Until 08/19/11 at 1857, Pain, Maximum dose of acetaminophen is 4,000 mg from all sources in 24 hours., Routine No Frequency Medication Order 08/17/2011 08/18/2011 08/19/2011 lidocaine-prilocaine (EMLA) 2.5-2.5 % cream (COMPLETED) 1944 (Given - Provider: Karma Juarez RN) Starting 08/18/11 at 1943, For 1 dose, KARMA JUAREZ: Tayine t Override documented in this encounter Care Teams Tipping Machine Operator Automatic Relationship Specialty Start Date End Date Miladis Blackmon MD PCP - General 04/12/10 11/28/21 [address] [place] [place] [address] documented as of this encounter
--- OUTSIDE RECORDS SUMMARY | 2021-12-13 13:03 | XMS_ITS | Encounter Summary ---
:2000 Author Organization [facility] [address] Care Team Providers Name Role Phone Miladis Blackmon MD Primary Care Provider Encounter Details Date Type Department Care Team Description 10/02/2011 Orders Only Pediatric Urology at [facility], Dysuria (Primary Dx) [facility] [employer] [place] [address] PEDIATRIC UROLOGY [phone] [place], [place] [address] (Wo rk) Social History Tobacco [...] M D [facility] PLASTIC SURGERY [place], [place] [address] (Wo rk) documented as of this encounter Visit Diagnoses Diagnosis Dysuria - Primary documented in this encounter Care Teams Inverform Machine Operator Relationship Specialty Start Date End Date Miladis Blackmon MD PCP - General 04/12/10 11/28/21 [address] [place] [address] documented as of this encounter
--- OUTSIDE RECORDS SUMMARY | 2021-12-13 13:03 | XMS_ITS | Encounter Summary ---
:2000 Author Organization [facility] [address] Care Team Providers Name Role Phone Miladis Blackmon MD Primary Care Provider Encounter Details Date Type Department Care Team Description 08/24/2011 Orders Only Pediatric Urology at Armando Jenkins MD Fistula, bladder; [facility] Urinary tract infection, sit e not specified [facility] [address] [place] [address] [place] [address] [phone] Social History Tobacco Use Types Packs/Day Years [...] Description 12/22/2021 Office Visit Plastic Surgery Russ Guevraa M D [facility] PLASTIC SURGERY [place], [place] [address] (Wo rk) documented as of this encounter Procedures Procedure Name Priority Date/Time Associated Diagnosis Comme nts INJECTION PROC Routine 08/24/2011 5:38 PM Fistula, blad arely URETEROGRAPHY EDT Urinary tract U-PYELOGRAPHY THRU infection, site not U-OSTOMY\U-CATH specified COLPOSCOPY,VAGINOSCOPY\CE Routine 08/24/2011 5:38 PM Fis jhoana, bladder RVIX & VAGINA EDT Urinary tract infection, site not specified CYSTO,CYSTOURETHROSCOPY, Routine 08/24/2011 5:38 PM Fist rohit, bladder DIAGNOSTIC EDT Urinary tract infection, site not specified documented in this encounter Visit Diagnoses Diagnosis Fistula, bladder Vesical fistula, not elsewhere classifie d Urinary tract infection, site not specif ied documented in this encounter Care Teams Weight Reduction Specialist Relationship Specialty Start Date End Date Miladis Blackmon MD PCP - General 04/12/10 11/28/21 [address] [place] [address] documented as of this encounter
--- OUTSIDE RECORDS SUMMARY | 2021-12-13 13:03 | XMS_ITS | Encounter Summary ---
:2000 Author Organization [facility] [place] [address] Care Team Providers Name Role Phone Miladis Blackmon MD Primary Care Provider Encounter Details Date Type Department Care Team Description 03/29/2012 - Hospital Encounter Pediatric Adolescent Christian Whelan, 04/02/2012 Unit Shae Morse MD [facility] [address] PEDIATRIC SURGERY [place], [place] [id number] [phone] Social History Tobacco Use Types Packs/Day Years [...] Sign Reading Time Taken Comments Blood Pressure 129/46 04/02/2012 12:00 PM EST Pulse 72 04/02/2012 12:00 PM EST Temperature 36.6 ??C (97.9 ??F) 04/02/2012 12:00 PM EST Respiratory Rate 20 04/02/2012 12:00 PM EST Oxygen Saturation 97% 04/02/2012 12:00 PM EST Inhaled Oxygen Concentration - - Weight 36.9 kg (81 lb 5.6 oz) 03/29/2012 9:00 PM EST Height 141.6 cm (4' 7.75) 03/29/2012 9:00 PM EST Body Mass Index 18.4 03/29/2012 9:00 PM EST Body Mass Index Percentile 62.91 % 03/29/2012 9:00 PM ES T Growth Chart: [facility] (Girls, 2-20 Years) documented in this encounter Discharge Instructions Patient InstructionsTena Griffin MD - 04/02/2012 11:54 AM EST Discharge instructions for Lottie Gaines: DIET: regular diet, no restrictions ACTIVITY: may experience abdominal discomfort related to laparoscopy for the next 3-5 days, but there are no specific restrictions on activity SHOWER: You may shower. Beginning 48 hours after surgery it is ok to soak in the bath or swim. WOUND CARE: You may remove the plastic bandages and gauze covering your incisions 48 hours after surgery. Do not remove the small white pieces of tape covering you incisions. These are called steri-strips and they help your skin heal and minimize scarring. Allow these steri-strips to fall off in theirown time. This usually takes 7-10 days. If they have not fallen off after 10 days you may remove them. FOLLOW-UP: we will call you when the results of Lottie's pathology are available; we will schedule follow-up for you at that time NEW MEDICATIONS: we have prescribed lortab pills for pain THINGS TO WATCH OUT FOR: - persistent high fever - increasing abdominal pain not relieved by pain medications - severe nausea - inability to have a bowel movement - inability to urinate - redness surrounding incisions or drainage from the incisions - any other new or concerning symptoms that develop CALLING FOR ADVICE: Never hesitate to call the office if something just does not seem right to you. It is always better to check than to guess it is nothing important and be wrong. After office hours, please call [phone] and tell the molybdenum steamer operator you need to speak to the resident on-call for Pediatric Surgery. During daytime hours try [phone] to reach one of our clinic nurses. documented in this encounter Medications at Time of Discharge Medication Sig Dispensed Refills Start Date End Date Multiple Urine [place] [facility] [place]Non-Drug; 100 strip 6 012 Strp stripsIndications: Combo Route) route. Dysuria Use to monitor urine pH as instructed by hydroCODone-acetaminoph Take 1 tablet by 40 tablet 0 201104/22/2012 en (VICODIN) 5-500 mg mouth every 6 hours per tablet as needed for Pain. gabapentin (NEURONTIN) [...] Sodium (ELMIRON) 100 mg 3 times daily (before capsule meals). tolterodine (DETROL LA) Take 1 capsule by 90 capsule 4 08/1706/07/2012 2 mg 24 hr capsule mouth daily for 360 days. levalbuterol (XOPENEX) 0 12/17/2008 1.25 mg/0.5 mL nebulizer solution documented as of this encounter Progress Notes Connor Bolanos RN - 04/02/2012 3:45 PM EST O: VSS, afebrile. Pt tolerating po. Pain well controlled with oral pain medications. Voided. Lap sites negative. A: Instructions received & reviewed by family prior to discharge. Medications and side effects, as well as medication schedule reviewed with family. Parents state understanding of discharge instructions. P: Discharged home with family. Josephine Sousa CLS - 04/02/2012 3:00 PM EST Child Life Inpatient Note: Patient's Name: Lottie Gaines Child prefers to be called: Lottie Patient's age: 12 y.o. 1 m.o. Patient's date of : 2000 Goals of involvement: coping, normalization, support during hospitalization Person/s present at interaction: [facility] has been supporting Lottie since admission. Lottie has been benefiting from [facility] support in Same day surgery area as well (see notes.) [facility] has collaborated this admission with Lottie, her mom and dad. Family constellation: Lottie lives with her mom and 2 older siblings who have autism. She visits with Dad and Dad has been staying here with her Items of comfort: she has a stuffed animal that was her brothers that he gave her Routines: Lottie is 2 grades behind, mostly due to missing a lot of school. Mom reports that she usually has to pick her up early. Related previous medical experiences: This is not Lottie's first time in the hospital Rapport building and preparation: Lottie enjoys the IPAD, playing games, and family support. She hasbenefited from preparation before and after surgery. Post-surgery Lottie's parents were reluctant to tell Lottie anything, mainly because she has not asked. CCLS explained that a lot of children maybe afraid to ask or not know how to start the conversation with their parents. Most children have a fear of the unknown, especially when they see people visible upset and hear people talking about their situation. CCLS encouraged parents to ask open ended questions with Lottie, as well as give her basic information, until they have more information. Parents were receptive to this information. Psychosocial strengths: Lottie has had many medical experiences and is developing her coping skills.Distraction, hand holding, and deep breathing were all tried and utilized. Lottie likes to have her mother present for support. Lottie has a great relationship with her PCP. Parents are open to ways they can share information with her, and state they never lie to their child. Psychosocial concerns: parents are hesitant to share information with Lottie, they prefer her to hear it from her PCP who she has a great rapport with after she is discharged. Lottie has not been told anything since her surgery, [facility] is encouraging parents to share basic information, as Lottie mayhave questions and not know how to ask them or be afraid to ask them. Lottie has had some painful procedures, such as flynn removals in the past, so she is hesitant to trust staff and gets very anxious. Lottie describes challenges with school, being picked on, parents are aware and providing support and advocating for her needs. Developmental considerations: slightly below developmental age, parents report she is on the spectrum. Lottie is 2 grades behind in school. Therapeutic interventions: CCLS has been rapport building, providing pre procedural teaching, normalization, and acclimation to hospital environment. Per parents wishes, CCLS has not spoken to Lottie regarding the procedure, however CCLS has given parents tools in ways to explain it to Lottie and normal coping expectations. Child life plan of care: Lottie will benefit from ongoing Child life support, especially for procedures, diagnosis and future hospital related plan of care. César Mike - 04/02/2012 8:50 AM EST Urology Resident Inpatient Progress Note Lottie Gaines is a 12 y.o. female POD#1 s/p diagnostic laparoscopy, intraperitonleal bladder mass biopsy and cysto/bladder bx. - no acute overnight events - urine clear - tolerating PO Last value Range last 24hrs Temperature Temp: 36.9 ??C (98.4 ??F) Temp: [36.7 ??C (98.1 ??F)-37 ??C (98.6 ??F)] Heart Rate Heart Rate: 68 Heart Rate: [57-86] Blood Pressure BP: 118/60 mmHg BP: (94-118)/(53-90) Respiratory Rate Resp: 18 Resp: [18-20] SpO2 SpO2: 98 % SpO2: [95 %-100 %] In: 1887 [P.O.:240; I.V.:1597] Out: 1919 [Urine:1920] Physical Exam: General: NAD, resting comfortably, pleasant, conversant Abd: soft, nontender, non-distended. Lap dressings CDI. : flynn in place, urine clear Skin: warm, dry Recent Labs Basename 03/30/12 1805 ??? WBC 14.9* ??? HGB 12.5 ??? HCT 35.8 ??? PLATELET 181 ??? PT -- ??? INR -- ??? PTT -- No results found for this basename: NA:5,K:5,CL:5,CO2:5,BUN:5,CREATININE:5,GLUCOSE:5,CALCIUM:5,MAGNESIUM:5,PHOS:5 in the last 72 hours A/P: Lottie Gaines is a 12 y.o. female s/p diagnostic laparoscopy, intraperitonleal bladder mass biopsy and cysto/bladder bx. Doing well. HD stable. Good pain control. Urine clear. D/c flynn this AM. F/u as outpatient once surgical pathology results. 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, both patent and by a transverse vaginal septum, single R andL ovaries/fallopian tubes, and large fixed bladder mass (biopsied) - no acute overnight events - patient very fearful of flynn removal - initially pain was well controlled with tylenol and toradol, patient requesting morphine for increased pain this AM - patient able to eat and drink Tm 37 57-86 108-118 / 58-90 18-20 96-100% room air 36.9 kg 180 po 1597 iv 1745 uop Alert, oriented, high anxiety but NAD HR regular Lungs clear Abdomen soft, appropriately tender, 3 lap sites c/d/i Flynn dark and orange-tinged No pedal edema Skin warm with normal color and turgor Neuro nonfocal 03/30 UCx negative Surgical pathology pending Assessment/Plan: 12F POD#1 s/p diagnostic laparoscopy w/ findings that included normal appendix, 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 Priority is to obtain the results of the intra-operative biopsies and formulate a plan for treatment of the bladder mass. Anticipate flynn removal this AM, discharge, and completion of the work-up on an outpatient basis. Will discuss with Dr. Whelan and pediatric urology service today. Pediatric Surgery Attending Note Addendum I have seen and examined Lottie Gaines today. I have reviewed Dr. Griffin's note above. I have spoken to the patient and her father about her post op course and plan of care. I agree with Dr. Griffin's findings and care plan as described with the following additions: HPI summary: Lottie Gaines is an 12 year old female with a history of a small mass in the wall of the bladder noted in 2008 and recurrent UTI's, pelvic pain, and voiding dysfunction who presented on 03/29/12 with increased RLQ pain and CT showing the mass to be much larger than previous and a possiblepelvic abscess. Since she was nontoxic she was treated over the weekend with IV antibiotics and was taken to the OR for diagnostic laparoscopy, cystoscopy and vaginoscopy on 04/01/[address] Whelan and Gregory. She was found to have no pelvic abscess or appendicitis but her omentum was adherent to thebladder and pelvis. She was noted to have a firm mass in the wall of the posterior right side of thebladder with and exophytic frond noted on the mucosal side. The mass was biopsied inside and out. 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 New events: Overnight Lottie did well and was able to sleep and have reasonable pain control, she tolerated oral fluids and did not spike a fever Pain control: Acetaminophen, ketorolac, lortab, IV prn morphine Nutrition: Regular diet Examination: VS as noted above. Pertinent output: 2.2 cc/kg/hr with Flynn in place, no emesis Constitutional: Awake but uncooperative this morning refusing her oral medications or to get out of bed. HEENT: Normal Neck: Supple Chest: Normal respirations Abdomen: Not distended, incision clean with small dry blood noted on LLQ incision. Remains tender topalpation somewhat out of proportion to finding in OR. Genitalia: Flynn in place Extremities: Normal Neuro: Intact Impression: POD#1 for 12 year old female with unusual mass in wall of bladder that has been present since 2008 and unchanged in early 2011 who presented with fever, increased pain and findings of increased size of the mass. Recovering as expected post laparoscopic procedure and pre-op chronic pain state. Awaiting biopsy results. Plan: Will discontinue Flynn today per Urology recommendations and if able to void and resume home pain regimen will discharge later today pending biopsy results and then plan for further evaluation ortreatment. Alejandrina Canada, ROAD OILING TRUCK DRIVER - 04/02/2012 12:00 AM EST Office of Care Management Social Work Note Patient: Lottie Gaines Referral: Lottie is an 12 year old female. Referred for SW consult to provide assessment and support. SW met with family to discuss resource information. Relevant Information: Lottie resides with her mother, Essie Gaines; full brother, Liz Gaines age 17; and full brother, Tristan Gaines age 20. Liz and Tristan are both diagnosed with autism. Lottie's father, Linocln Gaines, resides in [place], [place] with a friend. Parents are . They have been for 4 or 5 years.Mother has worked one day a week at [employer] and father works makeup artist delivering alcohol. Lottie has an IEP and has a form of autism. Parents reflected on the current hospitalization stating that they were thankful that the doctors finally figured out what it was. Parents expressed some discontent with prior outpatient appointments because it took such a long time to figure out what was wrong with Lottie. Parents are looking forwardto discharge and speak highly of their PCP. They stated that they will be speaking with Dr. Powers to see if he will be able to talk with Lottie to answer any of her questions that she may have after discharge. Father reports that he has a history of Manic depressive disorder and Bipolar Disorder. He is not currently taking any medication or receiving counseling services. He describes doing well in managing his mental health now that he and his are and able to be friends. Children have gone through counseling in the past during their separation and divorce. Mother denies any mental health history. Assessment: Family is coping with a hospital admission and identifying financial struggles. Mother and father are strong advocates for patient and family needs. Older siblings have home aides that assist with homecare and have been staying with a friend during patient admission. Plan: SW provided gas vouchers. RODERICK discussed with medical team. DARRYN Yoon Clinical Staff Trainer Care Management Pager [phone] Evi Barnes MD - 04/01/2012 11:00 PM EST General Surgery Post-Operative Note Lottie Gaines is a 12 y.o. female is s/p exploratory laparotomy for bladder wall mass, r/o pelvic abscess Patient is resting comfortably in room and states that pain is controlled. Denies cp/sob, n/v. Temp: [36.7 ??C (98.1 ??F)-36.9 ??C (98.4 ??F)] Heart Rate: [57-86] Resp: [18-20] BP: (108-118)/(58-90) SpO2: [96 %-100 %] Intake/Output Summary (Last 24 hours) at 04/02/12 0040 Last data filed at 04/02/12 0000 Gross per 24 hour Intake 1639 ml Output 1745 ml Net -106 ml UOP 60cc/hr past 2 hours, since arrival to floor from PACU Recent Labs Basename 03/30/12 1805 03/30/12 0500 03/30/12 0050 ??? WBC 14.9* 13.9 14.4* ??? HGB 12.5 11.7 11.6 ??? HCT 35.8 34.3* 33.3* ??? PLATELET 181 180 155 ??? PT -- -- -- ??? INR -- -- -- ??? PTT -- -- -- Recent Labs Basename 03/30/12 0500 03/30/12 0050 ??? NA 136 137 ??? K 4.2 3.7 ??? CL 102 102 ??? CO2 27 24 ??? BUN 10 13 ??? CREATININE 0.52 0.49 ??? GLUCOSE 115 119 ??? CALCIUM 8.7 8.5 ??? MAGNESIUM -- -- ??? PHOS -- -- Gen: NAD, resting comfortably, easily arouseable, answers all questions Cardio: RRR, S1 murmur Pulm: CTAB, no w/r/r ABD: s/nd, Surgical sites (port sites) are c/d/i, TTP most in RLQ Ext: no c/c/e, well-perfused A/P: -progressing well post-operatively - no acute issues -continue current management Alexsandra Avila RN - 04/01/2012 6:14 PM EST Report given to Carmen on pediatric unit Tena Griffin MD - 04/01/2012 6:51 AM EST Pediatric Surgery Resident Note: 12F w/ history of recurrent UTI's, voiding dysfunction, chronic pelvic and back pain admitted 03/29/2012 with a RLQ pelvic mass. Etiology of this mass is unclear, didelphys uterus vs. ruptured appendicitis vs. other. - no acute events last 24 hours - seen by pediatric urology - NPO since midnight - complains of ongoing RLQ pain Tm 37.1 72-82 92-113/49-64 18-19 96-98% room air Wt. 36.9 kg 1200 po 428 iv 730 uop (0.8 cc/kg/hr) Sleeping, awakens easily, oriented and coherent HR regular Lungs clear Abdomen soft, not distended, TTP in the RLQ, hypoactive bowel sounds No flynn catheter Skin warm and dry without out rashes WBC 03/30 14.9 BCx neg x 2 UCx neg 12F w/ history of recurrent UTI's, voiding dysfunction, chronic pelvic and back pain admitted 03/29/2012 with a RLQ pelvic mass. Etiology of this mass is unclear, didelphys uterus vs. ruptured appendicitis vs. other. Plans for coordinated laparoscopy, cystoscopy, pelvic examination in the OR today. - NPO for OR - mIVF - continue zosyn Farhad Munson MD - 03/31/2012 10:35 AM EST Pediatric Surgery Attending Note I have seen and examined Lottie Gaines today. I have reviewed her chart and spoken to her family and nursing staff. HPI summary: Lottie Gaines is an 12 year old female well known to this hospital due to a long history of recurrent UTI's, voiding dysfunction, chronic pelvic and back pain and intermittent finding of a mass in the wall of the right posterior bladder since 2008. This last finding was evaluated as recently as July-August, by Pediatric Urologists, Dr. Neri and Dr. Jenkins with a cystoscopy on 08/18/11 revealing bullous edema of the bladder lining with a small opening draining mucus in the right posterior bladder. Concern for an intestinovesicular fistula prompted colonoscopy by Dr. Mancini on 08/19/11 which was reportedly normal to the terminal ileum. Cystoscopy and retrograde ureterograms by Dr. Jenkins on 09/01/11 revealed no fistula but again bullous edema was noted. The retrograde urethrogram was normal. Lottie continues on treatment for dysfunctional voiding and chronic pain which require her to use topical lidocaine to void and to take gabapentin and Lortab for pain as well as Bactrim, Detrol, and supplemental sodium bicarbonate for voiding dysfunction and recurrent UTI's. February 19, 2012, Lottie was seen by Dr. Samantha Staley, adolescent fondant puff maker, who due to fear and discomfort could only appreciate suprapubic pain on palpation and external genital glimpse that suggested a vaginal septum even though 3 prior vaginoscopies under anesthesia reported normal vagina and cervix. Present symptoms began suddenly 2-3 days prior to admission and are described by Lottie to be worse and different from her chronic pelvic pain. She reportedly had a fever, but was eating and stoolingnormally. Urine was negative for infection. An US was obtained by her PCP, Dr. Gio Briones, followed by an abdominal/pelvic CT scan with oral contrast which was interpreted as showing a possible abscess (presumed appendiceal) in the right pelvis. Dr. Briones spoke to me by telephone and admission to the pediatric floor was arranged. Lottie arrived looking well but complaining of pain on palpation in the RLQ. The CT scan was reviewed the night of admission by me electronically and I was unconvinced this was a new finding of abscessand not an enlargement of her prior finding of the right posterior bladder wall abnormality. Since perforated appendicitis could not be completely ruled out and Lottie was otherwise not toxic, she was started on Zosyn and given IV hydration. Yesterday morning, US and CT of abdomen and pelvis were reviewed by me with Dr. Hearn and compared directly to images obtained on US in 2008 as well as MRI images for tethered cord 11/28. There appears to be a mass either in or adjacent to the right posterior bladder wall that is 2-3 times larger now than on prior exams. The area of possible abscess is contiguous with this mass and no discrete appendix or appendicolith is seen. On CT imaging there is also the appearance of a didelphys uterus that has not been seen before. In addition there is a tubular fluid structure in the deep pelvis on the right. The findings are concerning that the structure noted in 2008 is still present and larger and that the multicystic abscess is adjacent to the bladder at the same location. After lengthy discussion with Lottie's parents and do to her appearing non- toxic, I decided to continue her IV antibiotics for a possible perforated but contained appendiceal abscess and plan a coordinated diagnostic/therapeutic laparoscopy with cystoscopy and vaginal exam under anesthesia with Pediatric Urology and Pediatric adolescent gynecology semi-electively on Sunday. Overnight, Lottie did well except for one temperature spike that resolved. She is eating, voiding and stooling normally. Her pain is controlled with her usual chronic pain medications and prn morphine. Examination:Temp: [36.6 ??C (97.9 ??F)-38.9 ??C (102 ??F)] Heart Rate: [65-103] Resp: [18-24] BP: (95-109)/(44-60) SpO2: [97 %-100 %] Pertinent output: complaining of pain with voiding 0.7cc/kg/hr recorded Constitutional: Awake and alert, moving well on her own in bed and later seen walking without difficulty. HEENT: Normal Neck: Supple Chest: Clear with normal respiratory effort Abdomen: Soft, nondistended, tender with guarding RLQ and down onto groin and anterior thigh. Extremities: Normal Neuro: Normal CBC Lab Results Component Value Date WBC 14.9* 03/30/2012 Hemoglobin 12.5 03/30/2012 Hematocrit 35.8 03/30/2012 Platelets 181 03/30/2012 Urine: No growth Blood cultures times 2 pending KUB: Contrast has moved around to sigmoid colon which appears normal. No appendicolith noted, no calcifications in pelvis, No mass effect indenting cecum as might be expected with perforated appendicitis. 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 If patient has double uterus, she may have a double vagina with the right sided vagina having no opening to the introitus (thus prior vaginal exams would show normal left vagina and cervix). Estrogen dependent tumors may also increase in size near puberty with increased mucus secretion and even cryptmennorrhea. This could be perforated appendicitis in addition to the bladder finding as well and can notbe completely ruled out on imaging studies. Temp spike overnight with little change in physiology or exam noted. Plan: I continue to believe non-invasive investigations have been unsuccessful in diagnosing this child's findings and I have recommended to her parents that diagnostic laparoscopy in conjunction with cystoscopy and pelvic examination under anesthesia may finally delineate the cause of the enlarged process that is in the right pelvis. Obviously if she has perforated appendicitis, this too can be remedied at the time of the laparoscopy. Because of the several services that may need to be involved(sd,peds urol, Dr. Staley, [facility] pathology) and the relative well appearing state of Lottie this morning, I will plan to coordinate this procedure on Sunday. In the meantime I will continue to treat her as pe rforated appendicitis with IV Zosyn. I discussed the risks and benefits of this planned procedure including the risks of anesthesia, infection, bleeding, bladder perforation and leakage, need for more surgery, and bowel obstruction. Her parents indicated that they understood and wished to proceed as planned. Informed consent was obtained. documented in this encounter H&P Notes Farhad Whelan MD - 04/01/2012 1:43 PM EST Lottie has been in the hospital since her admission and her history is unchanged. Her physical exam remained the same with tenderness to palpation the RLQ down onto the right anterior thigh. She did spike a fever despite IV Zosyn but did not feel ill. She has been NPO since MN Informed consent is in her chart. She is ready for diagnostic laparoscopy with appendectomy and evaluation of the bladder wall mass that has increased in size since first noted in 2008. Dr. Deng Jenkins is aware and will be assisting with cystoscopy. Farhad Whelan MD - 03/29/2012 11:00 PM EST PEDIATRIC Surgery - Admission H&P Patient Name: Lottie Gaines : [id number] MR#: [id number] 03/29/2012 Hospital Day 1 day ID: 12 w/RLQ pn x2days HPI: Lottie Gaines is a 11 year [...] on 09/01/11. Lottie presented to an OSH today with acute onset RLQ pain and fevers. CT-A/P at the OSH revealed a new area of concern for mass vs. Abscess in the raymond- appendiceal region. Mass on bladder wall still noted. Given concern for an appendiceal abscess, Lottie was transferred to [facility] [place] for further management and evaluation. Upon arrival, Lottie was resting comfortably, on pain medication, VSS, AF. She was interactive and conversant, able to precisely desribe her pain as localized to the R lower quadrant. She states the pain came on suddenly, was of a 'sharp- stabbing' type nature, and while coming and going, it has been present in some degree constantly for the past 2 days. She report brief nausea but denies any vomiting, + fevers, - chills, chest pain, sob urinary symptoms (other than normal) and reports a regular BM 2days prior. Review of Systems: As above, otherwise negative [...] 2.0CM, NECK performed by LINNEA MATA at [facility] ??? Unlisted mr procedure 12/13/2010 MRI WITH ANESTHESIA performed by ASHLEE HU at [facility] ??? Upper gi endoscopy, exam 08/19/2011 PEDIATRIC UPPER GI ENDOSCOPY performed by CHALINO MANCINI at [facility] ??? Colonoscopy, diagnostic 08/19/2011 PEDIATRIC COLONOSCOPY performed by CHALINO MANCINI at [facility] ??? Cystourethroscopy 08/18/2011 CYSTO, CYSTOURETHROSCOPY, DIAGNOSTIC performed by ALIYAH NERI at [facility] ??? Cystourethroscopy 09/01/2011 CYSTO, CYSTOURETHROSCOPY, DIAGNOSTIC performed by DENG JENKINS at [facility] OR ??? Colposcopy, cervix w/adj vagina 09/01/2011 COLPOSCOPY, VAGINOSCOPY\CERVIX & VAGINA performed by DENG JENKINS at [facility] ??? Inject indwell cath, ureter x-ray 09/01/2011 INJECTION PROCEDURE, URETEROGRAPHY OR URETEROPYELOGRAPHY THRU URETEROSTOMY OR URETERAL CATH performed by DENG JENKINS at [facility] Allergies: No Known Allergies Prior to Admission Medications: Prescriptions prior to admission Medication Sig Dispense Refill ??? gabapentin (NEURONTIN) 100 mg capsule Take 100 mg by mouth daily. ??? Multiple Urine Tests [place] [facility]; Combo Route) route. Use to monitor urine [...] ??? No narrative on file Physical Exam: Last Set of Vitals and range of vitals over past 24 hours: Last value Range last 24 hrs Temperature Temp: 36.4 ??C (97.5 ??F) Temp: [36.4 ??C (97.5 ??F)-37.2 ??C (99 ??F)] Heart Rate Heart Rate: 80 Heart Rate: [80-86] Blood Pressure BP: 101/44 mmHg BP: (101-115)/(44-69) Respiratory Rate Resp: 20 Resp: [20] SpO2 SpO2: 99 % SpO2: [98 %-99 %] Physical Exam: Gen: Awake and alert, in minimal distress CV: RRR, no m/r/g Pulm: CTAB, no w/r/r Abd: soft, nd, TTP only in RLQ, point tenderness, at approximately McBurney's point Ext: warm, well perfused Laboratory (Last 24 Hours): Results for orders placed during the hospital encounter of 03/29/12 (from the past 24 hour(s)) CBC (WITH DIFF) Component Value Range ??? WBC 14.4 (*) 4.5 - 14.0 (x10(3)/mcL) ??? RBC 4.06 4.00 - 5.20 (x10(6)/mcL) ??? Hemoglobin 11.6 11.5 - 15.5 (gm/dL) ??? Hematocrit 33.3 (*) 35.0 - 45.0 (%) ??? MCV 82.0 75.0 - 93.0 (fL) ??? MCH 28.6 25.0 - 33.0 (pg) ??? MCHC 34.8 32.0 - 36.5 (gm/dL) ??? Platelets 155 145 - 370 (x10(3)/mcL) ??? RDWSD 37.3 35.0 - 46.0 (fL) ??? RDWCV 12.6 10.9 - 14.4 (%) ??? MPV 9.4 9.0 - 12.0 (fL) BASIC METABOLIC PANEL (NON-FASTING) Component Value Range ??? Glucose Lvl 119 60 - 199 (mg/dL) ??? BUN 13 5 - 20 (mg/dL) ??? Creatinine 0.49 0.20 - 0.70 (mg/dL) ??? Sodium 137 135 - 145 (mmol/L) ??? Potassium 3.7 3.5 - 5.0 (mmol/L) ??? Chloride 102 98 - 107 (mmol/L) ??? CO2 24 22 - 31 (mmol/L) ??? Anion Gap 11 5 - 15 (mmol/L) ??? Calcium 8.5 8.5 - 10.5 (mg/dL) ? ? Estimated GFR See note >=60 DIFFERENTIAL, AUTOMATED Component Value Range ??? Neutrophils % 79.6 (*) 33.0 - 73.0 (%) ??? Neutr Abs (ANC) 11.41 (*) 1.50 - 8.00 (x10(3)/mcL) ??? Lymphocytes % 10.5 (*) 22.0 - 57.0 (%) ??? Lymphocytes Abs 1.5 1.5 - 6.8 (x10(3)/mcL) ??? Monocytes % 8.9 2.0 - 12.0 (%) ??? Monocyte Abs 1.3 (*) 0.2 - 1.0 (x10(3)/mcL) ??? Eosinophils % 0.8 0.0 - 7.0 (%) ??? Eosinophils Abs 0.1 0.0 - 0.5 (x10(3)/mcL) ??? Basophils % 0.1 0.0 - 2.0 (%) ??? Basophils Abs 0.0 0.0 - 0.2 (x10(3)/mcL) ??? Immature Gran % 0.10 0.00 - 0.66 (%) ??? [place] Gran Abs 0.02 0.00 - 0.05 (x10(3)/mcL) CBC (WITH DIFF) Component Value Range ??? WBC 13.9 4.5 - 14.0 (x10(3)/mcL) ??? RBC 4.16 4.00 - 5.20 (x10(6)/mcL) ??? Hemoglobin 11.7 11.5 - 15.5 (gm/dL) ??? Hematocrit 34.3 (*) 35.0 - 45.0 (%) ??? MCV 82.5 75.0 - 93.0 (fL) ??? MCH 28.1 25.0 - 33.0 (pg) ??? MCHC 34.1 32.0 - 36.5 (gm/dL) ??? Platelets 180 145 - 370 (x10(3)/mcL) ??? RDWSD 37.9 35.0 - 46.0 (fL) ??? RDWCV 12.6 10.9 - 14.4 (%) ??? MPV 9.4 9.0 - 12.0 (fL) BASIC METABOLIC PANEL (NON-FASTING) Component Value Range ??? Glucose Lvl 115 60 - 199 (mg/dL) ??? BUN 10 5 - 20 (mg/dL) ??? Creatinine 0.52 0.20 - 0.70 (mg/dL) ??? Sodium 136 135 - 145 (mmol/L) ??? Potassium 4.2 3.5 - 5.0 (mmol/L) ??? Chloride 102 98 - 107 (mmol/L) ??? CO2 27 22 - 31 (mmol/L) ??? Anion Gap 7 5 - 15 (mmol/L) ??? Calcium 8.7 8.5 - 10.5 (mg/dL) ? ? Estimated GFR See note >=60 DIFFERENTIAL, AUTOMATED Component Value Range ??? Neutrophils % 77.7 (*) 33.0 - 73.0 (%) ??? Neutr Abs (ANC) 10.81 (*) 1.50 - 8.00 (x10(3)/mcL) ??? Lymphocytes % 12.6 (*) 22.0 - 57.0 (%) ??? Lymphocytes Abs 1.8 1.5 - 6.8 (x10(3)/mcL) ??? Monocytes % 7.7 2.0 - 12.0 (%) ??? Monocyte Abs 1.1 (*) 0.2 - 1.0 (x10(3)/mcL) ??? Eosinophils % 1.7 0.0 - 7.0 (%) ??? Eosinophils Abs 0.2 0.0 - 0.5 (x10(3)/mcL) ??? Basophils % 0.1 0.0 - 2.0 (%) ??? Basophils Abs 0.0 0.0 - 0.2 (x10(3)/mcL) ??? Immature Gran % 0.20 0.00 - 0.66 (%) ??? Conchita Gran Abs 0.03 0.00 - 0.05 (x10(3)/mcL) URINALYSIS WITH MICROSCOPIC Component Value Range ??? Glucose UA Negative Negative (mg/dL) ??? Protein UA Negative (mg/dL) ??? Bilirubin UA Negative Negative (mg/dL) ??? Urobilinogen UA 2.0 (*) Normal (mg/dL) ??? pH UA 6.0 5.0 - 8.0 ??? Blood UA Negative (mg/dL) ??? Ketones UA Negative (mg/dL) ??? Nitrite UA Positive ??? Leukocytes UA Negative (mcL) ??? Appearance UA Clear Clear ??? Spec [place] UA 1.010 1.002 - 1.030 ??? Color UA Dark Brown Yellow ??? RBC UA Not Present 0 - 4 ??? WBC UA 1 0 - 5 (/HPF) ??? Bacteria UA Rare (*) None (/HPF) ? ? Squam Epith UA 2 <=4 (/HPF) Imaging: CT A/P at OSH revealed an approx 6x3x5 area of concern for an abscess. Assessment: 12F w/history of pelvic pathology throughout life, presents with acute onset RLQ pn of 2 days duration. Plan: CT A/P from OSH an unclear read, as constrast did not reach throughout the bowel. Will obtain KUB tomorrow morning to further determine how far contrast has traveled. If throughout, may repeat CT-A/P today. Otherwise, may take her instead to the OR - especially if clinically deteriorates in any way - e.g. spikes WBC or fever, becomes HD unstable, etc. Patient clinically stable at present. -Admit to Pedi Surg - NPO after MN - Zosyn - Pain mgmt - KUB in a.m. EVI BARNES MD 03/30/2012 Pediatric Surgery Attending Note Addendum I have seen and examined Lottie Gaines at 1000 03/30/12 after extensively reviewing her new and past imaging studies with Dr. Dana Hearn, attending radiologist. I have reviewed Dr. Barnes's note above. I have spoken to the patient and family about my concerns and recommendations. I agree with Dr. Barnes's findings and care plan as described above and attest that they agree with our discussion via telephone last evening at 22:30. HPI summary: Lottie Gaines is an 12 year old female well known to this hospital due to a long history of recurrent UTI's, voiding dysfunction, chronic pelvic and back pain and intermittent finding of a mass in the wall of the right posterior bladder since 2008. This last finding was evaluated as recently as July-August, by Pediatric Urologists, Dr. Neri and Dr. Jenkins with a cystoscopy on 08/18/11 revealing bullous edema of the bladder lining with a small opening draining mucus in the right posterior bladder. Concern for an intestinovesicular fistula prompted colonoscopy by Dr. Mancini on 08/19/11 which was reportedly normal to the terminal ileum. Cystoscopy and retrograde ureterograms by Dr. Jenkins on 09/01/11 revealed no fistula but again bullous edema was noted. The retrograde urethrogram was normal. Lottie continues on treatment for dysfunctional voiding and chronic pain which require her to use topical lidocaine to void and to take gabapentin and Lortab for pain as well as Bactrim, Detrol, and supplemental sodium bicarbonate for voiding dysfunction and recurrent UTI's. February 19, 2012, Lottie was seen by Dr. Samantha Stalye, adolescent fondant puff maker, who due to fear and discomfort could only appreciate suprapubic pain on palpation and external genital glimpse that suggested a vaginal septum even though 3 prior vaginoscopies under anesthesia reported normal vagina and cervix. Present symptoms began suddenly 2-3 days ago and is described by Lottie to be worse and different from her chronic pelvic pain. She reportedly had a fever, but was eating and stooling normally. Urinewas negative for infection. An US was obtained by her PCP, Dr. Gio Briones, followed by an abdominal/pelvic CT scan with oral contrast which was interpreted as showing a possible abscess (presumed appendiceal) in the right pelvis. Dr. Briones spoke to me by telephone and admission to the pediatric floor was arranged. Lottie arrived as noted above by Dr. Barnes looking well but complaining of pain on palpation in the RLQ. The CT scan was reviewed last evening by me electronically and I was unconvinced this was a new finding of abscess and not an enlargement of her prior finding of the right posterior bladder wall abn ormality. Since perforated appendicitis could not be completely ruled out and Lottie was otherwise not toxic, she was started on Zosyn and given IV hydration overnight. Examination: Temp: [36.4 ??C (97.5 ??F)-37.9 ??C (100.2 ??F)] Heart Rate: [80-102] Resp: [20] BP: (101-115)/(44-69) SpO2: [97 %-100 %] Pertinent output: 1.3 cc/hr urine Constitutional: Awake and alert, moving well on her own in bed and then into wheelchair to go for follow up abdominal film. Complains of being hungry HEENT: Normal Neck: Supple Chest: Clear with normal respiratory effort Abdomen: Soft, nondistended, tender with guarding RLQ and down onto groin and anterior thigh. Genitalia: Not done at this time anticipating EUA Extremities: Normal Neuro: Normal 03/29/[address] of abdomen and pelvis were reviewed with Dr. Hearn and compared directly to images obtained on US in 2008 as well as MRI images for tethered cord 11/28. There appears to be a mass either in or adjacent to the right posterior bladder wall that is 2-3 times larger now than on prior exams. The area of possible abscess is contiguous with this mass and no discrete appendix or appendicolith is seen. 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 In addition there is a tubular fluid structure in the deep pelvis on the right. The findingsare concerning that the structure noted in 2009 is still present and larger and that the multicystic abscess is adjacent to the bladder at the same location. 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 If patient has double uterus, she may have a double vagina with the right sided vagina having no opening to the introitus (thus prior vaginal exams would show normal left vagina and cervix). Estrogen dependent tumors may also increase in size near puberty with increased mucus secretion and even cryptmennorrhea. This could be perforated appendicitis as well and can not be completely ruled out on imaging studies. Plan: I believe non-invasive investigations have been unsuccessful in diagnosing this child's findings and I have recommended to her parents that diagnostic laparoscopy in conjunction with cystoscopy and pelvic examination under anesthesia may finally delineate the cause of the enlarged process that is in the right pelvis. Obviously if she has perforated appendicitis, this too can be remedied at the time of the laparoscopy. Because of the several services that may need to be involved(sd, luiza urol, Dr. Staley, peds pathology) and the relative well appearing state of Lottie this morning, I will plan to coordinate this procedure on Sunday. In the meantime I will continue to treat her as perforated appendicitis with IV Zosyn. Her parents indicated that they understood and were anxious to have a definitive diagnosis made for Lottie. documented in this encounter Miscellaneous Notes Miscellaneous - Provider, Scanning - 04/03/2012 10:59 AM EST Miscellaneous - Provider, Scanning - 04/03/2012 10:55 AM EST Discharge Summary - Tena Griffin MD - 04/02/2012 11:54 AM EST Pediatric Final Discharge Summary Patient Name: Lottie Gaines Patient Age: 12 y.o. Birthdate: 2000 Admit date: 03/29/2012 8:39 PM Hospital Day 4 days Discharge date: 04/02/2012 Attending Physician: Farhad Whelan MD Discharge Diagnoses (Hospital Problems) and Secondary Diagnoses (Chronic Problems): Hospital Problems: Abdominal pain Didelphic uterus Vaginal duplication, cervical duplication, transverse vaginal septum Bladder mass Secondary Problems: Kidney stones Recurrent UTI Voiding dysfunction Reactive airway disease VSD Operations and Procedures: Diagnostic laparoscopy with biopsies - 04/01/[address] Whelan Cysto urethroscopy w/ biopsies, colposcopy - 04/01/[address] Jenkins History of Presentation: Lottie Gaines is an 12 year old female well known to this hospital due to a long history of recurrent UTI's, voiding dysfunction, chronic pelvic and back pain and intermittentfinding of a mass in the wall of the right posterior bladder since 2008. This last finding was evaluated as recently as July-August, by Pediatric Urologists, Dr. Neri and Dr. Jenkins with a cystoscopy on 08/18/11 revealing bullous edema of the bladder lining with a small opening draining mucusin the right posterior bladder. Concern for an intestinovesicular fistula prompted colonoscopy by Dr. Lavelle Sahu on 08/19/11 which was reportedly normal to the terminal ileum. Cystoscopy and retrograde ureterograms by Dr. Jenkins on 09/01/11 revealed no fistula but again bullous edema was noted. The retrograde urethrogram was normal. Lottie continues on treatment for dysfunctional voiding and chronic pain which require her to use topical lidocaine to void and to take gabapentin and Lortab for pain as well as Bactrim, Detrol, and supplemental sodium bicarbonate for voiding dysfunction and recurrent UTI's. February 19, 2012, Lottie was seen by Dr. Samantha Staley, adolescent fondant puff maker, who due to fear and discomfort could only appreciate suprapubic pain on palpation and external genital glimpse that suggested a vaginal septum even though 3 prior vaginoscopies under anesthesia reported normal vagina and cervix. Present symptoms began suddenly 2-3 days prior to admission and are described by Lottie to be worse and different from her chronic pelvic pain. She reportedly had a fever, but was eating and stoolingnormally. Urine was negative for infection. An US was obtained by her PCP, Dr. Gio Briones, followed by an abdominal/pelvic CT scan with oral contrast which was interpreted as showing a possible abscess (presumed appendiceal) in the right pelvis. Admission to the pediatric floor was arranged. Hospital Course (including prado lab data): Lottie was admitted to the hospital and started on IV zosyn for empiric treatment of a possible perforated appendicitis. All radiography was reviewed and due to the complex nature of this case plans were arranged for a coordinated operative procedure with pediatric general surgery performing diagnostic laparoscopy and possible appendectomy and pediatric urology performing an exam under anesthesia, cystourethroscopy and colposcopy. Lottie was taken to the operating room on 04/01/2012. 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 Whelan Sediment and Stringy Mass at Posterior of Bladder. Mass Effect. Complete Vaginal and Uterine Duplication Pathology: Intravesical Mass - Biopsy - Dr. Jenkins Post-operatively, Lottie was admitted to the hospital for post-operative observation and pain management. Her flynn catheter was left in place and then removed on POD#1. There were no acute events during Lottie's hospital stay. By afternoon on POD#1 she met the following criteria for discharge: Discharge Targets Met : - ambulatory - voiding - no nausea - passing flatus - pain controlled with oral medications - tolerating a regular diet Labs Pending at Discharge: surgical pathology from the bladder mass is pending - both intraperitoneal biopsies and trans-urethral biopsies Discharge Medications: Current Discharge Medication List New Meds Dose Details hydroCODone-acetaminophen (VICODIN) 1 tablet 1 tablet Take 1 tablet by mouth every 6 hours as needed for Pain. Qty: 40 tablet Refills: 0 Continued medications, unchanged Dose Details gabapentin (NEURONTIN) 100 mg 100 mg Take 100 mg by mouth daily. Qty: Refills: Multiple Urine Tests [place] [facility]; Combo Route) route. Use to monitor urine pH as instructed by MD Qty: 100 strip Refills: 6 sodium bicarbonate 650 mg 650 mg Take 650 mg by mouth 4 times daily. Take 2 tabs at 8 am, then one tab every 4 hours (total of 4 doses/day). Goal is to get urine pH to 8 Qty: 5 tablet Refills: 11 polyethylene glycol (MIRALAX) 17 g 17 g Take 17 g by mouth daily. Qty: 510 g Refills: 12 Pentosan Polysulfate Sodium (ELMIRON) 100 mg 100 mg Take 100 mg by mouth 3 times daily (before meals). Qty: Refills: tolterodine (DETROL LA) 2 mg 2 mg Take 2 mg by mouth daily. Qty: 90 capsule Refills: 4 levalbuterol (XOPENEX) 1.25 mg/0.5 mL nebulizer solution Qty: Refills: Medications STOPPED Dose sulfamethoxazole-trimethoprim (BACTRIM DS) 1 tablet 1 tablet acetaminophen-codeine (TYLENOL #3) 1 tablet 1 tablet hydrocodone-acetaminophen (LORTAB) 10 mLs 10 mLs Last set of vitals: BP 129/46 Pulse 72 Temp(Src) 36.6 ??C (97.9 ??F) (Axillary) Resp 20 Ht 141.6 cm (4' 7.75) Wt 36.9 kg (81 lb 5.6 oz) BMI 18.40 kg/m2 SpO2 97% Weight on day of discharge: 36.9 kg You / your child was hospitalized for: Diagnostic laparoscopy [place] [facility] [place]: Follow-up will be needed and will be scheduled as soon as results of the surgical pathology are available Discharge Instructions: Discharge Activity: no restrictions School/Day Care: school note provided, return to school 04/08, return to gym 04/15 Call your child's doctor if: see below Diet: regular diet Shower/Bath: Per home routine. Wound/Casts/Braces Care: n/a Additional Special Instructions: see below Instructions Given to Patient at Discharge: Provider Instructions Discharge instructions for Lottie Gaines: DIET: regular diet, no restrictions ACTIVITY: may experience abdominal discomfort related to laparoscopy for the next 3-5 days, but there are no specific restrictions on activity SHOWER: You may shower. Beginning 48 hours after surgery it is ok to soak in the bath or swim. WOUND CARE: You may remove the plastic bandages and gauze covering your incisions 48 hours after surgery. Do not remove the small white pieces of tape covering you incisions. These are called steri-strips and they help your skin heal and minimize scarring. Allow these steri-strips to fall off in theirown time. This usually takes 7-10 days. If they have not fallen off after 10 days you may remove them. FOLLOW-UP: we will call you when the results of Lottie's pathology are available; we will schedule follow-up for you at that time NEW MEDICATIONS: we have prescribed lortab pills for pain THINGS TO WATCH OUT FOR: - persistent high fever - increasing abdominal pain not relieved by pain medications - severe nausea - inability to have a bowel movement - inability to urinate - redness surrounding incisions or drainage from the incisions - any other new or concerning symptoms that develop CALLING FOR ADVICE: Never hesitate to call the office if something just does not seem right to you. It is always better to check than to guess it is nothing important and be wrong. After office hours, please call [phone] and tell the molybdenum steamer operator you need to speak to the resident on-call for Pediatric Surgery. During daytime hours try [phone] to reach one of our clinic nurses. Arrangements for VNA / home care: n/a Primary Care Physician: MILADIS BLACKMON MD Tel. #: [phone] Call MILADIS BALCKMON MD for a follow up appointment in 7-14 days. Your [facility] Attending physician is: Dr. Whelan and can be reached at [phone]. Med Student Progress Note - Bria Brito - 04/02/2012 7:07 AM EST Lottie Gaines is a 12 y.o. 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 S: The nurse said the patient had decreased urine output to 0.4 cc/kg/hr from the day before, ate peanut butter on toast overnight and had no other events. The patient reports having abdominal pain both viscerally and superficially on the surface. She said she can eat and drink. The flynn is still in place. Her father is at the bedside and said the patient slept well throughout the night. O: BP 118/60 Pulse 68 Temp(Src) 36.9 ??C (98.4 ??F) (Axillary) Resp 18 Ht 141.6 cm (4' 7.75) Wt 36.9 kg (81 lb 5.6 oz) BMI 18.40 kg/m2 SpO2 98% Tmax 37.1 C Urine output: 2.17 cc/kg/hr General: sleepy girl in bed, NAD Pulm: equal excursion, CTAB CV: RRR, no murmurs, rubs or gallops Abd: nondistended with dressing on incision sites clean, dry, and in tact. Bowel sound present. Diffusely tender with palpation : flynn in place with 100 ml pink urine Extremities: SCDs on, no edema Blood cultures negative at 2 days Pathology of bladder mass pending A/P Summary: Lottie Gaines is a 12 y.o. 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 1. Post-op: vital signs, ins and outs, daily weight 2. Pain: scheduled acetaminophen po 325 mg, gabapentin po 100 mg TID and ketorolac IV 15 mg q6H. Morphine 0.5 mg/kg/dose at 1.84 mg q4H prn breakthrough pain. Since patient is sleeping through night and tolerating po intake, consider changing scheduled ketorolac to ibuprofen 3. Pending bladder mass pathology, may need to consult urologic oncology 4. FEN: diet as tolerated, IVF has been discontinued 5. Flynn may be removed when urine is clear 6. PPX: incentive spirometry 10x/hour when awake, SCDs on, and encourage ambulation Bria Brito, MS III Pager [phone] Plan of Care - Lora Lucero - 04/02/2012 5:50 AM EST Problem: Pain, Acute (Pediatric) Goal: Acute Pain: Acceptable Pain Control/Comfort Level - Pain, Acute (Pediatric) Outcome: Present (see interventions, notes) Kandice pain has been well controlled with scheduled tylenol and toradol. No prn pain meds needed overnight. Lottie is utilizing abdominal splinting to TCDB with good effect. Lottie is taking some po (gingerale & PB toast) and has had no N/V. Flynn catheter continues to drain orange tinged urine in adequate amounts. Abdominal dsgs remain CDI. Lottie's dad is at bedside attentive and providing care. Plan of Care - Daja Luevano RN - 04/01/2012 6:27 PM EST Problem: Pain, Acute (Pediatric) Goal: Acute Pain: Acceptable Pain Control/Comfort Level - Pain, Acute (Pediatric) Outcome: Present (see interventions, notes) Report received from PACU. Patient arrived to room at 1850. Patient sleeping, all VSS. No complaintsof pain or discomfort at this time. See nursing flowsheet for full assessment. OR Attestation - Farhad Whelan MD - 04/01/2012 5:02 PM EST Attestation: Case Date: 04/01/2012 I was present and I participated during the entire procedure (does not need to include opening and closing). FARHAD WHELAN MD 04/01/2012 Op Note - Farhad Whelan MD - 04/01/2012 4:45 PM EST [facility] [place] Patient Name: Lottie Gaines : [id number] MR#: [id number] Case Date: 04/01/2012 Surgeon: Surgeon(s) and Role: Panel 1: * FARHAD WHELAN MD - Primary * TENA GRIFFIN MD Preoperative diagnosis: Bladder wall mass and possible pelvic abscess. 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 (Dr. Jenkins also collected mucosal bladder biopsies) Indications: The patient is an12 y.o. female with a 4 year history of small mass in the wall of the posterior right bladder with chronic pain and dysfunctional voiding who presented with acute pain in theRLQ abdominal pain and fever. CT of the abdomen showed the bladder wall mass to be larger than on previous studies and a possible right pelvic abscess. Procedure: After the successful induction of general anesthesia and being placed in supine lithotomyposition, the patient was prepped and draped in the usual fashion. A Flynn catheter was placed sterilely from the back table. An incision was made in the inferior umbilical fold and carried down to themidline fascia. The fascia was sharply opened and traction sutures of 0-Vicryl were placed on eitherside. The peritoneal was then entered bluntly and a 5mm laparoscopic camera port was placed under direct vision and secured with the traction sutures. The 30 degree 5 mm. laparoscope was then introduced after successful insufflation of the abdomen with CO2 to 15 mm Hg. Initial exploration revealed theomentum to be adherent to the lower anterior abdominal wall and the entire bladder. A 5mm trocar wasthen placed through a separate incision in the mid right abdomen and a 12mm trocar was placed in theleft lower quadrant under laparoscopic vision. The appendix was identified and noted to be completely normal an sitting in the right gutter just behind the cecum. Using blunt and Ligasure dissection the omental adhesions were taken down to reveal the internal genital organs as listed above. There was a firm mass adjacent to the anterior uterus in the wall of the bladder. After the bladder was cystoscoped by Dr. Jenkins and filled, the mass was even more prominent. Dr. Jenkins noted a exophytic mass in thebladder at the same location as the external mass and this was biopsied. Using blunt dissection, theperitoneum overlying the mass was opened. Using a cup biopsy forcep, several superficial and deep biopsies were taken from the mass. A small amount of bleeding was noted but resolved quickly. One literof warm saline was then instilled and aspirated. Because of the unknown aggressiveness of this mass,Dr. Jenkins suggested not removing the normal appendix at this time in case it would be needed for bladder reconstruction in the future. The trocars were removed sequentially, inspecting each for bleeeding. The camera was removed and the excess CO2 allowed to dissipate. Twenty-seven cc's of 0.25% Marcaine was placed in all of the incisions for post op analgesia. The incisions were closed in layers of appropriate absorbable suture. Mastisol, steristrips and dressings were applied. The Flynn catheter wasreplaced after the cystoscopy and left in place. The patient was awakened and taken back to the PACUis satisfactory condition. Op Note - Deng Jenkins MD - 04/01/2012 4:39 PM EST PEDIATRIC UROLOGY OPERATIVE NOTE Pre-Op Diagnosis: Bladder Mass Post-Op Diagnosis: Same Procedure: Cystourethroscopy withBiopsy of Bladder Mass / Vaginoscopy Surgeon: Gunner Jenkins Shot Coat Tender: None Anesthesia: General Tubes / Drains: 14 Fr Flynn catheter Fluids: Crystalloid Findings: Sediment and Stringy Mass at Posterior of Bladder. 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 She has had several ultrasounds that have shown thickening in the right posterior bladder wall. With negative cystoscopies this finding was thought to be inflammatory and transient. Recently her pain worsened and was now localized to the right lower quadrant. She was brought to the OR today by Dr. Whelan for diagnostic laparoscopy. She invited me into the operating room to perform repeat cystoscopy and vaginoscopy when recent examination by Pedi-AMMONIA BOX OPERATOR (Dr. Staley) revealed and abnormal hymen. Lottie had already been placed under anesthesia and in the lithotomy position by Dr. Whelan. Her external genitalia had been prepped with Betadine and she was draped sterile. I advanced a 14 Fr cystoscope into the bladder. The urethra and trigone were normal. The right portion of the bladder and the anterior wall as well as the dome were normal. The right side of the bladder and the right posterior wall were dispaced by a round mass. There was a frondular stringy mass in the middle of the mass. This portion was biopsied with cold cup biopsy forceps. There was no bleeding. The combination of laparoscopy and cystoscopy revealed an extrinsic mass. We drained the bladder. We performed a vaginoscopy. We found 2 single cervices and 2 completely separate vaginas. We replaced the flynn catheter and drained the bladder OR Attestation - Deng Jenkins MD - 04/01/2012 4:34 PM EST Attestation: Case Date: 04/01/2012 I attest that I was present during the entire procedure and that I performed all the prado elements ofthe procedure without resident assistance DENG JENKINS MD 04/01/2012 Plan of Care - Shima Carreno RN - 04/01/2012 4:07 AM EST Problem: Pain, Acute (Pediatric) Goal: Acute Pain: Acceptable Pain Control/Comfort Level - Pain, Acute (Pediatric) Outcome: Therapy, goal partially met VSS and afebrile throughout shift. Pt report of pain twice, once in her lower right quadrant and once in her upper thigh. Relief with tylenol. Pt took adequate PO until 0000 and is now NPO for procedure today. Pt resting comfortably throughout night, dad at bedside providing cares. Consult Note - Hector Neal MD - 03/31/2012 10:25 PM EST UROLOGY CONSULTATION I have been asked to see the patient by Dr. Whelan for evaluation and recommendations of acute on chronic pelvic pain and dysuria in the setting of right sided fluid accumilation. HPI: Lottie is a 12 yo F who has been followed in pediatric urology for recurrent UTIs, voiding dysfunction, chronic abdominal and pelvic pain and right hydronephrosis. She also has intermittently had a mass on imaging. Work up has included CT scans, vaginal US and cystoscopies. On cystoscopy on 08/18/11 Dr. Neri reports bullous edema of the bladder lining with a small opening draining mucus in the right posterior bladder suspicious of a fistula. Subsequent colonoscopy was described as normal. Cysto on 09/01/11 describes only bullous ededma. Retrograde was normal. Lottie continues on treatment for dysfunctional voiding and chronic pain which require her to use topical lidocaine to void and to take gabapentin and Lortab for pain as well as Bactrim, Detrol, and supplemental sodium bicarbonate for voiding dysfunction and recurrent UTI's. She has dysuria with rightgroin pain on every urination Present symptoms began suddenly 4 days ago. Are worse and different from her chronic pelvic pain. Fever, no N/V. Work up includeda CT scan with which was read as possible appendix abscess in the right pelvis. Review of imaging byr Drs. Whelan and Delmer: There appears to be a mass either in or adjacent to the right posterior bladder wall that is 2-3 times larger now than on prior exams. The area of possible abscess is contiguous with this mass and no discrete appendix or appendicolith is seen. On CT imaging there is also the appearance of a didelphysuterus that has not been seen before. In addition there is a tubular fluid structure in the deep pelvis on the right. The findings are concerning that the structure noted in 2009 is still present and larger and that the multicystic abscess is adjacent to the bladder at the same location. Patient Active Problem List Diagnoses Code ??? RAD (reactive airway disease) 493.90AV ??? VSD (ventricular septal defect) 745.4Y ??? Recurrent UTI 599.0Q ??? Urgency of urination 788.63 ??? Nephrocalcinosis 275.49D ??? Dysuria 788.1 ??? Diarrhea 787.91 ??? Abdominal pain 789.00AP ??? 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 Hyperopia 367.0B History Substance Use Topics ??? Smoking status: Passive Smoker ??? Smokeless tobacco: Never Used Comment: Mom states smokes ??? Alcohol Use: No No current facility-administered medications on file prior to encounter. Current outpatient prescriptions ordered prior to encounter Medication Sig Dispense Refill ??? gabapentin (NEURONTIN) 100 mg capsule Take 100 mg by mouth daily. ??? Multiple Urine Tests [place] [facility] [place]; Combo Route) route. Use to monitor urine [...] levalbuterol (XOPENEX) 1.25 mg/0.5 mL nebulizer solution Temp: [36.4 ??C (97.5 ??F)-37.1 ??C (98.8 ??F)] Heart Rate: [65-82] Resp: [18-19] BP: (97-113)/(44-64) SpO2: [96 %-100 %] NAD, alert and oriented. Pleasant, but somewhat nervous RRR Clear bilateral Abd soft, non distended, non tympanitic. RUQ pain on palpation. RUQ pain and shaking pelvis : No CVA tenderness. Recent Labs Basename 03/30/12 1805 03/30/12 0500 03/30/12 0050 ??? WBC 14.9* 13.9 14.4* ??? HGB 12.5 11.7 11.6 ??? HCT 35.8 34.3* 33.3* ??? PLATELET 181 180 155 ??? NA -- 136 137 ??? K -- 4.2 3.7 ??? CL -- 102 102 ??? CO2 -- 27 24 ??? BUN -- 10 13 ??? CREATININE -- 0.52 0.49 ??? INR -- -- -- Component Value Date/Time SPGRAVITYUA 1.010 03/30/2012 05:30 PHUADIP 6.0 03/30/2012 05:30 PROTEINUADIP Negative 03/30/2012 05:30 GLUCOSEU Negative 03/30/2012 05:30 KETONESUA Negative 03/30/2012 05:30 UROBILIUADIP 2.0* 03/30/2012 05:30 BLOODUADIP Negative 03/30/2012 05:30 NITRATEUA Positive 03/30/2012 05:30 LEUKOESTERUA Negative 03/30/2012 05:30 WBCUA 1 03/30/2012 05:30 BILIRUBINUA Negative 03/30/2012 05:30 Imaging: See above Assessment: Unclear etiology of a fluid accumulation in the pelvis, likely of inflammatory nature, either from bladder wall or appendix or possibly involving vagina or uterus. Recommendations: As better delineated in Dr. Whelan??s she will perform a diagnostic laparoscopy atwhich time it is reasonable to combine with cystoscopy And pelvic exam to give more definitve diagnosis. Will discuss w Dr. Jenkins. Plan of Care - Veena Mendez RN - 03/31/2012 4:46 PM EST Problem: Pain, Acute (Pediatric) Goal: Acute Pain: Acceptable Pain Control/Comfort Level - Pain, Acute (Pediatric) Outcome: Present (see interventions, notes) VSS. Pt afebrile. Pt taking adequate PO. PIV patent for IV abx. Pt voiding to hat. Pt rating pain 7-10/10. Pain meds given with relief. Plan for pt to be NPO at midnight for OR tomorrow. Parents at thebedside. Pt with many visitors this afternoon. Miscellaneous - Provider, Scanning - 03/31/2012 3:06 PM EST Plan of Care - Shima Carreno RN - 03/31/2012 6:27 AM EST Problem: Pain, Acute (Pediatric) Goal: Acute Pain: Acceptable Pain Control/Comfort Level - Pain, Acute (Pediatric) Outcome: Therapy, goal partially met Pt VSS and afebrile throughout shift. Pt resting comfortably all night with no episodes of pain thisshift. Dad at bedside providing cares. Plan of Care - Irina Salmon RN - 03/30/2012 9:53 PM EST Problem: Pain, Acute (Pediatric) Intervention: Acute Pain: Related Risk Factors (Pediatric) VSS, afebrile. Pt shows no s/s of discomfort. Denying pain at this time. PIV site c/d/i, IVF runningat KVO. Taking po well. Pt continuing on anitbiotics. Voided appropriately. Incontinent of urine X1 Dad at bedside, supportive with care. Care Management - Cindy Hernández MSW - 03/30/2012 1:56 PM EST Office of Care Management Weekend Social Work Note Relevant Information: Worker got paged by RN as family were here asking for gas cards and assistance with care of their two autistic boys who are currently at home. Worker met with patient's parents who state that they havetwo autistic boys at home ages 20 and 17. They state that they rushed up here to be with patient andhad the boys child attendant stay with them. Mom states that they are over their allotted weekly time for the boys child attendant and she is staying to do them a favor. They have 15 hours a week which starts up again on Sunday. Mom asks for gas cards for today and tomorrow as she has to take dad home so he can get his truck and she can stay with the boys. Mom states they live over a hundred miles from here. Worker asked mom about other family members or friends that could stay with her other children and they said no, both their moms were in nursing homes. Worker offered the possibility of Felix's house, but mom deferred, saying since it was not the boys environment that they probably would not do well there. Worker explained to the family the different gas programs and how gas cards are not supposed to be used for visiting on the weekends. Mom pushed, saying that the only way one of them could be here withher was to go home with assistance with gas each day. Mom states that dad is currently not working and she only works one day a week which was yesterday and she couldn't due to the circumstances. Worker spoke to co-worker Shahram Singh, RO[employer]UCK DRIVER who agreed that gas cards were to be used in emergencies,but a small amount could be given this one time. Worker provided family with two food vouchers and aten dollar gas card, informing them that this was for the whole weekend and they could not get anything else. Worker said they would have to follow up with the weekday Staff Trainer, Alejandrina Crouch. Assessment: Family are insisting on getting a gas voucher for today and tomorrow as they have to go home to carefor their boys. Two food vouchers and a ten dollar gas card was given as an exception. Plan: Follow up with weekday Staff Trainer DARRYN Yoon on Sunday. DARRYN WEINSTEIN Weekend Staff Trainer Pager [phone] Plan of Care - Irina Salmon RN - 03/30/2012 4:34 AM EST Problem: Pain, Acute (Pediatric) Intervention: Acute Pain: Related Risk Factors (Pediatric) VSS, afebrile. Pt shows no s/s of discomfort. Denying pain at this time. PIV site c/d/i, IVF runningas ordered. Tolerating NPO status. Pt continuing on anitbiotics. Voided X2, dipped with positive leukocytes, MDs notified. Plan for UA and urine culture. Pt sleeping through night. Dad at bedside, supportive with care. Plan for AM BMP and CBC. documented in this encounter Plan of Treatment Upcoming Encounters Date Type Specialty Care Team Description 12/22/2021 Office Visit Plastic Surgery Russ Guevara M D [facility] SURGERY [place], [place] [address] (Wo rk) documented as of this encounter Procedures Procedure Name Priority Date/Time Associated Comments Diagnosis NON-AMMONIA BOX OPERATOR FINAL REPORT Routine 04/01/2012 4:58 PM R esults for this EST procedure are i n the results section. PATHOLOGY ADDENDUM Routine 04/01/2012 4:58 PM Res ults for this REPORT EST procedure are i n the results section. SURGICAL PATHOLOGY Routine 04/01/2012 4:58 PM Res ults for this REPORT EST procedure are i n the results section. CYTOPATHOLOGY Routine 04/01/2012 4:25 PM Results for this NON-GYNECOLOGICAL EST procedure are in the results section. SPECIMEN TO PATHOLOGY Routine 04/01/2012 4:08 PM Results for this EST procedure are i n the results section. SPECIMEN TO PATHOLOGY Routine 04/01/2012 4:08 PM Results for this EST procedure are i n the results section. LAPAROSCOPY,SURGICAL,W 04/01/2012 2:02 PM chronic pain ITH BIOPSY, SINGLE OR EST MULTIPLE (WRVU 5.44) COLPOSCOPY OF VAGINA 04/01/2012 2:02 PM chronic pain WITH CERVIX IF PRESENT EST (WRVU 1.6) CYSTO, URETHROSCOPY 04/01/2012 2:02 PM chronic pain WITH BIOPSY (WRVU EST 2.59) LAPAROSCOPY, 04/01/2012 2:02 PM chronic pain DIAGNOSTIC, ABDOMEN EST (WRVU 5.14) DIFFERENTIAL, STAT 03/30/2012 6:05 PM Results for this AUTOMATED EST procedure are i n the results section. BLOOD CULTURE STAT 03/30/2012 6:05 PM Results for this EST procedure are i n the results section. BLOOD CULTURE STAT 03/30/2012 6:05 PM Results for this EST procedure are i n the results section. CBC (WITH DIFF) STAT 03/30/2012 6:05 PM Result s for this EST procedure are i n the results section. XR ABDOMEN FLAT AND Routine 03/30/2012 10:10 Resu lts for this UPRIGHT AM EST procedure are i n the results section. URINALYSIS WITH REFLEX Routine 03/30/2012 5:30 AM Results for this CULTURE EST procedure are i n the results section. URINE CULTURE Routine 03/30/2012 5:30 AM Results for this EST procedure are i n the results section. DIFFERENTIAL, Routine 03/30/2012 5:00 AM Results for this AUTOMATED EST procedure are i n the results section. CBC (WITH DIFF) Routine 03/30/2012 5:00 AM Result s for this EST procedure are i n the results section. BASIC METABOLIC PANEL Routine 03/30/2012 5:00 AM Results for this (NON-FASTING) EST procedure are in the results section. DIFFERENTIAL, STAT 03/30/2012 12:50 Results fo r this AUTOMATED AM EST procedure are i n the results section. CBC (WITH DIFF) STAT 03/30/2012 12:50 Results for this AM EST procedure are i n the results section. BASIC METABOLIC PANEL STAT 03/30/2012 12:50 Re sults for this (NON-FASTING) AM EST procedure are in the results section. REQUEST FOR 2ND READ Routine 03/29/2012 11:[address] for this CT ABDOMEN AND PELVIS PM EST proced ure are in the results section. documented in this encounter Results NON-AMMONIA BOX OPERATOR FINAL REPORT (04/01/2012 4:58 PM EST) Component Value Ref Test Analysis Performed At [facility] gist Range Method Time Signature Non-Complaint Clerk CERNER Final Report ? [facility] ? Provider: ?? DENG JENKINS ?Pt. Name: ?? ISIDORO Y, LOTTIE Lj ? Acc #: ?[id number] ?Pt. MRN: ?[id number] ? Col Date: ?? 04/01/20 12 ?/Sex: ?2000,(12 years),Female ? Rec Date: ?? 04/01/2012 ?LOC: ?PA ? CYTOPATHOLOGY: ??NGYN ? ---Adequacy--- ? Specimen submitted is satisfactory. ? ---Cytopathologic Diagnosis--- ? Negative for Malignancy ? 04/03/12 ?Screened by: ? SLA ? Rescreened by: ?? EJG,EJG ? 04/07/12 ?Verified by: ? Eleonora CHOW, Toby Lipscomb ?Cytopa thologist ? (Electronic Signature) ? ---Comment--- ? Urine, Cystoscopic: Urothelial cells (some in cluster s - favor ? instrumentation effect), inflammatory cells, and debr is present. ? No cytologically malignant cells are noted. ? Dr. Bond has reviewed this case an d concurs with the diagnosis. ? ---Clinical Information--- ? Specimen Source: ?Urine, Cystoscopic ? Pertinent Clinical Data and Significant Therapy: ?Chronic pain ? Clinical Impression: ?Bladder mass ? Pertinent Radiologic Findings: ?(none provided) ? Gross Description: ?Received fresh, approximatel y 40 ml. total volume of clear, orange ? fluid. ?Total Preparation: Liquid Based Prep 1. Specimen (Source) Anatomical Collection Method Collection Time Re ceived Time Location / / Volume Laterality 04/01/2012 4:58 PM EST Deng Jenkins MD PATHOLOGY/CYTOLOGY ORDERABLE S Performing Organization Address City/State/[place] [address] [facility] PATHOLOGY ADDENDUM REPORT (04/01/2012 4:58 PM EST) Component Value Ref Test Analysis Performed At [facility] gist Range Method Time Signature Addendum CERNER Report ? [facility] ? Provider: ?? FARHAD WHELAN ?? Pt. Name: ?? LOTTIE GAINES ? Acc #: ?[id number] ?Pt. MRN: ?[id number] ? Col Date: ?? 04/01/20 12 ?/Sex: ?2000,(12 years),Female ? Rec Date: ?? 04/01/2012 ?LOC: ?PA ? ADDENDUM REPORT ? ---Addendum Discussion--- ? Immunohistochemical s taining of the external bladder biopsies (specimen B) ? has ruled out Langerhans histiocytosis. ? The inflammatory infiltrate is non-specific. ? Immunohistochemistry Studies: ? Formalin-fixed, paraf fin-embedded [...] Block ?Antibody ? Result (Posi tive/Negative) ? B1 ?CD1A ?ne gative ? S100 ?n egative ? CD68 ?positive (non-specific) ? 04/05/12 ? [facility] ? 04/05/12 Verified by: ? Magdalena Larsen MD ? [...] ceived Time Location / / Volume Laterality 04/01/2012 4:58 PM EST Farhad Whelan MD PATHOLOGY/CYTOLOGY ORDERABLE S Performing Organization Address City/State/[place] [address] [facility]IUM SURGICAL PATHOLOGY REPORT (04/01/2012 4:58 PM EST) Component Value Ref Test Analysis Performed At [facility] Range Method Time Signature Surgical [facility] Pathology ? [facility] Report ? Provider: ?? FARHAD WHELAN ?? Pt. Name: ?? LOTTIE GAINES ? Acc #: ?[id number] ?Pt. MRN: ?[id number] ? Col Date: ?? 04/01/20 12 ?/Sex: ?2000,(12 years),Female ? Rec Date: ?? 04/01/2012 ?LOC: ?PA ? SURGICAL PATHOLOGY ? ---Pathologic Diagnosis--- ? A - Intravesical mass/bladder mass; biopsies: ? Blood clot, fibrin and granulocytes. No tissue presen t. ? B - Peritoneal side bladder wall mass; biopsies: ? Fibroadipose tissue a nd bladder wall with granulation tissue and acute and ? chronic inflammation (see Comment). ? CR-0 ? 04/03/12 ? KO ? 04/04/12 Verified by: ? Magdalena Larsen MD ? Pathologist ? (Electronic Si gnature) ? The attending pathologist whose signature appears o n this report has ? reviewed all diagnostic slides and has edited the boogie ss and/or ? microscopic portion of the report in rendering the fi nal pathologic ? diagnosis. ? ---Comment--- ? The A specimen contai ns no tissue. The B specimen includes smooth muscle ? from bladder wall and loose perivesical connective ti ssue including ? lymphoid tissue. Gran ulation tissue is intermixed and marked chronic and ? acute inflammation obscures most of the specimen. Epithelium is focally ? present and is calret inin positive/Cytokeratin 20 negative, suggestive of ? mesothelium. ? The negative reaction with myogen in and muscle specific actin rules out ? embryonal rhabdomyosarcoma in this material. ? Immunohistochemistry Studies: ? Formalin-fixed, paraf fin-embedded tissue sections are studied using the B- ? SA system technique w ith appropriate positive and negative controls. ??These ? IHC studies provide [facility] pathologist with adjunctive diagnostic information. ? Antibody [...] Block ?Antibody ? Result (Posi tive/Negative) ? [facility] ? Provider: ?? FARHAD WHELAN ?? Pt. Name: ?? LOTTIE GAINES ? Acc #: ?[id number] ?Pt. MRN: ?[id number] ? Col Date: ?? 04/01/20 12 ?/Sex: ?2000,(12 years),Female ? Rec Date: ?? 04/01/2012 ?LOC: ?[place] ? SURGICAL PATHOLOGY ? A,B ?myogenin ? negative ?actin ms ?negative ? B ?calretinin ? positive ? B ?CK 20 ? negative ? ---Microscopic Description--- ? Slides reviewed, microscopic description not recorded . ? ---Gross Description--- ? A - Labeled/Fixative: Intravesical mass/bladder mass, fresh. ? Qty/Size/Weight: ?Two, 0.3 cm and 0.6 cm. ? Tissue Description: ?? Soft, pink tissues. ? Sections/Processing: ??(T1) ? B - Labeled/Fixative: Peritoneal side bladder wall ma ss, fresh. ? Qty/Size/Weight: ?Four, averaging 0.6 cm. ? Tissue Description: ?? Soft, red tissues. ? Sections/Processing: ??(T1) ??aje/SNS ? ---Clinical Information--- ? Specimen Submitted: ? A - Intravesical mass/bladder mass ? B - Peritoneal side bladder wall mass ? Clinical History/Diagnosis: ? Chronic pain Specimen (Source) Anatomical Collection Method Collection Time Re ceived Time Location / / Volume Laterality 04/01/2012 4:58 PM EST Farhad Whelan MD PATHOLOGY/CYTOLOGY ORDERABLE S Performing Organization Address City/[facility]/[place] [address] CERCLIFF DIEGOENNIUM Cytopathology Non-Gynecological (04/01/2012 4:25 PM EST) Specimen Anatomical Collection Method Collection Time Receive d Time (Source) Location / / Volume Laterality AP Specimen 04/01/2012 4:25 PM 2 4:25 EST PM EST Narrative CERNER MILLENNIUM - 04/01/2012 4:[address] Specimen requisition ordered. ??Separate Pathology report to follow Deng Jenkins MD PATHOLOGY/CYTOLOGY ORDERABLE S Performing Organization Address [facility]/[place] [address] CERCLIFF DIEGOENNIUM Specimen to Pathology (surgical or derm) (04/01/2012 4:08 PM EST) Specimen Anatomical Collection Method Collection Time Receive d Time (Source) Location / / Volume Laterality AP Specimen 04/01/2012 4:08 PM 2 4:08 EST PM EST Narrative CERNER MILLENNIUM - 04/01/2012 4:[address] Specimen requisition ordered. ??Separate Pathology report to follow Farhad Whelan MD PATHOLOGY/CYTOLOGY ORDERABLE S Performing Organization Address City/[facility]/[place] [address] CERNER MILLENNIUM Specimen to Pathology (surgical or derm) (04/01/2012 4:08 PM EST) Specimen Anatomical Collection Method Collection Time Receive d Time (Source) Location / / Volume Laterality AP Specimen 04/01/2012 4:08 PM 2 4:08 EST PM EST Narrative CERNER MILLENNIUM - 04/01/2012 4:[address] Specimen requisition ordered. ??Separate Pathology report to follow Farhad Whelan MD PATHOLOGY/CYTOLOGY ORDERABLE S Performing Organization Address City/[facility]/[place] [address] CERNER MILLENNIUM (ABNORMAL) DIFFERENTIAL, AUTOMATED (03/30/2012 6:05 PM EST) [facility] Method Time Signature Neutrophils % 73.3 (H) 33.0 - CERNER 73.0 % MILLENNIUM Neutr Abs (ANC) 10.90 (H) 1.50 - CERNER 8.00 MILLENNIUM x10(3)/mc L Lymphocytes % 16.1 (L) 22.0 - CERNER 57.0 % MILLENNIUM Lymphocytes Abs 2.4 1.5 - 6.8 CERNER x10(3)/mc MILLENNIUM L Monocytes % 6.7 2.0 - CERNER 12.0 % MILLENNIUM Monocyte Abs 1.0 0.2 - 1.0 CERNER x10(3)/mc MILLENNIUM L Eosinophils % 3.5 0.0 - 7.0 CERNER % MILLENNIUM Eosinophils Abs 0.5 0.0 - 0.5 CERNER x10(3)/mc MILLENNIUM L Basophils % 0.2 0.0 - 2.0 CERNER [...] differential will be performed. Conchita Gran Abs 0.03 0.00 - 0.05 x10(3)/mcL CER NER MILLENNIUM Specimen Anatomical Collection Method Collection Time Receive d Time (Source) Location / / Volume Laterality Blood specimen 03/30/2012 6:05 PM 012 6:07 (specimen) EST PM EST Farhad Whelan MD HEMATOLOGY ORDERABLES Performing Organization Address City/State/ZIP Code Phon e Number [address] CERNER MILLENNIUM (ABNORMAL) CBC (with Diff) (03/30/2012 6:05 PM EST) P athologist Signature WBC 14.9 (H) 4.5 - 14.0 CERNER x10(3)/mcL MILLENNIUM RBC 4.36 4.00 - CERNER 5.20 MILLENNIUM x10(6)/mcL Hemoglobin 12.5 11.5 - CERNER 15.5 gm/dL MILLENNIUM Hematocrit 35.8 35.0 - CERNER 45.0 % MILLENNIUM MCV 82.1 75.0 - CERNER 93.0 fL MILLENNIUM MCH 28.7 25.0 - CERNER 33.0 pg MILLENNIUM MCHC 34.9 32.0 - CERNER 36.5 gm/dL MILLENNIUM Platelets 181 145 - 370 CERNER x10(3)/mcL MILLENNIUM RDWSD 37.7 35.0 - CERNER 46.0 fL MILLENNIUM RDWCV 12.5 10.9 - CERNER 14.4 % MILLENNIUM MPV 9.3 9.0 - 12.0 CERNER fL MILLENNIUM Specimen Anatomical Collection Method Collection Time Receive d Time (Source) Location / / Volume Laterality Blood specimen 03/30/2012 6:05 PM 012 6:07 (specimen) EST PM EST Resulting Agency Comment Spec In Lab Farhad Whelan MD HEMATOLOGY ORDERABLES Performing Organization Address City/State/[place] [address] CERNER MILLENNIUM Blood culture (03/30/2012 6:05 PM EST) Patholo gist Method Time Signature Blood Culture CERNER ? Patient Name: LOTTIE GAINES ? Ordered By: FARHAD WHELAN ? MR#: [id number] ?LOC: ??PA ? /Sex: ??2000 (12 years), ? Female ? PROCEDURE: Blood Culture ?SOURCE: Blood Pedi ? COLLECTED: 03/30/2012 18:05 ? STARTED: 03/30/2012 22:10 ? FINAL REPORT ? Final Report ? Verified:04/05/2012 23:09 ? No growth at 5 days. ? PRELIMINARY REPORT ? Preliminary Report ? Verified:04/03/2012 23:09 ? No growth at 4 days. ? Specimen Anatomical Collection Method Collection Time Receive d Time (Source) Location / / Volume Laterality Blood specimen 03/30/2012 6:05 PM 012 (specimen) EST 10:10 PM EST Resulting Agency Comment Spec In Lab Farhad Whelan MD MICROBIOLOGY - BLOOD ORDERAB LES Performing Organization Address City/State/[place] [address] [facility] Blood culture (03/30/2012 6:05 PM EST) [facility] Method Time Signature Blood Culture [facility] ? Patient Name: LOTTIE GAINES ? Ordered By: FARHAD WHELAN [facility] ? MR#: [id number] ?LOC: ??PA ? /Sex: ??2000 (12 years), ? Female ? PROCEDURE: Blood Culture ?SOURCE: Blood Pedi ? COLLECTED: 03/30/2012 18:05 ? STARTED: 03/30/2012 22:09 ? FINAL REPORT ? Final Report ? Verified:04/05/2012 23:09 ? No growth at 5 days. ? PRELIMINARY REPORT ? Preliminary Report ? Verified:04/03/2012 23:09 ? No growth at 4 days. ? Specimen Anatomical Collection Method Collection Time Receive d Time (Source) Location / / Volume Laterality Blood specimen 03/30/2012 6:05 PM 012 (specimen) EST 10:09 PM EST Resulting Agency Comment Spec In Lab Farhad Whelan MD MICROBIOLOGY - BLOOD ORDERAB LES Performing Organization Address City/State/[place] [address] OPAL ZadegoIUM XR abdomen flat and upright (03/30/2012 10:10 AM EST) Anatomical Region Laterality Modality Abdomen N/A Radiographic Imaging Specimen (Source) Anatomical Collection Method Collection Time Re ceived Time Location / / Volume Laterality 03/30/2012 10:10 AM EST Narrative 03/30/2012 10:40 AM EST Comparison Examination ABD FLAT AND UPRIGHT Clinical History CT from OSH 03/29 sugg RLQ abscess but co ntrast does not reach bowel. ??Assess for progression of contrast Comparison 09/25/2011 ? Technique Findings There is intraluminal contrast material within the colon due to recent CT scan. ?? There is no evidence of bowel obstructio n. ??The lung bases are clear. ??The fat planes are well-maintained. ??No free in traperitoneal air is identified. ?? Underlying bony structures appear normal . Impression No evidence of acute abdomen or localizi ng signs. ?? Procedure Note Dana Cobos MD - 03/21 Comparison Examination ABD FLAT AND UPRIGHT Clinical History CT from OSH 03/29 sugg RLQ abscess but co ntrast does not reach bowel. Assess for progression of contrast Comparison 09/25/2011 Technique Findings There is intraluminal contrast material within the colon due to recent CT scan. There is no evidence of bowel obstructio n. The lung bases are clear. The fat planes are well-maintained. No free intr aperitoneal air is identified. Underlying bony structures appear normal . Impression No evidence of acute abdomen or localizi ng signs. Farhad Whelan MD IMG DX ORDERABLES URINE CULTURE (03/30/2012 5:30 AM EST) [facility] Method Time Signature Urine Culture CERNER ? Patient Name: LOTTIE GAINES ? Ordered By: FARHAD WHELAN MILLENNIUM ? MR#: [id number] ?LOC: ??PA ? /Sex: ??2000 (12 years), ? Female ? PROCEDURE: Urine Culture ?SOURCE: Urine ? COLLECTED: 03/30/2012 05:30 ? STARTED: 03/30/2012 08:17 ? FINAL REPORT ? Final Report ? Verified:03/31/2012 09:54 ? No growth (Less than 1,000 cfu/ml). ? Specimen Anatomical Collection Method Collection Time Receive d Time (Source) Location / / Volume Laterality Urine specimen 03/30/2012 5:30 AM 012 8:16 (specimen) EST AM EST Resulting Agency Comment Spec In Lab Farhad Whelan MD MICROBIOLOGY - GENERAL ORDER DU Performing Organization Address City/State/[place] [address] CERNER MILLENNIUM (ABNORMAL) URINALYSIS WITH MICROSCOPIC (03/30/2012 5:30 AM EST) [facility] Method Time Signature Glucose UA Negative Negative CERNER mg/dL MILLENNIUM Protein UA Negative mg/dL CERNER MILLENNIUM Bilirubin UA Negative Negative CERNER mg/dL MILLENNIUM Urobilinogen UA 2.0 (A) Normal CERNER mg/dL MILLENNIUM pH UA 6.0 5.0 - 8.0 CERNER MILLENNIUM Blood UA Negative mg/dL CERNER MILLENNIUM Ketones UA Negative mg/dL CERNER MILLENNIUM Nitrite UA Positive CERNER MILLENNIUM Leukocytes UA Negative mcL CERNER MILLENNIUM Appearance UA Clear Clear CERNER MILLENNIUM Spec [place] UA 1.010 1.002 - CERNER 1.030 MILLENNIUM Color UA Dark Brown Yellow CERNER MILLENNIUM RBC UA Not Present 0 - 4 CERNER MILLENNIUM WBC UA 1 0 - 5 /HPF CERNER MILLENNIUM Bacteria UA Rare (A) None /HPF CERNER MILLENNIUM Squam Epith UA 2 <=4 /HPF CERNER MILLENNIUM Specimen Anatomical Collection Method Collection Time Receive d Time (Source) Location / / Volume Laterality Urine specimen 03/30/2012 5:30 AM 012 5:44 (specimen) EST AM EST Resulting Agency Comment Spec In Lab Farhad Whelan MD URINE ORDERABLES Performing Organization Address City/State/ZIP [place] [address] CERNER MILLENNIUM (ABNORMAL) DIFFERENTIAL, AUTOMATED (03/30/2012 5:00 AM EST) [facility] Method Time Signature Neutrophils % 77.7 (H) 33.0 - CERNER 73.0 % MILLENNIUM Neutr Abs (ANC) 10.81 (H) 1.50 - CERNER 8.00 MILLENNIUM x10(3)/mc L Lymphocytes % 12.6 (L) 22.0 - CERNER 57.0 % MILLENNIUM Lymphocytes Abs 1.8 1.5 - 6.8 CERNER x10(3)/mc MILLENNIUM L Monocytes % 7.7 2.0 - CERNER 12.0 % MILLENNIUM Monocyte Abs 1.1 (H) 0.2 - 1.0 CERNER x10(3)/mc MILLENNIUM L Eosinophils % 1.7 0.0 - 7.0 CERNER % MILLENNIUM Eosinophils Abs 0.2 0.0 - 0.5 CERNER x10(3)/mc MILLENNIUM L [...] differential will be performed. Conchita Gran Abs 0.03 0.00 - 0.05 x10(3)/mcL CER NER MILLENNIUM Specimen Anatomical Collection Method Collection Time Receive d Time (Source) Location / / Volume Laterality Blood specimen 03/30/2012 5:00 AM 012 5:12 (specimen) EST AM EST Farhad Whelan MD HEMATOLOGY ORDERABLES Performing Organization Address City/State/ZIP Code Phon e Number [place] [address] CERNER MILLENNIUM Basic Metabolic Panel (non-fasting) (03/30/2012 5:00 AM EST) P athologist Signature Glucose Lvl 115 60 - 199 CERNER mg/dL MILLENNIUM Comment: Diabetes: >=200 mg/dL plus symp toms BUN 10 5 - 20 mg/dL CERNER MILLENNIUM Creatinine 0.52 0.20 - 0.70 mg/dL CERNER MILL ENNIUM Comment: Please note that the pediatric reference intervals supplied above were not validated [place] [facility] [place] Results from pediatri c patients should be interpreted in conjunction to the patient's age, height and muscle mass. Sodium 136 135 - 145 mmol/L CERNER KAIN NIUM Potassium 4.2 3.5 - 5.0 mmol/L CERNER KAIN NIUM Comment: Please note: ??Patients with WBC >100,00 0 may have falsely elevated Potassium levels. ??For accurate Potassium quantif ication in these patients send serum separator tube (gold top) for subsequent determinations. ??Contact the Clinical Chemistry Laboratory if there are any qu estions. Chloride 102 98 - 107 mmol/L CERNER MILLENN IUM CO2 27 22 - 31 mmol/L CERNER MILLENNI UM Anion Gap 7 5 - 15 mmol/L CERNER MILLENNIU M Calcium 8.7 8.5 - 10.5 mg/dL CERNER KAIN NIUM Estimated GFR See note >=60 CERNER MILLENNIU M Comment: Calculated GFR not appropriate for patie nts less than 18 years of age. The National Kidney Disease Education Pr ogram (NKDEP) has recommended all laboratories report estimated GFR (eGFR) along with plasma creatinine measurements to assist you with recognit ion of early kidney disease. Caveats: ??Plasma creatinine should be a t steady-state (unchanged within the past week). For patient s multiply eGFR by 1.2. The MDRD equation was developed using patients be tween the ages of 18 and 70 years. ?? The MDRD equation has not been validated for patients < 18 years of age and should not be used to assess renal function in the pediatric population. ??The MDRD eGFR equation will also overestimate the true GFR of patients above the age of 70. ??This overestimation is variable bu t increases with age. At present, NKDEP does NOT recommend usi ng the MDRD equation for drug dosing purposes and pharmacists should continue to use their current dosing methods. In addition, numerical eGFR values great er than 60 ml/min/1.73 square meters should be treated as > 60, and not an ex act number due to greater inaccuracies at these higher values. Per NKDEP, they classify normal renal function as any GFR >60ml/min/1.73 square meters; chronic kidney disease wh en GFR <60, and renal failure when GFR <15. ??This calculation may not be valid for patients with atypical muscle mass (very lean or obese), acute renal failur e, and in patients with diabetic kidney disease. References: http://nkdep.nih.gov/resources/NKDEP_Sug gestn4Labs_0606_508.pdf http://www.kidney.org/professionals/kls/ pdf/faq_gfr.pdf Maribel Terrazas, Nieves NA, Luna AK, Delvin TS, Mary AD, Cindi KENDRA. Relative performance of the MDRD and CKD-EPI equa tions for estimating glomerular filtration rate among patients with vari ed clinical presentations. Clin J Am Soc Nephrol;6:1963-72. Specimen Anatomical Collection Method Collection Time Receive d Time (Source) Location / / Volume Laterality Blood specimen 03/30/2012 5:00 AM 012 5:12 (specimen) EST AM EST Resulting Agency Comment Spec In Lab Farhad Whelan MD CHEMISTRY ORDERABLES Performing Organization Address City/State/[place] [address] CERNER MILLENNIUM (ABNORMAL) CBC (with Diff) (03/30/2012 5:00 AM EST) P athologist Signature WBC 13.9 4.5 - 14.0 CERNER x10(3)/mcL MILLENNIUM RBC 4.16 4.00 - CERNER 5.20 MILLENNIUM x10(6)/mcL Hemoglobin 11.7 11.5 - CERNER 15.5 gm/dL MILLENNIUM Hematocrit 34.3 (L) 35.0 - CERNER 45.0 % MILLENNIUM MCV 82.5 75.0 - CERNER 93.0 fL MILLENNIUM MCH 28.1 25.0 - CERNER 33.0 pg MILLENNIUM MCHC 34.1 32.0 - CERNER 36.5 gm/dL MILLENNIUM Platelets 180 145 - 370 CERNER x10(3)/mcL MILLENNIUM RDWSD 37.9 35.0 - CERNER 46.0 fL MILLENNIUM RDWCV 12.6 10.9 - CERNER 14.4 % MILLENNIUM MPV 9.4 9.0 - 12.0 CERNER fL MILLENNIUM Specimen Anatomical Collection Method Collection Time Receive d Time (Source) Location / / Volume Laterality Blood specimen 03/30/2012 5:00 AM 012 5:12 (specimen) EST AM EST Resulting Agency Comment Spec In Lab Farhad Whelan MD HEMATOLOGY ORDERABLES Performing Organization Address City/State/[place] [address] CERNER MILLENNIUM (ABNORMAL) DIFFERENTIAL, AUTOMATED (03/30/2012 12:50 AM EST) [facility] gist Method Time Signature Neutrophils % 79.6 (H) 33.0 - CERNER 73.0 % MILLENNIUM Neutr Abs (ANC) 11.41 (H) 1.50 - CERNER 8.00 MILLENNIUM x10(3)/mc L Lymphocytes % 10.5 (L) 22.0 - CERNER 57.0 % MILLENNIUM Lymphocytes Abs 1.5 1.5 - 6.8 CERNER x10(3)/mc MILLENNIUM L Monocytes % 8.9 2.0 - CERNER 12.0 % MILLENNIUM Monocyte Abs 1.3 (H) 0.2 - 1.0 CERNER x10(3)/mc MILLENNIUM L Eosinophils % 0.8 0.0 - 7.0 CERNER % MILLENNIUM Eosinophils Abs 0.1 0.0 - 0.5 CERNER x10(3)/mc MILLENNIUM L Basophils % 0.1 0.0 - 2.0 CERNER % MILLENNIUM Basophils Abs 0.0 0.0 - 0.2 CERNER x10(3)/mc MILLENNIUM L Immature Gran % 0.10 0.00 - CERNER 0.66 % MILLENNIUM Comment: Immature granulocytes(IG's)percentage an d absolute count will include metamyelocytes, myelocytes, and promyelo cytes. Blood smears from CBCs yielding IG's will be scanned manually for elsa talbot. If this scan disagrees with the automated IG or if promyelocytes are not ed, a manual differential will be performed. Conchita Gran Abs 0.02 0.00 - 0.05 x10(3)/mcL CER NER MILLENNIUM Specimen Anatomical Collection Method Collection Time Receive d Time (Source) Location / / Volume Laterality Blood specimen 03/30/2012 12:50 2 (specimen) AM EST 12:58 AM EST Farhad Whelan MD HEMATOLOGY ORDERABLES Performing Organization Address City/State/[place] [address] CERNER MILLENNIUM Basic Metabolic Panel (non-fasting) (03/30/2012 12:50 AM EST) P athologist Signature Glucose Lvl 119 60 - 199 CERNER mg/dL MILLENNIUM Comment: Diabetes: >=200 mg/dL plus symp toms BUN 13 5 - 20 mg/dL CERNER MILLENNIUM Creatinine 0.49 0.20 - 0.70 mg/dL CERNER MILL ENNIUM Comment: Please note that the pediatric reference intervals supplied above were not validated [place] [facility] [place] Results from pediatri c patients should be interpreted in conjunction to the patient's age, height and muscle mass. Sodium 137 135 - 145 mmol/L CERNER KAIN NIUM Potassium 3.7 3.5 - 5.0 mmol/L CERNER KAIN NIUM Comment: Please note: ??Patients with WBC >100,00 0 may have falsely elevated Potassium levels. ??For accurate Potassium quantif ication in these patients send serum separator tube (gold top) for subsequent determinations. ??Contact the Clinical Chemistry Laboratory if there are any qu estions. Chloride 102 98 - 107 mmol/L CERNER MILLENN IUM CO2 24 22 - 31 mmol/L CERNER MILLENNI UM Anion Gap 11 5 - 15 mmol/L CERNER MILLENNIU M Calcium 8.5 8.5 - 10.5 mg/dL CERNER KAIN NIUM Estimated GFR See note >=60 CERNER MILLENNIU M Comment: Calculated GFR not appropriate for patie nts less than 18 years of age. The National Kidney Disease Education Pr ogram (NKDEP) has recommended all laboratories report estimated GFR (eGFR) along with plasma creatinine measurements to assist you with recognit ion of early kidney disease. Caveats: ??Plasma creatinine should be a t steady-state (unchanged within the past week). For patient s multiply eGFR by 1.2. The MDRD equation was developed using patients be tween the ages of 18 and 70 years. ?? The MDRD equation has not been validated for patients < 18 years of age and should not be used to assess renal function in the pediatric population. ??The MDRD eGFR equation will also overestimate the true GFR of patients above the age of 70. ??This overestimation is variable bu t increases with age. At present, NKDEP does NOT recommend usi ng the MDRD equation for drug dosing purposes and pharmacists should continue to use their current dosing methods. In addition, numerical eGFR values great er than 60 ml/min/1.73 square meters should be treated as > 60, and not an ex act number due to greater inaccuracies at these higher values. Per NKDEP, they classify normal renal function as any GFR >60ml/min/1.73 square meters; chronic kidney disease wh en GFR <60, and renal failure when GFR <15. ??This calculation may not be valid for patients with atypical muscle mass (very lean or obese), acute renal failur e, and in patients with diabetic kidney disease. References: http://nkdep.nih.gov/resources/NKDEP_Sug gestn4Labs_0606_508.pdf http://www.kidney.org/professionals/kls/ pdf/faq_gfr.pdf Maribel K, Nieves NA, Luna AK, Delvin TS, Mary AD, Cindi KENDRA. Relative performance of the MDRD and CKD-EPI equa tions for estimating glomerular filtration rate among patients with vari ed clinical presentations. Clin J Am Soc Nephrol;6:1963-72. Specimen Anatomical Collection Method Collection Time Receive d Time (Source) Location / / Volume Laterality Blood specimen 03/30/2012 12:50 2 (specimen) AM EST 12:59 AM EST Resulting Agency Comment Spec In Lab Farhad Whelan MD CHEMISTRY ORDERABLES Performing Organization Address City/State/ZIP Code Phon e Number [place] [id number] CERNER MILLENNIUM (ABNORMAL) CBC (with Diff) (03/30/2012 12:50 AM EST) P athologist Signature WBC 14.4 (H) 4.5 - 14.0 CERNER x10(3)/mcL MILLENNIUM RBC 4.06 4.00 - CERNER 5.20 MILLENNIUM x10(6)/mcL Hemoglobin 11.6 11.5 - CERNER 15.5 gm/dL MILLENNIUM Hematocrit 33.3 (L) 35.0 - CERNER 45.0 % MILLENNIUM MCV 82.0 75.0 - CERNER 93.0 fL MILLENNIUM MCH 28.6 25.0 - CERNER 33.0 pg MILLENNIUM MCHC 34.8 32.0 - CERNER 36.5 gm/dL MILLENNIUM Platelets 155 145 - 370 CERNER x10(3)/mcL MILLENNIUM RDWSD 37.3 35.0 - CERNER 46.0 fL MILLENNIUM RDWCV 12.6 10.9 - CERNER 14.4 % MILLENNIUM MPV 9.4 9.0 - 12.0 CERNER fL MILLENNIUM Specimen Anatomical Collection Method Collection Time Receive d Time (Source) Location / / Volume Laterality Blood specimen 03/30/2012 12:50 2 (specimen) AM EST 12:58 AM EST Resulting Agency Comment Spec In Lab Farhad Whelan MD HEMATOLOGY ORDERABLES Performing Organization Address City/State/[place] [address] CERNER MILLENNIUM REQUEST FOR 2ND READ CT ABDOMEN & PELVIS (03/29/2012 11:20 PM EST) Anatomical Region Laterality Modality Abdomen, Pelvis Other Specimen (Source) Anatomical Collection Method Collection Time Re ceived Time Location / / Volume Laterality 03/29/2012 11:20 PM EST Narrative 04/01/2012 8:21 AM EST Examination OUTSIDE CT lower abdomen/ PELVIS Clinical History I believe a reinterpretation of this exa m may alter care of Patient. Yes; What Modality is the exam? CT Scan; Body Part (please add comments as necessary): bowel; CT lower abdomen/ /Pelvis eval fo r appendiceal abscess Comparison 12/10/2008. Technique 3 mm thick axial contiguous sections wer e obtained through the lower abdomen and pelvis after intravenous and oral co ntrast administration at [facility] on 03/29/2012. No c oronal or sagittal reconstructions. Findings Dorsal and slightly to the right of the urinary bladder is a collection measuring approximately 33.5 x 25 mm on series 2 image 88 with ill-defined wall and with 2 central areas of low attenuat ion suggestive of fluid. Regional inflammatory change and a small amount o f ascites is seen in the pelvis on series 2 image 84. 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 Normal appearance of right adnexal on se sharlene 2 image 70 history and left adnexal on series 2 image 66. Unremarkab le urinary bladder. Normal caliber appendix. ?? Unremarkable appearance of contrast cont aining small bowel. ??No contrast has reached the colon, which contains a smal l to moderate amount of air and stool. No significant osseous findings. ?? Impression Pelvic collection, as above, question ab scess, with surrounding inflammatory change and a small amount of pelvic asci dao. ??In addition, dorsal to the collection, fluid appears present in the endometrial canal of the uterus with a configuration suggesting didelphys. Prior the electronic medical record, Dr. Hearn discussed these findings with Dr. Whelan on 03/31/2012. Procedure Note Simran Ward MD - 04/01/2012Formatt ing of this note might be different from the original. Examination OUTSIDE CT lower abdomen/ PELVIS Clinical History I believe a reinterpretation of this liz alonzo may alter care of Patient. Yes; What Modality is the exam? CT Scan; Body Part (please add comments as necessary): bowel; CT lower abdomen/ /Pelvis eval fo r appendiceal abscess Comparison 12/10/2008. Technique 3 mm thick axial contiguous sections wer e obtained through the lower abdomen and pelvis after intravenous and oral co ntrast administration at [facility] on 03/29/2012. No c oronal or sagittal reconstructions. Findings Dorsal and slightly to the right of the urinary bladder is a collection measuring approximately 33.5 x 25 mm on series 2 image 88 with ill-defined wall and with 2 central areas of low attenuat ion suggestive of fluid. Regional inflammatory change and a small amount o f ascites is seen in the pelvis on series 2 image 84. 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 Normal appearance of right adnexal on se sharlene 2 image 70 history and left adnexal on series 2 image 66. Unremarkab le urinary bladder. Normal caliber appendix. Unremarkable appearance of contrast cont aining small bowel. No contrast has reached the colon, which contains a smal l to moderate amount of air and stool. No significant osseous findings. Impression Pelvic collection, as above, question ab scess, with surrounding inflammatory change and a small amount of pelvic asci dao. In addition, dorsal to the collection, fluid appears present in the endometrial canal of the uterus with a configuration suggesting didelphys. Prior the electronic medical record, Dr. Hearn discussed these findings with Dr. Whelan on 03/31/2012. Farhad Whelan MD IMG OUTSIDE INTERPRETATION O RDERABLES documented in this encounter Visit Diagnoses Not on filedocumented in this encounter Administered Medications Inactive Administered Medications - up to 3 most recent administrations Medication Order MAR Action Action Date Dose Rate Site acetaminophen (TYLENOL) tablet 325 Given 03/30/2012 5:50 PM EST 325 mg mg 325 mg (10 mg/kg/dose ? 36.9 kg), Oral, EVERY 4 HOURS PRN, Starting on 03/30/12 at 1721, Until 03/30/12 at 1841, Pain, Maximum dose of acetaminophen is 90 mg/kg (up to 4000 mg maximum) from all sources in 24 hours., Routine acetaminophen (TYLENOL) tablet 325 mg Given 04/02/2012 2:39 PM EST 325 mg 325 mg (10 mg/kg/dose ? 36.9 kg), Oral, EVERY 4 HOURS, First dose (after last modification) on 03/30/12 at 2200, Until Discontinued, Maximum dose of acetaminophen is 90 mg/kg (up to 4000 mg maximum) from all sources in 24 hours., Routine Given 04/02/2012 10:37 AM EST 325 mg Given 04/02/2012 6:13 AM EST 325 mg dextrose 5% and sodium chloride Restarted 04/01/2012 5:07 PM EST 75 mL/hr 75 mL/hr 0.45% with potassium chloride 20 mEq infusion 75 mL/hr, Intravenous, CONTINUOUS, Starting on Sun03/29/12 at 2300, Until Sun04/01/12 at 1758 New Bag 04/01/2012 10:41 AM EST 75 mL/hr 75 mL/hr Restarted 03/31/2012 10:53 PM EST 75 mL/hr 75 mL/hr gabapentin (NEURONTIN) capsule 100 mg Given 03/30/2012 1:30 PM EST 100 mg 100 mg, Oral, DAILY, First dose on Sun03/29/12 at 2315, Until Discontinued, Routine Given 03/29/2012 11:25 PM EST 100 mg gabapentin (NEURONTIN) capsule 100 mg Given 04/02/2012 2:39 PM EST 100 mg 100 mg, Oral, 3 TIMES DAILY, First dose (after last modification) on Sun03/30/12 at 1500, Until Discontinued, Routine Given 04/02/2012 10:37 AM EST 100 mg Given 04/01/2012 8:28 PM EST 100 mg hydroCODone-acetaminophen (VICODIN) 5-500 Given 04/02/2012 2 :52 PM EST 1 tablet mg per tablet 1 tablet 1 tablet (5 mg), Oral, ONCE, 1 dose, On Sun04/02/12 at 1500, Dosed in mg of hydrocodone. Maximum dose of acetaminophen is 4000 mg from all sources in 24 hours., Routine ketorolac (TORADOL) injection 15 mg Given 04/02/2012 6:13 AM EST 15 mg 15 mg (0.407 mg/kg/dose), Intravenous, EVERY 6 HOURS SCHEDULED, 20 doses, First dose on Sun04/01/12 at 1800, Last dose on Sun04/06/12 at 1200, Routine Given 04/02/2012 12:11 AM EST 15 mg Given 04/01/2012 6:00 PM EST 15 mg ketorolac (TORADOL) injection 18.45 mg Given 03/31/2012 9:04 AM EST 18.45 mg 18.45 mg (0.5 mg/kg/dose ? 36.9 kg), Intravenous, EVERY 6 HOURS PRN, 5 doses, Starting on 11/10/12 at 1841, Until Sun03/31/12 at 2359, Pain, Routine ketorolac (TORADOL) injection 20 mg Given 04/01/2012 4:21 PM EST 20 mg 20 mg (0.542 mg/kg/dose), Intravenous, ONCE, 1 dose, On Sun04/01/12 at 1700, Intra-Operative (Intra-Procedure), Routine morphine 2 mg/mL carpuject 1.84 mg Given 04/02/2012 10:02 AM EST 1.84 mg 1.84 mg (0.05 mg/kg/dose ? 36.9 kg), Intravenous, EVERY 4 HOURS PRN, Starting on 03/30/12 at 0107, Until Tu04/02/12 at 1818, Pain, Routine Given 03/31/2012 3:49 PM EST 1.84 mg Given 03/30/2012 5:50 PM EST 1.84 mg ondansetron (ZOFRAN) injection 3.7 mg Given 04/01/2012 5:27 PM EST 3.7 mg 3.7 mg (0.1 mg/kg/dose ? 36.9 kg), Intravenous, ONCE PRN, 1 dose, Starting on Sun04/01/12 at 1638, Until Sun04/01/12 at 1727, Nausea, Vomiting, Usual dose 0.1 mg/kg/dose to a maximum of 4 mg/dose, PACU Recovery, Routine phenazopyridine (PYRIDIUM) tablet 100 mg Given 04/02/2012 2:40 PM EST 100 mg 100 mg (2.71 mg/kg/dose), Oral, 3 TIMES DAILY, First dose on Sun03/29/12 at 2330, Until Discontinued, As needed Given 04/02/2012 10:37 AM EST 100 mg Given 04/01/2012 8:28 PM EST 100 mg piperacillin-tazobactam (ZOSYN) 3.375 g in Given 04/01/2012 2:27 PM EST 3.375 g dextrose 5% 50 mL 3.375 g (0.0915 g/kg), Intravenous, EVERY 8 HOURS SCHEDULED, First dose on Sun03/29/12 at 2330, Until Discontinued, Indication for (Active or Suspected): for GI/Intra-abdominal Given 04/01/2012 6:02 AM EST 3.375 g Given 03/31/2012 9:37 PM EST 3.375 g documented in this encounter Active and Recently Administered Medications Times are shown in EST. Scheduled Medication Order 03/31/2012 04/01/2012 04/02/2012 acetaminophen (TYLENOL) tablet 325 mg (CANCELED) 0225 (Given - Provider: Shima Carreno RN)0601 (Given - Provider: Shima Carreno RN)1028 (Given - Provider: Veena Mendez RN)1418 (Given - Provider: Veena Mendez RN)1800 (Given - Provider: Veena Mendez RN) 0207 (Given - Provider: Shima Carreno RN)0602 (Given - Provider: Shima Carreno RN)1000 (Given - Provider: Daja Luevano RN)1400 (Not Given - Provider: Alexsandra Avila RN - Reason: See comment - Comment: patient on way to OR) 0200 (Not Given - Provider: Lora Lucero - Reason: Patient/family refused - Comment: sleeping, hold per dad)0613 (Given - Provider: Lora Lucero)1037 (Given - Provider: Connor Bolanos RN)1439 (Given - Provider: Connor Bolanos RN) 10 mg/kg/dose ? 36.9 kg = 325 mg, Oral, EVERY 4 HOURS, First dose on 03/30/12 at 2200, Until Discontinued, Maximum dose of acetaminophen is 90 mg/kg (up to 4000 mg maximum) from all sources in 24 hours., Routine 6 (Given - Provider: Shima Carreno RN) 1404 (MAR Hold - Provider: Admin Adt - R criss: Transfer to a Procedural area)1800 (Automatically Held - Provider: Admin Adt)1831 (MAR Unhold - Provider: Admin Adt)2204 (Given - Provider: Lora Lucero) gabapentin (NEURONTIN) capsule 100 mg (CANCELED) 0818 (Given - Provider: Veena Mendez RN)1520 (Given - Provider: Veena Mendez, SARAH)2031 (Given - Provider: Shima Carreno RN) 0900 (Given - Provider: Daja Luevano RN)1404 (MAR Hold - Provider: Admin Adt - Reason: Transfer to a Procedural area)1500 (Automatically Held - Provider: Admin Adt)1831 (JUL Unhold - Provider: Admin Adt) 1037 (Given - Provider: Connor Bolanos RN)1439 (Given - Provider: Connor Bolanos RN) 100 mg, Oral, 3 TIMES DAILY, First dose on Sun03/30/12 at 1500, Until Discontinued, Routine 2027 (Given - Provider: Lora amaya) hydroCODone-acetaminophen (VICODIN) 5-500 mg per tablet 1 tablet (COMPLETED) 1452 (Given - Provider: Connor Bolanos RN) 1 tablet (5 mg), Oral, ONCE, 1 dose, On Sun04/02/12 at 1500, Dosed in mg of hydrocodone. Maximum dose of acetaminophen is 4000 mg from all sources in 24 hours., Routine ketorolac (TORADOL) injection 15 mg (CANCELED) 1800 (Given - Provider: Alexsandra Avila RN) 0011 (Given - Provider: Lora Butcher on)0613 (Given - Provider: Lora Lucero) 15 mg = 0.407 mg/kg/dose, Intravenous, E VERY 6 HOURS SCHEDULED, 20 doses, First dose on Sun04/01/12 at 1800, Last dose on Sun04/06/12 at 1200, Routine ketorolac (TORADOL) injection 20 mg (COMPLETED) 1621 (Given - Provider: Zafar Wilks CRNA) 20 mg = 0.542 mg/kg/dose, Intravenous, O NCE, 1 dose, Sun04/01/12 at 1700, Intra-Operative (Intra-Procedure), Routine phenazopyridine (PYRIDIUM) tablet 100 mg (CANCELED) 08 18 (Given - Provider: Veena Mendez, SARAH)1520 (Given - Provider: Veena Mendez RN)203 (Given - Provider: Shima Carreno RN) 0900 (Given - Provider: Daja Luevano RN)1404 (JUL Hold - Provider: Admin Adt - Reason: Transfer to a Procedural area)1500 (Automatically Held - Provider: Admin Adt)1716 (Not Given - Provider: Alexsandra Avila RN - Reason: Entered in Error) 1037 (Given - Provider: Connor Bolanos RN)1440 (Given - Provider: Connor Bolanos RN) 100 mg = 2.71 mg/kg/dose, Oral, 3 TIMES DAILY, First dose on Sun03/29/12 at 2330, Until Discontinued, As needed , Routine 171 (MA R Unhold - Provider: Alexsandra Avila, SARAH)2027 (Given - Provider: Lora Lucero) piperacillin-tazobactam (ZOSYN) 3.375 g in dextrose 5% 50 mL (CANCELED) 0601 (Not Given - Provider: Shima Carreno, SARAH - Reason: See comment - Comment: Med not up from pharmacy yet)0818 (Given - Provider: Veena Mendez RN)1418 (Given - Provider: Veena Mendez, SARAH) 0602 (Given - Provider: Shima Carreno, SARAH)1404 (JUL Hold - Provider: Admin Adt - Reason: Transfer to a Procedural area)142 (Given - Provider: Zafar Wilks CRNA)171 (JUL Unhold - Provider: Alexsandra Avila, SARAH) 3.375 g = 0.0915 g/kg, Intravenous, EVER Y 8 HOURS SCHEDULED, First dose on Sun03/29/12 at 2330, Until Discontinued 2136 (Given - Provider: Shima leigh, SARAH) Continuous Medication Order 03/31/2012 04/01/2012 04/02/2012 dextrose 5% and sodium chloride 0.45% wi th potassium chloride 20 mEq infusion (CANCELED) 1200 (Stopped - Provider: Veena alfaro RN - Comment: taking adequate PO)2253 (Restarted - Provider: Shima Carreno, ASRAH) 1041 (New Bag - Provider: Daja Luevano, SARAH)1404 (JUL Hold - Provider: Admin Adt - Reason: Transfer to a Procedural area)170 (MAR Unhold - Provider: Alexsandra Avila, SARAH)170 (Restarted - Provider: Alexsandra Avila, SARAH) 75 mL/hr, at 75 mL/hr, Intravenous, CONT INUOUS, Starting Sun03/29/12 at 2300, Until 04/01/12 at 1758 PRN Medication Order 03/31/2012 04/01/2012 04/02/2012 BUpivacaine (PF) (MARCAINE) 0.25 % (2.5 mg/mL) injection (CA NCELED) 1648 (Given - Provider: Farhad Whelan MD) ONCE PRN, Starting 04/01/12 at 1648, Until 04/01/12 at 1758, Intra- Operative (Intra-Procedure), Routine ketorolac (TORADOL) injection 18.45 mg () 0904 (Given - Provider: Veena Mendez, SARAH) 0.5 mg/kg/dose ? 36.9 kg = 18.45 mg, Intravenous, EVERY 6 HOURS PRN, 5 doses, Starting 03/30/12 at 1841, Until 03/31/12 at 2359, Pain, Routine morphine 2 mg/mL carpuject 1.84 mg (CANCELED) 1549 (Gi mariana - Provider: Veena Mendez RN) 1404 (MAR Hold - Provider: Admin Adt - R criss: Transfer to a Procedural area)1831 (MAR Unhold - Provider: Admin Adt) 1002 (Given - Provider: Connor Bolanos RN) 0.05 mg/kg/dose ? 36.9 kg = 1.84 mg, Intravenous, EVERY 4 HOURS PRN, Starting 03/30/12 at 0107, Until 04/02/12 at 1818, Pain, Routine ondansetron (ZOFRAN) injection 3.7 mg (COMPLETED) 1727 (Given - Provider: Alexsandra Avila RN) 0.1 mg/kg/dose ? 36.9 kg = 3.7 mg, Intravenous, ONCE PRN, 1 dose, Starting 04/01/12 at 1638, Until Discontinued, Nausea, Vomiting, Usual dose 0.1 mg/kg/dose to a maximum of 4 mg/dose, PACU Recovery, Routine documented in this encounter Care Teams Forest Nursery Supervisor Relationship Specialty Start Date End Date Miladis Blackmon MD PCP - General 04/12/10 11/28/21 [place] [id number] documented as of this encounter
--- OUTSIDE RECORDS SUMMARY | 2021-12-13 13:03 | XMS_ITS | Encounter Summary ---
:2000 Author Organization [facility] Address [facility] [address] [place] [address] Care Team Providers Name Role Phone Miladis Blackmon MD Primary Care Provider Encounter Details Date Type Department Care Team Description 09/25/2011 Hospital Encounter XRay at [facility], DR MARTINEZ abd pain [address] [place] [address] Deng Brumfield MD [facility] [place] [address] [place] [address] Social History Tobacco Use Types Packs/Day [...] Sig Dispensed Refills Start Date End Date polyethylene glycol Take 17 g by mouth 510 g 12 09/25/19 12 09/24/2012 (MIRALAX) 17 gram/dose daily. powder sodium bicarbonate 650 mg Take 1 tablet by 5 tablet 11 11/201106/07/2012 tablet mouth 4 times daily. Take 2 tabs at 8 am, then one tab every 4 hours (total of 4 doses/day). Goal is to get urine pH to 8 sulfamethoxazole-trimetho Take 1 tablet by 14 tablet 0 11/201104/02/2012 prim (BACTRIM DS) 800-160 mouth 2 times mg per tablet daily. Pentosan Polysulfate Take 100 mg by 0 06/07/2012 Sodium (ELMIRON) 100 mg mouth 3 times daily capsule (before meals). acetaminophen-codeine Take 1 tablet by 0 04/02/2012 (TYLENOL #3) 300-30 mg mouth every 6 hours per tablet as needed. hydrocodone-acetaminophen Take 10 mLs by 250 mL 0 201104/02/2012 (LORTAB) 7.5-500 mg/15 mouth every 6 hours mL(15 mL) Soln 7.5-500 as needed. MG/ 15mL oral liquid Multiple Urine Tests Strp by [facility].(Non-Drug; 50 strip 1 10/02/2011 strips Combo Route) route. Dip urine 1-2x/day, keep record. tolterodine (DETROL LA) 2 Take 1 capsule by 90 capsule 4 06/07/2012 mg 24 hr capsule mouth daily for 360 days. levalbuterol (XOPENEX) 0 12/17/2008 1.25 mg/0.5 mL nebulizer solution documented as of this encounter Plan of Treatment Upcoming Encounters Date Type Specialty Care Team Description 12/22/2021 Office Visit Plastic Surgery Russ Guevara M D [facility] PLASTIC SURGERY [place], [place] [address] (Wo rk) documented as of this encounter Procedures Procedure Name Priority Date/Time Associated Diagnosis Comme nts XR ABDOMEN 1 VIEW Routine 09/25/2011 11:06 AM abd pain Res ults for this EDT procedure are i n the results section. documented in this encounter Results XR abdomen 1 view (09/25/2011 11:06 AM EDT) Anatomical Region Laterality Modality Abdomen N/A Radiographic Imaging Specimen (Source) Anatomical Collection Method Collection Time Re ceived Time Location / / Volume Laterality 09/25/2011 11:06 AM EDT Narrative 09/26/2011 5:36 PM EDT ABDOMEN: INDICATION: ??History of constipation. ? ?Evaluation of the spine. ?? FINDINGS: ??Moderate amount of fecal mat erial throughout the colon. ??No abnormal bowel dilatation. ??Incidental note is m kamran of incomplete fusion of the posterior arch at level L5 and S1. ??Oth erwise findings of the visualized skeletal structures are within normal li mits. Procedure Note Jeannine Dale MD - 2011 ABDOMEN: INDICATION: History of constipation. Jazlyn luation of the spine. FINDINGS: Moderate amount of fecal mater ial throughout the colon. No abnormal bowel dilatation. Incidental note is mad e of incomplete fusion of the posterior arch at level L5 and S1. Other montes findings of the visualized skeletal structures are within normal li mits. Deng Jenkins MD IMG DX ORDERABLES documented in this encounter Visit Diagnoses Diagnosis abd pain Abdominal pain, other specified site documented in this encounter Care Teams Card Grinder Relationship Specialty Start Date End Date Miladis Blackmon MD PCP - General 04/12/10 11/28/21 [address] [place] [address] documented as of this encounter
--- OUTSIDE RECORDS SUMMARY | 2021-12-13 13:03 | XMS_ITS | Encounter Summary ---
:2000 Author Organization [facility] [place] [address] Care Team Providers Name Role Phone Miladis Blackmon MD Primary Care Provider Encounter Details Date Type Department Care Team Description 09/01/2011 Hospital Encounter Same Day Program at Rickey Jenkins MD [facility] PEDIATRIC [id number] [place] [address] [phone] Social History Tobacco Use Types Packs/Day Years [...] Taken Comments Blood Pressure - - Pulse 65 09/01/2011 4:20 PM EDT Temperature 36.5 ??C (97.7 ??F) 09/01/2011 12:00 PM EDT Respiratory Rate 20 09/01/2011 4:20 PM EDT Oxygen Saturation 100% 09/01/2011 4:20 PM EDT Inhaled Oxygen Concentration - - Weight 32.4 kg (71 lb 6.9 oz) 09/01/2011 8:17 AM EDT Height - - Body Mass Index - - documented in this encounter Discharge Instructions Discharge Daniel Santos RN - 09/01/2011 12:31 PM EDT 1. Go home and rest. You may be sleepy for several hours. Take it easy as sudden position changes may cause nausea. 2. Be careful on stairs, as you may be unsteady on your feet. 3. Follow a light to regular diet as tolerated today. If nausea occurs, start with clear liquids, and progress slowly to a regular diet. 4. IV site - slight redness or tenderness is normal, you can use warm compresses. If tenderness and redness increases or foul drainage occurs, please contact your M.D. 5. Children may be cranky or irritable, and should be supervised closely. No bike riding, skateboarding, or gym set activities for 24 hours. Patients who have had endotracheal tubes. (This tube, used by the anesthesia department, is passed down your throat after you are asleep, to ensure safe air passage during your operation). 1. A sore throat is normal due to the tube. Cold liquids or soothing lozenges will help ease the discomfort. 2. The generalized muscle aches are due to the medication given to you just before the tube is inserted. As the medication wears off, you may develop muscle soreness, which usually goes away in 12-24 hours. [facility] - Information Same Day Surgery Patient Bhavesh Fernandez MD - 09/01/2011 11:57 AM EDT Instructions following Cystoscopic Surgery WOUND CARE: None needed ACTIVITY: As tolerated by your comfort level. URINATION: You will likely have a small amount of blood in your urine for the next several days, up to 10-14 days. This is normal; however, if you are passing large amounts of blood clots, bright red blood or are bleeding an unable to urinate please call our office at [phone] 5PM or [phone] after hours. DIET: May resume a regular diet as tolerated. SHOWER/BATH: No shower or bath for the first 2 days. ACTIVITY: May return to school tomorrow. FOLLOW UP A routine post-operative check will be scheduled about 6 weeks after surgery. WHEN TO CALL YOUR [facility] PCP OR PEDIATRIC UROLOGY DEPARTMENT Please call if: Temperature over 100.5 Pain not controlled with medication There is a drop in urine output or your child is unable to urinate. Stent comes out at home. Your child is unable to keep down fluids by mouth. If you have questions or problems, you can reach pediatric urology in [place] at or in [place] at from 8:00am to 5:00pm Sunday through Sunday. On the weekends or after 5:00pm, you should call [facility] at and ask to speak to the urology resident employee operations examiner. documented in this encounter Medications at Time of Discharge Medication Sig Dispensed Refills Start Date End Date Pentosan Polysulfate Take 100 mg by 0 06/07/2012 Sodium (ELMIRON) 100 mg mouth 3 times daily capsule (before meals). acetaminophen-codeine Take 1 tablet by 0 04/02/2012 (TYLENOL #3) 300-30 mg mouth every 6 hours per tablet as needed. sodium bicarbonate 650 mg Take 1 tablet by 100 tablet 0 08/1909/14/2011 tablet mouth 3 times daily. hydrocodone-acetaminophen Take 10 mLs by 250 mL 0 201104/02/2012 (LORTAB) 7.5-500 mg/15 mouth every 6 hours mL(15 mL) Soln 7.5-500 as needed. MG/ 15mL oral liquid Multiple Urine Tests Strp by [facility]Non-Drug; 50 strip 1 10/02/2011 strips Combo Route) route. Dip urine 1-2x/day, keep record. tolterodine (DETROL LA) 2 Take 1 capsule by 90 capsule 4 06/07/2012 mg 24 hr capsule mouth daily for 360 days. levalbuterol (XOPENEX) 0 12/17/2008 1.25 mg/0.5 mL nebulizer solution documented as of this encounter Progress Notes Daniel Dos Santos RN - 09/01/2011 4:54 PM EDT Reports feeling better after pain med given Daniel Dos Santos RN - 09/01/2011 4:52 PM EDT Voided blood tinged urine. Discharge indtructions given to mom who verbalizes understanding Daniel Dos Santos RN - 09/01/2011 4:50 PM EDT Complaint of suprapubic pain Debbie Shafer RN - 09/01/2011 1:10 PM EDT Oral airway removed, mom at bedside. Katlin Duran CLS - 09/01/2011 11:22 AM EDT Child Life Surgical Note: Patient???s name: Lottie Gaines Patient???s age: 11 y.o. 6 m.o. Medical teams: Surgeon: Gregory Anesthesia team: Betzaida Accompanied by: Mom and this CCLS accompanied Lottie to the OR for induction. Items of comfort: None specified Reason for visit: Cystourethroscopy and colposcopy Patient???s understanding of reason for visit: Lottie did not state why she was here today but was aware she would be asleep during her procedure. Developmental information: Developmentally on target Preferred method of induction: Inhalation induction Preparation received for medical experience: This CCLS talked with Lottie about her previous experiences and what she remembered as well as what went well. This CCLS introduced the mask and allowed Lottie to decorate the mask. This CCLS briefly mentioned the IV as Mom did not want to give Lottie too much information. Recommendation for pre-med: For this time it was not recommended based off from induction this time it is recommended for future procedures. Distraction method used: IPad distraction, talking Coping: Lottie arrived calm and cooperative. In talking with this CCLS about her previous experiences and what to expect today Lottie was receptive and participatory. Lottie was engaged with the IPad but became bored as she had been waiting for a long time so this CCLS provided other activities for Lottie. Lottie returned to the IPad while traveling back to the OR but as soon as it came time to switch beds Lottie became upset and was only temporarily able to be distracted with conversation. Lottie continued to be upset and eventually was visibly upset while the mask had to be held on. Parental involvement: Mom and a friend of the family were both here to support Lottie during this hospital stay. Mom was present with Lottie during induction. Description of induction process: Patient required physical assistance Additional information: Mom became upset while in the pre-op room with Lottie in regards to her procedure and the confusion there was around what the actual procedure was and the results the procedure would provide. At one point Mom told Lottie they might not do the procedure and they might just leave. Mom and Lottie's anxiety levels increased as a result of the confusing situation. Dr. Jenkins was ableto talk to Mom and help her to understand this step in Lottie's care as well as the intent behind it. This CCLS strongly recommends the use of a pre-medication for any future procedures as well as the opportunity for Lottie to explore and express her feelings in regards to the hospital and why she maybe here. It would be helpful to help Lottie develop strategies to work through coping. AUGUSTINE HowellS Certified Concrete Crusher Loader Operator Pager [phone] documented in this encounter H&P Notes Bhavesh Tyson MD - 09/01/2011 10:08 AM EDT The patient's history and physical exam have been reviewed and completed. There has been no intervalchange from that of the pre-operative history and physical exam done within the last 30 days. Source Note - Tate Ruelas MD - 08/18/2011 7:25 AM EDT Patient Name: Lottie Gaines Patient Age: 11 y.o. Birthdate: 2000 Admit date: 08/18/2011 Attending Physician: Avril Galaviz MD ID: 11 F with severe pelvic pain/dysuria. Noted to have abnormality on the right side of the bladder on OSH US. Still having severe pain. No hematuria, no flank pain recently. No fevers, nausea, other problems. Lungs clear Heart with murmur (known VSD) Abd soft, no tenderness US reviewed, irregular lesion on right side of bladder, unclear in intravesical or extravesical. PLan to proceed to OR for cysto, possible biopsy/fulguration. documented in this encounter Miscellaneous Notes Miscellaneous - Provider, Scanning - 09/02/2011 3:23 AM EDT Miscellaneous - Provider, Scanning - 09/02/2011 3:18 AM EDT Miscellaneous - Provider, Scanning - 09/01/2011 1:08 PM EDT OR Attestation - Deng Jenkins MD - 09/01/2011 11:10 AM EDT Attestation: Case Date: 09/01/2011 I attest that I was present during the entire procedure and that I performed all the prado elements ofthe procedure with resident assistance DENG JENKINS MD 09/08/2011 Op Note - Deng Jenkins MD - 09/01/2011 11:10 AM EDT PEDIATRIC UROLOGY OPERATIVE NOTE Procedure: Cystoscopy With ureteral catheterization CPT 81881 Bilateral Retrograde Ureteropyelogram CPT 12603-55 Vaginoscopy CPT 53356 Brief History: Lottie Gaines is a 11 year old female who has had multiple UTIs of undetermined origin. She had a cystoscopy on 08/18/11 and a query of fistula found on the right posterolateral wall. GIendoscopy revealed a normal colon. She was brought back to the OR for re-cystoscopy and vaginoscopy (since this was not performed on 08/18/11). We discussed the inherent risk of urethral stricture, bleeding and infection. We had written consent to proceed. Operative report: After an adequate level of general anesthesia,Lottie's legs were placed in the dorsal lithotomy position and her genitalia were placed in the dorsal lithotomy position. We then prepped the genitalia with Betadine and draped sterile. We placed a 14Fr cystoscope into the bladder. The urethra was normal. There was bullous edema and generalized cystitis throughout the bladder. The area on the right posterorlateral wall was healed and could not be specifically identified. With an angled0.25 glide wore we probed a few erythematous areas in the area of the prior lesion. We then cannulated the right and left ureteral orifices with a 4Fr open ended ureteral catheter and performed retrograde injection of contrast. The collecting systems were normal. No filling defects mass or irregularity. There was pyelo-sinus backflow in the left kidney. We performed a vaginoscopy and there were absolutely no abnormalities other than very mild generalized erythema consistent with very mild vaginitis.The cervix was normal. No lesions. Mucous was present at the cervical os. The cystoscope was removed. The legs were taken out of lithotomy position, and Lottie was taken out of the operating room HD stable and awake breathing spontaneously via face mask. documented in this encounter Plan of Treatment Upcoming Encounters Date Type Specialty Care Team Description 12/22/2021 Office Visit Plastic Surgery Russ Guevara M D [facility] PLASTIC SURGERY [place], [place] [address] (Wo rk) Pending Results Name Type Priority Associated Diagnoses Date/Ti me XR Fluoro OR c-arm Imaging Routine 2 12:14 PM EDT storage only Scheduled Orders Name Type Priority Associated Diagnoses Order S chedule XR Fluoro OR c-arm Imaging Routine Once PRN (for Radiant storage only use) for 1 Occu rrences starting 2011 until 09/01/2011 documented as of this encounter Procedures Procedure Name Priority Date/Time Associated Comments Diagnosis FUNGUS CULTURE Routine 09/01/2011 11:45 Results f or this AM EDT procedure are i n the results section. URINE CULTURE Routine 09/01/2011 11:45 Results fo r this AM EDT procedure are i n the results section. INJECTION PROCEDURE, Yes 09/01/2011 10:25 Urinary tract URETEROGRAPHY OR AM EDT infection, site URETEROPYELOGRAPHY THRU not spec ified URETEROSTOMY OR URETERAL Fistula, bladder CATH (WRVU 0.76) COLPOSCOPY, Yes 09/01/2011 10:25 Urinary tract VAGINOSCOPY\CERVIX & AM EDT infection, site VAGINA (WRVU 1.5) not specified Fistula, bladder CYSTO, CYSTOURETHROSCOPY, Yes 09/01/2011 10:[address] DIAGNOSTIC (WRVU 2.23) AM EDT infection, site not specified Fistula, bladder documented in this encounter Results Fungus culture Other (09/01/2011 11:45 AM EDT) [facility] [place] Method Time Signature Fungus CERNER Culture ? Patient Name: LOTTIE GAINES ?Ordered By: DENG JENKINS [facility] ? MR#: [id number] ?LOC: ??SDP ? /Sex: ??2000 (11 years), ? Female ? PROCEDURE: Fungus Culture ?SOURCE: Other ? COLLECTED: 09/01/2011 11:45 ?FREE TEXT SOURCE: Urine fungal rest ? STARTED: 09/02/2011 15:09 ? FINAL REPORT ? Final Report ? Verified:10/03/2011 07:59 ? No Fungus isolated ? PRELIMINARY REPORT ? Preliminary Report ? Verified:09/04/2011 08:14 ? No Fungus isolated to date ? Specimen Anatomical Collection Method Collection Time Receive d Time (Source) Location / / Volume Laterality Specimen of 09/01/2011 11:45 09/02/2011 3:09 unknown material AM EDT PM EDT (specimen) Comment: URINE FUNGAL REST Resulting Agency Comment Spec In Lab Deng Jenkins MD MICROBIOLOGY - GENERAL ORDER DU Performing Organization Address City/State/[place] [address] [facility] [place] Urine culture (09/01/2011 11:45 AM EDT) Component Value Ref Test Analysis Performed At [facility] [place] Range Method Time Signature Urine Culture CERCLIFF ? Patient Name: LOTTIE GAINES ?Ordered By : DENG JENKINS ? MR#: [id number] ?LOC: ??SDP ? /Sex: ??2000 (11 years), ? Female ? PROCEDURE: Urine Culture ?SOURCE: U Cysto ? COLLECTED: 09/01/2011 11:45 ? STARTED: 09/01/2011 12:26 ? FINAL REPORT ? Final Report ? Verified:09/03/2011 08:36 ? 1,000-9,000 cfu/ml Escherichia fergusonii ? PRELIMINARY REPORT ? Preliminary Report ? Verified:09/02/2011 07:44 ? 1,000-9,000 cfu/ml Gram Negative Rods ? Patient: LOTTIE GAINES ? MR#: [id number] ? SUSCEPTIBILITY RESULTS ? Escherichia fergusonii ?FRANCESCO Inter p ? Ampicillin ? S ? Ampicillin/Sulbactam ? S ? Aztreonam ?S ? Cefazolin ?S ? Cefoxitin ?S ? Ceftazidime ?S ? Ceftriaxone ?S ? Cefuroxime ? S ? Ciprofloxacin ?S ? Doripenem ?S ? Gentamicin ? S ? Meropenem ?S ? Nitrofurantoin ? S ? Piperacillin/Tazobactam ?S ? Trimethoprim/Sulfa ? R ? Tetracycline ? S ? Tobramycin ? S ? Specimen Anatomical Collection Method Collection Time Receive d Time (Source) Location / / Volume Laterality Urine specimen 09/01/2011 11:45 2 (specimen) AM EDT 12:26 PM EDT Resulting Agency Comment Spec In Lab Deng Jenkins MD MICROBIOLOGY - GENERAL ORDER DU Performing Organization Address City/State/[place] [address] [facility] documented in this encounter Visit Diagnoses Not on filedocumented in this encounter Administered Medications Inactive Administered Medications - up to 3 most recent administrations Medication Order MAR Action Action Date Dose Rate Site hydrocodone-acetaminophen Given 09/01/2011 1:52 PM EDT 4.86 mg (LORTAB) 7.5-500 MG/ 15mL oral liquid 4.86 mg 4.86 mg (0.15 mg/kg/dose ? 32.4 kg), Oral, EVERY 6 HOURS PRN, Starting on Sun09/01/11 at 1239, Until Sun09/01/11 at 2002, Pain, Dosed in mg of hydrocodone. Maximum dose of acetaminophen is 4000 mg from all sources in 24 hours., Routine documented in this encounter Active and Recently Administered Medications Times are shown in EDT. PRN Medication Order 08/30/2011 08/31/2011 09/01/2011 bacitracin injection (CANCELED) 1150 (Given - Provider: Bhavesh Tyson MD - Comment: mixed 10 500ml nacl irrigation) ONCE PRN, Starting Sun09/01/11 at 1150, Until Sun09/01/11 at 2002, Intra- Operative (Intra-Procedure), Routine hydrocodone-acetaminophen (LORTAB) 7.5-5 00 MG/ 15mL oral liquid 4.86 mg (CANCELED) 1352 (Given - Provid er: Daniel Dos Santos RN) 0.15 mg/kg/dose ? 32.4 kg = 4.86 mg, Oral, EVERY 6 HOURS PRN, Starting Sun09/01/11 at 1239, Until Sun09/01/11 at 2002, Pain, Dosed in mg of hydrocodone. Maximum dose of acetaminophen is 4000 mg from all sources in 24 hours., Routine documented in this encounter Care Teams Sales Process Manager Relationship Specialty Start Date End Date Miladis Blackmon MD PCP - General 04/12/10 11/28/21 [address] [place] [address] documented as of this encounter
--- OUTSIDE RECORDS SUMMARY | 2021-12-13 13:03 | XMS_ITS | Encounter Summary ---
:2000 Author Organization [facility] Address [facility] [place] [address] Care Team Providers Name Role Phone Miladis Blackmon MD Primary Care Provider Encounter Details Date Type Department Care Team Description 04/01/2012 Surgery Main Operating Room Farhad Whelan LA PAROSCOPY, [facility] DIAGNOSTIC, [facility] (WRVU 5.14) [facility] DR Theodore [place] [address] [place] [id number] [phone] (Wo rk) Social History Tobacco Use Types [...] 9:00 PM ES T Growth Chart: [facility] (Girls, 2-20 Years) documented in this encounter [...] be wrong. After office hours, please call [phone] and tell the pbx operator you need to speak to the resident on-call for Pediatric Surgery. During daytime hours try [phone] to reach one of our clinic nurses. documented in this encounter Medications at Time of Discharge Medication Sig Dispensed Refills Start Date End Date Multiple Urine Tests by [facility].(Non-Drug; 100 strip 6 012 Strp stripsIndications: Combo [...] instructions. P: Discharged home with family. Josephine Santos CLS - 04/02/2012 3:00 PM EST Child Life Inpatient Note: Patient's Name: Lottie Gaines Child prefers to be called: Lottie Patient's age: 12 y.o. 1 m.o. Patient's date of : 2000 Goals of involvement: coping, normalization, support during hospitalization Person/s present at interaction: [facility] has been supporting Lottie since admission. Lottie has been benefiting from [facility] support in Same day surgery area as well (see notes.) [facility] has collaborated this admission with Lottie, her [...] not been told anything since her surgery, [facility] is encouraging parents to share basic information, [...] present since 2008 and unchanged in early 2012 who presented with fever, increased pain and findings of increased size of the mass. Recovering as expected post laparoscopic procedure and pre-op chronic pain state. Awaiting biopsy results. Plan: Will discontinue Flynn today per Urology recommendations and if able to void and resume home pain regimen will discharge later today pending biopsy results and then plan for further evaluation ortreatment. Alejandrina Canada MSW - 04/02/2012 12:00 AM EST Office of [...] autism. Lottie's father, Lincoln Gaines, resides in [place], [place] with a friend. Parents are . They have been for 4 or 5 years.Mother has worked one day a week at [employer] and father works top icer delivering alcohol. Lottie has an IEP and [...] discussed with medical team. DARRYN Yoon Clinical Trash Truck Driver Care Management Pager [phone] Evi Barnes MD - 04/01/2012 11:00 PM [...] no acute issues -continue current management Alexsandra Fierro RN - 04/01/2012 6:14 PM EST Report given to Carmen on pediatric unit Tena Madrigal MD - 04/01/2012 6:51 AM EST Pediatric [...] was seen by Dr. Samantha Staley, adolescent knock out hand, who due to fear and discomfort could [...] several services that may need to be involved(wv,myless urol, Dr. Staley, peds pathology) and the [...] Admission H&P Patient Name: Lottie Gaines : [id number] MR#: [id number] 03/29/2012 Hospital Day 1 day ID: 12 [...] an appendiceal abscess, Lottie was transferred to [facility] Pedi Surg team for further management and [...] 2.0CM, NECK performed by LINNEA MATA at [facility] ??? Unlisted mr procedure 12/13/2010 MRI WITH ANESTHESIA performed by ASHLEE HU at [facility] ??? Upper gi endoscopy, exam 08/19/2011 PEDIATRIC UPPER GI ENDOSCOPY performed by CHALINO MANCINI at [facility] ENDOSCOPY ??? Colonoscopy, diagnostic 08/19/2011 PEDIATRIC COLONOSCOPY performed by CHALINO MANCINI at [facility] ENDOSCOPY ??? Cystourethroscopy 08/18/2011 CYSTO, CYSTOURETHROSCOPY, DIAGNOSTIC performed by ALIYAH NERI at [facility] OR ??? Cystourethroscopy 09/01/2011 CYSTO, CYSTOURETHROSCOPY, DIAGNOSTIC performed by DENG JENKINS at [facility] OR ??? Colposcopy, cervix w/adj vagina 09/01/2011 COLPOSCOPY, VAGINOSCOPY\CERVIX & VAGINA performed by DENG JENKINS at [facility] OR ??? Inject indwell cath, ureter x-ray 09/01/2011 INJECTION PROCEDURE, URETEROGRAPHY OR URETEROPYELOGRAPHY THRU URETEROSTOMY OR URETERAL CATH performed by DENG JENKINS at [facility] OR Allergies: No Known Allergies Prior to Admission Medications: Prescriptions prior to admission Medication Sig Dispense Refill ??? gabapentin (NEURONTIN) 100 mg capsule Take 100 mg by mouth daily. ??? Multiple Urine Tests Strp strips by [facility].(Non-Drug; Combo Route) route. Use to monitor urine [...] ??? Appearance UA Clear Clear ??? Spec Mcgregor UA 1.010 1.002 - 1.030 ??? Color [...] was seen by Dr. Samantha Staley, adolescent knock out hand, who due to fear and discomfort could [...] findingsare concerning that the structure noted in 2008 [...] several services that may need to be involved(wv, peds urol, Dr. Staley, peds pathology) and the [...] was seen by Dr. Samantha Staley, adolescent knock out hand, who due to fear and discomfort could [...] Refills: Multiple Urine Tests Strp strips by [facility].(Non-Drug; Combo Route) route. Use to monitor urine [...] hospitalized for: Diagnostic laparoscopy Specialty appointments at [facility] after discharge: Follow-up will be needed and [...] be wrong. After office hours, please call [phone] and tell the pbx operator you need to speak to the resident on-call for Pediatric Surgery. During daytime hours try [phone] to reach one of our clinic nurses. Arrangements for VNA / home care: n/a Primary Care Physician: MILADIS BLACKMON MD Tel. #: [phone] Call MILADIS BLACKMON MD for a follow up appointment in 7-14 days. Your [facility] Attending physician is: Dr. Whelan and can be reached at [phone]. Med Student Progress Note - Bria Brito [...] encourage ambulation Bria Brito, MS III Pager [phone] Plan of Care - Lora Lucero - [...] Whelan MD - 04/01/2012 4:45 PM EST [facility] Operative Note Patient Name: Lottie Gaines : [id number] MR#: [id number] Case Date: 04/01/2012 Surgeon: Surgeon(s) and Role: [...] Bladder Mass / Vaginoscopy Surgeon: Gunner Jenkins Microbiology Lab Analyst: None Anesthesia: General Tubes / Drains: 14 [...] cystoscopy and vaginoscopy when recent examination by Pedi-MARBLE INSTALLER SUPERVISOR (Dr. Staley) revealed and abnormal hymen. Lottie [...] ??? Multiple Urine Tests Strp strips by [facility].(Non-Drug; Combo Route) route. Use to monitor urine [...] with care. Care Management - Cindy Hernández ENGLISH DIVISION CHAIR - 03/30/2012 1:56 PM EST Office of [...] to be with patient andhad the boys retail personal banker stay with them. Mom states that they are over their allotted weekly time for the boys retail personal banker and she is staying to do them [...] to the circumstances. Worker spoke to co-worker DARRYN Kathleen who agreed that gas cards were to be used in emergencies,but a small amount could be given this one time. Worker provided family with two food vouchers and aten dollar gas card, informing them that this was for the whole weekend and they could not get anything else. Worker said they would have to follow up with the weekday Trash Truck Driver, Alejandrina Crouch. Assessment: Family are insisting on getting a gas voucher for today and tomorrow as they have to go home to carefor their boys. Two food vouchers and a ten dollar gas card was given as an exception. Plan: Follow up with weekday Trash Truck Driver DARRYN Yoon on Sunday. DARRYN WEINSTEIN Weekend Trash Truck Driver Pager [phone] Plan of Care - Irina Salmon RN [...] D [facility] PLASTIC SURGERY [place], [place] [address] (Wo rk) documented as of this encounter Procedures Procedure Name Priority Date/Time Associated Comments Diagnosis NON-MARBLE INSTALLER SUPERVISOR FINAL REPORT Routine 04/01/2012 4:58 PM R [...] results section. documented in this encounter Results NON-MARBLE INSTALLER SUPERVISOR FINAL REPORT (04/01/2012 4:58 PM EST) Component Value Ref Test Analysis Performed At [facility] gist Range Method Time Signature Non-Pediatric Speech Therapist CERNER Final Report ? [facility] ? Provider: ?? DENG JENKINS ?Pt. Name: ?? ISIDORO Y, LOTTIE R ? Acc #: ?[id number] ?Pt. MRN: ?[id number] ? Col Date: ?? 04/01/20 12 ?/Sex: ?2000,(12 years),Female ? Rec Date: ?? 04/01/2012 ?LOC: ?PA ? CYTOPATHOLOGY: ??NGYN ? ---Adequacy--- ? Specimen submitted is satisfactory. ? ---Cytopathologic Diagnosis--- ? Negative for Malignancy ? 04/03/12 ?Screened by: ? SLA ? Rescreened by: ?? EJG,EJG ? 04/07/12 ?Verified by: ? Eleonora COHW, Toby Lipscomb ?Cytopa thologist ? (Electronic Signature) [...] Organization Address City/State/[place] [address] [facility] PATHOLOGY ADDENDUM REPORT (04/01/2012 4:58 PM EST) Component Value Ref Test Analysis Performed At [facility] gist Range Method Time Signature Addendum CERNER Report ? [facility] ? Provider: ?? FARHAD WHELAN ?? Pt. Name: ?? LOTTIE GAINES ? Acc #: ?[id number] ?Pt. MRN: ?[id number] ? Col Date: ?? 04/01/20 12 ?/Sex: [...] controls. ??These ? IHC studies provide t pathologist with adjunctive diagnostic information. ? Antibody [...] MD PATHOLOGY/CYTOLOGY ORDERABLE S Performing Organization Address [facility]/State/[place] [address] CERNER [facility] SURGICAL PATHOLOGY REPORT (04/01/2012 4:58 PM EST) Component Value Ref Test Analysis Performed At [facility] gist Range Method Time Signature Surgical [facility] Pathology ? [facility] Report ? Provider: ?? FARHAD WHELAN ?? Pt. Name: ?? LOTTIE GAINES ? Acc #: ?[id number] ?Pt. MRN: ?[id number] ? Col Date: ?? 04/01/20 12 ?/Sex: [...] ? KO ? 04/04/12 Verified by: ? OrnMagdalena bose MD ? Pathologist ? (Electronic Si gnature) [...] Block ?Antibody ? Result (Posi tive/Negative) ? [facility] ? Provider: ?? FARHAD WHELAN ?? Pt. Name: ?? LOTTIE GAINES ? Acc #: ?[id number] ?Pt. MRN: ?[id number] ? Col Date: ?? 04/01/20 12 ?/Sex: [...] MD PATHOLOGY/CYTOLOGY ORDERABLE S Performing Organization Address City/[facility]/[place] [address] CERNER MILLENNIUM Cytopathology Non-Gynecological (04/01/2012 4:25 PM EST) Specimen Anatomical Collection Method Collection Time Receive d Time (Source) Location / / Volume Laterality AP Specimen 04/01/2012 4:25 PM 2 4:25 EST PM EST Narrative CERNER MILLENNIUM - 04/01/2012 4:[address] Specimen requisition ordered. ??Separate Pathology report to follow Deng Jenkins MD PATHOLOGY/CYTOLOGY ORDERABLE S Performing Organization Address [facility]/[place] [address] CERNER MILLENNIUM Specimen to [...] MD PATHOLOGY/CYTOLOGY ORDERABLE S Performing Organization Address City/[facility]/[place] [address] CERNER MILLENNIUM Specimen to [...] MD PATHOLOGY/CYTOLOGY ORDERABLE S Performing Organization Address City/[facility]/ZIP Code Phon e Number [place] [id number] CERNER MILLENNIUM (ABNORMAL) DIFFERENTIAL, AUTOMATED (03/30/2012 6:05 PM EST) [facility] Method Time Signature Neutrophils % 73.3 (H) [...] Organization Address City/State/ZIP Code Phon e Number [place] [id number] [facility] [address] CERNER MILLENNIUM (ABNORMAL) CBC (with [...] Organization Address City/State/[place] [address] [facility] Blood culture (03/30/2012 6:05 PM EST) Patholo gist Method Time Signature Blood Culture CERNER ? Patient Name: LOTTIE GAINES ? Ordered By: FARHAD WHELAN ? MR#: [id number] ?LOC: ??PA ? /Sex: ??2000 (12 years), [...] Organization Address City/State/[place] [address] OPAL LEAHYIUM Blood culture (03/30/2012 6:05 PM EST) [facility] Method Time Signature Blood Culture CERNER ? Patient Name: LOTTIE GAINES ? Ordered By: FARHAD WHELAN ? MR#: [id number] ?LOC: ??PA ? /Sex: ??2000 (12 years), [...] Organization Address City/State/[place] [address] [employer]UM XR abdomen flat and upright (03/30/2012 10:10 [...] ORDERABLES URINE CULTURE (03/30/2012 5:30 AM EST) [facility] Method Time Signature Urine Culture CERNER ? Patient Name: LOTTIE GAINES ? Ordered By: FARHAD WHELAN [facility] ? MR#: [id number] ?LOC: ??PA ? /Sex: ??2000 (12 years), [...] - GENERAL ORDER DU Performing Organization Address City/[facility]/[place] [address] CERNER MILLENNIUM (ABNORMAL) URINALYSIS WITH MICROSCOPIC (03/30/2012 5:30 AM EST) [facility] Method Time Signature Glucose UA Negative Negative [...] Appearance UA Clear Clear CERNER MILLENNIUM Spec Mcgregor UA 1.010 1.002 - CERNER 1.030 MILLENNIUM [...] Organization Address City/State/[place] [address] CERNER MILLENNIUM (ABNORMAL) DIFFERENTIAL, AUTOMATED (03/30/2012 5:00 AM EST) [facility] Method Time Signature Neutrophils % 77.7 (H) [...] Organization Address City/State/[place] [address] CERNER MILLENNIUM Basic Metabolic Panel (non-fasting) (03/30/2012 5:00 AM EST) athologist Signature Glucose Lvl 115 60 - 199 CERNER mg/dL MILLENNIUM Comment: Diabetes: >=200 mg/dL plus symp toms BUN 10 5 - 20 mg/dL CERNER MILLENNIUM Creatinine 0.52 0.20 - 0.70 mg/dL CERNER MILL ENNIUM Comment: Please note that the pediatric reference intervals supplied above were not validated at [facility]. Results from pediatri c patients should be [...] Organization Address City/State/[place] [address] [facility] MILLENNIUM (ABNORMAL) CBC (with Diff) (03/30/2012 5:00 [...] Organization Address City/State/[place] [address] CERNER MILLENNIUM (ABNORMAL) DIFFERENTIAL, AUTOMATED (03/30/2012 12:50 AM EST) [facility] Method Time Signature Neutrophils % 79.6 (H) [...] Organization Address City/State/[place] [address] CERNER MILLENNIUM Basic Metabolic Panel (non-fasting) (03/30/2012 12:50 AM EST) P athologist Signature Glucose Lvl 119 60 - 199 CERNER mg/dL MILLENNIUM Comment: Diabetes: >=200 mg/dL plus symp toms BUN 13 5 - 20 mg/dL CERNER MILLENNIUM Creatinine 0.49 0.20 - 0.70 mg/dL CERNER MILL ENNIUM Comment: Please note that the pediatric reference intervals supplied above were not validated at [facility]. Results from pediatri c patients should be [...] Organization Address City/State/ZIP Code Phon e Number [address] CERNER MILLENNIUM (ABNORMAL) CBC [...] Organization Address City/State/ZIP Code Phon e Number [address] CERNER MILLENNIUM REQUEST FOR 2ND [...] intravenous and oral co ntrast administration at [facility] on 03/29/2012. No c oronal or sagittal [...] intravenous and oral co ntrast administration at [facility] on 03/29/2012. No c oronal or sagittal [...] Action Action Date Dose Rate Site BUpivacaine (PF) (MARCAINE) 0.25 Given 04/01/2012 4:48 PM EST 66 .5 mg % (2.5 mg/mL) injection ONCE PRN, Starting on Sun04/01/12 at 1648, Until Sun04/01/12 at 1758, Intra-Operative (Intra-Procedure), Routine documented in this encounter [...] from all sources in 24 hours., Routine 2135 (Given - Provider: Shima Carreno RN) 1404 (JUL Hold - Provider: Admin Adt - R criss: Transfer to a Procedural area)1800 (Automatically Held - Provider: Admin Adt)1831 (JUL Unhold - Provider: Admin Adt)220 (Given - Provider: Lora Lucero) gabapentin (NEURONTIN) capsule 100 mg (CANCELED) 0818 (Given - Provider: Veena Mendez RN)1520 (Given - Provider: Veena Mendez RN)2031 (Given - Provider: Shima Carreno RN) 0900 (Given - Provider: Daja Luevano, SARAH)1404 (JUL Hold - Provider: Admin Adt - Reason: Transfer to a Procedural area)1500 (Automatically Held - Provider: Admin Adt)1831 (JUL Unhold - Provider: Admin Adt) 1037 (Given - Provider: Connor Bolanos RN)1439 (Given - Provider: Connor Bolanos RN) 100 mg, Oral, 3 TIMES DAILY, First dose on 03/30/12 at 1500, Until Discontinued, Routine 2027 (Given - Provider: Lora Pedroza rsjeremiah) hydroCODone-acetaminophen (VICODIN) 5-500 mg per tablet 1 tablet (COMPLETED) 1452 (Given - Provider: Connor Bolanos, SARAH) 1 tablet (5 mg), Oral, ONCE, 1 [...] Veena Mendez, SARAH)1520 (Given - Provider: Veena Mendez, SARAH)2031 (Given - Provider: Shima Carreno, SARAH) 0900 (Given - Provider: Daja Luevano, SARAH)1404 (MAR Hold - Provider: Admin Adt - Reason: Transfer to a Procedural area)1500 (Automatically Held - Provider: Admin Adt)1716 (Not Given - Provider: Alexsandra Avila RN - Reason: Entered in Error) 1037 (Given - Provider: Connor Bolanos, SARAH)1440 (Given - Provider: Connor Bolanos, SARAH) 100 mg = 2.71 mg/kg/dose, Oral, 3 TIMES DAILY, First dose on Sun03/29/12 at 2330, Until Discontinued, As needed , Routine 1717 (MA Lj Unhold - Provider: Alexsandra Avila, SARAH)2027 (Given - Provider: Lora Lucero) piperacillin-tazobactam (ZOSYN) 3.375 g in dextrose 5% 50 mL (CANCELED) 0601 (Not Given - Provider: Shima Carreno RN - Reason: See comment - Comment: Med not up from pharmacy yet)0818 (Given - Provider: Veena Mendez RN)1418 (Given - Provider: Veena Mendez RN) 0602 (Given - Provider: Shima Carreno, SARAH)1404 (MAR Hold - Provider: Admin Adt - Reason: Transfer to a Procedural area)1427 (Given - Provider: Zafar Wilks CRNA)1715 (MAR Unhold - Provider: Alexsandra Avila, SARAH) 3.375 g = 0.0915 g/kg, Intravenous, EVER Y 8 HOURS SCHEDULED, First dose on Sun03/29/12 at 2330, Until Discontinued 2136 (Given - Provider: Shima leigh RN) Continuous Medication Order 03/31/2012 04/01/2012 04/02/2012 dextrose 5% and sodium chloride 0.45% wi th potassium chloride 20 mEq infusion (CANCELED) 1200 (Stopped - Provider: Veena alfaro RN - Comment: taking adequate PO)2253 (Restarted - Provider: Shima Carreno, SARAH) 1041 (New Bag - Provider: Daja Luevano RN)1404 (JUL Hold - Provider: Admin Adt - Reason: Transfer to a Procedural area)1705 (JUL Unhold - Provider: Alexsandra Avila, SARAH)1707 (Restarted - Provider: Alexsandra Avila, SARAH) 75 mL/hr, at 75 mL/hr, Intravenous, CONT INUOUS, Starting Sun03/29/12 at 2300, Until Sun04/01/12 at 1758 PRN Medication Order 03/31/2012 04/01/2012 04/02/2012 BUpivacaine (PF) (MARCAINE) 0.25 % (2.5 mg/mL) injection (CA NCELED) 1648 (Given - Provider: Farhad Whelan MD) ONCE PRN, Starting Sun04/01/12 at 1648, Until Sun04/01/12 at 1758, Intra- Operative (Intra-Procedure), Routine ketorolac [...] Routine documented in this encounter Care Teams Paving And Surfacing Labourer Relationship Specialty Start Date End Date Miladis Blackmon MD PCP - General 04/12/10 11/28/21 [place] [address] documented as of this encounter
--- OUTSIDE RECORDS SUMMARY | 2021-12-13 13:03 | XMS_ITS | Encounter Summary ---
:2000 Author Organization [facility] Address [facility] [place] [address] Care Team Providers Name Role Phone Miladis Blackmon MD Primary Care Provider Encounter Details Date Type Department Care Team Description 03/29/2012 Orders Only Pediatric Surgery at [facility] Emma Ray MD [facility] [place] [address] PEDIATRIC SURGERY [phone] [place], [place] [address] (Wo rk) Social History Tobacco [...] Visit Plastic Surgery Russ Guevara M [facility] ER PLASTIC SURGERY [place], [place] [address] (Wo rk) documented as of this encounter Procedures Procedure Name Priority Date/Time Associated Diagnosis Comme nts FILM LIBRARY Routine 03/29/2012 6:54 PM Results f or this STORAGE ONLY CT EST procedure ar e in ABDOMEN AND PELVIS the resul ts section. documented in this encounter Results FILM LIBRARY- STORAGE ONLY CT ABDOMEN & PELVIS (03/29/2012 6:54 PM EST) Specimen (Source) Anatomical Collection Method Collection Time Re ceived Time Location / / Volume Laterality 03/29/2012 6:54 PM EST Narrative RAD - 11/14/2013 1:28 AM EDT This is a non-reportable exam. Procedure Note Gonzalo Melendez - 11/14/2013Formatting of t his note might be different from the original. This is a non-reportable exam. Emma Ray MD IMG FILM LIBRARY ORDERABLES Performing Organization Address City/State/ZIP Code Phon e Number [facility] [address] [place] [address] documented in this encounter Visit Diagnoses Not on filedocumented in this encounter Care Teams Weir Fisherman Relationship Specialty Start Date End Date Miladis Blackmon MD PCP - General 04/12/10 11/28/21 [address] [place] [address] documented as of this encounter
--- OUTSIDE RECORDS SUMMARY | 2021-12-13 13:03 | XMS_ITS | Encounter Summary ---
:2000 [place] [address] Care Team Providers Name Role Phone Miladis Blackmon MD Primary Care Provider Encounter Details Date Type Department Care Team Description 08/19/2011 Anesthesia Event Pediatric Adolescent Lani Rasmussen MD [facility] [place] [address] [facility] Byron Fletcher MD [facility] [place] [address] [place] [address] Anesthesia Record Procedure Summary Procedure Name Responsible Anesthesia Start Anesthesia Stop Time Anesthesiologist Time PEDIATRIC UPPER GI Charles Rasmussen MD 08/19/11 1308 08/19/11 1403 ENDOSCOPY (N/A ) Events Date Time Event Comment 08/19/2011 1308 Start 1403 Stop No medications on file. Agents No agents on file. Blood No blood administrations on file. Lines, Drains, and Airways Type Details Placement Removal PIV 08/19/11; 0400; 08/19/11; 08/19/11 0400 by Sylve denisse, 08/19/11 1616 by [id number] SARAH Wilkinson Kimb erly C, RN documented in this encounter Social History Tobacco Use Types Packs/Day Years Used Date Passive Smoke Exposure - Never Smoker Smokeless Tobacco: Never Used Comments: Mom states smokes Alcohol Use Standard Drinks/Week Comments No 0 (1 standard drink = 0.6 oz pure alcoho l) Sex Assigned at Date Recorded Not on file documented as of this encounter OR Notes Anesthesia Postprocedure Evaluation - Charles Rasmussen MD - 08/19/2011 2:32 PM EDT Patient: Lottie Gaines Procedure(s) Performed: PEDIATRIC UPPER GI ENDOSCOPY - with biopsies; PEDIATRIC COLONOSCOPY - with biopsies Patient location: PACU Post-op pain: Adequate analgesia Post-op nausea: no nausea or vomiting Last Vitals: Filed Vitals: 08/19/11 1430 BP: Pulse: 62 Temp: Resp: 20 Post-op cardiovascular and respiratory status: is stable Level of consciousness: awake and alert Complications: no apparent complications and tolerated the procedure well Fluid Status: normal Went personally to find family, they were not on 5th floor, called mother's cell phone personally, informed her of how to get to critical care waiting area. She told me they would be a couple minutes because they were still eating. Called shortly afterward by PACU nurse informing me that parents were unhappy with anesthesiologist and that they were upset in that they were not able to come to the room for induction. PACU nurse was nervous by tone of voice of parents and some of the remarks they were making. I went to bedside and directly spoke with the parents. I asked if there were any questions, they both replied no. I told them that Lottie did great and that she had stopped crying once we got her into the procedure room. They both thanked me for her care and indicated that they were satisfied with her anesthetic. I once again asked if they had any further questions or concerns. Both of them replied no. PACU nurse still uneasy so security called and will remain in PACU until patient D/C'd. Anesthesia Postprocedure Evaluation - Jaime Sierra MD - 08/19/2011 2:06 PM EDT Patient: Lottie Gaines Procedure(s) Performed: PEDIATRIC UPPER GI ENDOSCOPY - with biopsies; PEDIATRIC COLONOSCOPY - with biopsies. Patient location: PACU Post-op pain: Adequate analgesia Post-op nausea: no nausea or vomiting Last Vitals: Filed Vitals: 08/19/11 1200 BP: 116/60 Pulse: 79 Temp: 37 ??C (98.6 ??F) Resp: 20 Post-op cardiovascular and respiratory status: is stable Level of consciousness: sedated Complications: no apparent complications and tolerated the procedure well Fluid Status: normal Anesthesia Preprocedure Evaluation - Byron Figueroa MD - 08/18/2011 9:26 PM EDT Anesthesia Evaluation Patient summary reviewed and Nursing notes reviewed No hx of anesthetic complications Airway Mallampati: I TM distance: >3 FB Neck ROM: full Dental - normal exam Pulmonary - negative ROS (+) asthma, (-) pneumonia, shortness of breath and recent URI Cardiovascular ROS comment: 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 Endo/Other - negative ROS Abdominal Other findings: Alert, Awake in No Distress Anesthesia Plan ASA 2 General with inhalational induction Consent obtained today for upper endoscopy and colonoscopy scheduled for Sunday08/19/11. Anesthetic plan and risks discussed with patient. documented in this encounter Miscellaneous Notes Addendum Note - Binta Basurto - 08/21/2011 12:14 PM EDT Addendum created 08/21/11 1214 by Binta Basurto Modules edited:Anesthesia Events, Anesthesia Responsible Staff Addendum Note - Charles Rasmussen MD - 08/19/2011 2:39 PM EDT Addendum created 08/19/11 1439 by Charles Rasmussen MD Modules edited:IP Notes Section documented in this encounter Plan of Treatment Upcoming Encounters Date Type Specialty Care Team Description 12/22/2021 Office Visit Plastic Surgery Russ Guevara M D [facility] PLASTIC SURGERY [place], [place] [address] (Wo rk) documented as of this encounter Visit Diagnoses Not on filedocumented in this encounter Care Teams High School Math Teacher Relationship Specialty Start Date End Date Miladis Blackmon MD PCP - General 04/12/10 11/28/[place] [address] documented as of this encounter
--- OUTSIDE RECORDS SUMMARY | 2021-12-13 13:03 | XMS_ITS | Encounter Summary ---
:2000 Author Organization [facility] [place] [address] Care Team Providers Name Role Phone Miladis Blackmon MD Primary Care Provider Encounter Details Date Type Department Care Team Description 08/31/2011 Telephone [place] [facility] [place] Hung [place]N [facility] [place] [address] PEDIATRIC UROLOGY [phone] [place], [place] [address] (Wo rk) Social History Tobacco Use Types Packs/Day Years Used Date Passive Smoke Exposure - Never Smoker Smokeless Tobacco: Never Used Comments: Mom states smokes Alcohol Use Standard Drinks/Week Comments No 0 (1 standard drink = 0.6 oz pure alcoho l) Sex Assigned at Date Recorded Not on file documented as of this encounter Miscellaneous Notes Telephone Encounter - Ashley Rice APRN - 08/31/2011 10:[address] Lea's office sent Lottie's repeat from 08/30/11 u/a results: s.015, pH:7 LE:1+ Others norm/neg. Culture was negative. Lottie is scheduled for surgery with Clay Jenkins and Agustín tomorrow. Ashley Rice APRN, PhD documented in this encounter Plan of Treatment Upcoming Encounters Date Type Specialty Care Team Description 12/22/2021 Office Visit Plastic Surgery Russ Guevara M D [facility] PLASTIC SURGERY [place], [place] [address] (Wo rk) documented as of this encounter Visit Diagnoses Not on filedocumented in this encounter Care Teams Warehouse Associate Relationship Specialty Start Date End Date Miladis Blackmon MD PCP - General 04/12/10 11/28/21 [address] [place] [place] [address] documented as of this encounter
--- OUTSIDE RECORDS SUMMARY | 2021-12-13 13:03 | XMS_ITS | Encounter Summary ---
:2000 Author Organization [facility] Address [facility] [place] [address] Care Team Providers Name Role Phone Miladis Blackmon MD Primary Care Provider Encounter Details Date Type Department Care Team Description 08/19/2011 Orders Only [facility] Unknown [facility] [place] [address] Social History Tobacco Use Types Packs/Day [...] D [facility] PLASTIC SURGERY [place], [place] [address] (Wo rk) documented as of this encounter Procedures Procedure Name Priority Date/Time Associated Comments Diagnosis PEDIATRIC UPPER GI Routine 08/19/2011 1:17 PM Res ults for this ENDOSCOPY EDT procedure are i n the results section. PEDIATRIC COLONOSCOPY Routine 08/19/2011 1:15 PM Results for this EDT procedure are i n the results section. documented in this encounter Results PEDIATRIC UPPER GI ENDOSCOPY (08/19/2011 1:17 PM EDT) Component Value Ref Test Analysis Performed At [facility] Range Method Time Signature Pediatric [facility] Upper Gi Endo Endoscopy Patient Name: Lottie Gaines ? Procedure Date: 08/19/2011 1:17 PM ? Date of : 2000 ? Age: 11 ? Order #: [id number] ? Procedure: ? Pediatric Upper GI Endoscopy Indications: ? abdominal pain, ? 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 Madeline Perez MD, Vignesh R Ge ? SARAH Morales, Lj Negrete Referring : ? Medicines: ? Sedation Required Anesthesia Staff ? Assistance due to patient's a ge Complications: ? No immediate complications. Procedure: ? Pre-Anesthesia Assessment: ? - The risks and benefits of t he ? procedure and the sedation op tions ? and risks were discussed with the ? patient. All questions were a nswered ? and informed consent was obta ined. ? After obtaining informed cons ent, the ? endoscope was passed under di rect ? vision. Throughout the proced ure, the ? patient's blood pressure, pul se, and ? oxygen saturations were monit ored ? continuously. The Endoscope w as ? introduced through the mouth, and ? advanced to the third part of ? duodenum. ? Findings: ? Normal appearing esophagus, stomach, and duodenum. ? Biopsies obtained for histology. ? Impression: ?- Normal examination. Recommendation: ?- Await pathology results. ? - Return patient to inpatient floor ? for further management when s table. ? Madeline Perez MD 08/19/2011 2:06 PM Number of Addenda: 0 Note Initiated On: 08/19/2011 1:17 PM Specimen (Source) Anatomical Collection Method Collection Time Re ceived Time Location / / Volume Laterality 08/19/2011 1:17 PM EDT Unknown GENERAL SURGICAL ORDERABLES Performing Organization Address City/State/ZIP Code Phon e Number [facility] PEDIATRIC COLONOSCOPY (08/19/2011 1:15 PM EDT) [facility] Method Time Signature Pediatric [facility] Colonoscopy Endoscopy Patient Name: Lottie Gaines ? Procedure Date: 08/19/2011 1:15 PM ? Date of : 2000 ? Age: 11 ? Order #: [id number] ? Procedure: ? Pediatric Colonoscopy Providers: ? Madeline Perez MD, Vignesh Calhoun . ? SARAH Morales, Lj Negrete MD: ? Complications: ? No immediate complications. Procedure: ? Pre-Anesthesia Assessment: ? - The risks and benefits of t he ? procedure and the sedation op tions ? and risks were discussed with the ? patient. All questions were a nswered ? and informed consent was obta ined. ? After I obtained informed con sent, ? the scope was passed under di rect ? vision. Throughout the proced ure, the ? patient's blood pressure, pul se, and ? oxygen saturations were monit ored ? continuously. The Colonoscope was ? introduced through the anus a nd ? advanced to the terminal ileu m. ? Findings: ? Normal appearing colon and terminal ileum. ? As scope withdrawn no fistulous tract appreciated. ? Biopsies obtained for histology. ? Impression: ?Normal appearing colon and termina l ? ileum. Recommendation: ?- Await pathology results. ? - Return patient to inpatient floor ? for further management. ? Madeline James Perez MD 08/19/2011 2:09 PM Number of Addenda: 0 Note Initiated On: 08/19/2011 1:15 PM Specimen (Source) Anatomical Collection Method Collection Time Re ceived Time Location / / Volume Laterality 08/19/2011 1:15 PM EDT Unknown GENERAL SURGICAL ORDERABLES Performing Organization Address City/State/ZIP Code Phon e Number [facility] documented in this encounter Visit Diagnoses Not on filedocumented in this encounter Care Teams Ocean Lifeguard Relationship Specialty Start Date End Date Miladis Blackmon MD PCP - General 04/12/10 11/28/21 [address] [place] [address] documented as of this encounter
--- OUTSIDE RECORDS SUMMARY | 2021-12-13 13:03 | XMS_ITS | Encounter Summary ---
:2000 Author Organization [facility] [place] [address] Care Team Providers Name Role Phone Miladis Blackmon MD Primary Care Provider Encounter Details Date Type Department Care Team Description 03/29/2012 Orders Only Pediatric Surgery at [facility] Emma Ray MD [facility] [place] [address] PEDIATRIC SURGERY [phone] [place], [place] [address] (Wo rk) Social History Tobacco [...] Visit Plastic Surgery Russ Guevara M D [facility] ER PLASTIC SURGERY [place], [place] [address] (Wo rk) documented as of this encounter Procedures Procedure Name Priority Date/Time Associated Comments Diagnosis FILM LIBRARY STORAGE Routine 03/29/2012 6:53 PM R esults for this ONLY ULTRASOUND EST procedure ar e in STUDY the results section. documented in this encounter Results FILM LIBRARY- STORAGE ONLY ULTRASOUND STUDY (03/29/2012 6:53 PM EST) Specimen (Source) Anatomical Collection Method Collection Time Re ceived Time Location / / Volume Laterality 03/29/2012 6:53 PM EST Narrative RAD - 11/14/2013 1:28 AM EDT This is a non-reportable exam. Procedure Note Gonzalo Melendez - 11/14/2013Formatting of t his note might be different from the original. This is a non-reportable exam. Emma Ray MD IMG FILM LIBRARY ORDERABLES Performing Organization Address City/State/ZIP Code Phon e Number [facility] [address] [place] [address] documented in this encounter Visit Diagnoses Not on filedocumented in this encounter Care Teams Maintenance Mechanic Helper Relationship Specialty Start Date End Date Miladis Blackmon MD PCP - General 04/12/10 11/28/21 [address] [place] [address] documented as of this encounter
--- OUTSIDE RECORDS SUMMARY | 2021-12-13 13:03 | XMS_ITS | Encounter Summary ---
:2000 Author Organization [facility] [address] Care Team Providers Name Role Phone Miladis Blackmon MD Primary Care Provider Encounter Details Date Type Department Care Team Description 09/14/2011 Telephone Pediatric Urology at [facility] Ashley Hung APRN [facility] [place] [address] PEDIATRIC UROLOGY [phone] [place], [place] [address] (Wo rk) Social History Tobacco [...] Telephone Encounter - Ashley Rice APRN - 09/14/2011 10:51 AM EDT I spoke with Dr. Lea this morning to coordinate care. To summarize Dr. Jenkins'es findings after cystoscopy on 09/01/11: -No fistula was located, nor focal problem. Rather, there was inflammation throughout the bladder, suggesting cystitis/vaginitis. Pain sounds consistent with bladder spasms. He irrigated with Bacitracin and administered IV cipro. -Elmiron has been discontinued. -continue with Detrol LA 4 mg, may need to decrease if this causes lethargy. -Dr. Jenkins recommended Bicarbonate supplementation of 750 mg qd, with goal of urine pH 8 or higher. U/a dipsticks for home use were prescribed but the [facility] pharmacy does not carry these, I spoke with mom yesterday and advised her to purchase them OTC at another pharmacy or at a pool supply store. -To treat acute pain and anxiety/help sleep, she may continue with Diazepam or Benadryl. She has hadsmall quantities of Lortab, and these may be infrequently necessary at times. Dr. Jenkins discussed ourdesire to minimize use of opiates. I relayed all of the above to Dr. Lea. We also discussed Lottie's school status (she has now missed 38 days of school per mom). She has an IEP, but at this point a plan should be created for alternate/supplemental schooling as the school sees fit. U/a 3 days ago at ED had pH of 7. 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 Orlando for recommendations about chronic pain management -Dr. Lea will touch base with school nurse re: optimal management in school setting. -I discussed DOUBLE BACKER of magnesium with operations supervisor 2nd shift and advised mom to start 300 mg Mg/day for Lottie inattempt to quell muscular spasm. Ashley Rice APRN, PhD documented in this encounter Plan of Treatment Upcoming Encounters Date Type Specialty Care Team Description 12/22/2021 Office Visit Plastic Surgery Russ Guevara M D [facility] PLASTIC SURGERY [place], [place] [address] (Wo rk) documented as of this encounter Visit Diagnoses Not on filedocumented in this encounter Care Teams Youth Advocate Relationship Specialty Start Date End Date Miladis Blackmon MD PCP - General 04/12/10 11/28/21 [address] [place] [address] documented as of this encounter
--- OUTSIDE RECORDS SUMMARY | 2021-12-13 13:03 | XMS_ITS | Encounter Summary ---
:2000 Author Organization [facility] [place] [address] Care Team Providers Name Role Phone Miladis Blackmon MD Primary Care Provider Encounter Details Date Type Department Care Team Description 09/01/2011 Surgery Main Operating Room Deng Jenkins MD CYSTO, [facility] CYSTOURETHROSCOPY, [facility] DIAGNOSTIC (WRVU 2.23) [facility] PEDIATRIC ABNER [place] [id number] [place] [phone] Social History Tobacco Use Types Packs/Day Years [...] Taken Comments Blood Pressure - - Pulse 76 09/01/2011 8:17 AM EDT Temperature 36.6 ??C (97.9 ??F) 09/01/2011 8:17 AM EDT Respiratory Rate 18 09/01/2011 8:17 AM EDT Oxygen Saturation 98% 09/01/2011 8:17 AM EDT Inhaled Oxygen Concentration - - Weight 32.4 kg (71 lb 6.9 oz) 09/01/2011 8:17 AM EDT Height - - Body Mass Index - - documented in this encounter Discharge Instructions Discharge InstructionsDaniel Dos Santos RN - 09/01/2011 12:31 PM EDT [...] which usually goes away in 12-24 hours. [facility] - Information Same Day Surgery Patient InstructionsBhavesh Tyson MD - 09/01/2011 11:57 AM EDT Instructions [...] to urinate please call our office at [phone] 5PM or [phone] after hours. DIET: May resume a regular [...] problems, you can reach pediatric urology in [place] at or in [place] at from 8:00am to 5:00pm Sunday through Sunday. On the weekends or after 5:00pm, you should call [facility] at and ask to speak to the urology resident try on baster. documented in this encounter Medications at Time [...] oral liquid Multiple Urine Tests Strp by [facility].(Non-Drug; 50 strip 1 10/02/2011 strips Combo Route) [...] to work through coping. AUGUSTINE HowellS Certified Mesh Cutter Pager [phone] documented in this encounter H&P Notes Bhavesh [...] NOTE Procedure: Cystoscopy With ureteral catheterization CPT 57573 Bilateral Retrograde Ureteropyelogram CPT 95215-50 Vaginoscopy CPT 02308 Brief History: Lottie Gaines is a 11 [...] Plastic Surgery Russ Guevara M D [facility] PLASTIC SURGERY [place], [place] [address] (Wo rk) Pending Results Name [...] Fungus culture Other (09/01/2011 11:45 AM EDT) [facility] Method Time Signature Fungus CERNER Culture ? Patient Name: LOTTIE GAINES ?Ordered By: DENG JENKINS [facility] ? MR#: [id number] ?LOC: ??SDP ? /Sex: ??2000 (11 years), [...] Organization Address City/State/[place] [address] OPAL GONCALVES Urine culture (09/01/2011 11:45 AM EDT) Component Value Ref Test Analysis Performed At [facility] gist Range Method Time Signature Urine Culture CERNER ? Patient Name: LOTTIE GAINES ?Ordered By : DENG JENKINS ? MR#: [id number] ?LOC: ??SDP ? /Sex: ??2000 (11 years), ? Female ? PROCEDURE: Urine Culture ?SOURCE: U Cysto ? COLLECTED: 09/01/2011 11:45 ? STARTED: 09/01/2011 12:26 ? FINAL REPORT ? Final Report ? Verified:09/03/2011 08:36 ? 1,000-9,000 cfu/ml Escherichia fergusonii ? PRELIMINARY REPORT ? Preliminary Report ? Verified:09/02/2011 07:44 ? 1,000-9,000 cfu/ml Gram Negative Rods ? Patient: LOTTIE GAINES ? MR#: [id number] ? SUSCEPTIBILITY RESULTS ? 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 documented in this encounter Administered Medications Inactive Administered Medications - up to 3 most recent administrations Medication Order MAR Action Action Date Dose Rate Site bacitracin injection Given 09/01/2011 11:50 AM EDT 50,000 Units ONCE PRN, Starting on Sun09/01/11 at 1150, Until Sun09/01/11 at 2003, Intra-Operative (Intra-Procedure), Routine hydrocodone-acetaminophen (LORTAB) 7.5-500 Given 09/01/2011 1:52 PM EDT 4.86 mg MG/ 15mL oral liquid 4.86 mg 4.86 [...] Routine documented in this encounter Care Teams Building Admin Relationship Specialty Start Date End Date Mliadis Blackmon MD PCP - General 04/12/10 11/28/21 [address] [place] [address] documented as of this encounter
--- OUTSIDE RECORDS SUMMARY | 2021-12-13 13:03 | XMS_ITS | Encounter Summary ---
:2000 Author Organization [facility] [place] [address] Care Team Providers Name Role Phone Miladis Blackmon MD Primary Care Provider Reason for Visit Reason Comments Blurred Vision Pt 's mom (Essie) reports Lottie failed VA test @ school, about 4 mos Encounter Details Date Type Department Care Team Description 08/21/2011 Office Visit Ophthalmology at [facility] C Benson Del Angel Hyperopia (Primary [facility] J, OD Dx) [place] [address] [phone] OPHTHALMOLOGY DEPT. [place], [place] [address] Social History Tobacco Use Types Packs/Day Years Used Date Passive Smoke Exposure - Never Smoker Smokeless Tobacco: Never Used Comments: Mom states smokes Alcohol Use Standard Drinks/Week Comments No 0 (1 standard drink = 0.6 oz pure alcoho l) Sex Assigned at Date Recorded Not on file documented as of this encounter Progress Notes Benson Del Angel, OD - 08/21/2011 12:18 PM EDT Lottie Gaines is a 11 y.o. female who had a chief complaint of Blurred Vision. Failed school screening, but likely just a comprehension issue. Pt did well with the picture chart. Good stereoacuity. Good ocular health on today's exam. Assessment: Encounter Diagnoses Code Name Primary? 367.0B Hyperopia Yes Plan: 1)No Rx needed. Follow up: CEE 1 year. Cycloplegic Refraction Sphere VA Right +0.50 20/20 Left +0.25 20/20 Comments: Used pictures. Mom says has learning disability and didn't respond well to the letters. documented in this encounter Nursing Notes 08/21/2011 10:45 AM EDT >> BENSON DEL ANGEL, SHAZIA SunAug 21, 2011 12:18 PM CC: Failed school eye screening. 1st eye exam ever. 3rd grader. Here with mom (Essie) >> ALIZA RODRIGUEZ SunAug 21, 2011 11:39 AM Description:Patient presents with: Blurred Vision - Pt 's mom (Essie) reports about 4 mos ago VA test @ school Location: both eye Duration: 4 months Rapidity of Onset:gradual Severity: NA Condition:No Change Pain:none Modifying Factors: Associated Symptoms: no gtts documented in this encounter Plan of Treatment Upcoming Encounters Date Type Specialty Care Team Description 12/22/2021 Office Visit Plastic Surgery Russ Guevara M D [facility] PLASTIC SURGERY [place], [place] [address] (Wo rk) documented as of this encounter Visit Diagnoses Diagnosis Hyperopia - Primary Hypermetropia documented in this encounter Care Teams Airborne Operations Superintendent Relationship Specialty Start Date End Date Miladis Blackmon MD PCP - General 04/12/10 11/28/[place] [address] documented as of this encounter
--- OUTSIDE RECORDS SUMMARY | 2021-12-13 13:03 | XMS_ITS | Encounter Summary ---
:2001 Author Organization [facility] [place] [address] Care Team Providers Name Role Phone Miladis Rivas MD Primary Care Provider Reason for Visit Reason Comments Dysuria Encounter Details Date Type Department Care Team Description 08/18/2011 Office Visit Pediatric Ana, Diarrhea (Prim timmy Dx); Gastroenterology at [facility] Madeline Ramirez MD Fistula, [place] [address] CENTER [phone] [place] [address] Social History Tobacco Use Types Packs/Day Years [...] Sign Reading Time Taken Comments Blood Pressure 108/68 08/18/2011 10:17 AM EDT Pulse - - Temperature - - Respiratory Rate - - Oxygen Saturation - - Inhaled Oxygen Concentration - - Weight 32 kg (70 lb 9 oz) 08/18/2011 10:17 AM EDT Height 136.5 cm (4' 5.74) 08/18/2011 10:17 AM EDT Body Mass Index 17.18 08/18/2011 10:17 AM EDT Body Mass Index Percentile 50.90 % 08/18/2011 10:17 AM E DT Growth Chart: CDC (Girls, 2-20 Years) documented in this encounter Progress Notes Madeline Perez MD - 08/18/2011 11:05 AM EDT 08/18/11 It was my pleasure to consult on and examine Lottie Gaines at the [facility] at the request of Dr. Hunt for evaluation of possible Crohn's disease. Pt is accompanied by her mother and father. HPI As you know, Lottie is a 11 y.o. 5 m.o. female child, with history of chronic UTIs. Mother states shortly after discontinuation of UTI abx treatment another will occur. Chronic RLQ/LLQ, back pain, to date attributed to UTI's. Has been treated for constipation as possible contributor to UTIs, dysfunctional voiding. Mother remarks not typically constipated, rather with frequent, thought intermittent diarrhea. Lottie underewent cystoscopy today which was notable for possible rectovesicular fistula. No joint pain, no rash. No weight loss. Previous reports reviewed: Patient information form office notes Review of Systems 14 point review of systems revealed the following in addition to any already discussed in the HPI: Constitutional:none Eyes:none HENT:none Respiratory:none Cardiovascular:none Abdominal:none :none Skin:none Neurologic:none Musculoskeletal:none Psychiatric:none Endocrine:none Hematologic:none Allergic/Immunologic:none History I have reviewed past medical, surgical, social and family history, medications and allergies as documented in the patient's electronic medical record. Past Medical History: VSD UTIs H/o nephrocalcinosis Family History: Mother-anemia Asthma-mother, brothers Diabetes-mother, GM Mother-IBS, intestinal polyps Kidney disease-nephew, niece Thyroid disease-aunt Social History: Lives with parents (separate residences); 3rd grade Medications Current outpatient prescriptions ordered prior to encounter Medication Sig Dispense Refill ??? tolterodine (DETROL LA) 2 mg 24 hr capsule Take 1 capsule by mouth daily for 360 days. 90 capsule 4 ??? acetaminophen-codeine (TYLENOL #3) 300-30 mg per tablet Take 1 tablet by mouth every 6 hours as needed for Pain for 7 days. 30 tablet 0 ??? Pentosan Polysulfate Sodium (ELMIRON) 100 mg capsule Take 1 capsule by mouth 3 times daily (before meals) for 180 days. 90 capsule 5 ??? levalbuterol (XOPENEX) 1.25 mg/0.5 mL nebulizer solution No current facility-administered medications on file prior to encounter. Allergies Review of patient's allergies indicates no known allergies. Exam Blood pressure 108/68, height 136.5 cm (4' 5.74), weight 32.007 kg (70 lb 9 oz). 32.39% of growth percentile based on suemim-wuv-cjc. 27.22% of growth percentile based on vskckrb-ohe-jot. Body mass index is 17.18 kg/(m^2). 50.88% of growth percentile based on BMI-for-age. General:alert, well developed, well nourished in no acute distress Head:normocephalic, atraumatic Ears:normal external appearance Eyes:PERRL, normal conjunctiva and lids Nose:normal appearance Mouth:mucous membranes moist, normal tonsils and oropharnyx Neck:supple, normal trachea, no masses Lymph nodes:no lymphadenopathy Lungs:clear to auscultation, with good air entry throughout. Cardiac:regular rate and rhythm, normal S1 and S2, no murmur Abdomen:soft,nontender, non-distended,normoactive bowel sounds, no organomegaly,no mass Rectal:deferred Neurologic:groggy, anxious Extremities:no clubbing, cyanosis, deformities, or edema Skin:no rashes or jaundice Assessment/Plan Lottie is a 11 y.o. 5 m.o. female with chronic UTIs, question of enterovesicular fistula with cystoscopy performed today. Does raise possibility of Crohn's disease, especially given history tends towards diarrhea, not constipation. Discussion today when could facilitate needed EGD, colonoscopy for further evaluation. Family explained difficulty with distance from clinic. While has f/u appointments on Sunday, timing does not fit Dr. Smith's scope schedule. Will arrange for endoscopy tomorrow. Discussion whether to try to complete Miralax cleanout as inpatient [facility] Given recovery from today's procedure, may not tolerate oral bowel prep. For this reason will arrange for admission to allow for possible NG golytely cleanout should Lottie fail oral cleanout. Benefits/risks of endoscopy discussed. Consent form signed. Parents express comfort and understanding of plan. Copy sent to: MILADIS RIVAS MD [place] [address] Cc: Avril Galaviz documented in this encounter Plan of Treatment Upcoming Encounters Date Type Specialty Care Team Description 12/22/2021 Office Visit Plastic Surgery Russ Guevara M D [facility] DR PLASTIC SURGERY [place] [address] (Wo rk) documented as of this encounter Results Sedimentation rate (08/18/2011 12:48 PM EDT) athologist Signature Sed Rate 9 0 - 10 CERNER mm/hr MILLENNIUM Specimen Anatomical Collection Method Collection Time Receive d Time (Source) Location / / Volume Laterality Blood specimen 08/18/2011 12:48 2 (specimen) PM EDT 12:56 PM EDT Resulting Agency Comment Spec In Lab Madeline Perez MD HEMATOLOGY ORDERABLES Performing Organization Address City/State/[place] [address] CERNER MILLENNIUM Hepatic Function Panel [...] EDT Resulting Agency Comment Spec In Lab Madeline Perez MD CHEMISTRY ORDERABLES Performing Organization Address City/[facility]/[place] [address] CERNER MILLENNIUM CBC (with [...] MCHC 33.6 32.0 - 36.5 CERNER gm/dL [facility] Platelets 256 145 - 370 CERNER x10(3)/mcL [facility] RDWSD 37.3 35.0 - 46.0 [facility] RDWCV 13.2 10.9 - 14.4 [facility] MPV 9.5 9.0 - 12.0 CERNER fL [facility] Specimen Anatomical Collection Method Collection Time Receive d Time (Source) Location / / Volume Laterality Blood specimen 08/18/2011 12:48 2 (specimen) PM EDT 12:56 PM EDT Resulting Agency Comment Spec In Lab Madeline Perez MD HEMATOLOGY ORDERABLES Performing Organization Address City/State/[place] [address] [facility] [address] CERNER MILLENNIUM TPMT Genetics (08/18/2011 12:48 PM EDT) Analysis Performed At Patho logist Time Signature TPMT Genetics See Note CERNER MILLENNIUM Comment: Please see scanned report in Chart Revie w under the Non-DH Laboratory Heading. Test performed by [facility], [address] [place] [address] Specimen Anatomical Collection Method Collection Time Receive d Time (Source) Location / / Volume Laterality Blood specimen 08/18/2011 12:48 08/17/201 2 1:08 (specimen) PM EDT PM EDT Narrative This result has an attachment that is no t available. Resulting Agency Comment Spec In Lab Madeline Perez MD CHEMISTRY ORDERABLES Performing Organization Address City/State/[place] [address] [facility] documented in this encounter Visit Diagnoses Diagnosis Diarrhea - Primary Fistula, intestinovesical Intestinovesical fistula documented in this encounter Care Teams Golf Tournament Consultant Relationship Specialty Start Date End Date Miladis Rivas MD PCP - General 04/12/10 11/28/21 [address] [place] [address] documented as of this encounter
--- OUTSIDE RECORDS SUMMARY | 2021-12-13 13:03 | XMS_ITS | Encounter Summary ---
:2001 Author Organization [facility] [place] [address] Care Team Providers Name Role Phone Miladis Blackmon MD Primary Care Provider Reason for Visit Reason Comments Pelvic Pain here with mom Encounter Details Date Type Department Care Team Description 02/19/2012 Office Visit Pediatrics at [facility] Samantha Staley MD Pain (Primary Dx) [facility] [place] [address] PEDIATRICS DEPT. [phone] [place], [place] [address] (Wo rk) Social History Tobacco [...] Sign Reading Time Taken Comments Blood Pressure 98/56 02/19/2012 11:34 AM EDT Pulse 60 02/19/2012 11:34 AM EDT Temperature - - Respiratory Rate - - Oxygen Saturation - - Inhaled Oxygen Concentration - - Weight 35.5 kg (78 lb 3.2 oz) 02/19/2012 11:34 AM EDT Height 137.8 cm (4' 6.25) 02/19/2012 11:34 AM EDT Body Mass Index 18.68 02/19/2012 11:34 AM EDT Body Mass Index Percentile 67.27 % 02/19/2012 11:34 AM E DT Growth Chart: CDC (Girls, 2-20 Years) documented in this encounter Plan of Treatment Upcoming Encounters Date Type Specialty Care Team Description 12/22/2021 Office Visit Plastic Surgery Russ Guevara M D [facility] PLASTIC SURGERY [place], [place] [address] (Wo rk) documented as of this encounter Visit Diagnoses Diagnosis Pain - Primary Generalized pain documented in this encounter Care Teams Public Relations Senior Associate Relationship Specialty Start Date End Date Miladis Blackmon MD PCP - General 04/12/10 11/28/21 [address] [place] [address] documented as of this encounter
--- OUTSIDE RECORDS SUMMARY | 2021-12-13 13:03 | XMS_ITS | Encounter Summary ---
:2001 Author Organization [facility] [place] [address] Care Team Providers Name Role Phone Miladis Blackmon MD Primary Care Provider Encounter Details Date Type Department Care Team Description 04/01/2012 Anesthesia Event Main Operating Room Chetan Crow MD [facility] [place] [address] [facility] Zafar Newsome MD [facility] [place] [address] [place] [address] Anesthesia Record Procedure Summary Procedure Name Responsible Anesthesia Start Anesthesia Stop Time Anesthesiologist Time LAPAROSCOPY, Chetan Whittaker MD 04/01/12 1513 04/01/12 17 03 DIAGNOSTIC, ABDOMEN (WRVU 5.14) (N/A Abdomen) Events Date Time Event Comment 04/01/2012 1513 Start 1703 Stop No medications on file. Agents No agents on file. Blood No blood administrations on file. Lines, Drains, and Airways Type Details Placement Removal Incision 04/01/12; abdomen 04/01/12 0000 by Janiya Osullivan RN PIV Peds 03/29/12 2116 by 04/02/12 1546 b y Connor Bolanos RN Urethral Catheter 04/01/12; indwelling 04/01/12 0000 by 04/02/12 1338 by double lumen catheter; Janiya Osullivan, Connor Quispe RN 100% silicone; 14; inserted; 1; drainage bag to dependent drainage; 04/02/12; 1338 PIV Peds 04/01/12 1425 by 04/02/12 1546 zeeshan y Zafar Wilks Super, Alyssa Hilliard RN PERSONAL DEVELOPMENT EDUCATOR documented in this encounter Social History Tobacco [...] Postprocedure Evaluation - Chetan Whittaker MD - 04/04/2012 11:35 AM EST Patient: Lottie Gaines Procedure(s) Performed: Procedure(s): LAPAROSCOPY, DIAGNOSTIC, ABDOMEN CYSTO, URETHROSCOPY WITH BIOPSY COLPOSCOPY OF VAGINA WITH CERVIX IF PRESENT LAPAROSCOPY,SURGICAL,WITH BIOPSY, SINGLE OR MULTIPLE Patient location: PACU Post-op pain: Adequate analgesia Post-op nausea: no nausea or vomiting Last Vitals: Filed Vitals: 04/02/12 1200 BP: 129/46 Pulse: 72 Temp: 36.6 ??C (97.9 ??F) Resp: 20 Post-op cardiovascular and respiratory status: is stable Level of consciousness: awake Complications: tolerated the procedure well Fluid Status: normal Anesthesia Preprocedure Evaluation - Chetan Whittaker MD - 04/01/2012 10:27 AM EST Today I evaluated Lottie Gaines a [...] 2.0CM, NECK performed by LINNEA MATA at [facility] ??? Unlisted mr procedure 12/13/2010 MRI WITH ANESTHESIA performed by ASHLEE HU at [facility] ??? Upper gi endoscopy, exam 08/19/2011 PEDIATRIC UPPER GI ENDOSCOPY performed by CHALINO ENAMORADO at [facility] ??? Colonoscopy, diagnostic 08/19/2011 PEDIATRIC COLONOSCOPY performed by CHALINO ENAMORADO at [facility] ENDOSCOPY ??? Cystourethroscopy 08/18/2011 CYSTO, CYSTOURETHROSCOPY, DIAGNOSTIC performed by ALIYAH NERI at [facility] OR ??? Cystourethroscopy 09/01/2011 CYSTO, CYSTOURETHROSCOPY, DIAGNOSTIC performed by ROSALVA MCKINNEY at [facility] OR ??? Colposcopy, cervix w/adj vagina 09/01/2011 COLPOSCOPY, VAGINOSCOPY\CERVIX & VAGINA performed by ROSALVA MCKINNEY at [facility] OR ??? Inject indwell cath, ureter x-ray 09/01/2011 INJECTION PROCEDURE, URETEROGRAPHY OR URETEROPYELOGRAPHY THRU URETEROSTOMY OR URETERAL CATH performed by ROSALVA MCKINNEY at [facility] OR History Substance Use Topics ??? 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 Left to right shunting. Pulmonary Assessment: breath sounds clear to auscultation pulmonary exam normal Dental Assessment: - normal exam Misc Assessment: Other exam findings: 20G Cultures al NG to date Abd CT: Findings Dorsal and slightly to the right of the urinary bladder is a collection measuring approximately 33.5 x 25 mm on series 2 image 88 with ill-defined wall and with 2 central areas of low attenuation suggestive of fluid. Regional inflammatory change and a small amount of ascites is seen in the pelvis on series 2 image 84. 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 Normal appearance of right adnexal on series 2 image 70 history and left adnexal on series 2 image 66. Unremarkable urinary bladder. Normal caliber appendix. Unremarkable appearance of contrast containing small bowel. No contrast has reached the colon, which contains a small to moderate amount of air and stool. No significant osseous findings. Impression Pelvic collection, as above, question abscess, with surrounding inflammatory change and a small amount of pelvic ascites. In addition, dorsal to the collection, fluid appears present in the endometrial canal of the uterus with a configuration suggesting didelphys. Anesthesia Plan: ASA 2 General with inhalational induction Patient is an 12 yo 37kg female with PMHx significant for VSD (2-3mm on ECHO in 2010),reactive airway disease (prn albuterol with URI), and history of chronic abdominal/pelvic pain with dysuria and frequent UTI's. Plan today for exploratory laparoscopy with possible appendectomy, biopsy of mass, and exam under anesthesia. She has tolerated several procedures well in the past without difficulty. Her RAD is well controlled. Last note from cardiology recommended no restrictions and no need for prophylactic antibiotics. Would plan for GA with ETT and masked induction. She has previously tolerated mask induction well. Informed Consent: Anesthetic plan and risks discussed with patient and father. [facility]. Assessment: documented in this encounter Plan of Treatment Upcoming Encounters Date Type Specialty Care Team Description 12/22/2021 Office Visit Plastic Surgery Russ Guevara M D [facility] PLASTIC SURGERY [place], [place] [address] (Wo rk) documented as of this encounter Visit Diagnoses Not on filedocumented in this encounter Care Teams Linen Room Houseperson Relationship Specialty Start Date End Date Miladis Blackmon MD PCP - General 04/12/10 11/28/21 MEM[address] [employer] [facility] [place] [address] documented as of this encounter
--- OUTSIDE RECORDS SUMMARY | 2021-12-13 13:03 | XMS_ITS | Encounter Summary ---
:2001 Author Organization [facility] [place] [address] Care Team Providers Name Role Phone Miladis Blackmon MD Primary Care Provider Encounter Details Date Type Department Care Team Description 09/01/2011 Orders Only Pediatric Urology at [facility] Ashley Hung, [facility] [place] [address] [facility] [phone] PEDIATRIC UROLOG Y [place], [place] [address] (Wo rk) Social History Tobacco [...] Guevara M D [facility] ER PLASTIC SURGERY [place], [place] [address] (Wo rk) documented as of this encounter Visit Diagnoses Not on filedocumented in this encounter Care Teams Geographic Information System Surveyor Relationship Specialty Start Date End Date Miladis Blackmon MD PCP - General 04/12/10 11/28/21 [address] [place] [address] documented as of this encounter
--- OUTSIDE RECORDS SUMMARY | 2021-12-13 13:03 | XMS_ITS | Encounter Summary ---
:2000 Author Organization [facility] [place] [address] Care Team Providers Name Role Phone Miladis Blackmon MD Primary Care Provider Reason for Visit Reason Comments Follow-up manage bladder pain Encounter Details Date Type Department Care Team Description 09/25/2011 Follow-Up Pediatric Urology at [facility] Hung abd pain (Primary Dx); [facility] UTI (urinary tract infection) [facility] [place] [address] PEDIATRIC UROLOGY [phone] [place], [place] [address] (Wo rk) Social History Tobacco [...] Sign Reading Time Taken Comments Blood Pressure 110/62 09/25/2011 10:22 AM EDT Pulse - - Temperature - - Respiratory Rate - - Oxygen Saturation - - Inhaled Oxygen Concentration - - Weight 33.6 kg (74 lb 1.2 oz) 09/25/2011 10:22 AM EDT Height 137.2 cm (4' 6.02) 09/25/2011 10:22 AM EDT Body Mass Index 17.85 09/25/2011 10:22 AM EDT Body Mass Index Percentile 60.15 % 09/25/2011 10:22 AM E DT Growth Chart: CDC (Girls, 2-20 Years) documented in this encounter Progress Notes Ashley Rice, AIRPLANE REFUELER - 09/25/2011 10:50 AM EDT Pediatric Urology Lottie Gaines 2000 Problem list: 1. Recurrent UTIs, voiding dysfunction with urgency, frequency, dysuria 2. Chronic pelvic, abdominal, pelvic pain 3. Mild right hydronephrosis 4.VSD 5. RAD reactive airway disease 6. Low IQ 7. Family/social stressors S: Lottie Gaines is a 11 y.o. female with a history of severe pelvic and back pain and dysuria in the context of increased right hydronephrosis and an abnormal bladder wall. (note that nephrocalcinosis is listed among Lottie's problems but there is no record of this on either of her past 2 renal ultra sounds. At last visit with Dr. Galaviz 08/21/11 Junes pelvic and back pain continued. Dr. Galaviz was questioning an entero-vesicular fistula. Dr. Jenkins performed cystoscopy on 09/01/11 and ruled this out. There was no focal problem. Rather, there was inflammation throughout the bladder, suggesting cystitis/vaginitis. Pain seemed consistent withbladder spasms. He irrigated with Bacitracin and administered IV cipro. -Elmiron was discontinued. -continue with Detrol LA 4 mg, may need to decrease if this causes lethargy. -Dr. Jenkins recommended Bicarbonate supplementation of 750 mg qd, with goal of urine pH 8 or higher. U/a dipsticks for home use were prescribed but the [facility] does not carry these, I spoke [...] of Lottie which shows low IQ/borderline MRGe I spoke with mom on the phone 09/14/11 and made the following plan: -I will call mom today with instructions to increase Bicarb to 1000 mg/d -consider biofeedback/guided imagery/self hypnosis as methods of pain management -I have emailed Dr. Orlando for recommendations about chronic pain management -Dr. Lea will touch base with school nurse re: optimal management in school setting. -I discussed SOFTWARE SUPPORT ENGINEER of magnesium with enterprise integration developer and advised mom to start 300 mg Mg/day for Lottie inattempt to quell muscular spasm. Since last visit: Days: Bicarb was increased to 1000 mg/day as recommended. Mom says that Dr. Galaviz instructed to restart the Elmiron, so she did. Mom thinks that this makes moods worse. Mom started the magnesium 300 mg/day. Using Diazepam 2 mg after school, then again every 4 hours. Symptoms: Urgency, straining to void, frequency (has voided x3 since arriving for this appt), no hematuria recently but has in the past. Nights: dry Bowels: type 1?, Lottie had a lot of trouble providing this history Other important factors for Lottie: Lottie has anxiety and additional stressors/factors at home, including 2 brothers with autism, mom's hx of substance abuse, and recent testing of Lottie which shows low IQ/borderline MR. Mom denies any family or social stressors that might play into Lottie's bowel an d bladder dysfunction, feels strongly that these matters are unrelated to what Lottie is experiencing. Previous testing: Cystoscopy 09/01/[address] Jenkins showed inflammation, cystitis/vaginitis. Last renal u/s: 11/07/10: mild right pelvicaliectasis, normal left kidney. Thickened bladder wall. U/s 12/17/08 showed an echogenic focus in the bladder at the UVJ, CT showed no problem in this area.Inflammation? There have been no changes in the review of systems, family history, or living situation/social history since last visit. O: Exam: Filed Vitals: 09/25/11 1022 BP: 110/62 Height: 137.2 cm (4' 6.02) Weight: 33.6 kg (74 lb 1.2 oz) Constitutional: Lottie is a healthy appearing female HEENT: Normocephalic. No otorrhea/rhinorrhea. No facial anomaly. Throat normal/clear. Lungs/Chest: Symmetric. Clear to auscultation. No rub/egophony, wheeze, congestion. Heart: RRR. GI: Abdomen is soft, non-distended, non-tender, and no masses palpable. No OM. No hernia. No palpable stool. No CVAT Lymphatic. No cervical/auricular adenopathy U/a: Follow-Up on 09/25/11 (from the past 24 hour(s)) POCT URINE DIPSTICK Component Value Range ??? POC Sp Edgecomb 1.005 1.002 - 1.030 ??? POC pH, UA 8 5.0 - 8.5 ??? POC Leuk, UA ++ Negative - Negative ??? POC Nitrite, UA neg, pos Negative - Negative ??? POC Protein, UA neg Negative - Negative (mg/dL) ??? POC Glucose, UA norm Normal - Normal (mg/dL) ??? POC Ketone, UA neg Negative - Negative ??? POC Urobil, UA norm 0.2 - 1.0 (mg/dL) ??? POC Bili, UA + Negative - Negative ??? POC Blood, UA neg Negative - Negative (gail/uL) Radiology: KUB was done today and, by my reading, showed generally full bowels with formed stool balls throughout the rectum and descending colon. Official report: ABDOMEN: INDICATION: History of constipation. Evaluation of the spine. FINDINGS: Moderate amount of fecal material throughout the colon. No abnormal bowel dilatation. Incidental note is made of incomplete fusion of the posterior arch at level of L5 and S1. Otherwise findings of the visualized skeletal structures are within normal limits. A: Lottie has a history of abdominal, pelvic, and back pain, as well as UTIs, dysuria. I discussed the need for a bowel clean out since we cannot fully rule out bowel- bladder interaction as partial etiology for her pain until constipation is ruled out. Mom expressed resistance to this idea, did not feel that Lottie's pain could be related to constipation. I recommended counseling for Lottie, mom responded that there is neither the need nor the time for counseling. KUB was done, demonstrated constipation, and mom was somewhat more open to the idea of a bowel cleanout. However, she did still want a referral to [facility] urology program, which I was happy to provide. I discussed the KUB finding re: spine with Dr. Angelic Vásquez, [facility] neurosurgeon. She explained that this finding is a normal variant, Found in 10% of the population. Lottie is symptomatic with UTI today, and urine culture was sent. She was started on a treatment dose of Bactrim. Will consider prophylaxis at f/u if culture shows regrowth. P: -start Bactrim as empiric tx for UTI today. Culture is pending. -new Rxs for Miralax, Bicarb were sent to [facility], u/a dipsticks were given today and were rx'd at [facility] -continue with bladder retraining with focus on voiding q2 hours, pelvic floor relaxation -Bowel clean out was recommended: 5 mg bisacodyl the night before and morning of 64 oz Gatorade with8 caps Miralax. Continue to support daily, soft bowel pattern with Miralax and dietary fiber -f/u in 2 weeks -Mom asked for referral to [facility] urology, I gave her the name of Danie Crooks MD. Mom signed a handwritten request for records, I will send this to medical records. ADDENDUM: Final Report Verified:09/27/2011 10:35 50,000-99,000 cfu/ml Escherichia fergusonii 50,000-99,000 cfu/ml Lactobacillus species Pansensitive except to Bactrim. I called mom to inquire re: Lottie's symptoms, asked mom to call back. I notice that mom has not scheduled a f/u, so may be planning f/u in [place]. But it may be a good idea to have UTI prophylaxis in the mean time, and even a treatment dose of Nitrofurantoin if symptoms persist presently. Ashley Rice APRN, PhD documented in this encounter Plan of Treatment Upcoming Encounters Date Type Specialty Care Team Description 12/22/2021 Office Visit Plastic Surgery Russ Guevara M D [facility] PLASTIC SURGERY [place], [place] [address] (Wo rk) Scheduled Orders Name Type Priority Associated Diagnoses Order S chedule POCT Urinalysis w/o Point of Care Routine abd pain Ordered: Microscopy Testing UTI (urinary tract 2 infection) documented as of this encounter Procedures Procedure Name Priority Date/Time Associated Diagnosis Comme nts POCT URINE DIPSTICK Routine 09/25/2011 1:14 PM abd pain Re sults for this EDT procedure are i n the results section. URINE CULTURE Routine 09/25/2011 11:55 AM abd pain Results for this EDT procedure are i n the results section. documented in this encounter Results (ABNORMAL) POCT urine dipstick (09/25/2011 1:14 PM EDT) [facility] Method Time Signature POC Sp Edgecomb 1.005 1.002 - 1.030 POC pH, UA 8 5.0 - 8.5 POC Leuk, UA ++ Negative - Negative POC Nitrite, neg, pos Negative - UA Negative POC Protein, neg Negative - UA Negative mg/dL POC Glucose, norm Normal - UA Normal mg/dL POC Ketone, UA neg Negative - Negative POC Urobil, UA norm 0.2 - 1.0 mg/dL POC Bili, UA + Negative - Negative POC Blood, UA neg Negative - Negative gail/uL Specimen (Source) Anatomical Collection Method Collection Time Re ceived Time Location / / Volume Laterality 09/25/2011 1:14 PM EDT Deng Jenkins MD POINT OF CARE TEST ORDERABLE S Urine culture Clean Catch Urine (09/25/2011 11:55 AM EDT) Component Value Ref Test Analysis Performed At [facility] Range Method Time Signature Urine Culture CERNER ? Patient Name: LOTTIE GAINES ?Ordered By : DENG JENKINS [facility] ? MR#: [id number] ?LOC: ??6M ? /Sex: ??2000 (11 years), ? Female ? PROCEDURE: Urine Culture ?SOURCE: U CC ? COLLECTED: 09/25/2011 11:55 ? STARTED: 09/25/2011 12:18 ? FINAL REPORT ? Final Report ? Verified:09/27/2011 10:35 ? 50,000-99,000 cfu/ml Escherichia fergusonii ? 50,000-99,000 cfu/ml Lactobacillus species ? PRELIMINARY REPORT ? Preliminary Report ? Verified:09/26/2011 10:12 ? 50,000-99,000 cfu/ml Gram Negative Rods ? 50,000-99,000 cfu/ml Lactobacillus species ? Patient: LOTTIE GAINES ? MR#: [id number] ? SUSCEPTIBILITY RESULTS ? Escherichia fergusonii ?FRANCESCO [...] S ? Tobramycin ? S ? Specimen (Source) Anatomical Collection Method Collection Time Re ceived Time Location / / Volume Laterality Urine specimen 09/25/2011 11:55 2 obtained by clean AM EDT 12:18 PM E DT catch procedure (specimen) Resulting Agency Comment Spec In Lab Deng Jenkins MD MICROBIOLOGY - GENERAL ORDER DU Performing Organization Address City/State/ZIP [place] [address] [employer] [employer] XR abdomen 1 view (09/25/2011 11:06 AM [...] this encounter Visit Diagnoses Diagnosis abd pain - Primary Abdominal pain, other specified site UTI (urinary tract infection) Urinary tract infection, site not specif ied abd pain Abdominal pain, other specified site documented in this encounter Care Teams Rn Family Relationship Specialty Start Date End Date Milaids Blackmon MD PCP - General 04/12/10 11/28/21 [place] [address] documented as of this encounter
--- OUTSIDE RECORDS SUMMARY | 2021-12-13 13:03 | XMS_ITS | Encounter Summary ---
:2000 Author Organization [facility] [place] [address] Care Team Providers Name Role Phone Miladis Blackmon MD Primary Care Provider Encounter Details Date Type Department Care Team Description 03/31/2012 External Results XRay at [facility] Shree Briones, [address] [place] [address] [place] [address] [address] [place] [phone] [place], [place] [id number] (Wo rk) Social History Tobacco Use Types [...] Visit Plastic Surgery Russ Guevara M D [facility] PLASTIC SURGERY [place], [place] [address] (Wo rk) documented as of this encounter Procedures Procedure Name Priority Date/Time Associated Diagnosis Comme nts ULTRASOUND SCAN (SCAN) Routine 03/29/2012 documented in this encounter Results Scan Doc: Ultrasound (03/29/2012) Anatomical Region Laterality Modality Other Narrative This result has an attachment that is no t available. Shree Briones MD MEDIA MGR SCAN EXT ORDR/RSLT documented in this encounter Visit Diagnoses Not on filedocumented in this encounter Care Teams Director Data Architecture Relationship Specialty Start Date End Date Miladis Blackmon MD PCP - General 04/12/10 11/28/21 97 [facility] [address] documented as of this encounter
--- OUTSIDE RECORDS SUMMARY | 2021-12-13 13:03 | XMS_ITS | Encounter Summary ---
:2000 Author Organization [facility] [place] [address] Care Team Providers Name Role Phone Miladis Blackmon MD Primary Care Provider Encounter Details Date Type Department Care Team Description 08/19/2011 Surgery Gastroenterology at [facility] Addis, PEDIATRIC UPPER GI [facility] [place] [address] [facility] [phone] PEDIATRIC GASTROENTEROLOGY [place], [place] [address] Social History Tobacco Use Types [...] 08/19/2011 9:00 AM ED T Growth Chart: [facility] (Girls, 2-20 Years) documented in this encounter [...] with Mom, autistic brothers (19, 15) From [facility] Mom stays home with above Dad lives in [place], ~ 2hours away (not involved) FamHx: Autism [...] tomorrow on pending list. Gaby Enamorado MD Ski Binding Fitter And Repairer Pediatric Gastroenterology documented in this encounter Miscellaneous [...] reason why they get their care at [facility] and not at their local hospital [...] follow up on Sunday. DARRYN WEINSTEIN Weekend Business Advisor Pager [phone] Plan of Care - Nona Genao RN [...] 10:00 AM Specialty Pedi Nurse [facility] [phone] None 08/21/2011 10:15 AM Avril Galaviz MD [facility] Pedi Urology [phone] [facility] 08/21/2011 10:45 AM Guerita Lindsey OD [facility] [phone] [facility] Joint Appt Tech One Ophthal[facility] [phone] [facility] 08/21/2011 1:45 PM Ashley Rice APRN [facility] Neph[facility] [phone] [facility] Joint Appt Workup Res-Pedi Nephrology [facility] [phone] [facility] Provider Contact Information: [phone] Discharge References/Attachments: Discharge References/Attachments None For questions regarding this document or issues relating to this hospitalization on the Medical Service, please contact your inpatient physician through the [facility] [employer] . Issues after hours and on weekends will be handled by the on-call staff. JENNIFER RODGERS MD 08/19/2011 Miscellaneous - Provider, Rosie - 08/18/2011 8:09 PM EDT Plan of Care - Kathi Waldrop RN - 08/18/2011 5:41 PM EDT [...] M D [facility] PLASTIC SURGERY [place], [place] [address] (Wo rk) documented as of [...] PM 2 1:00 EDT [address] [facility] - 08/19/2011 1:00 PM E DT Specimen requisition ordered. ??Separate Pathology report to follow Chalino Enamorado MD PATHOLOGY/CYTOLOGY ORDERABLE S Performing Organization Address City/[facility]/[place] [address] OPAL [employer] Specimen to Pathology (surgical or derm) (08/19/2011 1:00 PM EDT) Specimen Anatomical Collection Method Collection Time Receive d Time (Source) Location / / Volume Laterality AP Specimen 08/19/2011 1:00 PM 2 1:00 EDT PM EDT Narrative [facility] - 08/19/2011 1:00 PM E DT Specimen requisition ordered. ??Separate Pathology report to follow Chalino Enamorado MD PATHOLOGY/CYTOLOGY ORDERABLE S Performing Organization Address City/[facility] [place] [address] CERNER MILLENNIUM Specimen to [...] Organization Address City/State/[place] [address] CERNER MILLENNIUM Specimen to [...] Organization Address City/State/[place] [address] CERNER MILLENNIUM Specimen to [...] Organization Address City/State/[place] [address] CERNER MILLENNIUM Specimen to [...] MD PATHOLOGY/CYTOLOGY ORDERABLE S Performing Organization Address City/[facility]/[place] [address] CERNER MILLENNIUM Specimen to [...] MD PATHOLOGY/CYTOLOGY ORDERABLE S Performing Organization Address [facility]/ZIP [place] [address] CERNER MILLENNIUM Specimen to [...] MD PATHOLOGY/CYTOLOGY ORDERABLE S Performing Organization Address City/[facility] [place] [address] CERNER MILLENNIUM SURGICAL PATHOLOGY REPORT (08/19/2011 7:42 AM EDT) Component Value Ref Test Analysis Performed At [facility] gist Range Method Time Signature Surgical CERNER Pathology ? [facility] Report ? Provider: ?? ADDIS, ? Pt. Name: ?? FERR Y, LOTTIE R ?CHALINO P ? Acc #: ?[id number] ?Pt. MRN: ?[id number] ? Col Date: ?? 2 ? /Sex: [...] other food antigens, NSAID use , ? [facility] ? Provider: ?? ADDIS, ? Pt. Name: ?? ISIDORO Y, LOTTIE R ?CHALINO P ? Acc #: ?[id number] ?Pt. MRN: ?[id number] ? Col Date: ?? 2 ? /Sex: [...] Soft, isaacs tissues. ? Sections/Processing: ??(T2) ? [facility] ? Provider: ?? ADDIS, ? Pt. Name: ?? ISIDORO Y, LOTTIE R ?CHALINO P ? Acc #: ?[id number] ?Pt. MRN: ?[id number] ? Col Date: ?? 2 ? /Sex: [...] Organization Address City/State/[place] [address] CERNER MILLENNIUM (ABNORMAL) DIFFERENTIAL, AUTOMATED (08/18/2011 12:48 PM EDT) [facility] gist Method Time Signature Neutrophils % [...] Enamorado MD HEMATOLOGY ORDERABLES Performing Organization Address City/[facility]/ZIP [facility] Phon e Number [address] CERBANNER MILLENNIUM Sedimentation rate (08/18/2011 12:48 PM EDT) athologist Signature Sed Rate 9 0 - 10 CERNER mm/hr [facility] Specimen Anatomical Collection Method Collection Time Receive d Time (Source) Location / / Volume Laterality Blood specimen 08/18/2011 12:48 2 (specimen) PM EDT 12:56 PM EDT Resulting Agency Comment Spec In Lab Chalino Enamorado MD HEMATOLOGY ORDERABLES Performing Organization Address City/[facility]/ZIP Code Phon e Number [address] CERNER MILLENNIUM Hepatic Function [...] Enamorado MD CHEMISTRY ORDERABLES Performing Organization Address City/[facility]/ZIP Code Phon e Number [address] CERNER MILLENNIUM CBC (with Diff) [...] Enamorado MD HEMATOLOGY ORDERABLES Performing Organization Address City/[facility] Code Phon e Number [address] CERNER MILLENNIUM TP[employer] Genetics (08/18/2011 12:48 PM EDT) Analysis Performed At Patho logist Time Signature [facility] Genetics See Note CERNER MILLENNIUM Comment: Please see scanned report in Chart Revie w under the Non-DH Laboratory Heading. Test performed by [facility], [address] [facility], [place] [address] Specimen Anatomical Collection Method Collection Time Receive d Time (Source) Location / / Volume Laterality Blood specimen 08/18/2011 12:48 2 1:08 (specimen) PM EDT PM EDT Narrative This result has an attachment that is no t available. Resulting Agency Comment Spec In Lab Chalino Enamorado MD CHEMISTRY ORDERABLES Performing Organization Address City/State/[place] [address] [facility] documented in this encounter Visit Diagnoses Not on filedocumented in this encounter Active and Recently Administered [...] (Given - Provider: Karma Juarez RN) Starting Sun08/18/11 at 1943, For 1 dose, KARMA JUAREZ: Cabine t Override documented in this encounter Care Teams Garden [place] Manager Relationship Specialty Start Date End Date Miladis Blackmon MD PCP - General 04/12/10 11/28/21 97 [facility] [place] [address] documented as of this encounter
--- OUTSIDE RECORDS SUMMARY | 2021-12-13 13:03 | XMS_ITS | Encounter Summary ---
:2000 [place] [address] Care Team Providers Name Role Phone Miladis Blackmon MD Primary Care Provider Encounter Details Date Type Department Care Team Description 09/01/2011 Anesthesia Event Main Operating Room Chetan Crow MD [facility] [place] [address] [facility] Yazmin Lemus MD [facility] [address] [place] [address] [place] [address] Anesthesia Record Procedure Summary Procedure Name Responsible Anesthesia Start Anesthesia Stop Anesthesiologist Time Time Remedios BLANTON Simon C, MD 09/01/11 1025 09/01/11 11 57 CYSTOURETHROSCOPY, DIAGNOSTIC (WRVU 2.23) (N/A Bladder) Events Date Time Event Comment 09/01/2011 0948 1025 Start 1157 Stop No medications on file. Agents No agents on file. Blood No blood administrations on file. Lines, Drains, and Airways No LDAs on file. documented in this encounter Social History Tobacco [...] Postprocedure Evaluation - Chetan Whittaker MD - 09/01/2011 3:11 PM EDT Patient: Lottie Gaines Procedure(s) Performed: Procedure(s): CYSTO, CYSTOURETHROSCOPY, DIAGNOSTIC COLPOSCOPY, VAGINOSCOPY\CERVIX & VAGINA INJECTION PROCEDURE, URETEROGRAPHY OR URETEROPYELOGRAPHY THRU URETEROSTOMY OR URETERAL CATH Patient location: PACU Post-op pain: Adequate analgesia Post-op nausea: no nausea or vomiting Last Vitals: Filed Vitals: 09/01/11 1330 Pulse: 60 Temp: Resp: 18 Post-op cardiovascular and respiratory status: is stable Level of consciousness: awake, alert and oriented Complications: tolerated the procedure well Fluid Status: normal Anesthesia Preprocedure Evaluation - Chetan Whittaker MD - 09/01/2011 9:42 AM EDT Anesthesia Evaluation Patient summary reviewed and Nursing notes reviewed No hx of anesthetic complications Airway Mallampati: I TM distance: >3 FB Neck ROM: full Dental - normal exam Pulmonary - negative ROS (+) asthma, (-) pneumonia, shortness of breath, recent URI, rhonchi, decreased breath sounds, wheezes, rales andstridor Cardiovascular (-) murmur and friction rub Rhythm: regular Rate: normal ROS comment: VSD - 1.5mm with minimal to moderate L-R shunt PE comment: gd II holosystolic murmur. Neuro/Psych - negative ROS GI/Hepatic/Renal - negative ROS Chronic renal disease: Nephrocalcinosis, dysuria, urgency of urination, recurrent UTI. 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 Recurrent febrile UTIs and pain. Several recent uneventful GAs Passive ETS exposure RAD, VSD closed spontaneously Anesthetic plan and risks discussed with mother. Plan discussed with resident. documented in this encounter Miscellaneous Notes Addendum Note - Binta Basurto - 09/04/2011 11:07 AM EDT Addendum created 09/04/11 1107 by Binta Basurto Modules edited:Anesthesia Events, Anesthesia Responsible Staff documented in this encounter Plan of Treatment Upcoming Encounters Date Type Specialty Care Team Description 12/22/2021 Office Visit Plastic Surgery Russ Guevara M D [facility] PLASTIC SURGERY [place], [place] [address] (Wo rk) documented as of this encounter Visit Diagnoses Not on filedocumented in this encounter Care Teams Belt Maker Helper Relationship Specialty Start Date End Date Miladis Blackmon MD PCP - General 04/12/10 11/28/21 [address] [place] [address] documented as of this encounter
--- OUTSIDE RECORDS SUMMARY | 2021-12-13 13:03 | XMS_ITS | Encounter Summary ---
:2000 Author Organization [facility] [place] [address] Care Team Providers Name Role Phone Miladis Blackmon MD Primary Care Provider Encounter Details Date Type Department Care Team Description 08/30/2011 Telephone Pediatric Urology at [facility] Ashley Hung APRN [facility] [place] [address] PEDIATRIC UROLOGY [phone] [place], [place] [address] (Wo rk) Social History Tobacco [...] Telephone Encounter - Ashley Rice APRN - 08/30/2011 10:28 AM EDT 08/29/11: Dr. Lea called to update us with Lottie's status: dysuria and abd pain continue. Culture at 24 hours was neg. U/a was 2+ LE, otherwise normal. Lottie had just completed the course of omnicef prescribed 08/21/11. Dr. Galaviz's recommendations (which I passed along to Dr. Lea via call back) -reculture in a few days as Lottie's negative cultures sometimes seem to evolve to positive later the week of sx. -continue as above with limited T3 for pain and discomfort and Diazepam for anxiety/sleep. -continue with topical lidocaine and ibuprofen. -continue with Elmiron and Detrol LA as Dr. Galaviz had prescribed -surgical date is pending for Dr. Jenkins and Dr. 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 She will drop off a urine spec for repeat culture today. We will contact her with a surgical date dea. Ashley Rice APRN, PhD documented in this encounter Plan of Treatment Upcoming Encounters Date Type Specialty Care Team Description 12/22/2021 Office Visit Plastic Surgery Russ Guevara M D [facility] DR PLASTIC SURGERY [place], [place] [address] (Wo rk) documented as of this encounter Visit Diagnoses Not on filedocumented in this encounter Care Teams Treasury Consultant Relationship Specialty Start Date End Date Miladis Blackmon MD PCP - General 04/12/10 11/28/21 [address] [place] [address] documented as of this encounter
--- OUTSIDE RECORDS SUMMARY | 2021-12-13 13:04 | XMS_ITS | Encounter Summary ---
:2000 [place] [address] Care Team Providers Name Role Phone Miladis Blackmon MD Primary Care Provider Encounter Details Date Type Department Care Team Description 08/18/2011 Anesthesia Event Main Operating Room Epi Thrasher MD [facility] DR [place] [address] [facility] Houston Silverman MD [facility] DR [place] [address] [place] [address] Anesthesia Record Procedure Summary Procedure Name Responsible Anesthesia Start Anesthesia Stop Anesthesiologist Time Time Johanny BLANTON Joseph P, MD 08/18/11 0732 08/18/11 0 833 CYSTOURETHROSCOPY, DIAGNOSTIC (WRVU 2.23) (N/A Bladder) Events Date Time Event Comment 08/18/2011 0705 0732 Start 0833 Stop No medications on file. Agents No agents on file. Blood No blood administrations on file. Lines, Drains, and Airways Type Details Placement Removal PIV Peds 08/18/11 0000 by Shae Mc RN 08/18/11 0941 by Felix Loomis RN documented in this encounter Social History Tobacco Use Types Packs/Day Years Used Date Passive Smoke Exposure - Never Smoker Smokeless Tobacco: Never Used Comments: Mom states smokes Alcohol Use Standard Drinks/Week Comments No 0 (1 standard drink = 0.6 oz pure alcoho l) Sex Assigned at Date Recorded Not on file documented as of this encounter OR Notes Anesthesia Postprocedure Evaluation - Epi Orlando MD - 08/21/2011 7:41 AM EDT Patient: Lottie Gaines Procedure(s) Performed: CYSTO, CYSTOURETHROSCOPY, DIAGNOSTIC Patient location: PACU Post-op pain: Adequate analgesia Post-op nausea: no nausea or vomiting Last Vitals: Filed Vitals: 08/18/11 0844 Pulse: 67 Temp: Resp: 20 Post-op cardiovascular and respiratory status: is stable Level of consciousness: awake Complications: no apparent complications Fluid Status: normal Anesthesia Preprocedure Evaluation - Epi Orlando MD - 08/17/2011 3:36 PM EDT Anesthesia Evaluation Patient summary reviewed [...] Plan ASA 2 General with inhalational induction Anesthetic plan and risks discussed with father and mother. Plan discussed with resident. documented in this encounter Miscellaneous Notes Addendum Note - Debbie Santana - 08/21/2011 11:32 AM EDT Addendum created 08/21/11 1132 by Debbie Santana Modules edited:Anesthesia Events, Anesthesia Responsible Staff documented in this encounter Plan of Treatment Upcoming Encounters Date Type Specialty Care Team Description 12/22/2021 Office Visit Plastic Surgery Russ Guevara M D [facility] PLASTIC SURGERY [place], [place] [address] (Wo rk) documented as of this encounter Visit Diagnoses Not on filedocumented in this encounter Care Teams Veterinary Virologist Relationship Specialty Start Date End Date Miladis Blackmon MD PCP - General 04/12/10 11/28/21 [address] [place] [address] documented as of this encounter
--- OUTSIDE RECORDS SUMMARY | 2021-12-13 13:04 | XMS_ITS | Encounter Summary ---
:2000 Author Organization [facility] [address] Care Team Providers Name Role Phone Miladis Blackmon MD Primary Care Provider Encounter Details Date Type Department Care Team Description 07/12/2011 [facility] ([facility] TMD Dx) [place] [address] PEDIATRIC SURGERY [phone] [place], [place] [address] Social History Tobacco Use Types Packs/Day Years Used Date Passive Smoke Exposure - Never Smoker Comments: Mom states smokes Alcohol Use Standard Drinks/Week Comments Not Asked 0 (1 standard drink = 0.6 oz pure alcoho l) Sex Assigned at Date Recorded Not on file documented as of this encounter Plan of Treatment Upcoming Encounters Date Type Specialty Care Team Description 12/22/2021 Office Visit Plastic Surgery Russ Guevara M D [facility] PLASTIC SURGERY [place], [place] [address] (Wo rk) documented as of this encounter Visit Diagnoses Diagnosis Flank pain - Primary Abdominal pain, unspecified site documented in this encounter Care Teams Market Research Specialist Relationship Specialty Start Date End Date Miladis Blackmon MD PCP - General 04/12/10 11/28/21 [address] [place] [address] documented as of this encounter
--- OUTSIDE RECORDS SUMMARY | 2021-12-13 13:04 | XMS_ITS | Encounter Summary ---
:2000 Author Organization [facility] [address] Care Team Providers Name Role Phone Miladis Blackmon MD Primary Care Provider Encounter Details Date Type Department Care Team Description 11/02/2010 Orders Only Pediatric Cardiology Pj Driscoll ntricular septal at [facility] MD Theresa defect (Primary Dx) [place] [address] PEDIATRIC [phone] CARDIOLOGY [place], [place] [address] Social History Tobacco Use Types Packs/Day Years Used Date Never Assessed Sex Assigned at Date Recorded Not on file documented as of this encounter Plan of Treatment Upcoming Encounters Date Type Specialty Care Team Description 12/22/2021 Office Visit Plastic Surgery Russ Guevara M D [facility] PLASTIC [place], [place] [address] (Wo rk) documented as of this encounter Visit Diagnoses Diagnosis Ventricular septal defect - Primary documented in this encounter Care Teams Software Programmer Relationship Specialty Start Date End Date Miladis Blackmon MD PCP - General 04/12/10 11/28/[address] [place] [address] [place] [address] documented as of this encounter
--- OUTSIDE RECORDS SUMMARY | 2021-12-13 13:04 | XMS_ITS | Encounter Summary ---
:2000 [place] [address] Care Team Providers Name Role Phone Miladis Blackmon MD Primary Care Provider Encounter Details Date Type Department Care Team Description 11/07/2010 Hospital Encounter Non-Invasive Ventricul [place] [address] Social History Tobacco Use Types Packs/Day Years Used Date Passive Smoke Exposure - Never Smoker Comments: Mom states smokes Alcohol Use Standard Drinks/Week Comments Not Asked 0 (1 standard drink = 0.6 oz pure alcoho l) Sex Assigned at Date Recorded Not on file documented as of this encounter Medications at Time of Discharge Medication Sig Dispensed Refills Start Date End Date nitrofurantoin Take 1 capsule by 50 capsule 3 11/07/2010 (MACRODANTIN) 25 mg mouth for 30 days. capsule Take 1 capsule four times daily until urine culture results available, then 1 cap daily levalbuterol (XOPENEX) 0 12/17/2008 1.25 mg/0.5 mL nebulizer solution documented as of this encounter Plan of Treatment Upcoming Encounters Date Type Specialty Care Team Description 12/22/2021 Office Visit Plastic Surgery Russ Guevara M D [facility] PLASTIC SURGERY [place], [place] [address] (Wo rk) documented as of this encounter Procedures Procedure Name Priority Date/Time Associated Comments Diagnosis CONGENITAL Routine 11/07/2010 1:04 Ventricular septal Result s for this ECHOCARDIOGRAM LIMITED PM EDT defect serjio richards are in the results section. documented in this encounter Results Congenital Echocardiogram Limited (11/07/2010 1:04 PM EDT) Specimen (Source) Anatomical Location Collection Method / Collectio n Time Received Time / Laterality Volume 11/07/2010 Narrative [facility] - 11/07/2010 2:07 PM EDT Procedure: ? Pediatric Echocardiogram ? Patient: ? BLAZE URRUTIA R ?(Age): 2000(10) Med Rec#: ?[id number] ?Sex: ?F ? Site Loc: ?[facility] ?Ht / Wt: ??132(cm)/31(kg) Pt. Loc: ? Pediatrics ?BSA: ?1.07 Study Date: ?11/07/2010 ?Pt. Type: Outpatient Study Quality: ? Tape: ? Referring: Pj Driscoll Referring: OLGA CHU Diagnosis: ??VSD (745.4) CPT Code(s): ??Color Doppler (13659), ?? Spectral Doppler (70381), ??Echo Juan Carlos Full (31733), Indication(s): ??Ventricular septal defe ct Rhythm: HR ?BP ?108/58 ?? SUMMARY: 1. Small membranous ventricular septal d efect appears 2 mm diameter with restrictive golb-ce-ibvzr flow with max instantaneous pressure gradient 89 mm Hg. 2. No aortic valve prolapse or regurgita tion, ventricular outflow obstruction or other anatomic abnormalit y was seen with focsed re-exam. 3. Left ventricular chamber size, wall t hickness and systolic performance appear normal, without ??javad or volume overload. 4. Rght ventricular chamber size, wall t hickness, septal position, systolic performance and estimated systo lic pressure appear normal. FINDINGS: Patient Data ?CHD 2D/M-Mode/Limited/Congenital. ?History of a membranous ventricula r septal defect Atria And Veins ?The SVC and IVC were not evaluated . ?The pulmonary veins were not evalu ated. ?The right atrium is normal sized. ?The left atrium is normal sized. Atrial Septum ?Intact atrial septum. Atrioventricular Valves ?The tricuspid valve appears normal . ?There is no evidence of tricuspid valve stenosis. ?There is no evidence of tricuspid regurgitation. ?The mitral valve structure appears normal. ?There is no evidence of mitral jaylyn ve stenosis. ?There is no evidence of mitral reg urgitation. Ventricles ?Qualitatively normal right ventric ular size and systolic function. ?Right ventricular wall thickness i s normal. ?There is normal interventricular s eptal motion. ?There is no evidence of right vent ricular hypertension. ?Qualitatively normal left ventricu lar size and systolic function. ?Left ventricular wall thickness is normal. ?The left ventricular outflow tract appears normal with no evidence of obstruction. Ventricular Septum ?There is a small membranous ventri cular septal defect with restrictive left to right shunting. ?There is accessory tricuspid valve tissue involving the defect. ?The defect measures 3 mm. ?The peak gradient by Doppler is 89 mmHg. Semilunar Valves ?The pulmonic valve leaflets appear normal. ?There is no pulmonic valve stenosi s. ?There is trace pulmonic regurgitat ion. ?The aortic valve appears normal. ?There is no evidence of aortic jaylyn ve stenosis. ?There is no aortic regurgitation. ?There is no evidence of aortic jaylyn ve prolapse. Great Vessels ?The main and proximal right and le ft pulmonary arteries are widely patent with unobstructive flow. ?The main pulmonary artery appears normal sized. ?The right pulmonary artery is poor ly visualized. ?The left pulmonary artery is poorl y visualized. ?The transverse aorta is normal siz ed. ?The aortic isthmus is normal sized . ?There is no evidence of a coarctat ion. ?There is a normal flow velocity de monstrated in the descending aorta. Coronaries ?The coronary arteries were not ashlie luated. Effusion ?There is no evidence of a pericard ial effusion. Miscellaneous ?Congenital two-dimensional echo li mited, limited spectral Doppler and color Doppler performed. M-mode ?Value ?Units (Range) ? Z Score ? IVSd ?5 ?mm (5.5 to 9) ? -2.7 ? LVIDd ? 37 ? mm (34 to 45.5) ? -1 ? LVPWd ? 6 ?mm (5.5 to 9) ? -1.5 ? LVIDs ? 25 ? mm ? LVFS ?32 ? % ? LV Mass ? 50 ? g ? All Z scores are estimated This report has been electronically sign ed by: _ Pj ??Shima Driscoll M.D. ? 011 14:06:30 [facility] Procedure Note 11/07/2010 Procedure: Pediatric Echocardiogram Patient: BLAZE Calhoun (Age): 1999(10) Med Rec#: [id number] Sex: F Site Loc: [facility] Ht / Wt: 132(cm)/31(kg) Pt. Loc: Pediatrics BSA: 1.07 Study Date: 11/07/2010 Pt. Type: Outpati ent Study Quality: Tape: Referring: Pj Driscoll Referring: OLGA CHU Diagnosis: VSD (745.4) CPT Code(s): Color Doppler (16837), Spec tral Doppler (19000), Echo Juan Carlos Full (65877), Indication(s): Ventricular septal defect Rhythm: HR BP 108/58 SUMMARY: 1. Small membranous ventricular septal d efect appears 2 mm diameter with restrictive bpwn-fy-jgmye flow with max instantaneous pressure gradient 89 mm Hg. 2. No aortic valve prolapse or regurgita tion, ventricular outflow obstruction or other anatomic abnormalit y was seen with focsed re-exam. 3. Left ventricular chamber size, wall t hickness and systolic performance appear normal, without major volume overload. 4. Rght ventricular chamber size, wall t hickness, septal position, systolic performance and estimated systo lic pressure appear normal. FINDINGS: Patient Data CHD 2D/M-Mode/Limited/Congenital. History of a membranous ventricular sep kamari defect Atria And Veins The SVC and IVC were not evaluated. The pulmonary veins were not evaluated. The right atrium is normal sized. The left atrium is normal sized. Atrial Septum Intact atrial septum. Atrioventricular Valves The tricuspid valve appears normal. There is no evidence of tricuspid valve stenosis. There is no evidence of tricuspid regur gitation. The mitral valve structure appears norm al. There is no evidence of mitral valve st enosis. There is no evidence of mitral regurgit ation. Ventricles Qualitatively normal right ventricular size and systolic function. Right ventricular wall thickness is nor mal. There is normal interventricular septal motion. There is no evidence of right ventricul ar hypertension. Qualitatively normal left ventricular s ize and systolic function. Left ventricular wall thickness is norm al. The left ventricular outflow tract appe ars normal with no evidence of obstruction. Ventricular Septum There is a small membranous ventricular septal defect with restrictive left to right shunting. There is accessory tricuspid valve tiss ue involving the defect. The defect measures 3 mm. The peak gradient by Doppler is 89mmHg. Semilunar Valves The pulmonic valve leaflets appear norm al. There is no pulmonic valve stenosis. There is trace pulmonic regurgitation. The aortic valve appears normal. There is no evidence of aortic valve st enosis. There is no aortic regurgitation. There is no evidence of aortic valve pr olapse. Great Vessels The main and proximal right and left pu lmonary arteries are widely patent with unobstructive flow. The main pulmonary artery appears brandon l sized. The right pulmonary artery is poorly vi sualized. The left pulmonary artery is poorly vis ualized. The transverse aorta is normal sized. The aortic isthmus is normal sized. There is no evidence of a coarctation. There is a normal flow velocity demonst rated in the descending aorta. Coronaries The coronary arteries were not evaluate d. Effusion There is no evidence of a pericardial e ffusion. Miscellaneous Congenital two-dimensional echo limited , limited spectral Doppler and color Doppler performed. M-mode Value Units (Range) Z Score IVSd 5 mm (5.5 to 9) -2.7 LVIDd 37 mm (34 to 45.5) -1 LVPWd 6 mm (5.5 to 9) -1.5 LVIDs 25 mm LVFS 32 % LV Mass 50 g All Z scores are estimated This report has been electronically sign ed by: _ Pj Driscoll M.D. 11/07/2010 14:0 6:30 Images reviewed and interpretation verif ied [facility] Pj Driscoll MD ECHO ORDERABLES Performing Organization Address City/State/ZIP Code Phon e Number [facility] documented in this encounter Visit Diagnoses Diagnosis Ventricular septal defect documented in this encounter Care Teams Rigger Helper Relationship Specialty Start Date End Date Miladis Blackmon MD PCP - General 04/12/10 11/28/21 [place] [address] documented as of this encounter
--- OUTSIDE RECORDS SUMMARY | 2021-12-13 13:04 | XMS_ITS | Encounter Summary ---
:2001 Author Organization [facility] [place] [address] Care Team Providers Name Role Phone Miladis Blackmon MD Primary Care Provider Encounter Details Date Type Department Care Team Description 11/01/2010 Abstract [place] [facility] [place] Clifford, [place] [address] Social History Tobacco Use Types Packs/Day Years Used Date Never Assessed Sex Assigned at Date Recorded Not on file documented as of this encounter Plan of Treatment Upcoming Encounters Date Type Specialty Care Team Description 12/22/2021 Office Visit Plastic Surgery Russ Guevara M D [facility] DR PLASTIC SURGERY [place], [place] [address] (Wo rk) documented as of this encounter Visit Diagnoses Not on filedocumented in this encounter Care Teams Control System Computer Scientist Relationship Specialty Start Date End Date Miladis Blackmon MD PCP - General 04/12/10 11/28/21 [place] [address] documented as of this encounter
--- OUTSIDE RECORDS SUMMARY | 2021-12-13 13:04 | XMS_ITS | Encounter Summary ---
:2000 Author Organization [facility] [place] [address] Care Team Providers Name Role Phone Miladis Blackmon MD Primary Care Provider Reason for Visit Reason Comments Procedure Encounter Details Date Type Department Care Team Description 10/27/2010 Hospital Encounter [facility], Tahir Villegas kin lesion (Primary Dx); [facility] Unspecified disorder of skin and subcuta neous tissue [facility] [id number] [address]DER[facility]OLOGY [phone] [place] [address] Social History Tobacco Use Types Packs/Day Years Used Date Never Assessed Sex Assigned at Date Recorded Not on file documented as of this encounter Last Filed Vital Signs Vital Sign Reading Time Taken Comments Blood Pressure - - Pulse 96 10/27/2010 10:30 AM EDT Temperature 36.8 ??C (98.2 ??F) 10/27/2010 9:47 AM EDT Respiratory Rate 24 10/27/2010 10:15 AM EDT Oxygen Saturation 98% 10/27/2010 10:30 AM EDT Inhaled Oxygen Concentration - - Weight 30.1 kg (66 lb 5.7 oz) 10/27/2010 8:49 AM EDT Height - - Body Mass Index - - documented in this encounter Discharge Instructions Discharge InstructionsAiram Bone RN - 10/27/2010 9:00 AM EDT PainFree Discharge Instructions Your child has received sedation today. These medicines were given to decrease anxiety or pain and/or cause sleep. Please be sure to follow these discharge guidelines for your child: 1. Watch your child closely the remainder of the day. Your child may be unsteady, dizzy, sleepy, or irritable. When riding home in their car seat make sure their head does not fall forward. 2. Avoid activities that require your child to be fully alert and coordinated such as: ?? Climbing stairs ?? Sports, swimming, biking, or gym set activities ?? Driving for teens 3. Your child may resume their regular diet as tolerated unless otherwise directed. Occasionally, children will vomit. If so, return to clear liquids then advance as tolerated. 4. Your child may resume any regular medicines. 5. If your child had a breathing tube, they may have a sore throat. This is normal. Drinking cold fluids will ease the discomfort. Questions regarding sedation may be directed to the [facility]. ?? Sunday - Sunday 8:00AM - 4:30PM at ?? Evenings/weekends at and ask for the senior resident care director online editor. Questions regarding procedure and/or pain issues may be directed to the procedure provider or Primary Care Provider. Questions regarding test results may be directed to the ordering physician. documented in this encounter Medications at Time of Discharge Medication Sig Dispensed Refills Start Date End Date levalbuterol (XOPENEX) 1.25 mg/0.5 mL 0 12/17/2008 06/07/2012 nebulizer solution documented as of this encounter Progress Notes Justyna Gonzales CLS - 10/27/2010 1:44 PM EDT Child Life Note: [facility] Patient???s name: Lottie Patient???s age: 10 y.o. 8 m.o. Medical teams: Surgeon: Mariah Anesthesia team: Johanny/Narciso Accompanied by: Mother Items of comfort: Movies Reason for visit: Removal of Moles - R. Posterial Lateral Neck & R. Clavicle Patient???s understanding of reason for visit: Lottie had a developmentally- appropriate understanding of the reason for the visit. Developmental information: On target Preferred method of induction: Mask Preparation received for medical experience: Previous induction experiences, mask introduction and decorating, distraction options Recommendation for pre-med: No Distraction method used: Movie and verbal interaction Coping: Lottie verbalized I don't like to hear that stuff when she overheard the procedural consent. She was a strong advocate for herself and her needs. She was hesitant when entering the treatment room and verbalized her desire to go home without the procedure. Her mother was encouraging and Lottie was able to complete the inhaled induction by holding her mother's hands and watching the movie. Parental Involvement: Mother was present, proactive, supportive and appropriate. Description of induction process: Patient tolerated mask placement and induction process X Justyna Gonzales MS, CCLS Certified Polisher Apprentice Pager [phone] documented in this encounter Procedure Notes Linnea Mata MD - 10/27/2010 6:29 PM EDTPre-Procedure Diagnose(s): Skin lesion; Skin lesion Post-Procedure Diagnose(s): Skin lesion; Skin lesion Procedure Notes: Surgeon: LINNEA MATA Insurance Instructor: Angeles Petersen. Excision of benign lesion, excision width including margins = 1.1 cm B. Intermediate repair, length 3.5 cm Site: R anterior neck Discussed treatment, expectations, need for follow-up. Informed consent obtained. See CIS for current medications, drug sensitivities and vital signs. Sterile skin prep performed. Local anesthesia: buffered 1% lidocaine with 1/100,000 epinephrine. The excision was designed with clinically clear-appearing margins of at least 0.2cm in order to remove the lesion. The lesion was excised down to the level of subcutis. An intermediate closure was required in order to close potential space and to reduce the risk of dehiscence. Hemostasis was achieved.A layered closure was performed. Multiple buried absorbable sutures were placed to reappose deep fat. The epidermis and dermis were reapposed using monofilament suture. There were no complications; the patient tolerated the procedure well. Specimen to Pathology. The wound was dressed. Post-procedure expectations (including discomfort management), wound care and activity restrictions were reviewed. Suture removal: 10 days Procedure: Skin biopsy. Location: R superior lateral neck Discussed indications for procedure and expectations including [...] were reviewed. Follow-up based on pathology results. Procedure: Skin biopsy. Location: R medial lateral necl Discussed indications for procedure and expectations including [...] wound care and activity restrictions were reviewed. Linnea Mata MD Section Of Dermatology Follow-up based on pathology results. documented in this encounter Plan of Treatment Upcoming Encounters Date Type Specialty Care Team Description 12/22/2021 Office Visit Plastic Surgery Russ Guevara M D [facility] PLASTIC SURGERY [place], [place] [address] (Wo rk) documented as of this encounter Procedures Procedure Name Priority Date/Time Associated Diagnosis Comme nts EXC BENIGN LES, JUDY 10/27/2010 5:30 PM Nevus 1.1 TO 2.0CM, NECK EDT (WRVU 1.68) SURGICAL PATHOLOGY Routine 10/27/2010 1:27 PM Res ults for this REPORT EDT procedure are i n the results section. documented in this encounter Results SURGICAL PATHOLOGY REPORT (10/27/2010 1:27 PM EDT) Component Value Ref Test Analysis Performed At Patholo gist Range Method Time Signature Surgical [facility] ? Formerly named [facility] Report ? Provider: ?? LINNEA MATA ?Pt. Name: ?? ISIDORO Y, LOTTIE Calhoun ? Acc #: ?[id number] ? Pt. ? Col Date: ?? 10/27/2010 ?/Sex: ?2000,(10 years),Female ? Rec Date: ?? 10/27/2010 ?LOC: ?[facility] ? SURGICAL PATHOLOGY ? ---Pathologic Diagnosis--- ? A - Skin, right superior neck, shave biopsy: ? 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 peripheral and deep specimen edges (see Comment). ? B - Skin, right mid central neck, shave biopsy: ? 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 peripheral and deep specimen edges. ? C - Skin, right lower anterior neck, excision: ? 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 The examined inked ? margins are free of lesion. ? CR-0 ? Dictated by: ? Diego Bryan MD ?Dermatopathology Fellow ? As the attending phys floresan, I attest that I examined the histologic slides, ? and confirm Dr. Diego Bryan's diagnosis. ? 10/28/10 ? AJE ? 10/28/10 Verified by: ? Lucien CHOW, PhD, Marcellus ? Dermatopatholo gist ? (Electronic Si gnature) ? The attending pathologist whose signature appears o n this report has ? reviewed all diagnostic slides and has edited the boogie ss and/or ? microscopic portion of the report in rendering the fi nal pathologic ? diagnosis. ? ---Comment--- ? A (right superior neck) - A derma l mitotic figure is seen. Overall this ? lesion matures with depth, consistent with compound n evus. ? ---Microscopic Description--- ? Slides reviewed, microscopic description not recorded . ? ---Gross Description--- ? A - Labeled/Fixative: R superior lateral neck, formal in. ? Qty/Size/Weight: ?Single papule, 1.0 x 0 .3 cm, brown, coarsely ? granular. ? Sections/Processing: ??Trisected. (T1) ? [facility] ? Provider: ?? LINNEA MATA ?Pt. Name: ?? ISIDORO Y, LOTTIE R ? Acc #: ?[id number] ? Pt. ? Col Date: ?? 10/27/2010 ?/Sex: ?2000,(10 years),Female ? Rec Date: ?? 10/27/2010 ?LOC: ?[facility] ? SURGICAL PATHOLOGY ? B - Labeled/Fixative: B R mid lateral neck, formalin. ? Qty/Size/Weight: ?Single papule, 1.0 x 0 .3 cm, brown, coarsely ? granular. ? Sections/Processing: ??Inked. ??Trisected. (T1) ? C - Labeled/Fixative: C R lower anterior neck, formal in. ? Qty/Size/Weight: ?Single, 1.5 x 0.4 x 0.2 cm. ? Tissue Description: ?? Ellipse of isaacs skin with a 0.8-cm, dark brown, ? coarsely granular pa pule. ? Sections/Processing: ??The specimen is inked and serially sectioned. ??The ? ends are submitted in (1); the remainder of the ? specimen submitted in (2). ??(T2) ??aje/SNS ? ---Clinical Information--- ? Specimen Submitted: ? A - Right superior neck, shave ? B - Right mid central neck ? C - Right lower anterior neck ? Clinical History/Diagnosis: ? A - 0.7-cm, brown verrucous plaques. ??DX: ??Atypical nevi ? B - 0.8-cm, brown verrucous plaques. ??DX: ??Atypical nevi ? C - 0.8-cm, brown verrucous plaques. ??DX: ??Atypical nevi Specimen (Source) Anatomical Collection Method Collection Time Re ceived Time Location / / Volume Laterality 10/27/2010 1:27 PM EDT Linnea Mata MD PATHOLOGY/CYTOLOGY ORDERABLE S Performing Organization Address City/State/[place] [address] [facility] documented in this encounter Visit Diagnoses Diagnosis Skin lesion - Primary Unspecified disorder of skin and subcuta neous tissue Unspecified disorder of skin and subcuta neous tissue documented in this encounter Care Teams Director Of Reimbursement Relationship Specialty Start Date End Date Miladis Blackmon MD PCP - General 04/12/10 11/28/21 [place] [address] documented as of this encounter
--- OUTSIDE RECORDS SUMMARY | 2021-12-13 13:04 | XMS_ITS | Encounter Summary ---
:2000 Author Organization [facility] [place] [address] Care Team Providers Name Role Phone Miladis Blackmon MD Primary Care Provider Reason for Visit Reason Comments Nevus 4 dark brown papules on rigt hside of neck Encounter Details Date Type Department Care Team Description 09/13/2010 Office Visit Dermatology Antonio Damon, Benign nevus (Primary [facility] MD Dx) [place] [address] [facility] [place] [address] Social History Tobacco Use Types Packs/Day Years Used Date Never Assessed Sex Assigned at Date Recorded Not on file documented as of this encounter Progress Notes Linnea Mata MD - 09/13/2010 3:58 PM EDT Provider LINNEA MATA I saw and evaluated the patient. I have reviewed the patient's history during the visit and I agree with details as written. My physical examination confirms Dr. Damon's findings. The assessment and plan were formulated in discussion with me at the time of visit and I agree with them as documented. LINNEA MATA M.D. Section of Dermatology Antonio Damon MD - 09/13/2010 2:53 PM EDT Lottie Gaines Date of service: 09/13/2010 : 2000 Dermatology Resident Note: Antonio Damon MD Chief Problem: Chief Complaint Patient presents with ??? Nevus 4 dark brown papules on rigthside of neck History: 10 y.o. year old female. This is a new patient referred by her PCP, Dr Patino for mole son her neck that she first got at age 8, they have grown since. She is here today with her mom. She started to get some on her back recently. Mom's grandfather had moles not sure if they were cancerous, he has since . Mom says that the moles on her neck bother her as the kids in school make fun of her, mom also states that she catches them when she henley her hair. Past/Current Skin History: negative Medical History: Patient Active Problem List Diagnoses Code ??? 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 Family History: no melanoma, non-melanoma skin cancer in parents. Unknown skin cancer in maternal grandfather. Social/Occupational History:lives at home , student Review of Systems: Feels well, no other skin concerns Examination: Patient was alert, well-appearing and in no noticeable distress. An modified exam of scalp, face, neck, abdomen, both upper arms, and both lower legs was performed. Specific findings: 1. Four dark brown papules and plaques on right side of neck, the largest being 1cm on right posterior neck with very thin rim of erythema 2. Brown color papules on her right clavicle, back,forehead and abdomen Diagnosis/Assessment/Treatment Plan: 1. Benign melanocytic nevi. Risks vs benefits of excision vs watchful waiting discussed with patientand mother at length. Benefits include reassurance that lesions are benign, to hopefully stop bullying at school, and to stop irritation while brushing hair. Risks include scar, bleeding, infection, and nerve damage. Mother would like to have at least the two larger lesions removed on the right posterolateral neck which are adjacent to hairline and get irritated while brushing hair. Also possibly thelesion on her right clavicle. Patient became very tearful and said she did not want them removed. Mother will discuss with father and patient and then call back. If surgery to be performed, should be do ne in [place] painfree. 2. Sunscreen precautions reviewed 3. RTC prn Antonio Damon MD Dermatology Resident Patient seen and evaluated with staff conference manager: Linnea Mata MD Section of Dermatology documented in this encounter Plan of Treatment Upcoming Encounters Date Type Specialty Care Team Description 12/22/2021 Office Visit Plastic Surgery Russ Guevara M D [facility] PLASTIC SURGERY [place], [place] [address] (Wo rk) documented as of this encounter Visit Diagnoses Diagnosis Benign nevus - Primary Benign neoplasm of skin, site unspecifie d documented in this encounter Care Teams Tripoler Relationship Specialty Start Date End Date Miladis Blackmon MD PCP - General 04/12/10 11/28/21 [place] [address] documented as of this encounter
--- OUTSIDE RECORDS SUMMARY | 2021-12-13 13:04 | XMS_ITS | Encounter Summary ---
:2000 Author Organization [facility] [place] [address] Care Team Providers Name Role Phone Miladis Blackmon MD Primary Care Provider Encounter Details Date Type Department Care Team Description 01/04/2011 External Results Pediatric Nephrology at [facility] Dominick agudelo MD [facility] Kae burns P[place] [address] [place] [address] [phone] (Wo rk) Social History Tobacco Use Types [...] Guevara M D [facility] ER DR PLASTIC SURGERY [place], [place] [address] (Wo rk) documented as of this encounter Procedures Procedure Name Priority Date/Time Associated Diagnosis Comme nts LAB SCAN Routine 01/03/2011 documented in this encounter Results Scan Doc: Lab (01/03/2011) Narrative This result has an attachment that is no t available. Dominick Cunha MD MEDIA MGR SCAN EXT ORDR/RSLT documented in this encounter Visit Diagnoses Not on filedocumented in this encounter Care Teams Clipper Counters Relationship Specialty Start Date End Date Miladis Blackmon MD PCP - General 04/12/10 11/28/21 [address] [facility] [place] [address] documented as of this encounter
--- OUTSIDE RECORDS SUMMARY | 2021-12-13 13:04 | XMS_ITS | Encounter Summary ---
:2000 Author Organization [place] [address] Care Team Providers Name Role Phone Miladis Blackmon MD Primary Care Provider Encounter Details Date Type Department Care Team Description 12/13/2010 Hospital Encounter [facility], ANESTHESIA-LO None [facility] Oly Guerrero MD [facility] [place] [address] [place] [address] Social History Tobacco Use Types Packs/Day [...] Taken Comments Blood Pressure - - Pulse 74 12/13/2010 12:03 PM EDT Temperature 36.3 ??C (97.3 ??F) 12/13/2010 11:46 AM EDT Respiratory Rate 16 12/13/2010 12:15 PM EDT Oxygen Saturation 100% 12/13/2010 12:03 PM EDT Inhaled Oxygen Concentration - - Weight 30.9 kg (68 lb 2 oz) 12/13/2010 10:00 AM EDT Height - - Body Mass Index - - documented in this encounter Medications at Time of Discharge Medication Sig Dispensed Refills Start Date End Date levalbuterol (XOPENEX) 1.25 mg/0.5 mL 0 12/17/2008 06/07/2012 nebulizer solution documented as of this encounter Miscellaneous Notes Miscellaneous - Provider, Scanning - 12/15/2010 11:26 AM EDT documented in this encounter Plan of Treatment Upcoming Encounters Date Type Specialty Care Team Description 12/22/2021 Office Visit Plastic Surgery Russ Guevara M D [facility] PLASTIC SURGERY [place], [place] [address] (Wo rk) documented as of this encounter Procedures Procedure Name Priority Date/Time Associated Diagnosis Comme nts MRI WITH ANESTHESIA 12/13/2010 6:30 PM EDT BACK PAIN A ND ABNORMAL (WRVU *) BLADDER FUNCTION documented in this encounter Visit Diagnoses Not on filedocumented in this encounter Care Teams Hurl Shaker Relationship Specialty Start Date End Date Miladis Blackmon MD PCP - General 04/12/10 11/28/21 [address] [place] [address] documented as of this encounter
--- OUTSIDE RECORDS SUMMARY | 2021-12-13 13:04 | XMS_ITS | Encounter Summary ---
:2000 Author Organization [place] [address] Care Team Providers Name Role Phone Miladis Blackmon MD Primary Care Provider Reason for Referral Consultation (Urgent) - Closed Specialty Diagnoses / Referred By Contact Referred To Procedures Contact Pediatric Gastroenterology Diagnoses Dysuria Recurrent UTI Avril Galaviz T, MD Monica P, MD [facility] [address] [facility] [place] [phone] [place] [address] Fax: Referral ID Status Reason Start Date Expiration Date Visits V isits Requested Authorized [id number] Closed Assume 08/18/2011 02/14/2012 1 1 Subset of Care Encounter Details Date Type Department Care Team Description 08/18/2011 Hospital Encounter Same Day Program at [facility] ie Dysuria; Shae Epps MD Recurrent UTI [facility] [address] [place] [address] [place] [address] [phone] (Wo rk) Social History Tobacco Use Types [...] Taken Comments Blood Pressure - - Pulse 67 08/18/2011 8:44 AM EDT Temperature 36.2 ??C (97.2 ??F) 08/18/2011 8:29 AM EDT Respiratory Rate 20 08/18/2011 8:44 AM EDT Oxygen Saturation 100% 08/18/2011 8:44 AM EDT Inhaled Oxygen Concentration - - Weight 32 kg (70 lb 8.8 oz) 08/18/2011 7:14 AM EDT Height - - Body Mass Index - - documented in this encounter Discharge Instructions Discharge InstructionsSRony koehler RN - 08/18/2011 8:53 AM EDT 1. Go home and rest. You [...] which usually goes away in 12-24 hours. [facility] - Information Same Day Surgery Patient InstructionsAvril Galaviz MD - 08/18/2011 8:35 AM EDT Resume antibiotic, detrol, elmiron. Go to 6L for appt at 10:[address] Mancini. Keep appt. Sunday with Anastacia Please call if any concerns or questions arise. Our office telephone number is [phone] during business hours, and you may call the Urology Resident busperson through the [facility] carton making machine operator at [phone] during night/weekend hours. documented in this encounter Medications at Time [...] nebulizer solution documented as of this encounter H&P Notes Tate Sutherland MD - 08/18/2011 7:25 AM EDT Patient [...] Miscellaneous Notes Miscellaneous - Provider, Scanning - 08/20/2011 2:15 PM EDT Miscellaneous - Provider, Scanning - 08/20/2011 2:13 PM EDT Miscellaneous - Provider, Scanning - 08/19/2011 1:08 AM EDT Miscellaneous - Provider, Scanning - 08/19/2011 1:05 AM EDT OR Attestation - Avril Galaviz MD - 08/18/2011 8:31 AM EDT Attestation: Case Date: 08/18/2011 I was present and I participated during the entire procedure (does not need to include opening and closing). AVRIL GALAVIZ MD 08/18/2011 Op Note - Avril Galaviz MD - 08/18/2011 8:20 AM EDT [facility] [place] Note Patient Name: Lottie Gaines : [id number] MR#: [id number] Case Date: 08/18/2011 Surgeon: Surgeon(s) and Role: * AVRIL GALAVIZ MD - Primary * TATE SUTHERLAND MD - Resident-Surgeon Chief Preoperative diagnosis: abnormal bladder wall Postoperative diagnosis: abnormal bladder wall Procedure(s): CYSTO, FULGURATIONOF BLADDER LESION, W OR W/O BX, 2.0 TO 5.0 CM Anesthesia: General, 2% lidocaine jelly per urethra Estimated Blood Loss: none Drains: none Disposition: awakened from anesthesia, extubated and taken to the recovery room in a stable condition, having suffered no apparent untoward event. Condition: doing well without problems (Please see the Surgical Encounter Summary for any Implant and Specimen details pertinent to this patient.) HPI/Surgical Indications: 11 year old female with recurrent pelvic pain and UTI. Ultrasound shows anabnormality of the right posterior bladder wall. She presents for cystoscopic evaluation. Procedure Description: The patient was properly identified and brought to the operating room. After adequate general anesthesia was given the patient was placed in a dorsal lithotomy position and intravenous antibiotic (gent) was given by the anesthesia staff. The patient was prepped and draped. A time out was performed. The pediatric 12F cystoscope was then passed into the bladder. There was diffuse bullous edema throughout the bladder consistent with cystitis (positive culture 08/15). The ureteral orifices were identified and normal. On the right posterior bladder wall near the dome, there was a small raised, volcano-like area with mucus from the apparent lumen suspicious for fistula. Based on the appearance and her history, we elected not to biopsy the area until further information/evaluation is completed. The bladder was then emptied and 2%lidocaine jelly was instilled per urethra. The patient was repositioned in the supine position. The patient tolerated the procedure well and was taken to the recovery room in a satisfactory condition. The details of the procedure and postoperative care instructions were reviewed with the family. Miscellaneous - Provider, [facility] - 08/18/2011 6:57 AM EDT documented in this encounter Plan of Treatment Upcoming Encounters Date Type Specialty Care Team Description 12/22/2021 Office Visit Plastic Surgery Russ Guevara M D [facility] PLASTIC SURGERY [place], [place] [address] (Wo rk) Scheduled Referrals Name Type Priority Associated Order Schedule Diagnoses REFERRAL TO PEDIATRIC Outpatient Routine Dysuria Ordered: GASTROENTEROLOGY Referral Recurrent UTI 08/18/2011 documented as of this encounter Procedures Procedure Name Priority Date/Time Associated Diagnosis Comme nts CYSTO,CYSTOURETHROSCOPY, Routine 08/21/2011 9:04 AM EDT Dysuri a DIAGNOSTIC CYSTO, 08/18/2011 7:30 AM EDT Dysuria CYSTOURETHROSCOPY, DIAGNOSTIC (WRVU 2.23) documented in this encounter Visit Diagnoses Diagnosis Dysuria Recurrent UTI Urinary tract infection, site not specif ied documented in this encounter Administered Medications Inactive Administered Medications - up to 3 most recent administrations Medication Order MAR Action Action Date Dose Rate Site acetaminophen (TYLENOL) 160 mg/5 Given 08/18/2011 7:30 AM EDT 41 0 mg mL Oral suspension 1 dose, Starting on Sun08/18/11 at 0725, Until Sun08/18/11 at 0730, RONY LOOMIS: Cabinet Override documented in this encounter Active and Recently Administered Medications Times are shown in EDT. PRN Medication Order 08/16/2011 08/17/2011 08/18/2011 gentamicin sulfate (Ped) (PF) (GARAMYCIN) 20 mg/2 mL injection ( CANCELED) 0751 (Given - Provider: Epi Orlando MD) ONCE PRN, Starting Sun08/18/11 at 0751, Until Sun08/18/11 at 1134, Intra- Operative (Intra-Procedure), Routine lidocaine (XYLOCAINE) 2 % jelly (CANCELED) 0826 (Given - Provider: Avril Galaviz MD) ONCE PRN, Pain, Starting Sun08/18/11 at 0826, For 1 dose, Intra-Operative (Intra-Procedure) No Frequency Medication Order 08/16/2011 08/17/2011 08/18/2011 acetaminophen (TYLENOL) 160 mg/5 mL Oral suspension (COMPLETED) 0730 (Given - Provider: Rony Loomis RN) 1 dose, Starting Sun08/18/11 at 0725, Un til Sun08/18/11 at 0730, RONY LOOMIS: Cabinet Override documented in this encounter Care Teams Health Assistant Relationship Specialty Start Date End Date Miladis Blackmon MD PCP - General 04/12/10 11/28/21 [place] [address] documented as of this encounter
--- OUTSIDE RECORDS SUMMARY | 2021-12-13 13:04 | XMS_ITS | Encounter Summary ---
:2000 Author Organization [facility] [place] [address] Care Team Providers Name Role Phone Miladis Blackmon MD Primary Care Provider Encounter Details Date Type Department Care Team Description 12/13/2010 Surgery [place] Pain Free at [facility] RESOURCE, MRI WITH ANESTHESIA [facility] Kae burns ANESTHESIA-LO (WRVU *) [place] [address] None [phone] Social History Tobacco Use Types Packs/Day Years [...] Team Description 12/22/2021 Office Visit Plastic Surgery uRss Guevara M D [facility] PLASTIC SURGERY [place], [place] [address] (Wo rk) documented as of this encounter Procedures Procedure Name Priority Date/Time Associated Diagnosis Comme nts MRI WITH ANESTHESIA 12/13/2010 6:30 PM EDT BACK PAIN A ND ABNORMAL (WRVU *) BLADDER FUNCTION documented in this encounter Visit Diagnoses Not on filedocumented in this encounter Care Teams Reinspector Relationship Specialty Start Date End Date Miladis Blackmon MD PCP - General 04/12/10 11/28/21 [address] [facility] [place] [address] documented as of this encounter
--- OUTSIDE RECORDS SUMMARY | 2021-12-13 13:04 | XMS_ITS | Encounter Summary ---
:2000 [place] [address] Care Team Providers Name Role Phone Miladis Blackmon MD Primary Care Provider Reason for Visit Reason Onset Date Comments Follow-up 07/12/2011 Encounter Details Date Type Department Care Team Description 07/12/2011 Telephone Pediatric Urology at [facility] Avril Galaviz MD [place] [address] [place] [address] PEDIATRIC SURGERY [phone] [place], [place] [address] (Wo rk) Social History Tobacco Use Types Packs/Day Years Used Date Passive Smoke Exposure - Never Smoker Comments: Mom states smokes Alcohol Use Standard Drinks/Week Comments Not Asked 0 (1 standard drink = 0.6 oz pure alcoho l) Sex Assigned at Date Recorded Not on file documented as of this encounter Miscellaneous Notes Telephone Encounter - Neris Rodríguez RN - 07/12/2011 2:23 PM EST Pediatric Urology, Section of Pediatric Surgery [facility], [place], [place] Lottie is followed in the Pediatric Urology clinic for pelvic pain and dysuria. Lottie was last seenin clinic on 07/11/11 with complaints of dysuria and back pain. It was recommended that Lottie continue with healthy bladder habits, use Lortab PRN for pain, begin Elmiron to help the lining of the bladder and begin Augmentin BID for 14 days for a presumed UTI (urine culture obtained by clean catch byPCP on 07/10/11; results pending at time of clinic visit.) Mother reports Lottie continues with pain but is not tolerant of Lortab, emesis with each dose. Mother is requesting a change in pain medication and is requesting a tablet rather than liquid if at all possible. Mother also asks if urine culture, final report is available. Plan: As per Dr. Galaviz, medication was changed to Tylenol #2. As requested by mother, [facility] [place] [place] Mother was informed of urine culture results and was advised to have Lottie continue with Augmentin as prescribed to completion. Additional home care as per recommendations from clinic visit on 07/11/11. Mother was encouraged to call Pediatric Urology with questions or concerns. Urine Culture: (Final Report) 10,000-50,000 cFu/mL Escherichia Coli Urine Calcium: 7 Urine Creatinine: 32.4 Follow Up: (07/24/11) Mother reports Lottie has completed the course of Augmentin. Lottie has been taking Detrol LA and Elmiron as prescribed since clinic visit on 07/11/11. For the past few days Lottie has complained of stomach cramping. Mother questions if this is a side effect of medications and should they be stopped. When questioned mother reports Lottie does not take Miralax but could benefit from a stool softener. Mother was advised to monitor Lottie's BM's as constipation may be the cause of abdominal cramping. Mother will call with a progress report in two days. Based on this report it will be decided if Lottie would benefit from Miralax to promote daily soft BM's. In the meantime, Lottie should continue on medications as prescribed. Mother is comfortable and agreeable with this plan. She was encouraged to call Pediatric Urology with additional questions or concerns documented in this encounter Plan of Treatment Upcoming Encounters Date Type Specialty Care Team Description 12/22/2021 Office Visit Plastic Surgery Russ Guevara M D [facility] PLASTIC SURGERY [place], [place] [address] (Wo rk) documented as of this encounter Visit Diagnoses Not on filedocumented in this encounter Care Teams Petal Shaper Hand Relationship Specialty Start Date End Date Miladis Blackmon MD PCP - General 04/12/10 11/28/21 [facility] [employer] [place] [address] documented as of this encounter
--- OUTSIDE RECORDS SUMMARY | 2021-12-13 13:04 | XMS_ITS | Encounter Summary ---
:2000 [place] [address] Care Team Providers Name Role Phone Miladis Blackmon MD Primary Care Provider Reason for Visit Reason Onset Date Comments Follow-up 11/08/2010 Encounter Details Date Type Department Care Team Description 11/08/2010 Telephone Pediatric Urology at [facility] Avril Galaviz MD Follow-up [facility] [place] [address] PEDIATRIC SURGERY [phone] [place], [place] [address] (Wo rk) Social History Tobacco Use Types Packs/Day Years Used Date Passive Smoke Exposure - Never Smoker Comments: Mom states smokes Alcohol Use Standard Drinks/Week Comments Not Asked 0 (1 standard drink = 0.6 oz pure alcoho l) Sex Assigned at Date Recorded Not on file documented as of this encounter Miscellaneous Notes Telephone Encounter - Neris Rodríguez RN - 11/08/2010 9:38 AM EDT Pediatric Urology, Section of Pediatric Surgery [facility], [place], [place] Lottie is followed in the Pediatric Urology clinic for recurrent UTI's, urinary urgency and small bladder capacity. Lottie was most recently seen in clinic on 11/07/10 with complaints of continued urgency, burning with urination and bilateral flank pain. A urine specimen was obtained and sent to the lab for urine culture. Lottie was started on Macrodantin QID dosing pending final culture report and will then begin daily prophylactic dosing. Mother reports Lottie was up all night with complaints of back pain and dysuria. Lottie is receiving Ibuprofen as needed and Pyridium as prescribed with poor results and is using a heating pad as a comfort measure. Plan: Lottie should continue with Macrodantin as prescribed pending final urine culture report as well as comfort measures including Tylenol PRN. Lottie should be encouraged to drink plenty of fluids to promote good dilute urine output. I will update Dr. Galaviz on Lottie's current status/condition and obtain urine culture report when available. During this phone conversation mother was informed that Dr. Galaviz consulted with Dr. Dominick Cunha, Pediatric Nephrology, regarding Lottie's clinical presentation. Dr. Cunha has recommended a 24-hour Litholink study (urine collection) and evaluation in the Pediatric Nephrology clinic. I will call mother later today for an update on Lottie. In the meantime, mother was encouraged to call Pediatric Urology with additional questions or concerns. Plan: (11/09/10) I attempted to contact mother at cell phone number on record, , to follow up on Ashutosh to inform mother of final urine culture report. Mother was not available and a message was left on her voicemail: Mother was informed the final report is positive with identified organism sensitiveto Macrodantin. Lottie should continue with antibiotic treatment course to completion and then beginUTI prophylaxis as prescribed. Urine Culture: Final Report >100,000 cFu/mL Escherichia Coli documented in this encounter Plan of Treatment Upcoming Encounters Date Type Specialty Care Team Description 12/22/2021 Office Visit Plastic Surgery Russ Guevara M D [facility] PLASTIC SURGERY [place], [place] [address] (Wo rk) documented as of this encounter Visit Diagnoses Not on filedocumented in this encounter Care Teams Marketing Researcher Relationship Specialty Start Date End Date Miladis Blackmon MD PCP - General 04/12/10 11/28/21 [address] [place] [address] documented as of this encounter
--- OUTSIDE RECORDS SUMMARY | 2021-12-13 13:04 | XMS_ITS | Encounter Summary ---
:2000 Author Organization [facility] Address [facility] [place] [address] Care Team Providers Name Role Phone Miladis Blackmon MD Primary Care Provider Reason for Visit Reason Comments Follow-up emg today / hx recurrant uti 's Encounter Details Date Type Department Care Team Description 11/07/2010 Follow-Up Pediatric Urology at CLINIC, DR JUAN adams; [facility] Avril Galaviz MD [facility] [place] [address] Pelvic pain in female; [facility] Voiding d ysfunction; Drive UTI (lower urinary tract inf [place]ction) [place] [address] Social History Tobacco Use Types Packs/Day Years Used Date Passive Smoke Exposure - Never Smoker Comments: Mom states smokes Alcohol Use Standard Drinks/Week Comments Not Asked 0 (1 standard drink = 0.6 oz pure alcoho l) Sex Assigned at Date Recorded Not on file documented as of this encounter Last Filed Vital Signs Vital Sign Reading Time Taken Comments Blood Pressure 102/58 11/07/2010 1:01 PM EDT Pulse - - Temperature - - Respiratory Rate - - Oxygen Saturation - - Inhaled Oxygen Concentration - - Weight 31 kg (68 lb 5.5 oz) 11/07/2010 1:01 PM EDT Height 132 cm (4' 3.97) 11/07/2010 1:01 PM EDT Body Mass Index 17.79 11/07/2010 1:01 PM EDT Body Mass Index Percentile 67.42 % 11/07/2010 1:01 PM ED T Growth Chart: [facility] (Girls, 2-20 Years) documented in this encounter Patient Instructions Patient InstructionsAvril Galaviz MD - 11/07/2010 2:58 PM EDT Continue timed, relaxed voiding. Start ditropan XL. Take antibiotic 4 times a day until urine culture results available (then once daily). Monitor for constipation. Follow up after MRI. documented in this encounter Progress Notes Avril Galaviz MD - 11/07/2010 2:48 PM EDT Visit Summary: Diagnosis: Recurrent UTI, urgency, small bladder capacity. Plan: Check urine culture today. Plan Macrodantin prophylaxis (QID til culture results available, then plan for QD prophylaxis, depending on culture). Ditropan XL. Repeat MRI of the spine to rule out tethered cord. KUB to rule out constipation. CC: Lottie was seen in pediatric urology clinic today at the request of Miladis Blackmon MD for a follow up visit for pelvic pain and dysuria. Lottie is here today with her mother who provide(s) the interimhistory. HPI: Lottie is a 10 years old female with a history of ongoing episodic severe pelvic pain and dysuria. At Lottie's last visit on 11/16/08 we planned to continue biofeedback and wean her medication. She had 3 sessions of biofeedback. She now returns for evaluation of continued UTI's and urgency. In the past 2 years, she has had more than 12 visits for urgency, dysuria, cramping/flank pain after voiding. She has been diagnosed with at least 8 UTI's at these visits. Most recent UTI was 2 months ago and she missed quite a bit of school as a result. Mom states that she is relaxing while voiding and usingthe bathroom in the nurse's office. On an average school day, Lottie voids about 12 times. Fluid intake is good. She has daily BM's with occasional straining. She has no other complaints today. PMH: I have reviewed her PMH from his prior visit(s) on 07/09/08-11/16/08 and there are no changes except for the above. FMH/SH: I have reviewed her social/family history since last visit on 07/09/08- 11/16/08 and there are no changes. ROS: I have reviewed her complete ROS and there are no changes from her previous visit on 07/09/08-11/16/08. Medications: levalbuterol (XOPENEX) 1.25 mg/0.5 mL nebulizer solution Allergies: No Known Allergies Physical Examination: Vitals: Filed Vitals: 11/07/10 1301 BP: 102/58 Height: 1.32 m (4' 3.97) Weight: 31 kg (68 lb 5.5 oz) Constitutional: Lottie is a healthy appearing female in [facility]. HEENT: Normocephalic/AT. Lungs/Chest: Symmetric. GI: Abdomen is soft, nondistended, nontender, and no masses palpable. FLOW RATE WITH PAD-TYPE EMG ELECTRODES AND POST VOID RESIDUAL measurement was performed today. Patient had a strong urge to void and voided 98mls with a maximal flow rate of 13 ml/sec and increased pelvic floor activity with voiding. There was a bladder scan post void residual of 0 ml. The flow curve was meza-shaped. I have reviewed the images of the renal ultrasound today and discussed them with her mother. The ultrasound shows Stable kidneys and a normal bladder. Pediatric Renal Report (Signed Final 11/07/2010 12:07 pm) Patient Info ID: [id number] : [birth year] (10 yrs) Name: LOTTIE GAINES Visit Date: 11/07/2010 11:54 am Procedures URETRO - Ultrasound Retroperitoneal Complete ( Pediatric) - [id number] Indications Pelvic pain Dysuria Hx of abnormal appearance of the bladder Right Kidney Date L(cm) AP(cm) TV(cm) Vol 11/07/10 7.7 12/17/08 7 Hydronephrosis: Mild pelvicaliectasis in upper pole Left Kidney Date L(cm) AP(cm) TV(cm) Vol 11/07/10 7.8 12/17/08 7.8 Hydronephrosis: No sonographic evidence Urinary Bladder Pre-void (cm) L: 4.2 AP: 2.6 TV: 5.3 Vol (ml): 30.3 Comment: Partially distended, normal contour. Bilateral jets visualized. Impression Ultrasound - Retroperitoneal Complete (Pediatric) - Summary Mild right pelvicaliectasis. Normal left kidney. left kidney stable in size. THick bladder wall on right side unchanged. I viewed the images and agree with the above interpretation. Thank you for allowing us to participate in the care of LOTTIE GAINES. Please do not hesitate to call if you have any questions. Lincoln Srinivasan MD (from the past 24 hour(s)) POCT URINE DIPSTICK Component Value Range ??? POC Sp [place] 1.015 1.002 - 1.030 ??? POC pH, UA 7 5.0 - 8.5 ??? POC Leuk, UA + Negative - Negative ??? POC Nitrite, UA neg Negative - Negative ??? POC Protein, UA neg Negative - Negative (mg/dL) ??? POC Glucose, UA normal Normal - Normal (mg/dL) ??? POC Ketone, UA neg Negative - Negative ??? POC Urobil, UA normal 0.2 - 1.0 (mg/dL) ??? POC Bili, UA neg Negative - Negative ??? POC Blood, UA neg Negative - Negative (gail/uL) Assessment: 10 year old female with urgency, UTI's, and dysuria. Plan: Check urine culture today. Plan Macrodantin prophylaxis (QID til culture results available, then plan for QD prophylaxis, depending on culture). Ditropan XL. Repeat MRI of the spine to rule out tethered cord. KUB to rule out constipation. I will see Lottie after her MRI This follow-up visit was dominated by review of history and new studies and we spent at least 30 minutes of the total 45 minutes in [id number] counseling discussing the above diagnosis and treatment plan. Avril Galaviz MD documented in this encounter Plan of Treatment Upcoming Encounters Date Type Specialty Care Team Description 12/22/2021 Office Visit Plastic Surgery Russ Guevara M D [facility] PLASTIC SURGERY [place], [place] [address] (Wo rk) documented as of this encounter Procedures Procedure Name Priority Date/Time Associated Diagnosis Comme nts URINE CULTURE Routine 11/07/2010 2:37 PM Voiding dysfunction R esults for this EDT procedure are i n the results section. POCT URINE DIPSTICK Routine 11/07/2010 2:32 PM Dysuria Re sults for this EDT procedure are i n the results section. documented in this encounter Results Urine culture Clean Catch Urine (11/07/2010 2:37 PM EDT) Component Value Ref Test Analysis Performed At [facility] Range Method Time Signature Urine Culture CERNER ? Patient Name: LOTTIE GAINES ?Ordered By: AVRIL GALAVIZ MILLENNIUM ? MR#: [id number] ?LOC: ??6M ? /Sex: ??2000 (10 years), ? Female ? PROCEDURE: Urine Culture ?SOURCE: U CC ? COLLECTED: 11/07/2010 14:37 ? STARTED: 11/07/2010 14:58 ? FINAL REPORT ? Final Report ? Verified:11/09/2010 10:28 ? Greater than 100,000 cfu/ml Escherichia coli ? PRELIMINARY REPORT ? Preliminary Report ? Verified:11/08/2010 12:31 ? Greater than 100,000 cfu/ml Gram Negative Rods ? SUSCEPTIBILITY RESULTS ? Escherichia coli ?FRANCESCO Inter p ? Ampicillin ? S ? Ampicillin/Sulbactam ? S ? Aztreonam ?S ? Cefazolin ?S ? Cefoxitin ?S ? Ceftazidime ?S ? Ceftriaxone ?S ? Cefuroxime ? S ? Ciprofloxacin ?S ? Doripenem ?S ? Ertapenem ?S ? Gentamicin ? S ? Meropenem ?S ? Nitrofurantoin ? S ? Piperacillin/Tazobactam ?S ? Trimethoprim/Sulfa ? R ? Tetracycline ? S ? Tobramycin ? S ? Patient: BLAZE LOTTIE R ? MR#: [id number] ? S=Susceptible ??I=Intermediate ??R=Resistant ??NA=Not Applicable ? DDS=Dose dependent-susceptible ??NS=Non-susceptible ? Specimen (Source) Anatomical Collection Method Collection Time Re ceived Time Location / / Volume Laterality Urine specimen 11/07/2010 2:37 11/07/2010 2:58 obtained by clean PM EDT PM EDT catch procedure (specimen) Avril Galaviz MD MICROBIOLOGY - GENERAL ORDER DU Performing Organization Address City/State/Z[place] [address] OPAL GONCALVES (ABNORMAL) POCT urine dipstick (11/07/2010 2:32 PM EDT) Analysis Performed At Patho logist Time Signature POC Sp [place] 1.015 1.002 - 1.030 POC pH, UA 7 5.0 - 8.5 POC Leuk, UA + Negative - Negative POC Nitrite, neg Negative - UA Negative POC Protein, neg Negative - UA Negative mg/dL POC Glucose, normal Normal - UA Normal mg/dL POC Ketone, UA neg Negative - Negative POC Urobil, UA normal 0.2 - 1.0 mg/dL POC Bili, UA neg Negative - Negative POC Blood, UA neg Negative - Negative gail/uL Specimen (Source) Anatomical Collection Method Collection Time Re ceived Time Location / / Volume Laterality 11/07/2010 2:32 PM EDT Avril Galaviz MD POINT OF CARE TEST ORDERABLE S documented in this encounter Visit Diagnoses Diagnosis Dysuria Pelvic pain in female Unspecified symptom associated with fema le genital organs Voiding dysfunction Unspecified disorder of urethra and urin timmy tract UTI (lower urinary tract infection) Urinary tract infection, site not specif ied documented in this encounter Care Teams Humid System Operator Relationship Specialty Start Date End Date Miladis Blackmon MD PCP - General 04/12/10 11/28/21 [address] [place] [address] documented as of this encounter
--- OUTSIDE RECORDS SUMMARY | 2021-12-13 13:04 | XMS_ITS | Encounter Summary ---
:2000 Author Organization [facility] Address [facility] [address] [place] [address] Care Team Providers Name Role Phone Miladis Blackmon MD Primary Care Provider Reason for Visit Reason Comments Procedure Encounter Details Date Type Department Care Team Description 10/27/2010 Surgery [place] [facility] at [facility] Linnea Mata MD EXC BENIGN LES, JUDY 1.1 [facility] TO 2.0CM, NECK ([facility] [address]) [place] [address] [address] [phone] RD-DERMATOLOGY [place] [address] (Wo rk) Social History Tobacco Use Types [...] Discharge Instructions Discharge Airam Lockett RN - 10/27/2010 9:00 AM EDT PainFree [...] regarding sedation may be directed to the [facility]. ?? Sunday - Sunday 8:00AM - 4:30PM at ?? Evenings/weekends at and ask for the residential mortgage manager continuous improvement lead. Questions regarding procedure and/or pain issues may [...] 10/27/2010 1:44 PM EDT Child Life Note: [facility] Patient???s name: Lottie Patient???s age: [...] process X Justyna Gonzales MS, CCLS Certified Geospatial Systems Integrator Pager [phone] documented in this encounter Procedure Notes Linnea Mata MD - 10/27/2010 6:29 PM EDTPre-Procedure Diagnose(s): Skin lesion; Skin lesion Post-Procedure Diagnose(s): Skin lesion; Skin lesion Procedure Notes: Surgeon: LINNEA MATA Head Trimmer: Angeles Petersen. Excision of benign lesion, excision [...] Visit Plastic Surgery Russ Guevara M D [facility] PLASTIC SURGERY [place], [place] [address] (Wo rk) documented as of [...] Component Value Ref Test Analysis Performed At [facility] Range Method Time Signature Surgical CERNER Pathology ? [facility] Report ? Provider: ?? LINNEA MATA ?Pt. Name: ?? ISIDORO Y, LOTTIE [place] ? Acc #: ?[id number] ? Pt. ? Col Date: ?? 10/27/2010 [...] ?Dermatopathology Fellow ? As the attending phys ician, I attest that I examined the histologic [...] ? granular. ? Sections/Processing: ??Trisected. (T1) ? [facility] ? Provider: ?? LINNEA MATA ?Pt. Name: ?? FERR Y, LOTTIE R ? Acc #: ?[id number] ? Pt. ? Col Date: ?? 10/27/2010 [...] Organization Address City/State/[place] [address] [facility] documented in this encounter Visit Diagnoses Not on filedocumented in this encounter Care Teams Air Route Traffic Controller Relationship Specialty Start Date End Date Mildais Blackmon MD PCP - General 04/12/10 11/28/21 [address] [place] [address] documented as of this encounter
--- OUTSIDE RECORDS SUMMARY | 2021-12-13 13:04 | XMS_ITS | Encounter Summary ---
:2000 Author Organization [facility] [place] [address] Care Team Providers Name Role Phone Miladis Blackmon MD Primary Care Provider Encounter Details Date Type Department Care Team Description 01/19/2011 Orders Only Pediatric Urology at Avril Galaviz adder dysfunction [facility] MD [place] (Primary Dx) [facility] [place] [address] PEDIATRIC SURGERY [phone] [place] [id number] Social History Tobacco Use Types Packs/Day Years Used Date Passive Smoke Exposure - Never Smoker Comments: Mom states smokes Alcohol Use Standard Drinks/Week Comments Not Asked 0 (1 standard drink = 0.6 oz pure alcoho l) Sex Assigned at Date Recorded Not on file documented as of this encounter Progress Notes Avril Galaivz MD - 01/19/2011 3:57 PM EDT MRI was normal. Plan follow up in February, coordinated with nephrology, to reassess symptoms/ditropan XL. Subjective: Patient ID: Lottie Gaines is a 10 y.o. female. HPI Review of Systems Objective: Physical Exam Assessment and Plan: No problem-specific visit notes found for this encounter. documented in this encounter Plan of Treatment Upcoming Encounters Date Type Specialty Care Team Description 12/22/2021 Office Visit Plastic Surgery Russ Guevara M D [facility] PLASTIC SURGERY [place], [place] [address] (Wo rk) Scheduled Orders Name Type Priority Associated Diagnoses Order S chedule Uroflowmetry PROCEDURE Routine Bladder dysfunction Expected : 03/02/2011 (Approximate), Expires: 01/20/2012 documented as of this encounter Visit Diagnoses Diagnosis Bladder dysfunction - Primary Other functional disorder of bladder documented in this encounter Care Teams Environmental Planner Relationship Specialty Start Date End Date Miladis Blackmon MD PCP - General 04/12/10 11/28/21 [address] [place] [address] documented as of this encounter
--- OUTSIDE RECORDS SUMMARY | 2021-12-13 13:04 | XMS_ITS | Encounter Summary ---
:2000 Author Organization [facility] [place] [address] Care Team Providers Name Role Phone Miladis Blackmon MD Primary Care Provider Encounter Details Date Type Department Care Team Description 08/18/2011 Surgery Main Operating Room Avril Galaviz CYSTO, [facility] CYSTOURETHROSCOPY, [facility] DIAGNOSTIC (WRVU 2.23) [facility] [address] [place] [address] [place], [place] [id number] [phone] (Wo rk) Social History Tobacco Use Types [...] which usually goes away in 12-24 hours. [facility] - Information Same Day Surgery Patient InstructionsAvril Galaviz MD - 08/18/2011 8:35 AM EDT Resume antibiotic, detrol, elmiron. Go to 6L for appt at 10:[address] Mancini. Keep appt. Sunday with Anastacia Please call if any concerns or questions arise. Our office telephone number is [phone] during business hours, and you may call the Urology Resident utility worker production through the [facility] dope dry house operator at [phone] during night/weekend hours. documented in this encounter [...] Galaviz MD - 08/18/2011 8:20 AM EDT [facility] Operative Note Patient Name: Lottie Gaines : [id number] MR#: [id number] Case Date: 08/18/2011 Surgeon: Surgeon(s) and Role: [...] reviewed with the family. Miscellaneous - Provider, Scanning - 08/18/2011 6:57 AM EDT documented in this encounter Plan of Treatment Upcoming Encounters Date Type Specialty Care Team Description 12/22/2021 Office Visit Plastic Surgery Russ Guevara M D [facility] PLASTIC SURGERY [place], [place] [address] (Wo rk) Scheduled Referrals Name [...] Urinary tract infection, site not specif ied Dysuria documented in this encounter Administered Medications Inactive Administered Medications - up to 3 most recent administrations Medication Order MAR Action Action Date Dose Rate Site acetaminophen (TYLENOL) 160 mg/5 Given 08/18/2011 7:30 AM EDT 41 0 mg mL Oral suspension 1 dose, Starting on Sun08/18/11 at 0725, Until Sun08/18/11 at 0730, RONY LOOMIS: Cabinet Override gentamicin sulfate (Ped) (PF) (GARAMYCIN) 20 Given 2 7:51 AM EDT 60 mg mg/2 mL injection ONCE PRN, Starting on Sun08/18/11 at 0751, Until Sun08/18/11 at 1134, Intra-Operative (Intra-Procedure), Routine lidocaine (XYLOCAINE) 2 % jelly Given 08/18/2011 8:26 AM EDT 5 mLs ONCE PRN, Pain, Starting on Sun08/18/11 at 0826, Until Sun08/18/11 at 1134, Intra-Operative (Intra-Procedure) documented in this encounter Active and Recently [...] Override documented in this encounter Care Teams Physicist Astrophysics Relationship Specialty Start Date End Date Miladis Blackmon MD PCP - General 04/12/10 11/28/[address] [place] [address] documented as of this encounter
--- OUTSIDE RECORDS SUMMARY | 2021-12-13 13:04 | XMS_ITS | Encounter Summary ---
:2000 Author Organization [facility] [place] [address] Care Team Providers Name Role Phone Miladis Blackmon MD Primary Care Provider Encounter Details Date Type Department Care Team Description 12/13/2010 Anesthesia Event [facility] [facility] at [facility] Oly Guerrero MD [place] [address] ANESTHESIOLOGY [phone] [place], [place] [address] (Wo rk) Anesthesia Record Procedure Summary Procedure Name Responsible Anesthesia Start Anesthesia Stop Anesthesiologist Time Time MRI WITH ANESTHESIA Oly Guerrero MD 12/13/10 1011 12/13/10 1146 (WRVU *) (N/A Spine Total) Events Date Time Event Comment 12/13/2010 1011 Start 1146 Stop 1154 No medications on file. Agents No agents on file. Blood No blood administrations on file. Lines, Drains, and Airways Type Details Placement Removal PIV 10/27/10; 09; 12/13/10; 10/27/10 0905 by Esperanza youngblood, 12/13/10 1151 by 1151 SARAH Padgett David M, RN PIV Peds 12/13/10 1025 by Gabby, 12/13 1214 by SARAH Feliciano David M, RN documented in this encounter Social History Tobacco Use Types Packs/Day Years Used Date Passive Smoke Exposure - Never Smoker Comments: Mom states smokes Alcohol Use Standard Drinks/Week Comments Not Asked 0 (1 standard drink = 0.6 oz pure alcoho l) Sex Assigned at Date Recorded Not on file documented as of this encounter OR Notes Anesthesia Postprocedure Evaluation - Oly Guerrero - 12/13/2010 4:06 PM EDT Patient: Lottie Gaines Procedure(s) Performed: MRI WITH ANESTHESIA Patient location: PACU Post-op pain: no pain MRI Post-op nausea: no nausea or vomiting Last Vitals: Filed Vitals: 12/13/10 1215 Pulse: Temp: Resp: 16 Post-op cardiovascular and respiratory status: is stable Level of consciousness: awake, alert and oriented Complications: no apparent complications and tolerated the procedure well Fluid Status: normal Anesthesia Preprocedure Evaluation - Oly Guerrero - 12/13/2010 11:51 AM EDT Anesthesia Evaluation Patient summary reviewed and Nursing notes reviewed Hx of anesthetic complications Airway Mallampati: I TM distance: <3 FB Neck ROM: full Dental - normal exam Pulmonary (+) asthma, ROS comment: Well controlled asthma Cardiovascular Neuro/Psych GI/Hepatic/Renal Endo/Other Abdominal Anesthesia Plan ASA 2 General with inhalational induction Lottie is anxious but is OK with the mask induction and in fact did fine in 2010. Of note: in 2008mohini was very anxious, had preop midazolam, and then decompensated rather fully upon entering the OR. Anesthetic plan and risks discussed with mother. Plan discussed with AUTO RENTAL SUPERVISOR. documented in this encounter Miscellaneous Notes Addendum Note - Betty Alvarez - 12/14/2010 10:38 AM EDT Addendum created 12/14/10 1038 by Betty Alvarez Modules edited:Anesthesia Events, Anesthesia Responsible Staff documented in this encounter Plan of Treatment Upcoming Encounters Date Type Specialty Care Team Description 12/22/2021 Office Visit Plastic Surgery Russ Guevara M D [facility] PLASTIC SURGERY [place] [address] (Wo rk) documented as of this encounter Visit Diagnoses Not on filedocumented in this encounter Care Teams Pan Washer Hand Relationship Specialty Start Date End Date Miladis Blackmon MD PCP - General 04/12/10 11/28/21 [address] [place] [address] documented as of this encounter
--- OUTSIDE RECORDS SUMMARY | 2021-12-13 13:04 | XMS_ITS | Encounter Summary ---
:2000 Author Organization [facility] Address [address] [place] [address] Care Team Providers Name Role Phone Miladis Blackmon MD Primary Care Provider Reason for Visit Reason Comments Ventricular Septal Defect Encounter Details Date Type Department Care Team Description 11/07/2010 Follow-Up Pediatric Cardiology Pj Driscoll, type 2 at [facility] MD Theresa (perimembranous, [facility] par amembranous, [address] [place]on) [place] [address] PEDIATRIC (Primary Dx) [phone] CARDIOLOGY [place], [place] [address] (Wo rk) Social History Tobacco [...] Sign Reading Time Taken Comments Blood Pressure 108/58 11/07/2010 12:48 PM EDT right ar m Pulse 70 11/07/2010 12:48 PM EDT Temperature - - Respiratory Rate 22 11/07/2010 12:48 PM EDT Oxygen Saturation 100% 11/07/2010 12:48 PM EDT Inhaled Oxygen Concentration - - Weight 31 kg (68 lb 5.5 oz) 11/07/2010 12:48 PM EDT Height 132 cm (4' 3.97) 11/07/2010 12:48 PM EDT Body Mass Index 17.79 11/07/2010 12:48 PM EDT Body Mass Index Percentile 67.42 % 11/07/2010 12:48 PM E DT Growth Chart: [facility] (Girls, 2-20 Years) documented in this encounter Progress Notes Pj Driscoll MD - 01/04/2011 5:10 PM EDT I saw Lottie Gaines in the Pediatric Cardiology Clinic at [facility] for scheduled evaluation. 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 The defect spontaneously decreased in size & anti-congestive meds were weaned. Since then she has had findings of a restrictive ventricular septal defect without large left-right shunt, significant pulmonary artery hypertension, or aortic regurgitation. Non-Cardiac Medical History: She was born at term with normal weight without major complication. She had RSV pneumonitis in infancy. She developed reactive airway disease exacerbated by URI &treated with Fluticasone & Xopenex. She had constipation as a toddler. More recently she had urinary retention, dysfunctional elimination syndrome, incontinence, gross hematuria, pain consistent with urethritis & bladder instability, recurrent UTIs, dysuria, abdominal and flank pain and recentultrasound suggestive of focal nephrocalcinosis. .She has inguinal adenopathy. She has no other known anomaly, major illness, adverse med reaction, or symptom; review of symptom is otherwise negative. Meds: Current Outpatient Rx Name Route Sig Dispense Refill ??? NITROFURANTOIN 25 MG/5 ML ORAL SUSP Oral Take 12.4 mLs by mouth nightly. 380 mL 5 ??? AMOXICILLIN 400 MG/5 ML ORAL SUSR Oral Take 6.3 mLs by mouth 2 times daily for 11 days. 100 mL 0 ??? CEFDINIR 250 MG/5 ML ORAL SUSR Oral Take by mouth for 14 days. 4.5mL by mouth BID x 14 days. 130mL 0 ??? ACETAMINOPHEN-CODEINE 120-12 MG/5 ML ORAL SUSP Oral Take 10 mLs by mouth every 6 hours as neededfor Pain. 120 mL 0 ??? OXYBUTYNIN CHLORIDE 10 MG ORAL TR24 Oral Take 1 tablet by mouth daily. 30 tablet 12 ??? XOPENEX CONCENTRATE 1.25 MG/0.5 ML INHL NEBU Inhalation Interim Cardiac History: She remains without other cardiac symptom, review of cardiac symptom is negative. Family History: negative for anomaly & premature cardiac disease. She has 2 brothers with asthma. Multiple maternal cousins have had VUR; one with ?reflux nephropathy by parents description. Mom had recurrent UTIs and reports she is always asked if she has kidney disease when she has an abdominal ultrasound done. Siblings with autism. Social History: Lottie lives with her parents. She is repeating kindergarten. Her parents accompanied her Physical Exam: Filed Vitals: 11/07/10 1248 BP: 108/58 Pulse: 70 Resp: 22 Height: 132 cm (4' 3.97) Weight: 31 kg (68 lb 5.5 oz) SpO2: 100% She appears in no cardiorespiratory distress. HEENT: Non-dysmorphic, acyanotic, no upper airway obstruction was evident. Neck: No jugular venous distension, pulse abnormality or bruit is evident. CV: Regular rhythm, with normal precordial activity, normal A2-P2, 3/6 blowing high-pitched Jorgito regurgitant systolic murmur & no click or gallop. Back/Axilla: No bruit. Resp: Unlabored & clear. Abd: No hepatosplenomegaly. Ext: radial & pedal pulses appear normal bilateral. No nail cyanosis or clubbing is evident. Skin: acyanotic, normally perfused. Neuro: No abnormality seen. Echo: ?? Small membranous ventricular septal defect appears 2 mm diameter with restrictive qfgd-ae-orxyu flow with max instantaneous pressure gradient 89 mm Hg. ?? No aortic valve prolapse or regurgitation, ventricular outflow obstruction or other anatomic abnormality was seen with focsed re-exam. ?? Left ventricular chamber size, wall thickness and systolic performance appear normal, without major volume overload. ?? Right ventricular chamber size, wall thickness, septal position, systolic performance and estimated systolic pressure appear normal. Summary Cardiac Anatomy/Hemodynamics: Lottie has findings of a restrictive membranous ventricular septal defect without large fmja-yf-yqtnc shunt, pulmonary artery hypertension or aortic regurgitation. Intervention is not warranted now. Reevaluation is indicated. Cardiac Rhythm: She has had no evidence of problematic arrhythmia. Recommendations: ?? Daily exercise with no cardiac restriction unless symptom or findings change. ?? Cardiac reevaluation p.r.n. & in 3 year with physical and echo exam, and ECG. ?? No cardiac meds. ?? SBE prophylaxis is not recommended per AHA 2007 guidelines. I reviewed these findings & recommendations with Lottie & her parents. Most of the 1/2 hour we spent with her was for management & consulatation. Pj Driscoll M.D. Pediatric Cardiology documented in this encounter Plan of Treatment Upcoming Encounters Date Type Specialty Care Team Description 12/22/2021 Office Visit Plastic Surgery Russ Guevara M D [facility] DR PLASTIC SURGERY [place], [place] [address] (Wo rk) documented as of this encounter Visit Diagnoses Diagnosis VSD, type 2 (perimembranous, paramembran ous, conoventricular) - Primary Ventricular septal defect documented in this encounter Care Teams Car Detailer Relationship Specialty Start Date End Date Miladis Blackmon MD PCP - General 04/12/10 11/28/21 [place] [address] documented as of this encounter
--- OUTSIDE RECORDS SUMMARY | 2021-12-13 13:04 | XMS_ITS | Encounter Summary ---
:2000 Author Organization [facility] [place] [address] Care Team Providers Name Role Phone Miladis Blackmon MD Primary Care Provider Encounter Details Date Type Department Care Team Description 10/21/2010 Orders Only Dermatology Jennie Lemus MD [facility] [place] [address] [facility] [address]-DERMATOLOGY [phone] [place], [place] [address] (Wo rk) Social History Tobacco Use Types Packs/Day Years Used Date Never Assessed Sex Assigned at Date Recorded Not on file documented as of this encounter Plan of Treatment Upcoming Encounters Date Type Specialty Care Team Description 12/22/2021 Office Visit Plastic Surgery Russ Guevara M D [facility] PLASTIC SURGERY [place], [place] [address] (Wo rk) documented as of this encounter Procedures Procedure Name Priority Date/Time Associated Diagnosis Comme nts EXC BENIGN LES, JUDY 1.1 Routine 10/21/2010 4:53 PM EDT TO 2.0CM, NECK documented in this encounter Visit Diagnoses Not on filedocumented in this encounter Care Teams Photo Technologist Relationship Specialty Start Date End Date Miladis Blackmon MD PCP - General 04/12/10 11/28/21 [place], [place] [id number] documented as of this encounter
--- OUTSIDE RECORDS SUMMARY | 2021-12-13 13:04 | XMS_ITS | Encounter Summary ---
:2001 Author Organization [facility] [place] [address] Care Team Providers Name Role Phone Miladis Blackmon MD Primary Care Provider Encounter Details Date Type Department Care Team Description 10/27/2010 Anesthesia Event [facility] at Epi Zepeda MD [facility] [place] [address] [facility] Jasiel Shah MD [facility] [place] [address] [place] [address] Anesthesia Record Procedure Summary Procedure Name Responsible Anesthesia Start Anesthesia Stop Time Anesthesiologist Time EXC BENIGN LES, Epi Mac MD 10/27/10 0901 0948 1.1 TO 2.0CM, NECK (WRVU 1.68) (Right ) Events Date Time Event Comment 10/27/2010 09 Start 0917 0948 Stop No medications on file. Agents No agents on file. Blood No blood administrations on file. Lines, Drains, and Airways Type Details Placement Removal PIV 10/27/10; 904; 12/13/10; 10/27/10 09 by Esperanza youngblood, 12/13/10 1151 by [id number] SARAH Padgett David M RN documented in this encounter Social History Tobacco Use Types Packs/Day Years Used Date Never Assessed Sex Assigned at Date Recorded Not on file documented as of this encounter OR Notes Anesthesia Postprocedure Evaluation - Epi Orlando MD - 10/27/2010 3:13 PM EDT Patient: Lottie Gaines Procedure(s) Performed: EXC BENIGN LES, JUDY 1.1 TO 2.0CM, NECK Patient location: PACU Post-op pain: Adequate analgesia Post-op nausea: no nausea or vomiting Last Vitals: Filed Vitals: 10/27/10 1030 Pulse: 96 Temp: Resp: Post-op cardiovascular and respiratory status: is stable Level of consciousness: awake Complications: no apparent complications Fluid Status: normal Anesthesia Preprocedure Evaluation - Epi Orlando MD - 10/27/2010 9:17 AM EDT Anesthesia Evaluation Patient summary reviewed [...] - negative ROS GI/Hepatic/Renal - negative ROS Endo/Other - negative ROS Abdominal - normal exam Other findings: Alert, Awake in No Distress Anesthesia Plan ASA 2 General with inhalational induction Anesthetic plan and risks discussed with mother and patient. Plan discussed with resident. documented in this encounter Miscellaneous Notes Addendum Note - Betty Alvarez - 10/28/2010 3:23 PM EDT Addendum created 10/28/10 1523 by Betty Alvarez Modules edited:Anesthesia Events, Anesthesia Responsible Staff documented in this encounter Plan of Treatment Upcoming Encounters Date Type Specialty Care Team Description 12/22/2021 Office Visit Plastic Surgery Russ Guevara M D [facility] PLASTIC SURGERY [place], [place] [address] (Wo rk) documented as of this encounter Visit Diagnoses Not on filedocumented in this encounter Care Teams Maintenance Job Titles Relationship Specialty Start Date End Date Miladis Blackmon MD PCP - General 04/12/10 11/28/21 [address] [place] [address] documented as of this encounter
--- OUTSIDE RECORDS SUMMARY | 2021-12-13 13:04 | XMS_ITS | Encounter Summary ---
:2000 Author Organization [facility] [place] [address] Care Team Providers Name Role Phone Miladis Rivas MD Primary Care Provider Reason for Visit Reason Comments Other possible stones Urinary Tract Infection Encounter Details Date Type Department Care Team Description 01/02/2011 Office Visit Pediatric Nephrology Dominick Cunha Neph rocalcinosis (Primary Dx); at [facility] Lj UTI (lower urinary tract infection) [facility] [address] [place] [facility] [id number] NEPHROLOGY [phone] [place] [address] Social History Tobacco Use Types Packs/Day Years Used Date Passive Smoke Exposure - Never Smoker Comments: Mom states smokes Alcohol Use Standard Drinks/Week Comments Not Asked 0 (1 standard drink = 0.6 oz pure alcoho l) Sex Assigned at Date Recorded Not on file documented as of this encounter Last Filed Vital Signs Vital Sign Reading Time Taken Comments Blood Pressure 85/60 01/02/2011 2:32 PM EDT Pulse 86 01/02/2011 2:32 PM EDT apical Temperature - - Respiratory Rate - - Oxygen Saturation - - Inhaled Oxygen Concentration - - Weight 31.1 kg (68 lb 9.6 oz) 01/02/2011 2:32 PM EDT Height 134.5 cm (4' 4.95) 01/02/2011 2:32 PM EDT Body Mass Index 17.2 01/02/2011 2:32 PM EDT Body Mass Index Percentile 57.43 % 01/02/2011 2:32 PM ED T Growth Chart: [facility] (Girls, 2-20 Years) documented in this encounter Patient Instructions Patient InstructionsDominick Cunha MD - 01/02/2011 4:13 PM EDT 1. I counselled that her ultrasound findings may be suggestive of nephrocalcinosis though no definitive stones were seen, crystals and/or stones may be forming and contributing to her ongoing symptoms. 2. Will f/u her 24 hour urine results. This has been completed and we will call [facility] to obtain the report and follow that with a phone call to Lottie's mother. 3. Pending these results continue excellent fluid intake (she is drinking 3 Liters per day already),and then will discuss potential dietary changes to help descrease her risks to assist in treatment and prevention. 4. Follow-up today's urine ca/cr and because stones may form secondary to systemic illness we will screen for these, serum electrolytes, BUN, creatinine, calcium, and phosphate. To be collected this week locally. 5. I plan to continue to monitor renal imaging as a guide to assess success of the stone prevention regimen. ?? In this case, I would repeat an ultrasound in 6 months (June 2011). 6. When we have the results from the workup outlined above, we can pursue additional approaches to stone prevention based on the specific individual needs. 7. Regarding Lottie's current symptoms of UTI and positive urinalysis, will begin empiric treatment with cefdinir, and f/u urine culture. Adjust regimen and prophylaxis based on these results. I plan to see Lottie again for f/u in 2-3 months. documented in this encounter Progress Notes Dominick Cunha MD - 01/02/2011 3:59 PM EDT I reviewed Dr. Adler's note, the findings on history and exam agree with my own, and I agree and discussed the assessment and management plan as described. Briefly, Lottie presents with recurrent UTIs and ongoing symptoms of dysuria, urgency and flank painas noted above. In the past few days these symptoms have progressed as well. History and ROS as noted above by Dr. Adler and otherwise NEG/noncontrib x 14 systems. On exam Lottie is tired appearing, slightly uncomfortable appearing at rest, but in NAD and comforted by her mother. She had left sided CVA tenderness, non specific abdominal discomfort, but no reboundor guarding. She has normal blood pressure and no edema and otherwise normal exam findings. She doesexhibit pyuria and bacteria as noted below, but no proteinuria. I independently reviewed her ultrasound from October 2009, and this illustrates normal sized kidney with slightly increased echogenicity and questionable corticomedullary differentiation. There is mild pelviectasis on the right. In both kidneys in the medullary areas there appear to be focal areas of echo genicity lining the calyces suggestive of calcinosis. Results for LOTTIE GAINES ( ) as of 01/03/2011 10:26 Ref. Range 01/02/2011 14:50 01/02/2011 15:29 POC Sp [place] Latest Range: 1.002-1.030 1.010 POC pH, UA Latest Range: 5.0-8.5 7.5 POC Protein, UA Latest Range: Negative-Negative mg/dL neg-trace POC Glucose, UA Latest Range: Normal-Normal mg/dL neg POC Ketone, UA Latest Range: Negative-Negative neg POC Urobil, UA Latest Range: 0.2-1.0 mg/dL neg POC Bili, UA Latest Range: Negative-Negative neg POC Blood, UA Latest Range: Negative-Negative gail/uL neg POC Leuk, UA Latest Range: Negative-Negative + POC Nitrite, UA Latest Range: Negative-Negative + U Creatinine No range found 95 U Calcium No range found 9.9 Ca/Cre Ratio Latest Range: 0.00-0.12 ratio 0.10 Urine Culture is pending Assessment: Lottie is a 10 yo girl with recurrent UTIs, dysuria, abdominal and flank pain and recent ultrasound suggestive of focal nephrocalcinosis. She has acute pyuria and worsening of symptoms and findings suggestive of UTI. 1. I counselled that her ultrasound findings may be suggestive of nephrocalcinosis though no definitive stones were seen, crystals and/or stones may be forming and contributing to her ongoing symptoms. 2. Will f/u her 24 hour urine results. Her mother reports that this has been completed and we will call [facility] to obtain the report and follow that with a phone call to Lottie's mother. 3. Pending these results continue excellent fluid intake (she is drinking 3 Liters per day already),and then will discuss potential dietary changes to help descrease her risks to assist in treatment and prevention. 4. Follow-up today's urine ca/cr and because stones may form secondary to systemic illness we will screen for these, serum electrolytes, BUN, creatinine, calcium, and phosphate. To be collected this week locally. 5. I plan to continue to monitor renal imaging as a guide to assess success of the stone prevention regimen. ?? In this case, I would repeat an ultrasound in 6 months (June 2011). 6. When we have the results from the workup outlined above, we can pursue additional approaches to stone prevention based on the specific individual needs. 7. Regarding Lottie's current symptoms of UTI and positive urinalysis, will begin empiric treatment with cefdinir, and f/u urine culture. Adjust regimen and prophylaxis based on these results. I plan to see Lottie again for f/u in 2-3 months. Thank you for referring this delightful family for evaluation of Lottie's potential nephrocalcinosisand in the setting of recurrent UTI. Please feel welcome to call if you have any additional questions, . Robert Adler MD - 01/02/2011 3:03 PM EDT Pediatric Nephrology Consultation January 02, 2011 HPI: Lottie Gaines is a 10 y.o. female who I saw today for evaluation and consultation of her chronic pelvic pain and dysuria as requested by MILADIS RIVAS MD . She was accompanied by her mother. I reviewed and summarize her prior medical records below. As you know, Lottie has chronic pelvic pain, dysuria and multiple urinary tract infections since theage of [age]. She has been treated for 8-10 UTIs in the past two years and missed a significant amountof school. Most recently one month prior to her presentation today. She has had abdominal ultrasounds showing mild right pelvicaliectasis and a consistently thickened R bladder wall (stable from scan to scan). MRI completed in 11/2010 showed no abnormalities of the spinal cord. Urology, who has followed Lottie closely, also started Ditropan XL, antibiotic prophylaxis for UTI (unknown to mother the name of this antibiotic, but record suggests it is nitrofurantoin). Urine is described as normal in appearance with no blood currently (although has been present in thepast). She describes urgency, frequency (up to 1-2x/hour; school complains about frequency), back pain bilaterally in flanks, frequent n/v, fevers with sx. 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 oxybutynin (DITROPAN XL) 10 mg 24 hr tablet Take 1 tablet by mouth daily. 30 tablet 12 ??? levalbuterol (XOPENEX) 1.25 mg/0.5 mL nebulizer solution No Known Allergies SocHx: Lives with Mom, autistic brothers (19, 15) From [facility] Mom stays home with above Dad lives in [place], ~ 2hours away (not involved) FamHx: Autism in older brothers Maternal nephews with VUR Maternal grandmother with long history of UTI PE: Filed Vitals: 01/02/11 1432 Pulse: 86 Height: 134.5 cm (4' 4.95) Weight: 31.117 kg (68 lb 9.6 oz) BP 85/60 Gen: NAD, describes pain HEENT: NCAT, moist mucous membranes, no periorbital edema Neck: No lymphadenopathy Lungs: Clear to ausculation b/l CV: RRR no m Abd: Soft non tender, non distended, normoactive bowel sounds, no masses : No costovertebral angle tenderness Extr: Full range of motion x4 Warm well perfused No peripheral edema Labs: U/A (performed by myself in clinic): SG 1.010 PH 7.5 +leukocyte esterate + nitrates All others negative (including blood and protein) SABI 10/2010: Mild R pelvicaliectasis, calcinosis, R bladder wall thickening (unchanged since last visualization) A: Lottie Is a 10 y.o. female seen for chronic pelvic pain with renal calcinosis noted on abdominal ultrasound. Nephrologic etiologies that could explain pain and US findings include kidney stones. Additional underlying renal abnormalities seems unlikely based on extensive work-up thus far, but furtherassessment of kidney function with serum labs would help us rule out entirely. P: Serum BMP, phos to assess kidney function SEnd urine today for spot calcium: cr ratio which may help imply kidney stones Obtain results of previous 24 hour urine studies Cefdinir x 14 days for UTI; hold nitrofurantoin prophylaxis presently Urine culture Repeat SABI in 6 months Promote positive fluid intake (taking 3-4 L daily, which is appropriate Tylenol with codeine for several days to help with pain I plan to see Lottie again for f/u in 2 months. documented in this encounter Plan of Treatment Upcoming Encounters Date Type Specialty Care Team Description 12/22/2021 Office Visit Plastic Surgery Russ Guevara M D [facility] PLASTIC SURGERY [place], [place] [address] (Wo rk) documented as of this encounter Procedures Procedure Name Priority Date/Time Associated Diagnosis Comme nts URINE CULTURE Routine 01/02/2011 5:19 PM Nephrocalcinosis Resu lts for this EDT procedure are i n the results section. POCT URINE DIPSTICK Routine 01/02/2011 3:29 PM Nephrocalcinosi s Results for this EDT procedure are i n the results section. CALCIUM CREATININE Routine 01/02/2011 2:50 PM Nephrocalcinosis Results for this RATIO, RANDOM URINE EDT procedur e are in the results section. documented in this encounter Results Urine culture Clean Catch Urine (01/02/2011 5:19 PM EDT) Component Value Ref Test Analysis Performed At [facility] Range Method Time Signature Urine Culture CERNER ? Patient Name: LOTTIE GAINES ? Ordered By: DOMINICK CUNHA [facility] ? MR#: [id number] ?LOC: ??6M ? /Sex: ??2000 (10 years), ? Female ? PROCEDURE: Urine Culture ?SOURCE: U CC ? COLLECTED: 01/02/2011 17:19 ? STARTED: 01/02/2011 17:19 ? FINAL REPORT ? Final Report ? Verified:01/04/2011 11:49 ? Greater than 100,000 cfu/ml Escherichia coli ? PRELIMINARY REPORT ? Preliminary Report ? Verified:01/03/2011 14:45 ? Greater than 100,000 cfu/ml Gram Negative [...] S ? Piperacillin/Tazobactam ?S ? Trimethoprim/Sulfa ? S ? Tetracycline ? S ? Tobramycin ? S ? Patient: LOTTIE GAINES R ? MR#: [id number] ? S=Susceptible ??I=Intermediate ??R=Resistant ??NA=Not Applicable ? DDS=Dose dependent-susceptible ??NS=Non-susceptible ? Specimen (Source) Anatomical Collection Method Collection Time Re ceived Time Location / / Volume Laterality Urine specimen 01/02/2011 5:19 01/02/2011 5:19 obtained by clean PM EDT PM EDT catch procedure (specimen) Dominick Cunha MD MICROBIOLOGY - GENERAL ORDER DU Performing Organization Address City/State/[place] [address] CERNER MILLENNIUM (ABNORMAL) POCT urine dipstick (01/02/2011 3:29 PM EDT) Patholo gist Method Time Signature POC Sp [place] 1.010 1.002 - 1.030 POC pH, UA 7.5 5.0 - 8.5 POC Leuk, UA + Negative - Negative POC Nitrite, + Negative - UA Negative POC Protein, neg-trace Negative - UA Negative mg/dL POC Glucose, neg Normal - UA Normal mg/dL POC Ketone, UA neg Negative - Negative POC Urobil, UA neg 0.2 - 1.0 mg/dL POC Bili, UA neg Negative - Negative POC Blood, UA neg Negative - Negative gail/uL Specimen (Source) Anatomical Collection Method Collection Time Re ceived Time Location / / Volume Laterality Urine specimen 01/02/2011 3:29 PM (specimen) EDT Dominick Cunha MD POINT OF CARE TEST ORDERABLE S Calcium Creatinine Ratio, random urine (01/02/2011 2:50 PM EDT) P athologist Signature U Calcium 9.9 mg/dL CERNER MILLENNIUM U Creatinine 95 mg/dL CERNER MILLENNIUM Ca/Cre Ratio 0.10 0.00 - 0.12 CERNER ratio MILLENNIUM Specimen Anatomical Collection Method Collection Time Receive d Time (Source) Location / / Volume Laterality Urine specimen 01/02/2011 2:50 PM 011 4:36 (specimen) EDT PM EDT Dominick Cunha MD URINE ORDERABLES Performing Organization Address City/State/[place] [address] CERNER MILLENNIUM documented in this encounter Visit Diagnoses Diagnosis Nephrocalcinosis - Primary Calculus of kidney UTI (lower urinary tract infection) Urinary tract infection, site not specif ied documented in this encounter Care Teams Harvest Supervisor Relationship Specialty Start Date End Date Miladis Rivas MD PCP - General 04/12/10 11/28/21 [address] [facility] [place] [address] documented as of this encounter
--- OUTSIDE RECORDS SUMMARY | 2021-12-13 13:04 | XMS_ITS | Encounter Summary ---
:2000 Author Organization [facility] [place] [address] Care Team Providers Name Role Phone Miladis Blackmon MD Primary Care Provider Reason for Visit Reason Comments Follow-up recurrent uti's Encounter Details Date Type Department Care Team Description 07/11/2011 Follow-Up Pediatric Urology at Avril Galaviz, Dysuria (Primary Dx) [facility] [address] [place] [address] PEDIATRIC SURGERY [phone] [place], [place] [address] (Wo rk) Social History Tobacco [...] Sign Reading Time Taken Comments Blood Pressure 106/69 07/11/2011 3:10 PM EST Pulse - - Temperature - - Respiratory Rate - - Oxygen Saturation - - Inhaled Oxygen Concentration - - Weight 32.4 kg (71 lb 6.9 oz) 07/11/2011 3:10 PM EST Height 136 cm (4' 5.54) 07/11/2011 3:10 PM EST Body Mass Index 17.52 07/11/2011 3:10 PM EST Body Mass Index Percentile 57.31 % 07/11/2011 3:10 PM ES T Growth Chart: [facility] (Girls, 2-20 Years) documented in this encounter Patient Instructions Patient InstructionsAvril Galaviz MD - 07/11/2011 4:21 PM EST Stop the ativan. Start augmentin twice daily for 14 days. Use Lortab (contains tylenol) every 4-6 hours as needed for pain. Continue healthy bladder habits. Start Elmiron three times a day (to help the lining of the bladder). It may take 6 months to work. Please see information from pharmacy. Start detrol LA (alternative to ditropan). Watch for aggressive/hyperactive behavior. Stop the medication and call if side effects occur. Plan cysto, possible bladder biopsy. We will present her films to the radiology conference group andcall if they recommend further imaging before surgery. Surgery Scheduling Please allow 5 business days for our regional vice president surgical sales to contact you regarding scheduling the operations discussed with you today The procedure to be performed is cysto, bladder biopsy. If you have not received a phone call to schedule in 7 business days, please call our office at and ask to speak with Amisha. Please note: Your insurance will be contacted regarding this procedure, please update all insurance information before leaving today. General Procedure Guidelines: If your child has a cold, fever, other illness, or diaper rash on the day before or day of surgery, please call our office or the operating room ([phone] ask boiler or engine operator to connect you) to discuss whether we can proceed with surgery or if your child needs further evaluation. These are the guidelines for food intake prior to surgery. If you do not follow these guidelines your surgery may be cancelled. No solid foods after midnight. Clear liquids are allowed up until 3 hours prior to procedure time. Clear liquids include apple juice, cranberry juice, soda (ashley-richie), Elan-Aid, Gatorade, water andtea (no milk) Breast milk may be given up to 4 hours prior to procedure time. Infant formula may be given up to 6 hours prior to procedure time. You will receive a telephone call, usually between 3-6 pm, on the day prior to your scheduled procedure date. Please be available for this important phone call. This telephone call interview will address your health history, medications, allergies and your arrival time. Only this pre-op telephone callcan give you your accurate time of arrival. If the pre-operative nurse does not reach you, you will need to return this call. Failure to return this call will result in the cancellation/rescheduling of your procedure. Thank you for your cooperation and understanding. documented in this encounter Progress Notes Avril Galaviz MD - 07/11/2011 4:07 PM EST Visit Summary: Diagnosis: Dysuria, back pain, stable/increased right hydro, abnormal bladder wall. Plan: Stop the ativan. Start augmentin twice daily for 14 days. Use Lortab (contains tylenol) every 4-6 hours as needed for pain. Continue healthy bladder habits. Start Elmiron three times a day (to help the lining of the bladder). It may take 6 months to work. Please see information from pharmacy. Start detrol LA (alternative to ditropan). Watch for aggressive/hyperactive behavior. Stop the medication and call if side effects occur. Plan cysto, possible bladder biopsy. We will present her films to the radiology conference group andcall if they recommend further imaging before surgery. CC: Lottie was seen in pediatric urology clinic today at the request of Miladis Blackmon MD for a follow up visit for pelvic pain and dysuria. Lottie is here today with her mother who provide(s) the interimhistory. HPI: Lottie is a 11 y.o. old female with a history of ongoing episodic severe pelvic pain and dysuria. At Lottie's on 11/16/08 we planned to continue biofeedback and wean her medication. She had 3 sessions of biofeedback. She now returns for evaluation of continued UTI's and urgency. In the past 2 years, she has had more than 12 visits for urgency, dysuria, cramping/flank pain after voiding. She has been diagnosed with at least 8 UTI's at these visits. At her last visit 11/07/10, we obtained an MRI ofthe spine which was normal. I recommended ditropan XL and nitrofurantoin. She stopped the ditropan due to falling asleep in school. She has continued on nitrofurantoin nightly. She has been to PCP 3 times in the last 6 weeks for UTI's. She has again missed several days of school. She is using lidocaine to help her void when she has trouble voiding at school. 6 weeks ago, she had a UTI characterized by acute onset of pain with urination, frequency, back pain, leg pain (inner thigh) with low grade fever. She was exhausted. She was treated and fine for 10-14 days, when her symptoms recurred. She had afever and back pain (middle of low back) and then awoke with excruciating pain. Again, she was treated and then developed back pain, dysuria, frequency, swollen thighs (?nodes) and fever of 102.1. Her urine culture was negative, and the empiric antibiotic was stopped. A repeat UA/culture was done (positive today). She underwent an ultrasound which showed right hydronephrosis and she was referred for further evaluation. Her last fever was 2 days ago. Based on the negative urine culture, we elected tostart some ativan to help her relax with voiding. Normally, she is voiding regularly and has no constipation. She is following all of the recommendations from the past, sitting properly and relaxing onthe toilet. She is avoiding all the bladder irritants. She tried pyridium and it did not help at all. The ativan has not helped. She ran out of tylenol with codeine which helped a little. They are using a heating pad and rubbing her back. Over the past 6 months, her longest symptom free period was 3 weeks. Sometimes, her symptoms can be managed with the lidocaine and a few days of pyridium. PMH: I have reviewed her PMH from his prior visit(s) on 07/09/08-11/07/10 and there are no changes except for the above. FMH/SH: I have reviewed her social/family history since last visit on 07/09/08- 11/07/10 and there are no changes. ROS: I have reviewed her complete ROS and there are no changes from her previous visit on 07/09/08-11/07/10. Medications: LORazepam (ATIVAN) 2 mg tablet; nitrofurantoin (MACRODANTIN) 50 mg capsule; levalbuterol (XOPENEX) 1.25 mg/0.5 mL nebulizer solution Allergies: No Known Allergies Physical Examination: Vitals: Filed Vitals: 07/11/11 1510 BP: 106/69 Height: 136 cm (4' 5.54) Weight: 32.4 kg (71 lb 6.9 oz) Constitutional: Lottie is a healthy appearing female in [facility]. HEENT: Normocephalic/AT. Lungs/Chest: Symmetric. GI: Abdomen is soft, nondistended, +mild to moderate tenderness lower abdomen R=L and SP area. ?Right CVAT (not reproducible). Urine culture +10,000-50, 000 E.coli (sensitive to nitrofurantoin as well as augmentin and cefazolin) I have reviewed the images of the renal ultrasound from October as well as yesterday's and discussed them with her mother. The ultrasound yesterday shows stable kidneys, with ?mildly increased right upperpole hydro and focal thickening/?mass in the right side of the bladder wall. Pediatric Renal Report (Signed Final 11/07/2010 12:07 pm) Patient Info ID: [id number] : [birth year] (10 yrs) Name: LOTTIE GIANES Visit Date: 11/07/2010 11:54 am Procedures URETRO - Ultrasound Retroperitoneal Complete ( Pediatric) - [id number] Indications Pelvic pain Dysuria Hx of abnormal [...] you have any questions. Lincoln Srinivasan MD Electronically Signed Final Report 11/07/2010 12:07 pm No results found for this or any previous visit (from the past 24 hour(s)). Assessment: 11 y.o. female with urgency, UTI's, and dysuria. She has persistent right mild hydronephrosis, which may be worsened on her ultrasound yesterday, and focal bladder wall thickening which appears unchanged from prior ultrasounds. I am concerned about the unusual appearance of the bladder andher ongoing, severe symptoms. The urine culture suggests perineal contamination since it is sensitive to the nitrofurantoin, which she has been taking daily and it is a low colony count with a relatively benign UA. 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 I have explained the potential side effects and benefits of the Elmiron, as well as the anticholinergic Detrol LA which is not FDA approved in [place] due to concerns about behavior problems. Her mother is in agreement with a trial of these medications. If they fail, we would have the option of a trial of bicarbonate to alkalinize the urine or sanctura as another anticholinergic choice which may have better results in those with sensory bladder issues. I have discussed my recommendation for cysto, bladder biopsy and that I think it would bebest if both Dr. Jenkins and I are present for continuity. We will present Lottie's case at radiology rounds to determine if any further imaging would be helpful. Plan: Stop the ativan. Start augmentin twice daily for 14 days. Use Lortab (contains tylenol) every 4-6 hours as needed for pain. Continue healthy bladder habits. Start Elmiron three times a day (to help the lining of the bladder). It may take 6 months to work. Please see information from pharmacy. Start detrol LA (alternative to ditropan). Watch for aggressive/hyperactive behavior. Stop the medication and call if side effects occur. Plan cysto, possible bladder biopsy. We will present her films to the radiology conference group andcall if they recommend further imaging before surgery. This follow-up visit was dominated by review of history and new studies and we spent at least 30 minutes of the total 45 minutes in [id number] counseling discussing the above diagnosis and treatment plan. Avril Galaviz MD documented in this encounter Plan of Treatment Upcoming Encounters Date Type Specialty Care Team Description 12/22/2021 Office Visit Plastic Surgery Russ Guevara M D [facility] PLASTIC SURGERY [place], [place] [address] (Wo rk) documented as of this encounter Procedures Procedure Name Priority Date/Time Associated Diagnosis Comme nts URINE CULTURE Routine 07/11/2011 5:05 PM Dysuria Results for this EST procedure are i n the results section . documented in this encounter Results Urine culture Clean Catch Urine (07/11/2011 5:05 PM EST) [facility] Method Time Signature Urine Culture CERNER ? Patient Name: LOTTIE GAINES ?Ordered By: AVRIL GALAVIZ [facility] ? MR#: [id number] ?LOC: ??6M ? /Sex: ??2000 (11 years), ? Female ? PROCEDURE: Urine Culture ?SOURCE: U CC ? COLLECTED: 07/11/2011 17:05 ? STARTED: 07/11/2011 17:06 ? FINAL REPORT ? Final Report ? Verified:07/12/2011 15:32 ? 1,000-9,000 cfu/ml Gram Negative Rods ? Specimen (Source) Anatomical Collection Method Collection Time Re ceived Time Location / / Volume Laterality Urine specimen 07/11/2011 5:05 07/11/2011 5:05 obtained by clean PM EST PM EST catch procedure (specimen) Resulting Agency Comment Spec In Lab Avril Galaviz MD MICROBIOLOGY - GENERAL ORDER DU Performing Organization Address City/State/ZIP Code Phon e Number [place] [phone] [facility] documented in this encounter Visit Diagnoses Diagnosis Dysuria - Primary documented in this encounter Care Teams Manager Water Wastewater Relationship Specialty Start Date End Date Miladis Blackmon MD PCP - General 04/12/10 11/28/21 [address] [place] [address] documented as of this encounter
--- OUTSIDE RECORDS SUMMARY | 2021-12-13 13:04 | XMS_ITS | Encounter Summary ---
:2000 Author Organization [facility] [place] [address] Care Team Providers Name Role Phone Miladis Blackmon MD Primary Care Provider Encounter Details Date Type Department Care Team Description 11/07/2010 Hospital Encounter Ultrasound at [facility] Dysuria; [facility] [place] [address] Social History Tobacco Use Types Packs/Day [...] D [facility] PLASTIC SURGERY [place], [place] [address] (Wo rk) documented as of this encounter Procedures Procedure Name Priority Date/Time Associated Comments Diagnosis US RETROPERITONEAL Routine 11/07/2010 11:56 Dysuria Results for this COMPLETE AM EDT Pelvic pain in procedure are in female the results section. documented in this encounter Results US retroperitoneal complete (11/07/2010 11:56 AM EDT) Anatomical Region Laterality Modality Abdomen Ultrasound Specimen (Source) Anatomical Collection Method Collection Time Re ceived Time Location / / Volume Laterality 11/07/2010 11:56 AM EDT Narrative 11/07/2010 12:07 PM EDT ?Pediatric Renal Report ? (Signed Final 11/07/2010 12 :07 pm) Patient Info ID: ? [id number] ? : [birth year] (10 yrs) Name: ? LOTTIE GAINES ?Visit Date: 11/07/2010 11:54 am Procedures URETRO - Ultrasound Retroperitoneal Com plete ( Pediatric) - [id number] Indications Pelvic pain Dysuria Hx of abnormal appearance of the bladde r Right Kidney Date ? L(cm) ? AP(cm) ?TV(cm) ?Vol 11/07/10 ? 7.7 12/17/08 ? 7 Hydronephrosis: ?? Mild pelvicaliectasi s in upper pole Left Kidney Date ? L(cm) ? AP(cm) ?TV(cm) ?Vol 11/07/10 ? 7.8 12/17/08 ? 7.8 Hydronephrosis: ?? No sonographic evide nce Urinary Bladder Pre-void (cm) ? L: ??4.2 ? A P: ??2.6 ? TV: ??5.3 Vol (ml): ?30.3 Comment: ?Partially distended, norm al contour. Bilateral jets ? visualized. Impression Ultrasound - Retroperitoneal Complete ( Pediatric) - Summary Mild right pelvicaliectasis. Normal lef t kidney. left kidney stable in size. ??THick bladder wall on right side unchanged. I ??viewed the images and agree with kaushik merida above interpretation. Thank you for allowing us to participat e in the care of LOTTIE GAINES. Please do not hesitate to call if you have any questions. ?Lincoln montoya MD Electronically Signed Final Report ?? 12:07 pm Procedure Note SrinivasanLincoln MD - 11/07/2010Formatt ing of this note might be different from the original. Pediatric Renal Report (Signed Final 11/07/2010 12:07 pm) Patient Info ID: [id number] : [birth year] (10 yrs) Name: LOTTIE GAINES Visit Date: 11/08/19 11 11:54 am Procedures URETRO - Ultrasound Retroperitoneal Com plete ( Pediatric) - [id number] Indications Pelvic pain Dysuria Hx of abnormal appearance of the bladde r Right Kidney Date L(cm) AP(cm) TV(cm) Vol 11/07/10 7.7 12/17/08 7 Hydronephrosis: Mild pelvicaliectasis i n upper pole Left Kidney Date L(cm) AP(cm) TV(cm) Vol 11/07/10 7.8 12/17/08 7.8 Hydronephrosis: No sonographic evidence Urinary Bladder Pre-void (cm) L: 4.2 AP: 2.6 TV: 5.3 Vol (ml): 30.3 Comment: Partially distended, normal co ntour. Bilateral jets visualized. Impression Ultrasound - Retroperitoneal Complete ( Pediatric) - Summary Mild right pelvicaliectasis. Normal lef t kidney. left kidney stable in size. THick bladder wa ll on right side unchanged. I viewed the images and agree with the above interpretation. Thank you for allowing us to participat e in the care of LOTTIE GAINES. Please do not hesitate to call if you have any questions. Lincoln Srinivasan MD Electronically Signed Final Report 11/07 12:07 pm Avril Galaviz MD IMG US GEN ORDERABLES documented in this encounter Visit Diagnoses Diagnosis Dysuria Pelvic pain in female Unspecified symptom associated with fema le genital organs documented in this encounter Care Teams Risk Consulting Treasury Director Relationship Specialty Start Date End Date Miladis Blackmon MD PCP - General 04/12/10 11/28/[address] [place] [address] documented as of this encounter
--- OUTSIDE RECORDS SUMMARY | 2021-12-13 13:04 | XMS_ITS | Encounter Summary ---
:2000 Author Organization [facility] [address] Care Team Providers Name Role Phone Miladis Blackmon MD Primary Care Provider Encounter Details Date Type Department Care Team Description 10/03/2010 [facility] MD Mich Pelvic pain in [place] [address] PEDIATRIC SURGERY [phone] [place], [place] [address] Social History Tobacco Use Types Packs/Day Years Used Date Never Assessed Sex Assigned at Date Recorded Not on file documented as of this encounter Plan of Treatment Upcoming Encounters Date Type Specialty Care Team Description 12/22/2021 Office Visit Plastic Surgery Russ Guevara M D [facility] PLASTIC SURGERY [place], [place] [address] (Wo rk) Scheduled Orders Name Type Priority Associated Diagnoses Order S chedule PAD EMG Study PROCEDURE Routine Dysuria Expected: Pelvic pain in female 2010, Expires: 10/04/2011 Complex Uroflowmetry PROCEDURE Routine Dysuria Expected: Pelvic pain in female 2010, Expires: 10/04/2011 Bladder Scanner PROCEDURE Routine Dysuria Expected: Pelvic pain in female 2010, Expires: 10/04/2011 documented as of this encounter Results US retroperitoneal complete (11/07/2010 11:56 AM EDT) Anatomical Region Laterality Modality Abdomen Ultrasound Specimen (Source) Anatomical Collection Method Collection Time Re ceived Time Location / / Volume Laterality 11/07/2010 11:56 AM EDT Narrative 11/07/2010 12:07 PM EDT ?Pediatric Renal Report ? (Signed Final 11/07/2010 12 :07 pm) Patient Info ID: ? [id number] ? : [birth year] (10 yrs) Name: ? LOTTIE GAINES ?Visit Date: 11/07/2010 11:54 am Procedures URETRO - Ultrasound Retroperitoneal Com plete ( Pediatric) - [id number] Indications Pelvic pain Dysuria Hx of abnormal [...] Final 11/07/2010 12:07 pm) Patient Info ID: [id number] : [birth year] (10 yrs) Name: LOTTIE GAINES Visit Date: 11/08/19 11 11:54 am Procedures URETRO - Ultrasound Retroperitoneal Com plete ( Pediatric) - [id number] Indications Pelvic pain Dysuria Hx of abnormal [...] symptom associated with fema le genital organs Dysuria Pelvic pain in female Unspecified symptom associated with fema le genital organs documented in this encounter Care Teams Elementary Vocal Music Teacher Relationship Specialty Start Date End Date Miladis Blackmon MD PCP - General 04/12/10 11/28/21 [place] [facility] [place] [address] documented as of this encounter
--- OUTSIDE RECORDS SUMMARY | 2021-12-13 13:04 | XMS_ITS | Encounter Summary ---
:2000 Author Organization [facility] [place] [address] Care Team Providers Name Role Phone Miladis Blackmon MD Primary Care Provider Encounter Details Date Type Department Care Team Description 12/13/2010 [facility] [place] [address] Social History Tobacco Use Types Packs/Day [...] Visit Plastic Surgery Russ Guevara M D [facility] PLASTIC SURGERY [place], [place] [address] (Wo rk) documented as of this encounter Procedures Procedure Name Priority Date/Time Associated Diagnosis Comme nts MRI Routine 12/13/2010 11:40 AM Results for this CERVICAL/THORACIC EDT procedure are in TETHERED CORD the results section. documented in this encounter Results MRI CERVICAL/THORACIC TETHERED CORD (12/13/2010 11:40 AM EDT) Anatomical Region Laterality Modality C-spine, T-spine Magnetic Resonance Specimen (Source) Anatomical Collection Method Collection Time Re ceived Time Location / / Volume Laterality 12/13/2010 11:40 AM EDT Impressions 12/16/2010 5:11 PM EDT IMPRESSION: ?? 1. ??Normal MRI of the cervical, thoraci c, and lumbar spine. ?? 2. ??No evidence of tethered cord or lip mami of the phylum. ? Film and interpretation reviewed by the attending Narrative 12/16/2010 5:11 PM EDT MRI OF THE CERVICAL, THORACIC, AND LUMBA R SPINE: CLINICAL HISTORY: ??Back pain with abnor mal bladder function, question tethered cord. ?? COMPARISON: ??MRI of the total spine, of 11/09/08. TECHNIQUE: ??Multiplanar, multisequence MR of the cervical, thoracic, and lumbar spine was obtained without contrast. ?? FINDINGS: ??The craniocervical junction and visualized portions of the posterior fossa are normal in appearance. ??There is no evidence of a Chiari malformation. ?? The vertebral body heights and alignment are maintained throughout the cervical, thoracic, and lumbar spine. ?? No segmentation anomalies are identified. ??The spinal cord exhibits n ormal signal intensity throughout. ??The conus terminates appropriately at the neil perior endplate of L2. ??There is no evidence of a tethered cord. ??The visua lized portion of the abdomen and retroperitoneum are normal in appearance . ??The sacrum is normally developed. Procedure Note Chance Rodriguez MD - 12/16/2010Format ting of this note might be different from the original. MRI OF THE CERVICAL, THORACIC, AND LUMBA R SPINE: CLINICAL HISTORY: Back pain with abnorma l bladder function, question tethered cord. COMPARISON: MRI of the total spine, of 0 11/09/08. TECHNIQUE: Multiplanar, multisequence MR of the cervical, thoracic, and lumbar spine was obtained without contrast. FINDINGS: The craniocervical junction an d visualized portions of the posterior fossa are normal in appearance. There is no evidence of a Chiari malformation. The vertebral body heights and alignment are maintained throughout the cervical, thoracic, and lumbar spine. No segmentation anomalies are identified. The spinal cord exhibits nor mal signal intensity throughout. The conus terminates appropriately at the neil perior endplate of L2. There is no evidence of a tethered cord. The visuali zed portion of the abdomen and retroperitoneum are normal in appearance . The sacrum is normally developed. IMPRESSION IMPRESSION: 1. Normal MRI of the cervical, thoracic, and lumbar spine. 2. No evidence of tethered cord or lipom a of the phylum. Film and interpretation reviewed by the attending Avril Galaviz MD IMG MRI ORDERABLES documented in this encounter Visit Diagnoses Not on filedocumented in this encounter Care Teams Bilingual Administrative Assistant Relationship Specialty Start Date End Date Miladis Blackmon MD PCP - General 04/12/10 11/28/21 [address] [facility] [place] [address] documented as of this encounter
== END 2021-12-13 12:31 | disposition home or self-care (01) ==
LOC: NCHCN 12:30
PROVIDERS: Visit Provider Family Medicine
DX: D22.39 Melanocytic nevi of other parts of face (principal)
CPT/HCPCS: 88305

== ENCOUNTER 2023-12-24 16:11 | Outpatient (REF) | payer MEDICAID, SELFPAY ==
[2023-12-24 21:22] LABS: TSH (W/Ref FT4) 0.78 uIU/mL (0.36-3.74)
== END 2023-12-24 16:12 | disposition home or self-care (01) ==
LOC: NCHCN 16:11
PROVIDERS: Visit Provider Family Medicine
DX: R63.5 Abnormal weight gain (principal)
CPT/HCPCS: 84443

== ENCOUNTER 2025-03-09 14:58 | Outpatient (REF) | payer MEDICAID, SELFPAY ==
--- NOTE | 2025-03-09 14:50 | PAPFT_PTH ---
PATIENT: Lottie Gaines LOC: [facility] U#:[id number] AGE/SX: 25/F ROOM: RE03/09/[address]: Destiny Lundberg NP : 2000 BED: DIS: 03/09/2025 SPEC #: [id number] RECD: 03/09/25 18:35 STATUS: AYLEEN GILLESPIE #: [id number] MEAGHAN: 03/09/25 14:[address]: Toño DOBBINS,Destiny DEPT: [facility] Cytology RECD BY: Neris Patel ENTERED: 03/09/25 18:35 SP TYPE: PAPFT OT DR: Unknown,Unknown Tissues: 1 - CX/ENDOCX FOR PAP SMEARS 2 - CX/ENDOCX FOR PAP SMEARS Procedures: PAP THIN PREP/UVM Screening Comments: [id number], RIGHT [id number], LEFT
== END 2025-03-09 14:59 | disposition home or self-care (01) ==
LOC: LBN 14:58
PROVIDERS: Visit Provider Nurse Practitioner Women's Health
DX: Z12.4 Encounter for screening for malignant neoplasm of cervix (principal)
CPT/HCPCS: 88142